=== PATIENT | female | born 1975 | race African-American/Black ===

== ENCOUNTER 2024-01-02 13:40 | Inpatient (IN) ==
--- OUTSIDE RECORDS SUMMARY | 2024-01-02 13:53 | External Medical Summary | Summary of Care ---
Author Name Unknown Organization [facility] Address [address] [place] [address] Phone [phone] Care Team Providers Care Hog Cutter Name Role Phone Janice Gutierrez MD Primary Care Provider [phone] Reason for Visit * Reason Onset Date Comments Medication Refill 12/24/2023 Encounter Details Date Type Department Care Team (Late st Contact Info) Description 12/24/2023 Refill General Internal Medicine [facility] [address] [facility] [place] [address] Janice Gutierrez MD [address] [place] [address] Moderate episode of recurrent major depressive disorder (HCC); Lumbar radiculopathy Allergies No known active allergiesdocumented as of this encounter (statuses as of 12/27/2023) Medications Medication Sig Dispensed Refills Start Date End Date Status Meclizine HCl 25 MG Oral Tablet ChewableIndications :Vertigo Take 1 Tablet by mouth 3 times a day as needed for Dizziness. 30 Tablet 1 04/12/2023 Active Meclizine HCl 25 MG Oral Tablet (Antivert) TAKE 1 TABLET BY MOUTH THREE TIMES A DAY IF NEEDED FOR DIZZINESS 30 Tablet 1 06/29/2023 Active Ondansetron HCl 4 MG Oral Tablet (Zofran) Take 1 Tablet by mouth every 6 hours as needed for Nausea. 07/08/2023 Active Ventolin HFA 108 (90 Base) MCG/ACT Inhalation Aerosol SolutionIndications :Acute bronchitis, antibiotics not indicated Inhale 2 Puffs by mouth every 4 hours as needed for Wheezing. 18 g 2 07/14/2023 Active Omeprazole 20 MG Oral Capsule Delayed Release (PriLOSEC) Take 1 Capsule by mouth in the morning. 1 hour before the first meal of the day. 90 Capsule 2 08/06/2023 Active SUMAtriptan Succinate 25 MG Oral Tablet (Imitrex)Indication s:Migraine variant Take 2 tablets at onset of migraine and one tablet every 2 hours as needed, not more than 5 tablets in 24 hours 6 Tablet 5 09/28/2023 Active Naproxen 500 MG Oral Tablet (Naprosyn) TAKE 1 TABLET BY MOUTH TWICE A DAY IF NEEDED FOR PAIN WITH FOOD 60 Tablet 1 12/01/2023 Active DULoxetine HCl 30 MG Oral Capsule Delayed Release Particles (Cymbalta)Indicatio ns:Moderate episode of recurrent major depressive disorder (HCC),Lumbar radiculopathy Take 1 Capsule by mouth in the morning and 1 Capsule before bedtime. Do not cut, crush or chew. 180 Capsule 12/03/2023 Active methylPREDNISolone 4 MG Oral Tablet Therapy Pack (Medrol Dosepack)Indication s:Lumbar radiculopathy,Lumba r degenerative disc disease follow package directions 21 Tablet 12/16/2023 Active Gabapentin 600 MG Oral Tablet (Neurontin)Indicati ons:Lumbar radiculopathy,Lumba r degenerative disc disease Take 1 Tablet by mouth in the morning and 1 Tablet at noon and 1 Tablet before bedtime. 90 Tablet 5 12/16/2023 Active Baclofen 10 MG Oral Tablet (Lioresal)Indicatio ns:Lumbar radiculopathy,Lumba r degenerative disc disease Take 1 Tablet by mouth 2 times a day as needed for Pain, Moderate. 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 Remove old patch daily Do not start before January 28, 2024. 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 14 Patch 1 12/20/2023 Active Additional Information Patient not taking.Reported on 12/27/2023 documented as of this encounter (statuses as of 12/27/2023) Active Problems Problem Noted Date Diagnosed Date Moderate episode of recurrent major depressive d isorder 07/14/2023 Food insecurity 06/21/2023 Overview: Per [facility] Protocol Hyperlipidemia with target LDL less than 100 08/2022 Migraine variant 03/18/2023 Tobacco use disorder 02/26/2010 Overview: Continue to discuss cessation at each visit 03/26: 1/2 ppd INFORMATION 02/26/2010 Overview: Pt's daughter with fibrous dysplasia-message to [facility] if she needs to be seen by them and genetic counselor- It appears that there can be some rare genetic syndromes that include fibrous dysplasia as a finding, however, when isolated, this appears to be not related to a known genetic cause and is not expected to be hereditary. If her child has a diagnosis of a syndrome, it may be beneficial to see them. If the fibrous dysplasia is isolated with no other health or developmental concerns, there is not much information we can give, besides reassurance. Unable to reach pt by phone-please discuss above recommendations at ak-pt aware-reports daughter has not been diagnosed with any syndromes associated with fibrous dysplasia documented as of this encounter (statuses as of 12/27/2023) Resolved Problems Problem Noted Date Diagnosed Date Resolved Date h/o marijuana use in 02/26/2010 03/18/2023 Overview: Pt using marijuana to increase appetite as she is not eating much due to n/v; pt aware of risks 03/26: pt has stopped use Encounter for supervision of other normal 02/18/2010 09/22/2010 Overview: Urine cx contaminated at [facility] visit Obtained 03/26-wnl Patient received flu vaccine. 04/29/2010 Dee Alfredo RN ICD-10 update of inactive term delivery delivered 02/18/2010 03/18/2023 Overview: Desires repeat c/s; pt to have records sent to our office with op notes for c/s-discussed 03/26 Pt desires tubal ligation with c/s 2) consent signed 07/09/2010 Pt is scheduled for on 09/05/[address] Padilla ICD-10 update of inactive term documented as of this encounter (statuses as of 12/27/2023) Immunizations Name Administration Dates Next Due Seasonal Influenza, Split, IIV3, With Preserve, Inj 04/29/2010 documented as of this encounter Social History Tobacco Use Types Packs/Day Years Used Date Smoking Tobacco: Every Day Cigarettes 1 30 Smokeless Tobacco: Never Alcohol Use Standard Drinks/Week Comments No 0 (1 standard drink = 0.6 oz pur e alcohol) PHQ-2 Answer Date Recorded PHQ Adult Total Score 23 04/12/2023 Hunger Vital Sign Answer Date Recorded Within the past 12 months, y ou worried that your food would run out before you got the money to buy more. Often true 05/26/20 23 Within the past 12 months, t he food you bought just didn't last and you didn't have money to get more. Often true 05/26/2023 Sex and Gender Information Value Date Recorded Sex Assigned at Female 03/08/2023 9:00 AM EDT Gender Identity Female 03/08/2023 9:00 AM EDT Sexual Orientation Not on file Job Start Date Occupation Industry Not on file Not on file Not on file documented as of this encounter Miscellaneous Notes * Telephone Encounter - Iza Hayes MD - 12/24/2023 3:50 PM EDTRefused Prescriptions: Disp Refills DULoxetine HCl 30 MG Oral Capsule Delayed *180 Ca*5 Sig: Take 1 Capsule by mouth in the morning and 1 Capsule before bedtime. Do not cut, crush or chew. Refused By: IZA HAYES Reason for Refusal: Too soon * Telephone Encounter - Iza aHyes MD - 12/24/2023 3:50 PM EDT To soon, see last prescription * Telephone Encounter - Dex Kenyon, Kira Talent - 12/24/2023 3:18 PM EDTPending Prescriptions: Disp Refills DULoxetine HCl 30 MG Oral Capsule Delayed *180 Ca*5 Sig: Take 1 Capsule by mouth in the morning and 1 Capsule before bedtime. Do not cut, crush or chew. * Telephone Encounter - Dex Kenyon Kira Talent - 12/24/2023 3:17 PM EDT Review and sign if agreeable. * Telephone Encounter - Ally Owusu, RODOLFO - 12/24/2023 11:16 AM EDT 90 day Did you pend patient's preferred pharmacy and medication before forwarding?yes Pharmacy: [id number] [facility] Pending Prescriptions: Disp Refills DULoxetine HCl 30 MG Oral Capsule Delayed*180 Ca*5 Sig: Take 1 Capsule by mouth in the morning and 1 Capsule before bedtime. Do not cut, crush or chew. Last Visit: 07/14/2023 (in office), 12/16/2023 (telemedicine) Next Visit: Visit date not found If no future appointments scheduled, and last appointment is greater than a year ago, please schedule patient for a follow-up appointment Last date the medication was ordered: 12/03/23 Is this request for a controlled substance?No Urine Drug Screen:No results found for this or any previous visit. Patient Phone Numbers Labs: Lab Results Component Value Date/Time CREAT 0.6 03/18/2023 10:56 AM POTASSIUM 4.5 03/18/2023 10:56 AM TSH 1.74 03/18/2023 10:56 AM TSH 2.12 04/29/2010 04:01 PM LDLCALC 161 (H) 03/18/2023 10:56 AM ALT 40 (H) 03/18/2023 10:56 AM ALT 4 (L) 04/29/2010 04:01 PM HGBA1C 5.8 (H) 03/18/2023 10:56 AM documented in this encounter Plan of Treatment Upcoming Encounters Date Type Department Care Team (Late st Contact Info) Description 03/24/2024 3:00 PM EDT Office Visit Orthopaedics Spine Surgery, [facility] [address] [place] [address] Jg Elder MD [address] [place] [address] [place] [address] 07/11/2024 11:20 AM EST Telemedicine Nutrition & Weight Management, [facility] [address] [address] Merari Baires PA-C [address] [place] [address] Scheduled Procedures Name Priority Associated Diagnoses Date/Ti me COLONOSCOPY FLEXIBLE PROXIMAL DIAGNOSTIC Screen for colon cancer 12/27/2023 7:55 AM EDT Health Maintenance Due Date Last Done Comments Pneumococcal Vaccine: Pediatrics (0 to 5 Years) and At-Risk Patients (6 to 64 Years) (1 of 2 - PCV) 10/19/1983 DTaP,Tdap,and Td Vaccines (1 - Tdap) 1996 Hepatitis B (1 of 3 - 19+ 3-dose series) 1996 Cologuard 2022 Fecal Occult Blood Test 2022 Sigmoidoscopy 2022 COVID-19 Vaccine (1 - 2022-2 4 season) 2023 Influenza Vaccine (FLU shot) (Season Ended) 2024 04/29/2010 Depression Monitoring 04/12/2024 04/12/2023 Mammogram 10/03/2024 10/04/2023, 04/05/2023 Diabetes Screening 03/18/2026 03/18/2023, 03/18/2023 Lipid Panel 03/18/2028 03/18/2023 Colonoscopy 12/26/2033 12/27/2023 Colorectal Cancer Screening 12/26/2033 Pap Smear Discontinued 02/26/2010 Cervical Cancer Screening Discontinued GARDASIL-HPV IMMUNIZATION SERIES Aged Out No longer eligible based on patient's age to complete this topic HPV/Co-Test Discontinued MENINGOCOCCAL (MENACTRA/MENVEO) Aged Out No longer eligible based on patient's age to complete this topic documented as of this encounter Medical Devices Not on filedocumented as of this encounter Visit Diagnoses Diagnosis Moderate episode of recurrent major depressive disorder (HCC) Lumbar radiculopathy Thoracic or lumbosacral neuritis or radiculitis, unspecified documented in this encounter Care Teams Hog Cutter Relationship Specialty Start Date End Date Janice Gutierrez MD [address] [place] [address] PCP - General Internal Medicine 09/06/23 documented as of this encounter
--- OUTSIDE RECORDS SUMMARY | 2024-01-02 13:53 | External Medical Summary | Summary of Care ---
Author Name Unknown Organization [facility] Address [address] [place] [address] Phone [phone] Care Team Providers Care Tower Supervisor Name Role Phone Janice Gutierrez MD Primary Care Provider [phone] Reason for Referral * Medication Prior Authorization - Closed Specialty Diagnoses / Procedures Referred By Contac t Referred To Contact Diagnoses Migraine variant Arabella White, [facility] [phone] [facility] [address] Referral ID Status Reason Start Date Expiration Date Visits Re quested Visits Authorized [id number] Closed 999 999 Reason for Visit * Reason Onset Date Comments Medication Refill 12/28/2023 Encounter Details Date Type Department Care Team (Late st Contact Info) Description 12/28/2023 Refill General Internal Medicine [facility] [address] [place] [address] Janice Gutierrez MD [address] [place] [address] Migraine variant Allergies No known active allergiesdocumented as of this encounter (statuses as of 12/29/2023) Medications Medication Sig Dispensed Refills Start Date End Date Status Meclizine HCl 25 MG Oral Tablet ChewableIndication s:Vertigo Take 1 Tablet by mouth 3 times [...] HFA 108 (90 Base) MCG/ACT Inhalation Aerosol SolutionIndication s:Acute bronchitis, antibiotics not indicated Inhale 2 Puffs by mouth every 4 hours as needed for Wheezing. 18 g 2 07/14/2023 Active Omeprazole 20 MG Oral Capsule Delayed Release (PriLOSEC) Take 1 Capsule by mouth in the morning. 1 hour before the first meal of the day. 90 Capsule 2 08/06/2023 Active Naproxen 500 MG Oral Tablet (Naprosyn) TAKE 1 TABLET BY MOUTH TWICE A DAY IF NEEDED FOR PAIN WITH FOOD 60 Tablet 1 12/01/2023 Active DULoxetine HCl 30 MG Oral Capsule Delayed Release Particles (Cymbalta)Indicati ons:Moderate episode of recurrent major depressive disorder (HCC),Lumbar radiculopathy Take 1 Capsule by mouth in the morning and 1 Capsule before bedtime. Do not cut, crush or chew. 180 Capsule 5 12/03/2023 Active methylPREDNISolone 4 MG Oral Tablet Therapy Pack (Medrol Dosepack)Indicatio ns:Lumbar radiculopathy,Lumb ar degenerative disc disease follow package directions 21 Tablet 12/16/2023 Active Gabapentin 600 MG Oral Tablet (Neurontin)Indicat ions:Lumbar radiculopathy,Lumb ar degenerative disc disease Take 1 Tablet by mouth in the morning and 1 Tablet at noon and 1 Tablet before bedtime. 90 Tablet 5 12/16/2023 Active Baclofen 10 MG Oral Tablet (Lioresal)Indicati ons:Lumbar radiculopathy,Lumb ar degenerative disc disease Take 1 Tablet by mouth 2 times a day as needed for Pain, Moderate. 20 Tablet 12/16/2023 Active Nicotine 21 MG/24HR Transdermal Patch 24 Hour (Nicoderm CQ)Indications:Tob acco use 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 Remove old patch daily 42 Patch 1 12/20/2023 Active Nicotine 14 MG/24HR Transdermal Patch 24 Hour (Nicoderm CQ)Indications:Tob acco use disorder One 14 mg patch daily for 2 wks; then one 7 mg patch daily for 2 wks. Remove old patch daily Do not start before January 28, 2024. 14 Patch 2 01/28/2024 4 Active Additional Information Patient not taking.Reported on 12/27/2023 Nicotine 7 MG/24HR Transdermal Patch 24 Hour (Nicoderm CQ)Indications:Tob acco use disorder One 7 mg patch daily for 2 weeks; Remove old patch daily; and then stop. 14 Patch 1 12/20/2023 Active Additional Information Patient not taking.Reported on 12/27/2023 SUMAtriptan Succinate 25 MG Oral Tablet (Imitrex)Indicatio ns:Migraine variant Take 2 tablets at onset of migraine and one tablet every 2 hours as needed, not more than 5 tablets in 24 hours 6 Tablet 5 12/29/2023 Active SUMAtriptan Succinate 25 MG Oral Tablet (Imitrex)Indicatio ns:Migraine variant Take 2 tablets at onset of migraine and one tablet every 2 hours as needed, not more than 5 tablets in 24 hours 6 Tablet 5 09/28/2023 4 Discontinu ed(Refill) documented as of this encounter (statuses as of 12/29/2023) Active Problems Problem Noted Date Diagnosed Date Moderate episode of recurrent major depressive d isorder 07/14/2023 Food insecurity 06/21/2023 Overview: Per [facility] Protocol Hyperlipidemia with target LDL less than 100 08/2022 Migraine variant 03/18/2023 Tobacco use disorder 02/26/2010 Overview: Continue to discuss cessation at each visit 03/26: 1/2 ppd INFORMATION 02/26/2010 Overview: Pt's daughter with fibrous dysplasia-message to [facility] if she needs to be seen [...] pt by phone-please discuss above recommendations at nv-pt aware-reports daughter has not been diagnosed with any syndromes associated with fibrous dysplasia documented as of this encounter (statuses as of 12/29/2023) Resolved Problems Problem Noted Date Diagnosed Date [...] as of this encounter (statuses as of 12/29/2023) Immunizations Name Administration Dates Next Due Seasonal [...] money to get more. Often true 05/26/2023 Childcare Answer Date Recorded Do you feel overwhelmed with taking care of a child, family member or friend? Yes 05/26/2023 Does your family need help f inding childcare? (Household - for ages 0-17 years) Not on file 05/26/2023 Clothing Answer Date Recorded Have you been unable to get clothing when it was really needed? Yes 05/26/2023 Is your family able to get c lothes or diapers when needed? (Household - for ages 0-17 years) Not on file 05/26/2023 Personal Safety Answer Date Recorded Do you feel unsafe or have concerns for your saf ety? No 05/26/2023 Do you have concerns for you r family's safety? (Household - for ages 0-17 years) Not on file 05/26/2023 Utilities Answer Date Recorded Do you have trouble paying y our heating, water, or electric bill? Yes 05/26/2023 Is your family able to pay t he heat, water, or electric bill? (Household - for ages 0-17 years) Not on file 05/26/2023 Does your family have access to good internet? (Household - for ages 0-17 years) Not on file 05/26/2023 Employment Status Answer Date Recorded Are you unemployed or without regular income? Ye s 05/26/2023 Does the household have a re gular source of income? (Household - for ages 0-17 years) Not on file 05/26/2023 Social Connections Answer Date Recorded How often do you feel lonely or isolated from th ose around you? Often 05/26/2023 Financial Resource Strain Answer Date R ecorded Do you have any trouble payi ng for your medications, or do you think you might in the future? No 05/26/2023 Does your family have troubl e paying for medicine? (Household - for ages 0-17 years) Not on file 05/26/2023 Transportation Needs Answer Date Record ed READ ONLY Do you have troubl e getting a ride to medical visits or work? Sometimes True 05/26/2023 Does your family have a hard time getting a ride to doctors visits? (Household - for ages 0-17 years) Not on file 05/26/2023 Has lack of transportation k ept you from medical appointments, meetings, work, or from getting things needed for daily living? Check all that apply. (Adult - for ages 18 years and over) Not on file 05/26/2023 Do you (or your family) have trouble finding or paying for a ride (transportation)? (Household - for ages 0-17 years) Not on file 05/26/2023 Housing Stability Answer Date Recorded Do you currently live in a s helter or have no steady place to sleep at night? No 05/26/2023 READ ONLY Do you think you a re at risk of becoming homeless? No 05/26/2023 Does your family worry about paying for your home or becoming homeless? (Household - for ages 0-17 years) Not on file 1 07/26/2022 Are you homeless or worried that you might be in the future? (Adult - for ages 18 years and over) Not on file Are you (or your family) nicole eless or worried that you might be in the future? (Household - for ages 0-17 years) Not on file Food Insecurity Answer Date Recorded Do you need food for this week? Yes 05/26/2023 Are you able to get enough f ood for your family? (Household - for ages 0-17 years) Not on file 05/26/2023 Does your family need food t his week? (Household - for ages 0-17 years) Not on file 05/26/2023 Do you always have enough fo od for your family? (Household - for ages 0-17 years) Not on file 05/26/2023 Sex and Gender Information Value Date Recorded Sex Assigned at Female 03/08/2023 9:00 AM EDT Gender Identity Female 03/08/2023 9:00 AM EDT Sexual Orientation Not on file Job Start Date Occupation Industry Not on file Not on file Not on file documented as of this encounter Miscellaneous Notes * Telephone Encounter - Arabella White [facility] - 12/29/2023 8:52 AM EDTSigned Prescriptions: Disp Refills SUMAtriptan Succinate 25 MG Oral Tablet (I*6 Tabl*5 Sig: Take 2 tablets at onset of migraine and one tablet every 2 hours as needed, not more than 5 tablets in 24 hoursAuthorizing Provider: Janna GUTIERREZ User: ARABELLA WHITE documented in this encounter Plan of Treatment Upcoming Encounters Date Type Department Care Team (Late st Contact Info) Description 03/24/2024 3:00 PM EDT Office Visit Orthopaedics Spine Surgery, [facility] [address] [place] [address] Jg Elder MD [address] [place] [address] [place] [address] 07/11/2024 11:20 AM EST Telemedicine Nutrition & Weight Management, [facility] [address] [place] [address] Merari Baires PA-C [address] [place] [address] Health Maintenance Due Date Last Done Comments [...] 03/18/2023 Lipid Panel 03/18/2028 03/18/2023 Colonoscopy 12/26/2033 12/27/2023, 12/27/2023 Colorectal Cancer Screening 12/26/2033 Pap Smear Discontinued 02/26/2010 Cervical Cancer Screening Discontinued GARDASIL-HPV IMMUNIZATION SERIES Aged Out No longer eligible based on patient's age to complete this topic HPV/Co-Test Discontinued MENINGOCOCCAL (MENACTRA/MENVEO) Aged Out No longer eligible based on patient's age to complete this topic documented as of this encounter Medical Devices Not on filedocumented as of this encounter Visit Diagnoses Diagnosis Migraine variant Variants of migraine, not elsewhere classified, without mention of intractable migraine without mention of status migrainosus documented in this encounter Care Teams Tower Supervisor Relationship Specialty Start Date End Date Janice Gutierrez MD [address] [place] [id number] PCP - General Internal Medicine 09/06/23 documented as of this encounter
--- OUTSIDE RECORDS SUMMARY | 2024-01-02 13:53 | External Medical Summary | Summary of Care ---
Author Name Unknown Organization [facility] Address [address] [place] [address] Phone [phone] Care Team Providers Care Fourdrinier Tender Name Role Phone Janice Gutierrez MD Primary Care Provider [phone] Reason for Visit * Reason Onset Date Comments Medication Refill 12/28/2023 Encounter Details Date Type Department Care Team (Late st Contact Info) Description 12/28/2023 Refill General Internal Medicine [facility] [address] [facility] [place] [address] Janice Gutierrez MD [address] [place] [address] Lumbar radiculopathy; Lumbar degenerative disc disease; Moderate episode of recurrent major depressive disorder (HCC) Allergies No known active allergiesdocumented as of [...] before bedtime. 90 Tablet 5 12/16/2023 Active Nicotine 21 MG/24HR Transdermal Patch [...] Additional Information Patient not taking.Reported on 12/27/2023 Baclofen 10 MG Oral Tablet (Lioresal)Indicati ons:Lumbar radiculopathy,Lumb ar degenerative disc disease Take 1 Tablet by mouth 2 times a day as needed for Pain, Moderate. 20 Tablet 12/29/2023 Active SUMAtriptan Succinate 25 MG Oral Tablet (Imitrex)Indicatio ns:Migraine variant Take 2 tablets at onset of migraine and one tablet every 2 hours as needed, not more than 5 tablets in 24 hours 6 Tablet 5 09/28/2023 4 Discontinu ed(Refill) Baclofen 10 MG Oral Tablet (Lioresal)Indicati ons:Lumbar radiculopathy,Lumb ar degenerative disc disease Take 1 Tablet by mouth 2 times a day as needed for Pain, Moderate. 20 Tablet 12/16/2023 4 Discontinu ed(Refill) documented as of this encounter (statuses as of 12/29/2023) Active Problems Problem Noted Date Diagnosed Date Moderate episode of recurrent major depressive d isorder 07/14/2023 Food insecurity 06/21/2023 Overview: Per [facility] Protocol Hyperlipidemia with target LDL less than 100 08/2022 Migraine variant 03/18/2023 Tobacco use disorder 02/26/2010 Overview: Continue to discuss cessation at each visit 03/26: 1/2 ppd INFORMATION 02/26/2010 Overview: Pt's daughter with fibrous dysplasia-message to [facility] if she needs to be seen [...] pt by phone-please discuss above recommendations at vt-pt aware-reports daughter has not been diagnosed with [...] encounter Miscellaneous Notes * Telephone Encounter - Ricki Andrea MD - 12/29/2023 1:17 PM EDTSigned Prescriptions: Disp Refills Baclofen 10 MG Oral Tablet (Lioresal) 20 Tab*0 Sig: Take 1 Tablet by mouth 2 times a day as needed for Pain, Moderate. Authorizing Provider: RICKI ANDREA Refused Prescriptions: Disp Refills DULoxetine HCl 30 MG Oral Capsule Delayed *180 Ca*5 Sig: Take 1 Capsule by mouth in the morning and 1 Capsule before bedtime. Do not cut, crush or chew. Refused By: MEHDI WHITE Reason for Refusal: Too soon * Telephone Encounter - Mehdi White [facility] - 12/29/2023 8:44 AM EDTPending Prescriptions: Disp Refills Baclofen 10 MG Oral Tablet (Lioresal) 20 Tab*0 Sig: Take 1 Tablet by mouth 2 times a day as needed for Pain, Moderate. Refused Prescriptions: Disp Refills DULoxetine HCl 30 MG Oral Capsule Delayed *180 Ca*5 Sig: Take 1 Capsule by mouth in the morning and 1 Capsule before bedtime. Do not cut, cru sh or chew. Refused By: MEHDI WHITE Reason for Refusal: Too soon * Telephone Encounter - Dex Kenyon ED01 - 12/28/2023 1:18 PM EDTPending Prescriptions: Disp Refills Baclofen 10 MG Oral Tablet (Lioresal) 20 Tab*0 Sig: Take 1 Tablet by mouth 2 times a day as needed for Pain, Moderate. DULoxetine HCl 30 MG Oral Capsule Delayed *180 Ca*5 Sig: Take 1 Capsule by mouth in the morning and 1 Capsule before bedtime. Do not cut, crush or chew. * Telephone Encounter - Dex Kenyon, ED01 - 12/28/2023 1:18 PM EDT Review and sign if agreeable. * Telephone Encounter - Ally Owusu OSA - 12/28/2023 11:25 AM EDT 90 day Did you pend patient's preferred pharmacy and medication before forwarding?yes Pharmacy: [id number] [facility] Pending Prescriptions: Disp Refills Baclofen 10 MG Oral Tablet (Lioresal) 20 Tab*0 Sig: Take 1 Tablet by mouth 2 times a day as needed for Pain, Moderate. DULoxetine HCl 30 MG Oral Capsule Delayed*180 [...] appointment Last date the medication was ordered: 12/16/23, 12/03/23 Is this request for a controlled [...] PM EDT Office Visit Orthopaedics Spine Surgery, [facility] [address] [place] [address] Jg Elder MD [address] [place] [address] 07/11/2024 11:20 AM EST Telemedicine Nutrition & Weight Management, [facility] [address] [place] [address] Merari Baires PA-C [address] [place] [address] Health Maintenance Due Date Last Done Comments [...] as of this encounter Visit Diagnoses Diagnosis Lumbar radiculopathy Thoracic or lumbosacral neuritis or radiculitis, unspecified Lumbar degenerative disc disease Degeneration of lumbar or lumbosacral intervertebral disc Moderate episode of recurrent major depressive disorder (HCC) documented in this encounter Care Teams Fourdrinier Tender Relationship Specialty Start Date End Date Janice Gutierrez MD [address] [facility] [place] [address] PCP - General Internal Medicine 09/06/23 documented as of this encounter
--- OUTSIDE RECORDS SUMMARY | 2024-01-02 13:53 | External Medical Summary | Summary of Care ---
Author Name Unknown Organization [facility] Address [address] [place] [address] Phone [phone] Care Team Providers Care Cap Jewel Plate Assembler Name Role Phone Janice Gutierrez MD Primary Care Provider [phone] Reason for Visit * Auth/Cert Specialty Diagnoses / Procedures Referred By Jaime terry Referred To Contact Diagnoses Screen for colon cancer Screen for colon cancer [Z12.11] Procedures COLONOSCOPY, DIAGNOSTIC (RECTUM) COLONOSCOPY FLEXIBLE PROXIMAL DIAGNOSTIC Avi Miranda MD [employer] [place] [address] [facility] [address] [employer] [place] [address] Referral ID Status Reason Start Date Expiration Date Visits Re quested Visits Authorized [id number] Encounter Details Date Type Department Care Team (Latest Contact Info) Description 12/27/2023 6:57 AM EDT - 12/27/2023 8:47 AM EDT Hospital Encounter [facility], Endoscopy Room [facility] [address] [place] [phone] Avi Miranda MD [address] [place] [address] Colonoscopy Discharge Disposition: Home - Self Care Allergies No known active allergiesdocumented as of [...] MG/24HR Transdermal Patch 24 Hour (Nicoderm CQ)Indications:[employer]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 Remove old patch daily 42 Patch 1 12/20/2023 01/28/2024 Active documented as of this encounter (statuses as of 12/27/2023) Active Problems Problem Noted Date Diagnosed Date Moderate episode of recurrent major depressive d isorder 07/14/2023 Food insecurity 06/21/2023 Overview: Per [facility] Protocol Hyperlipidemia with target LDL less than 100 08/2022 Migraine variant 03/18/2023 Tobacco use disorder 02/26/2010 Overview: Continue to discuss cessation at each visit 03/26: 1/2 ppd INFORMATION 02/26/2010 Overview: Pt's daughter with fibrous dysplasia-message to [facility] if she needs to be seen [...] pt by phone-please discuss above recommendations at mi-pt aware-reports daughter has not been diagnosed with [...] on file documented as of this encounter Last Filed Vital Signs Vital Sign Reading Time Taken Comments Blood Pressure 127/62 12/27/2023 8:36 AM EDT Pulse 69 12/27/2023 8:36 AM EDT Temperature 36.2 C (97.1 F) 12/27/2023 8:36 AM ED T Respiratory Rate 16 12/27/2023 8:36 AM EDT Oxygen Saturation 96% 12/27/2023 8:36 AM EDT Inhaled Oxygen Concentration - - Weight 107 kg (236 lb) 12/27/2023 7:18 AM EDT Height 167.6 cm (5' 5.98") 12/27/2023 7:18 AM ED T Body Mass Index 38.11 12/27/2023 7:18 AM EDT documented in this encounter H&P Notes * Avi Miranda MD - 12/27/2023 7:43 AM EDT Endoscopy Pre-Procedure Assessment Name: Keyona Santos Date: 12/27/2023 Time: 7:43 AM Procedure: Colonoscopy; with Indication(s) of average risk screening Endoscopy Pre-Procedure Assessment: Prior to the procedure, the patient was identified. The patient's history, medications and allergies were reviewed as per the Anesthesia Assessment. The patient is competent. The risks and benefits of the proposed procedure and the planned sedation were discussed with the patient. All questions were answered and informed consent for the procedure was obtained. This patient has undergone a preprocedural evaluation. A determination has been made to proceed with the planned procedure under [facility] procedural guidelines and the [facility] Non-Emergent, Elective Medical Services and Treatment Recommendations (published on 10-17-19). The community and hospital prevalence of COVID-19 has been discussed as well as this patient's specific risks associated with SARS-CoV-19 infection. Based upon the clinical acuity and patient-specific care considerations, this procedure is deemed a Tier II - Intermediate acuity treatment or service with either progression or the threat of progressive disease related to the delay in treatment. Not providing the service has the potential for increasing morbidity or mortality. BP 132/79 | Pulse 82 | Temp 36.7 C (98 F) (Tympanic) | Resp 18 | Ht 1.676 m (5' 5.98") | Wt 107kg (236 lb) | SpO2 96% | BMI 38.11 kg/m | BSA 2.23 m Prior to Admission medications Medication Sig Last Dose Discont. Nicotine 21 MG/24HR Transdermal Patch 24 Hour (Nicoderm CQ) One 21 mg patch daily for 6 wks; then one 14 mg patch daily for 2 wks; then one 7 mg patch daily for 2 wks. Remove old patch daily 12/26/2023 Baclofen 10 MG Oral Tablet (Lioresal) Take 1 Tablet by mouth 2 times a day as needed for Pain, Moderate. Past Week Gabapentin 600 MG Oral Tablet (Neurontin) Take 1 Tablet by mouth in the morning and 1 Tablet at noon and 1 Tablet before bedtime. 12/27/2023 methylPREDNISolone 4 MG Oral Tablet Therapy Pack (Medrol Dosepack) follow package directions Past Week DULoxetine HCl 30 MG Oral Capsule Delayed Release Particles (Cymbalta) Take 1 Capsule by mouth in the morning and 1 Capsule before bedtime. Do not cut, crush or chew. 12/27/2023 Naproxen 500 MG Oral Tablet (Naprosyn) TAKE 1 TABLET BY MOUTH TWICE A DAY IF NEEDED FOR PAIN WITH FOOD Past Week SUMAtriptan Succinate 25 MG Oral Tablet (Imitrex) Take 2 tablets at onset of migraine and one tablet every 2 hours as needed, not more than 5 tablets in 24 hours Past Month Omeprazole 20 MG Oral Capsule Delayed Release (PriLOSEC) Take 1 Capsule by mouth in the morning. 1 hour before the first meal of the day. 12/27/2023 Nicotine 14 MG/24HR Transdermal Patch 24 Hour (Nicoderm CQ) One 14 mg patch daily for 2 wks; then one 7 mg patch daily for 2 wks. Remove old patch daily Do not start before January 28, 2024. Patient not taking: Reported on 12/27/2023 Do not start before January 28, 2024. Not Taking Nicotine 7 MG/24HR Transdermal Patch 24 Hour (Nicoderm CQ) One 7 mg patch daily for 2 weeks; Removeold patch daily; and then stop. Patient not taking: Reported on 12/27/2023 Not Taking Ondansetron HCl 4 MG Oral Tablet (Zofran) Take 1 Tablet by mouth every 6 hours as needed for Nausea. Over 30 Days Ventolin HFA 108 (90 Base) MCG/ACT Inhalation Aerosol Solution Inhale 2 Puffs by mouth every 4 hours as needed for Wheezing. Over 30 Days Meclizine HCl 25 MG Oral Tablet (Antivert) TAKE 1 TABLET BY MOUTH THREE TIMES A DAY IF NEEDED FOR DIZZINESS Over 30 Days Meclizine HCl 25 MG Oral Tablet Chewable Take 1 Tablet by mouth 3 times a day as needed for Dizziness. Over 30 Days Review of patient's allergies indicates: No Known Allergies Physical Exam: Mental Status Examination: alert and oriented. General: nad, calm Airway Examination: normal oropharyngeal airway and neck mobility. CV: no JVD Respiratory Examination: symmetrical excursion Abd:soft/ntd ASA Grade: III - A patient with severe systemic disease. After reviewing the risks and benefits, the patient was deemed in satisfactory condition to undergothe procedure. The anesthesia plan was to use general anesthesia. Avi Miranda MD 12/27/2023 documented in this encounter Procedure Notes * Janice Gutierrez MD - 12/27/2023 7:51 AM EDTAssociated Order(s): COLONOSCOPY [facility] Patient Name: Keyona Santos Procedure Date: 12/27/2023 7:51 AM Date of : 1975 Admit Type: Outpatient Note Status: Finalized Date of : 1975 Admit Type: Outpatient Age: 48 Room: Endo 2 Gender: Female Note Status: Finalized Procedure: Colonoscopy Indications: Screening for colorectal malignant neoplasm Providers: Avi Miranda MD (Doctor) Referring MD: Janice Gutierrez MD (Referring MD) Medicines: Propofol per Anesthesia Complications: No immediate complications. Estimated blood loss: None. Procedure: Pre-Anesthesia Assessment: - - Prior to the procedure, a History and Physical was performed, patient medications, allergies and sensitivities were reviewed. The patient's tolerance of previous anesthesia was reviewed. See [facility] for further details. - The risks, benefits, and alternatives of the procedure including the sedation options and risks were discussed with the patient. All questions were answered and informed consent was obtained. - Patient identification and proposed procedure were verified prior to the procedure by the physician and the nurse. The procedure was verified in the procedure room. - See [facility] for documentation of the pre-procedure assessment including ASA status. - After I obtained informed consent, the scope was carefully and meticulously passed under direct vision only when the lumen was definitively identified. CO2 insufflation was utilized throughout the entire procedure exclusively. After I obtained informed consent, the scope was passed under direct vision. All instruments were visually inspected immediately before and after removal from the patient to ensure they are fully intact. Throughout the procedure, the patient's blood pressure, pulse, and oxygen saturations were monitored continuously. The colonoscopy was performed without difficulty. The patient tolerated the procedure well. The quality of the bowel preparation was good. The CF-[id number] Colonoscope ([id number]) was introduced through the anus and advanced to the cecum, identified by appendiceal orifice and ileocecal valve. Findings & Specimens: The terminal ileum appeared normal. A 4 mm polyp was found in the descending colon. The polyp was sessile. The polyp was removed with a cold snare. Resection and retrieval were complete. The pathology specimen was placed into Bottle Number 1. A 1 mm polyp was found in the sigmoid colon. The polyp was sessile. The polyp was removed with a jumbo cold forceps. Resection and retrieval were complete. The pathology specimen was placed into Bottle Number 2. Internal hemorrhoids were found during retroflexion. Multiple medium-mouthed diverticula were found in the sigmoid colon. The exam was otherwise without abnormality on direct and retroflexion views. Impression: - The examined portion of the ileum was normal. - One 4 mm polyp in the descending colon, removed with a cold snare. Resected and retrieved. - One 1 mm polyp in the sigmoid colon, removed with a jumbo cold forceps. Resected and retrieved. - Internal hemorrhoids. - Diverticulosis in the sigmoid colon. - The examination was otherwise normal on direct and retroflexion views. Recommendation: - Discharge patient to home (with escort). - Repeat colonoscopy in 5 years for surveillance based on pathology results. - Return to referring physician as previously scheduled. - Patient has a contact number available for emergencies. The signs and symptoms of potential delayed complications were discussed with the patient. Return to normal activities tomorrow. Written discharge instructions were provided to the patient. Avi Miranda MD 12/27/2023 8:21:46 AM This report has been signed electronically. documented in this encounter Nursing Notes * Guerda Prescott RN - 12/27/2023 8:46 AM EDT Patient is alert, pain free, passing flatus and tolerating po fluids prior to discharge. Patient has been visited by Dr. Miranda. Patient has received and demonstrates understanding of discharge instructions. Patient ambulates to private auto accompanied by endo staff. * Teto Werner RN - 12/27/2023 8:22 AM EDT Specimen(s) and location(s) verified with physician post procedure 8:22 AM Teto Werner RNMid abdominal pressure given per Dr. Miranda to assist with scope advancement. Pt tolerated well See anesthesia record for medication administered during procedure. Teto Werner RN Pre cleaning of scope at the bedside started by air conditioning service technician. * Guerda Prescott RN - 12/27/2023 8:21 AM EDT Patient transferred to post endo s/p colonoscopy. Patient awake and responding appropriately Respirations are even and unlabored on room air. NSR in the 70s on the monitor. Abdomen soft and non distended. Vital signs stable. * Doris Martínez RN - 12/27/2023 7:17 AM EDT The following pt discharge instructions reviewed with pt prior to prodedure: No driving today. No alcohol today. No signing of legal documents. Rest as much as possible today and can return to normal activities tomorrow. No operating any heavy equipment today. Diet as tolerated. Pt verbalized understanding. * Doris Martínez RN - 12/27/2023 7:09 AM EDT Patient does not meet criteria for testing. Patient s/p hysterectomy. documented in this encounter Plan of Treatment Upcoming Encounters Date Type Department Care Team (Late st Contact Info) Description 03/24/2024 3:00 PM EDT Office Visit Orthopaedics Spine Surgery, [address] [place] [address] Jg Elder MD [address] [place] [address] 07/11/2024 11:20 AM EST Telemedicine Nutrition & Weight Management, [facility] [address] [place] [address] Merari Biares PA-C [address] [place] [address] Pending Results Name Type Priority Associated Diagnoses Date /Time SURGICAL PATHOLOGY Pathology Routine Screen for colon cancer 12/27/2023 8:20 AM EDT Scheduled Orders Name Type Priority Associated Diagnoses Orde r Schedule SURGICAL PATHOLOGY Pathology Routine Screen for colon cancer Release Upon Ordering for 1 Occurrences starting 12/27/2023, 1 completed Scheduled Procedures Name Priority Associated Diagnoses Date/Ti [...] Not on filedocumented as of this encounter Procedures Procedure Name Priority Date/Time Associated Diagnosis Comments COLONOSCOPY 12/27/2023 7:51 AM EDT documented in this encounter Results * COLONOSCOPY (12/27/2023 7:51 AM EDT) 12/27/2023 7:51 AM EDT Narrative Procedure Note Janice Gutierrez MD - 12/27/2023 7:51 AM EDT [facility] Patient Name: Kyeona Santos Procedure Date: 12/27/2023 7:51 AM Date of : 1975 Admit Type: Outpatient Note Status:Finalized Date of : 1975 Admit Type: Outpatient Age: 48 Room: Endo 2 Gender: Female Note Status: Finalized Procedure: Colonoscopy Indications: Screening for colorectal malignant neoplasm Providers: Avi Miranda MD (Doctor) Referring MD: Janice Gutierrez MD (Referring MD) Medicines: Propofol per Anesthesia Complications: No immediate complications. Estimated blood loss:None. Procedure: Pre-Anesthesia Assessment: - - Prior to the procedure, a History and Physicalwas performed, patient medications, allergies and sensitivities were reviewed. Thepatient's tolerance of previous anesthesia was reviewed. See [facility] for furtherdetails. - The risks, benefits, and alternatives of theprocedure including the sedation options and risks were discussed with the patient.All questions were answered and informed consent was obtained. - Patient identification and proposed procedurewere verified prior to the procedure by the physician and the nurse. The procedure wasverified in the procedure room. - See [facility] for documentation of the pre-procedureassessment including ASA status. - After I obtained informed consent, the scope wascarefully and meticulously passed under direct vision only when the lumen wasdefinitively identified. CO2 insufflation was utilized throughout the entire procedureexclusively. After I obtained informed consent, the scope waspassed under direct vision. All instruments were visually inspected immediatelybefore and after removal from the patient to ensure they are fully intact. Throughout the procedure, the patient's bloodpressure, pulse, and oxygen saturations were monitored continuously. The colonoscopy wasperformed without difficulty. The patient tolerated the procedure well. The qualityof the bowel preparation was good. The CF-[id number] Colonoscope ([id number]) was introducedthrough the anus and advanced to the cecum, identified by appendiceal orifice andileocecal valve. Findings & Specimens: The terminal ileum appeared normal. A 4 mm polyp was found in the descending colon. The polyp wassessile. The polyp was removed with a cold snare. Resection and retrieval were complete. The pathologyspecimen was placed into Bottle Number 1. A 1 mm polyp was found in the sigmoid colon. The polyp was sessile.The polyp was removed with a jumbo cold forceps. Resection and retrieval were complete. The pathologyspecimen was placed into Bottle Number 2. Internal hemorrhoids were found during retroflexion. Multiple medium-mouthed diverticula were found in the sigmoidcolon. The exam was otherwise without abnormality on direct and retroflexionviews. Impression: - The examined portion of the ileum was normal. - One 4 mm polyp in the descending colon, removedwith a cold snare. Resected and retrieved. - One 1 mm polyp in the sigmoid colon, removed witha jumbo cold forceps. Resected and retrieved. - Internal hemorrhoids. - Diverticulosis in the sigmoid colon. - The examination was otherwise normal on directand retroflexion views. Recommendation: - Discharge patient to home (with escort). - Repeat colonoscopy in 5 years for surveillancebased on pathology results. - Return to referring physician as previouslyscheduled. - [facility] The signs and symptoms of potential delayed complications were discussed withthe patient. Return to normal activities tomorrow. Written discharge instructionswere provided to the patient. Avi Miranda MD 12/27/2023 8:21:46 AM This report has been signed electronically. Janice Gutierrez MD [facility] documented in this encounter Visit Diagnoses Diagnosis Screen for colon cancer Special screening for malignant neoplasms, colon documented in this encounter Administered Medications Inactive Administered Medications - up to 3 most recent administrations Medication Order MAR Action Action Date Dose Rate Site isolyte-S pH 7.4 infusion Intravenous, at 100 mL/hr, Plasma-LYTE 148, isolyte-S, and isolyte-S pH 7.4 are considered equivalent - including for MAR barcode scanning., CONTINUOUS, Starting on Wed12/27/23 at 0745, Until Wed12/27/23 at 1247, Pre-Op Restarted 12/27/2023 8:10 AM EDT Continue from Pre-Op 12/27/2023 7:53 AM EDT 100 mL/hr New Bag 12/27/2023 7:20 AM EDT 100 mL/hr documented in this encounter Active and Recently Administered Medications Times are shown in EDT. Continuous Medication Order 12/25/2023 12/26/2023 12/27/2023 isolyte-S pH 7.4 infusion Intravenous, at 100 mL/hr, Plasma-LYTE 148, isolyte-S, and isolyte-S pH 7.4 are considered equivalent - including for MAR barcode scanning., CONTINUOUS, Starting on Wed12/27/23 at 0745, Until Wed12/27/23 at 1247, Pre-Op 0720 (New Bag - Prov ider: Doris Martínze RN)0753 (Continue from Pre-Op - Provider: Olena Mccoy CRNA)0809 (Paused - Provider: Olean Mccoy CRNA - Comment: Switch to gravity)0810 (Restarted - Provider: Olena Mccoy CRNA) documented in this encounter Care Teams Cap Jewel Plate Assembler Relationship Specialty Start Date End Date Janice Gutierrez MD [address] [place] [address] PCP - General Internal Medicine 09/06/23 documented as of this encounter
--- OUTSIDE RECORDS SUMMARY | 2024-01-02 13:53 | External Medical Summary | Summary of Care ---
Author Name Unknown Organization [facility] Address [address] [place] [address] Phone [phone] Care Team Providers Care Salon Stylist Name Role Phone Janice Gutierrez MD Primary Care Provider [phone] Reason for Visit * Reason Comments Follow Up Encounter Details Date Type Department Care Team (Late st Contact Info) Description 12/16/2023 5:00 PM EDT Telemedicine General Internal Medicine [facility] [address] [facility] [place] [address] Janice Gutirerez MD 200 [place] [address] Lumbar radiculopathy*; Lumbar degenerative disc disease; Moderate episode of recurrent major depressive disorder (HCC); Tobacco use disorder; Hyperlipidemia with target LDL less than 100; Migraine variant Allergies No known active allergiesdocumented as of this encounter (statuses as of 01/02/2024) Medications Medication Sig Dispensed Refills Start Date [...] before bedtime. 90 Tablet 5 12/16/2023 Active SUMAtriptan Succinate 25 MG Oral Tablet (Imitrex)Indicatio ns:Migraine variant Take 2 tablets at onset of migraine and one tablet every 2 hours as needed, not more than 5 tablets in 24 hours 6 Tablet 5 09/28/2023 4 Discontinue d(Refill) tiZANidine HCl 2 MG Oral Tablet (Zanaflex)Indicati ons:Chronic radicular lumbar pain,DDD (degenerative disc disease), lumbar,Lumbosacral radiculopathy at L4 TAKE 1-2 TABLETS BY MOUTH AT NIGHT NEEDED FOR PAIN OR MUSCLE SPASM AND TIGHTNESS 60 Tablet 1 2023 4 Discontinue d(Medicatio n/Dose Changed) Gabapentin 400 MG Oral Capsule (Neurontin) Take 1 Capsule by mouth in the morning and 1 Capsule at noon and 1 Capsule before bedtime. 90 Capsule 5 10/19/2023 4 Discontinue d(Medicatio n/Dose Changed) Baclofen 10 MG Oral Tablet (Lioresal)Indicati ons:Lumbar radiculopathy,Lumb ar degenerative disc disease Take 1 Tablet by mouth 2 times a day as needed for Pain, Moderate. 20 Tablet 12/16/2023 4 Discontinue d(Refill) documented as of this encounter (statuses as of 01/02/2024) Active Problems Problem Noted Date Diagnosed Date Moderate episode of recurrent major depressive d isorder 07/14/2023 Food insecurity 06/21/2023 Overview: Per [facility] Protocol Hyperlipidemia with target LDL less than 100 08/2022 Migraine variant 03/18/2023 Tobacco use disorder 02/26/2010 Overview: Continue to discuss cessation at each visit 03/26: 1/2 ppd INFORMATION 02/26/2010 Overview: Pt's daughter with fibrous dysplasia-message to [facility] if she needs to be seen [...] pt by phone-please discuss above recommendations at tn-pt aware-reports daughter has not been diagnosed with any syndromes associated with fibrous dysplasia documented as of this encounter (statuses as of 01/02/2024) Resolved Problems Problem Noted Date Diagnosed Date Resolved Date h/o marijuana use in 02/26/2010 03/18/2023 Overview: Pt using marijuana to increase appetite as she is not eating much due to n/v; pt aware of risks 03/26: pt has stopped use Encounter for supervision of other normal 02/18/2010 09/22/2010 Overview: Urine cx contaminated at NOB visit Obtained 03/26-wnl Patient received flu vaccine. 04/29/2010 Dee E Park, RN ICD-10 update of inactive term delivery delivered 02/18/2010 03/18/2023 Overview: Desires repeat c/s; pt to have records sent to our office with op notes for c/s-discussed 03/26 Pt desires tubal ligation with c/s 2) consent signed 07/09/2010 Pt is scheduled for on 09/05/[address] Padilla ICD-10 update of inactive term documented as of this encounter (statuses as of 01/02/2024) Immunizations Name Administration Dates Next Due Seasonal [...] on file documented as of this encounter Progress Notes * Janice Gutierrez MD - 12/16/2023 5:12 PM EDT Images from the original note were not included. History of Present Illness Keyona Santos is a 48 year old female that presents for Follow Up 47 year old YOfemale with PMH significant for HLD, depression, obesity , lumbar ddd with radiculopathy presents here for recheck. Acute concern :- -She wanted to discuss her medication and what else she can do for the pain she is having. Pain in low back radiating to her buttock and thigh . Some numbness and tingling . Hard to sit for for a long nor stand or walk. Already seen by pain clinic and had shot which didn't help and has ortho spine appoint soon - hard to keep her job now as been calling off work due to pain and she can't imagine not having job to feed family . So far cymbalta and gabapentin nor helpful or not enough -some left sided weakness as well but no change in bladder or bowel Interimmedical history : been to Watching diet and exercise : diet good but exercise not due to pain Routine labs : uptodate Routine HM : declined Chronic medical problem: reviewed and stable Physical Exam There were no vitals filed for this visit. Physical Exam Vitals reviewed: exam done with the help of patient and may not be accurate due to video quality. Constitutional: Appearance: Normal appearance. She is normal weight. HENT: Head: Normocephalic. Pulmonary: Effort: No respiratory distress. Musculoskeletal: General: Tenderness (in low back and rt buttock area) present. I have reviewed the following results: Assessment and Plan Lumbar radiculopathy - methylPREDNISolone 4 MG Oral Tablet Therapy Pack (Medrol Dosepack); follow package directions - Gabapentin 600 MG Oral Tablet (Neurontin); Take 1 Tablet by mouth in the morning and 1 Tablet at noon and 1 Tablet before bedtime. - increased Lumbar degenerative disc disease - methylPREDNISolone 4 MG Oral Tablet Therapy Pack (Medrol Dosepack); follow package directions - Gabapentin 600 MG Oral Tablet (Neurontin); Take 1 Tablet by mouth in the morning and 1 Tablet at noon and 1 Tablet before bedtime. Baclofen given Moderate episode of recurrent major depressive disorder (HCC) Tobacco use disorder Counseling done for smoking cessation Hyperlipidemia with target LDL less than 100 Migraine variant Wrap-Up Time: I spent a total of 30-39 minutes (exact time 32 mins) on the date of service in preparation, delivery, and documentation of the care provided to Keyona Santos excluding any time spent in the performance of separately billed services. Telemedicine: Patient location: HOME. I was in a hospital or clinic location. After connecting through televideo,patient was verified with two unique identifiers. Patient (or authorized legal security representative) was then informed that this was a Telemedicine visit and being conducted confidentially over secure lines. Methods to assure confidentiality were taken. Patient acknowledged consent and understanding of pr ivacy and security of the Telemedicine visit. The patient agreed to participate. documented in this encounter Nursing Notes * Kayy Bullock LPN - 12/16/2023 4:54 PM EDT Patient presents today for a follow up. She wanted to discuss her medication and what else she can do for the pain she is having. documented in this encounter Plan of Treatment Upcoming Encounters Date Type Department Care Team (Late st Contact Info) Description 03/24/2024 3:00 PM EDT Office Visit Orthopaedics Spine Surgery, [facility] [address] [place] [address] Jg Elder MD [address] [place] [address] 07/11/2024 11:20 AM EST Telemedicine Nutrition & Weight Management, [facility] [address] [place] [address] Merari Baires PA-C [address] [place] [address] Health Maintenance Due Date Last Done Comments Pneumococcal Vaccine: Pediatrics (0 to 5 Years) and At-Risk Patients (6 to 64 Years) (1 of 2 - PCV) 10/19/1983 DTaP,Tdap,and Td Vaccines (1 - Tdap) 1996 Hepatitis B (1 of 3 - 19+ 3-dose series) 1996 Cologuard 2022 Fecal Occult Blood Test 2022 Sigmoidoscopy 2022 COVID-19 Vaccine ( - 2022-2 4 season) 2023 Influenza Vaccine [...] of this encounter Visit Diagnoses Diagnosis Lumbar radiculopathy- Primary Thoracic or lumbosacral neuritis or radiculitis, unspecified Lumbar degenerative disc disease Degeneration of lumbar or lumbosacral intervertebral disc Moderate episode of recurrent major depressive disorder (HCC) Tobacco use disorder Hyperlipidemia with target LDL less than 100 Other and unspecified hyperlipidemia Migraine variant Variants of migraine, not elsewhere classified, without mention of intractable migraine without mention of status migrainosus documented in this encounter Care Teams Salon Stylist Relationship Specialty Start Date End Date Janice Gutierrez MD [address] [place] [address] [place] [address] PCP - General Internal Medicine 09/06/23 documented as of this encounter
--- OUTSIDE RECORDS SUMMARY | 2024-01-02 13:54 | External Medical Summary | Summary of Care ---
Author Name Unknown Organization [facility] Address [address] [place] [address] Phone [phone] Care Team Providers Care Computer Repair Engineer Name Role Phone Janice Gutierrez MD Primary Care Provider [phone] Encounter Details Date Type Department Care Team (Late st Contact Info) Description 08/30/2023 Telephone General Internal Medicine [facility] [address] [place] [address] Janice Gutierrez MD [address] [place] [address] Allergies No known active allergiesdocumented as of this encounter (statuses as of 09/06/2023) Medications Medication Sig Dispensed Refills Start Date End Date Status Meclizine HCl 25 MG Oral Tablet ChewableIndications: Vertigo Take 1 Tablet by mouth 3 times a day as needed for Dizziness. 30 Tablet 1 04/12/2023 Active SUMAtriptan Succinate 25 MG Oral Tablet (Imitrex)Indications :Migraine variant Take 2 tablets at onset of migraine and one tablet every 2 hours as needed, not more than 5 tablets in 24 hours 6 Tablet 11 04/12/2023 Active Gabapentin 100 MG Oral Capsule (Neurontin)Indicatio ns:Migraine variant,Lumbar radiculopathy Start Gabapentin 1 cap starting from night, in 3 days increase to twice a day and then in 3 days upto 3 times a day . 90 Capsule 3 04/12/2023 Active DULoxetine HCl 30 MG Oral Capsule Delayed Release Particles (Cymbalta)Indication s:Moderate episode of recurrent major depressive disorder (HCC),Lumbar radiculopathy Take 1 Capsule by mouth in the morning. Do not cut, crush or chew. 30 Capsule 5 04/12/2023 Active Meclizine HCl 25 MG Oral Tablet (Antivert) TAKE 1 TABLET BY MOUTH THREE TIMES A DAY IF NEEDED FOR DIZZINESS 30 Tablet 1 06/29/2023 Active Ondansetron HCl 4 MG Oral Tablet (Zofran) Take 1 Tablet by mouth every 6 hours as needed for Nausea. 0 07/08/2023 Active Ventolin HFA 108 (90 Base) MCG/ACT Inhalation Aerosol SolutionIndications: Acute bronchitis, antibiotics not indicated Inhale 2 Puffs by mouth every 4 hours as needed for Wheezing. 18 g 2 07/14/2023 Active Naproxen 500 MG Oral Tablet (Naprosyn) TAKE 1 TABLET BY MOUTH TWICE A DAY IF NEEDED FOR PAIN WITH FOOD 60 Tablet 1 07/20/2023 Active Omeprazole 20 MG Oral Capsule Delayed Release (PriLOSEC) Take 1 Capsule by mouth in the morning. 1 hour before the first meal of the day. 90 Capsule 2 08/06/2023 Active tiZANidine HCl 2 MG Oral Tablet (Zanaflex)Indication s:Chronic radicular lumbar pain,DDD (degenerative disc disease), lumbar,Lumbosacral radiculopathy at L4 Take 1-2 tablets by mouth at night as needed for pain or muscle spasm and tightness 60 Tablet 1 08/26/2023 Active documented as of this encounter (statuses as of 09/06/2023) Active Problems Problem Noted Date Diagnosed Date Moderate episode of recurrent major depressive d isorder 07/14/2023 Food insecurity 06/21/2023 Overview: Per [facility] Protocol Hyperlipidemia with target LDL less than 100 08/2022 Migraine variant 03/18/2023 Tobacco use disorder 02/26/2010 Overview: Continue to discuss cessation at each visit 03/26: 1/2 ppd INFORMATION 02/26/2010 Overview: Pt's daughter with fibrous dysplasia-message to [facility] if she needs to be seen [...] as of this encounter (statuses as of 09/06/2023) Resolved Problems Problem Noted Date Diagnosed Date [...] as of this encounter (statuses as of 09/06/2023) Immunizations Name Administration Dates Next Due Seasonal [...] encounter Miscellaneous Notes * Telephone Encounter - Sandro Bullock OSA - 09/06/2023 3:44 PM EST Pt scheduled for * Telephone Encounter - Sandro Bullock OSA - 09/02/2023 8:54 AM EST MyG sent 09/02 * Telephone Encounter - Rosie Lira RN - 08/30/2023 1:46 PM EST Please contact pt to schedule a video apt with Dr. Gutierrez. Thank you. Provider to address: nothing Reason for Call: No chief complaint on file. Contact: [facility] Contact Type: Care Coordination Outcome: message sent to scheduling pool to schedule a video visit with PCP Face to face time spent with Patient (minutes): 0 Total Time including non face to face (minutes): 10 documented in this encounter Plan of Treatment Upcoming Encounters Date Type Department Care Team (Latest Contact Info) Description 09/09/2023 5:00 PM EST Telemedicine General Internal Medicine [facility] [address] [place] [address] [address] Janice Gutierrez MD [address] [place] [address] [address] 10/11/2023 11:15 AM EDT Hospital Encounter [facility], Endoscopy Room [facility] [address] [place] [address] [place] [address] Sasha Quinn MD [address] [place] [address] 10/11/2023 11:15 AM EDT - 10/11/2023 11:45 AM EDT Surgery [facility], Endoscopy Room [facility] [address] [place] [phone] Sasha Quinn MD [address] [place] [address] COLONOSCOPY FLEXIBLE PROXIMAL DIAGNOSTIC 10/13/2023 9:30 AM EDT Telemedicine Interventional Pain Center, [facility] [address] [place] [address] Mary Gomez PA-C [address] [place] [address] Scheduled Procedures Name Priority Associated Diagnoses Date/Ti me COLONOSCOPY FLEXIBLE PROXIMAL DIAGNOSTIC Screen for colon cancer 10/11/2023 11:15 AM EDT Health Maintenance Due Date Last Done Comments Pneumococcal Vaccine: Pediatrics (0 to 5 Years) and At-Risk Patients (6 to 64 Years) (1 of 2 - PCV) 10/19/1983 DTaP,Tdap,and Td Vaccines (1 - Tdap) 1996 Hepatitis B (1 of 3 - 19+ 3-dose series) 1996 Cologuard 2022 Colonoscopy 2022 Colorectal Cancer Screening 2022 Fecal Occult Blood Test 2022 Sigmoidoscopy 2022 COVID-19 Vaccine (1 - 2022-2 4 season) 2023 Influenza Vaccine (FLU shot) (#1) 2023 04/29/2010 Depression, Most Recent Scor e >= 10 (will fire each visit until score < 10) 04/13/2023 04/12/2023 Mammogram 04/05/2024 04/05/2023 Diabetes Screening 03/18/2026 03/18/2023, 03/18/2023 Lipid Panel 03/18/2028 03/18/2023 Pap Smear Discontinued 02/26/2010 Cervical Cancer Screening Discontinued GARDASIL-HPV IMMUNIZATION SERIES Aged Out No longer eligible based on patient's age to complete this topic HPV/Co-Test Discontinued MENINGOCOCCAL (MENACTRA/MENVEO) Aged Out No longer eligible based on patient's age to complete this topic documented as of this encounter Medical Devices Not on filedocumented as of this encounter Care Teams Computer Repair Engineer Relationship Specialty Start Date End Date Janice Gutierrez MD [address] [facility] [address] PCP - General Internal Medicine 09/06/23 documented as of this encounter
--- OUTSIDE RECORDS SUMMARY | 2024-01-02 13:54 | External Medical Summary | Summary of Care ---
Author Name Unknown Organization [facility] Address [address] [place] [address] Phone [phone] Care Team Providers Care Special Forces Senior Sergeant Name Role Phone Janice Gutierrez MD Primary Care Provider [phone] Reason for Visit * Reason Onset Date Comments Encounter Created in Error 12/21/2023 Encounter Details Date Type Department Care Team (Late st Contact Info) Description 12/21/2023 Telephone General Internal Medicine [facility] [address] [place] [address] Janice Gutierrez MD [address] [place] [address] Encounter Created in Error Allergies No known active allergiesdocumented as of this encounter (statuses as of 12/21/2023) Medications Medication Sig Dispensed Refills Start Date [...] MG/24HR Transdermal Patch 24 Hour (Nicoderm CQ)Indications:Toba cost accountant use 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 Remove old patch daily 42 Patch 1 12/20/2023 01/28/2024 Active Nicotine 14 MG/24HR Transdermal Patch 24 Hour (Nicoderm CQ)Indications:Toba cost accountant use disorder One 14 mg patch daily for 2 wks; then one 7 mg patch daily for 2 wks. Remove old patch daily Do not start before January 28, 2024. 14 Patch 2 01/28/2024 02/11/2024 Active Nicotine 7 MG/24HR Transdermal Patch 24 Hour (Nicoderm CQ)Indications:Toba cost accountant use disorder One 7 mg patch daily for 2 weeks; Remove old patch daily; and then stop. 14 Patch 1 12/20/2023 Active documented as of this encounter (statuses as of 12/21/2023) Active Problems Problem Noted Date Diagnosed Date Moderate episode of recurrent major depressive d isorder 07/14/2023 Food insecurity 06/21/2023 Overview: Per [facility] Protocol Hyperlipidemia with target LDL less than 100 08/2022 Migraine variant 03/18/2023 Tobacco use disorder 02/26/2010 Overview: Continue to discuss cessation at each visit 03/26: 1/2 ppd INFORMATION 02/26/2010 Overview: Pt's daughter with fibrous dysplasia-message to [facility] if she needs to be seen by [...] as of this encounter (statuses as of 12/21/2023) Resolved Problems Problem Noted Date Diagnosed Date [...] as of this encounter (statuses as of 12/21/2023) Immunizations Name Administration Dates Next Due Seasonal [...] encounter Miscellaneous Notes * Telephone Encounter - Dee Triplett CPhT - 12/21/2023 11:56 AM EDT Error. Thank you, Dee Triplett CPhT [facility] Work[facility] 12/21/2023, 11:56 AM documented in this encounter Plan of Treatment Upcoming Encounters Date Type Department Care Team (Late st Contact Info) Description 12/27/2023 8:00 AM EDT Hospital Encounter [facility], Endoscopy Room [facility] [address] [facility] [place] [phone] Avi Miranda MD [address] [place] [address] 12/27/2023 8:00 AM EDT - 12/27/2023 8:30 AM EDT Surgery ENDO [facility], Endoscopy Room [facility] [address] [place] [phone] Avi Miranda MD [address] [place] [address] COLONOSCOPY FLEXIBLE PROXIMAL DIAGNOSTIC 03/24/2024 3:00 PM EDT Office Visit Orthopaedics Spine Surgery, [facility] [address] [place] [address] Jg Elder MD [address] [place] [address] 07/11/2024 11:20 AM EST Telemedicine Nutrition & Weight Management, [facility] [address] [place] [address] Merari Baires PA-C [address] [place] [address] Scheduled Procedures Name Priority Associated Diagnoses Date/Ti me COLONOSCOPY FLEXIBLE PROXIMAL DIAGNOSTIC Screen for colon cancer 12/27/2023 8:00 AM EDT Health Maintenance Due Date Last [...] filedocumented as of this encounter Care Teams Special Forces Senior Sergeant Relationship Specialty Start Date End Date Janice Gutierrez MD [address] [facility] [place] [address] PCP - General Internal Medicine 09/06/23 documented as of this encounter
--- OUTSIDE RECORDS SUMMARY | 2024-01-02 13:54 | External Medical Summary | Summary of Care ---
Author Name Unknown Organization [facility] Address [address] [place] [address] Phone [phone] Care Team Providers Care Aircraft Layout Worker Name Role Phone Janice Gutierrez MD Primary Care Provider [phone] Reason for Referral * Evaluate & Treat - Unlimited Visits (Within 10 days (routine)) - Pending Review Specialty Diagnoses / Procedures Referred By Contac t Referred To Contact Physical Therapy / Physical Medicine And Rehab Diagnoses Lumbar back pain Lumbar radiculopathy Degenerative spondylolisthesis Spinal stenosis of lumbar region, unspecified whether neurogenic claudication present Neck pain Jg Elder MD [address] [place] [address] Referral ID Status Reason Start Date Expiration Date Visits Requested Visits Authorized [id number] Pending Review Specialty Services Required 12/17/[phone] Question Answer Referral Priority Within 10 days (routine) Where should this appointment be scheduled? [facility] Comments Plan: cervical ROM, stretching, strengthening, periscapular strengthening, protraction/retraction exercises, gentle traction only if manual traction is beneficial 2 x week for 6 weeks Modalities for pain relief Plan: Back core strengthening, stretching, ROM, conditioning, lower extremity strengthening as needed, topicals as needed 2 x a week for 6 weeks Modalities for pain relief Reason for Visit * Evaluate & Treat - Unlimited Visits (Within 10 days (routine)) - Pending Review Specialty Diagnoses / Procedures Referred By Contac t Referred To Contact Neuro/Ortho Surgery - Spine. / Neurological Surgery Diagnoses Lumbar radicular pain Mary Gomez PA-C [address] [place] [address] Referral ID Status Reason Start Date Expiration Date Visits Requested Visits Authorized [id number] Pending Review Specialty Services Required 10/13/[phone] Encounter Details Date Type Department Care Team (Late st Contact Info) Description 12/17/2023 9:00 AM EDT Office Visit Orthopaedics Spine Surgery, [facility] [address] [place] [address] Jg Elder MD [address] [place] [id number] Lumbar back pain*; Lumbar radiculopathy; Degenerative spondylolisthesis; Spinal stenosis of lumbar region, unspecified whether neurogenic claudication present; Neck pain Allergies No known active allergiesdocumented as of this encounter (statuses as of 12/17/2023) Medications Medication Sig Dispensed Refills Start Date [...] 4 MG Oral Tablet Therapy Pack (Medrol Dosepack)Indications :Lumbar radiculopathy,Lumbar degenerative disc disease follow package directions 21 Tablet 12/16/2023 Active Gabapentin 600 MG Oral Tablet (Neurontin)Indicatio ns:Lumbar radiculopathy,Lumbar degenerative disc disease Take 1 Tablet by mouth in the morning and 1 Tablet at noon and 1 Tablet before bedtime. 90 Tablet 5 12/16/2023 Active Baclofen 10 MG Oral Tablet (Lioresal)Indication s:Lumbar radiculopathy,Lumbar degenerative disc disease Take 1 Tablet by mouth 2 times a day as needed for Pain, Moderate. 20 Tablet 12/16/2023 Active documented as of this encounter (statuses as of 12/17/2023) Active Problems Problem Noted Date Diagnosed Date Moderate episode of recurrent major depressive d isorder 07/14/2023 Food insecurity 06/21/2023 Overview: Per [facility] Protocol Hyperlipidemia with target LDL less than 100 08/2022 Migraine variant 03/18/2023 Tobacco use disorder 02/26/2010 Overview: Continue to discuss cessation at each visit 03/26: 1/2 ppd INFORMATION 02/26/2010 Overview: Pt's daughter with fibrous dysplasia-message to M if she needs to be seen by [...] as of this encounter (statuses as of 12/17/2023) Resolved Problems Problem Noted Date Diagnosed Date [...] as of this encounter (statuses as of 12/17/2023) Immunizations Name Administration Dates Next Due Seasonal Influenza, Split, IIV3, With Preserve, Inj 04/29/2010 documented as of this encounter Social History Tobacco Use Types Packs/Day Years Used Date Smoking Tobacco: Every Day Cigarettes 1 30 Smokeless Tobacco: Never Tobacco Cessation:Ready to Q uit: Not Asked; Counseling Given: No Alcohol Use Standard Drinks/Week Comments No 0 [...] Sign Reading Time Taken Comments Blood Pressure - - Pulse - - Temperature 37.1 C (98.7 F) 12/17/2023 9:01 AM ED T Respiratory Rate - - Oxygen Saturation - - Inhaled Oxygen Concentration - - Weight 107 kg (236 lb) 12/17/2023 9:01 AM EDT Height 167.6 cm (5' 6") 12/17/2023 9:01 AM EDT Body Mass Index 38.09 12/17/2023 9:01 AM EDT documented in this encounter Progress Notes * Jg Elder MD - 12/17/2023 9:28 AM EDT Date of service: 12/17/2023 CHIEF COMPLAINT: Keyona Santos is a 48 year old female presents with complaints/concerns of Persistent low back pain with lower extremity radiculopathy neurogenic claudication. The symptoms have been ongoing for the past year. Patient has tried a number of conservative measures including physica l therapy and pain management with only a partial benefit. She denies any acute progressive neurological deficit, bowel bladder disturbances constitutional symptoms. New Referring physician:Mary Gomez PA-C HPI: Back - Lumbar radicular pain, L > R LE radiculopathy No improvement with LESI Injury and date:One in left hip nothing helped 08/20/2023 Onset, progress and duration: Fell down steps and twisted hip in January of last year Balance problems:none Bladder or bowel disturbances:none Hand dominance for cervical and hand function: right Workman compensation/ Litigation/ Decaler:none Spine investigations done and date: Xray:05/25/2023 MRI:05/25/2023 CT scan: EMG/ NCV: Spine treatment so far: Medications: Baclofen Gabapentin Cymbalta Naproxen Mederol/ Prednisone started this morning Physical therapy within last year: Fit to play 6 mths ended in 08/20/2023 Chiropractor therapy:none Brace use:none Pain management and Spinal epidural injections:LESI 08/20/2023 Spine surgery - Surgeon and year:none Significant Medical history: If diabetic HbA1c: 5.8 03/18/2023 On blood thinners:none Osteoporosis screening: Tobacco/ Illicit drug use:smoker Work profile Allergies: Patient has no known allergies. The past medical, surgical, medication, family and social history was reviewed and is documented elsewhere in the chart. ROS: Negative except as outlined in HPI Vitals: Temp 37.1 C (98.7 F) (Temporal Artery) | Ht 1.676 m (5' 6") | Wt 107 kg (236 lb) | BMI 38.09 kg/m | BSA 2.23 m Body mass index is 38.09 kg/m. Physical Exam: General: alert, healthy and no distress. The general appearance appears normal. Cardiovascular system: Vascularity grossly preserved Spine evaluation Cervical, thoracic and lumbar spine: No paraspinal swelling. No deformity. Neurological examination: Motor power upper extremities - Bilateral shoulder abductors, elbow flexors, triceps, wrist flexorsand extensors and intrinsic muscles of the hand is 5/5. Motor power lower extremities - Bilateral hip flexors, knee extensors, ankle dorsiflexors, plantar flexors, EHL/EDL, FHL/FDL is 5/5. The deep tendon reflexes - Bilateral Biceps, triceps, brachioradialis, Patellar tendon, Achilles tendon are 2+ Sensation are grossly preserved bilaterally in upper extremities. Sensation are grossly preserved bilaterally in the lower extremities. Radiological imaging: I independently reviewed the relevant radiological imaging including x-rays ordered at this visit and discussed it with the patient X-rays of the lumbar spine including dynamic view show evidence of multilevel degenerative changes.There is anterolisthesis of L4-5 grade 1. There is loss of disc space at L5-S1. MRI of the lumbar spine 06/14/2023: Done at outside facility. Only images available. There is presence of degenerative changes with spinal stenosis at L4- 5 and L5-S1. Assessment & Plan: Pt is a 48 year old female here for the following problems/concerns: Lumbar back pain Lumbar radiculopathy Degenerative spondylolisthesis Lumbar spinal stenosis L4-5, L5 spine Chronic neck pain We discussed the diagnosis, the natural history and the treatment options. Based on the findings various treatment options including the risks, benefits and alternatives were discussed. Patient is neurologically stable but is symptomatic in relation to her back problems. At this pointof time we discussed the role of elective surgical intervention versus continued conservative treatment. The importance of optimization of various health issues -BMI, tobacco cessation for preparation forsurgical intervention were also discussed. Patient is going to work on these issues. In the meantime modalities of pain relief discussed. Physical therapy was ordered. Additional recommendations: Activity modification as tolerated Pain medications as per the primary care. If the patient has persistence or worsening of symptoms additional investigations will be recommended. Warning signs have been discussed. Follow up: Three months . Reach out earlier if any neurological worsening. The patient expressed understanding and agreement to the plan. Complexity of decision making: high I spent 45 minutes on 12/17/2023 in preparation, delivery and documentation of the care provided to the patient, excluding any time spent on the performance of the procedure are separately billable service. Jg Elder MD This chart was completed in part utilizing [employer] Speech Voice Recognition Software. Grammatical errors, random word insertions, prounoun errors and incomplete sentences are an occasional consequence of this system due to software limitations, ambient noise, and hardware issues. Any formal questions or concerns about the content, text, or information contained within the body of this dictation should be directly addressed to the provider for clarification. documented in this encounter Nursing Notes * Carlotta Schwartz LPN - 12/17/2023 8:53 AM EDT New Referring physician:Mary Gomez PA-C HPI: Back - Lumbar radicular pain, L > R LE radiculopathy No improvement with LESI Injury and date:One in left hip nothing helped 08/20/2023 Onset, progress and duration: Fell down steps and twisted hip in January of last year Balance problems:none Bladder or bowel disturbances:none Hand dominance for cervical and hand function: right Workman compensation/ Litigation/ Decaler:none Spine investigations done and date: Xray:05/25/2023 MRI:05/25/2023 CT scan: EMG/ NCV: Spine treatment so far: Medications: Baclofen Gabapentin Cymbalta Naproxen Mederol/ Prednisone started this morning Physical therapy within last year: Fit to play 6 mths ended in 08/20/2023 Chiropractor therapy:none Brace use:none Pain management and Spinal epidural injections:JAIROI 08/20/2023 Spine surgery - Surgeon and year:none Significant Medical history: If diabetic HbA1c: 5.8 03/18/2023 On blood thinners:none Osteoporosis screening: Tobacco/ Illicit drug use:smoker Work profile documented in this encounter Plan of Treatment Upcoming Encounters Date Type Department Care Team (Late st Contact Info) Description 01/14/2024 8:00 AM EDT Hospital Encounter ENDO [facility], Endoscopy Room [facility] [address] [place] [phone] Avi Miranda MD [address] [place] [address] 01/14/2024 8:00 AM EDT - 01/14/2024 8:30 AM EDT Surgery ENDO [facility], Endoscopy Room [facility] [address] [place] [phone] Avi Miranda MD [address] [place] [address] COLONOSCOPY FLEXIBLE PROXIMAL DIAGNOSTIC 03/24/2024 3:00 PM EDT Office Visit Orthopaedics Spine Surgery, [facility] [address] [place] [address] Jg Elder MD [address] [place] [address] Pending Results Name Type Priority Associated Diagnoses Date /Time XR L SPINE COMPLETE Medical Imaging Routine Lumbar back pain 12/17/2023 9:13 AM EDT Scheduled Procedures Name Priority Associated Diagnoses Date/Ti me COLONOSCOPY FLEXIBLE PROXIMAL DIAGNOSTIC Screen for colon cancer 01/14/2024 8:00 AM EDT Scheduled Referrals Name Type Priority Associated Diagnoses Orde r Schedule PHYSICAL THERAPY REFERRAL OP Referral Within 10 days (routine) Lumbar back pain Lumbar radiculopathy Degenerative spondylolisthesis Spinal stenosis of lumbar region, unspecified whether neurogenic claudication present Neck pain Ordered: 12/17/2023 Health Maintenance Due Date Last Done Comments [...] Vaccine ( - 2022-2 4 season) 2023 Depression, Most Recent Scor e >= 10 (will fire each visit until score < 10) 04/13/2023 04/12/2023 Influenza Vaccine (FLU shot) (Season Ended) 2024 04/29/2010 Mammogram 10/03/2024 10/04/2023, 04/05/2023 Diabetes Screening 03/18/2026 [...] of this encounter Visit Diagnoses Diagnosis Lumbar back pain- Primary Lumbago Lumbar radiculopathy Thoracic or lumbosacral neuritis or radiculitis, unspecified Degenerative spondylolisthesis Acquired spondylolisthesis Spinal stenosis of lumbar region, unspecified whether neurogenic claudication present Neck pain Cervicalgia Screen for colon cancer Special screening for malignant neoplasms, colon documented in this encounter Care Teams Aircraft Layout Worker Relationship Specialty Start Date End Date Janice Gutierrez MD [address] [place] [address] [place], [place] [address] PCP - General Internal Medicine 09/06/23 documented as of this encounter
--- OUTSIDE RECORDS SUMMARY | 2024-01-02 13:54 | External Medical Summary | Summary of Care ---
Author Name Unknown Organization [facility] Address [address] [place] [address] Phone [phone] Care Team Providers Care Construction Recruiter Name Role Phone Janice Gutierrez MD Primary Care Provider Reason for Visit * Reason Comments eRx-Medication Refill Encounter Details Date Type Department Care Team (Late st Contact Info) Description 11/30/2023 Refill General Internal Medicine [facility] [address] [place] [address] Janice Gutierrez MD [address] [place] [address] Allergies No known active allergiesdocumented as of this encounter (statuses as of 12/01/2023) Medications Medication Sig Dispensed Refills Start Date [...] the day. 90 Capsule 2 08/06/2023 Active DULoxetine HCl 30 MG Oral Capsule Delayed Release Particles (Cymbalta)Indicati ons:Moderate episode of recurrent major depressive disorder (HCC),Lumbar radiculopathy Take 1 Capsule by mouth in the morning and 1 Capsule before bedtime. Do not cut, crush or chew. 60 Capsule 5 09/09/2023 Active SUMAtriptan Succinate 25 MG Oral Tablet (Imitrex)Indicatio ns:Migraine variant Take 2 tablets at onset of migraine and one tablet every 2 hours as needed, not more than 5 tablets in 24 hours 6 Tablet 5 09/28/2023 Active tiZANidine HCl 2 MG Oral Tablet (Zanaflex)Indicati ons:Chronic radicular lumbar pain,DDD (degenerative disc disease), lumbar,Lumbosacral radiculopathy at L4 TAKE 1-2 TABLETS BY MOUTH AT NIGHT NEEDED FOR PAIN OR MUSCLE SPASM AND TIGHTNESS 60 Tablet 1 2023 Active Gabapentin 400 MG Oral Capsule (Neurontin) Take 1 Capsule by mouth in the morning and 1 Capsule at noon and 1 Capsule before bedtime. 90 Capsule 5 10/19/2023 Active Naproxen 500 MG Oral Tablet (Naprosyn) TAKE 1 TABLET BY MOUTH TWICE A DAY IF NEEDED FOR PAIN WITH FOOD 60 Tablet 1 12/01/2023 Active Naproxen 500 MG Oral Tablet (Naprosyn) TAKE 1 TABLET BY MOUTH TWICE A DAY IF NEEDED FOR PAIN WITH FOOD 60 Tablet 1 09/23/2023 4 Discontinued documented as of this encounter (statuses as of 12/01/2023) Active Problems Problem Noted Date Diagnosed Date Moderate episode of recurrent major depressive d isorder 07/14/2023 Food insecurity 06/21/2023 Overview: Per [facility] Protocol Hyperlipidemia with target LDL less [...] as of this encounter (statuses as of 12/01/2023) Resolved Problems Problem Noted Date Diagnosed Date [...] as of this encounter (statuses as of 12/01/2023) Immunizations Name Administration Dates Next Due Seasonal [...] encounter Miscellaneous Notes * Telephone Encounter - Moira Clement, [facility] - 12/01/2023 10:40 AM EDTSigned Prescriptions: Disp Refills Naproxen 500 MG Oral Tablet (Naprosyn) 60 Tab*1 Sig: TAKE 1 TABLET BY MOUTH TWICE A DAY IF NEEDED FOR PAIN WITH FOODAuthorizing Provider: JANICE GUTIERREZOrderaugie User: MOIRA NAVAS documented in this encounter Plan of Treatment Upcoming Encounters Date Type Department Care Team (Late st Contact Info) Description 12/16/2023 5:00 PM EDT Telemedicine General Internal Medicine [facility] [place] [address] [place] [address] Janice Gutierrez MD [address] [place] [address] 01/14/2024 8:00 AM EDT Hospital Encounter [facility]O [facility], Endoscopy Room [facility] [address] [place] [phone] Avi Miranda MD [address] [place] [address] 01/14/2024 8:00 AM EDT - 01/14/2024 8:30 AM EDT Surgery ENDO [facility], Endoscopy Room [facility] [address] [place] [phone] Avi Miranda MD [address] [place] [address] COLONOSCOPY FLEXIBLE PROXIMAL DIAGNOSTIC 03/24/2024 10:00 AM EDT Office Visit Orthopaedics Spine Surgery, [facility] [address] [place] [address] Jg Elder MD [address] [place] [address] Scheduled Procedures Name Priority Associated Diagnoses Date/Ti me COLONOSCOPY FLEXIBLE PROXIMAL DIAGNOSTIC Screen for colon cancer 01/14/2024 8:00 AM EDT Health Maintenance Due Date [...] Vaccine (1 - 2022-2 4 season) 2023 Depression, Most [...] filedocumented as of this encounter Care Teams Construction Recruiter Relationship Specialty Start Date End Date Janice Gutierrez MD [address] [place] [address] PCP - General Internal Medicine 09/06/23 documented as of this encounter
--- OUTSIDE RECORDS SUMMARY | 2024-01-02 13:54 | External Medical Summary | Summary of Care ---
Author Name Unknown Organization [facility] Address [address] [facility] [facility] [address] Phone [phone] Care Team Providers Care Gear Shaper Name Role Phone Janice Gutierrez MD Primary Care Provider [phone] Reason for Referral * Evaluate & Treat - Unlimited Visits (Within 10 days (routine)) - Pending Review Specialty Diagnoses / Procedures Referred By Jaime t Referred To Contact Neuro/Ortho Surgery - Spine. / Neurological Surgery Diagnoses Lumbar radicular pain Mary Gomez PA-C [address] [place] [address] Referral ID Status Reason Start Date Expiration Date Visits Requested Visits Authorized [id number] Pending Review Specialty Services Required 10/13/[phone] Question Answer Referral Priority Within 10 days (routine) Where should this appointment be scheduled? [facility] Select spine region: Back - Thoracic/Lumbar Do you have any recent complete loss of bladder or bowel function? No Comments Lumbar radicular pain, L > R LE radiculopathy No improvement with LESI Reason for Visit * Reason Comments Follow Up LESI Encounter Details Date Type Department Care Team (Late st Contact Info) Description 10/13/2023 9:30 AM EDT Telemedicine Interventional Pain Center, [facility] [address] [place] [address] Mary Gomez PA-C [address] [place] [address] Lumbar radicular pain* Allergies No known active allergiesdocumented as of this encounter (statuses as of 10/13/2023) Medications Medication Sig Dispensed Refills Start Date End Date Status Meclizine HCl 25 MG Oral Tablet ChewableIndications:V ertigo Take 1 Tablet by mouth 3 times [...] HFA 108 (90 Base) MCG/ACT Inhalation Aerosol SolutionIndications:A cute bronchitis, antibiotics not indicated Inhale 2 Puffs by mouth every 4 hours as needed for Wheezing. 18 g 2 07/14/2023 Active Omeprazole 20 MG Oral Capsule Delayed Release (PriLOSEC) Take 1 Capsule by mouth in the morning. 1 hour before the first meal of the day. 90 Capsule 2 08/06/2023 Active tiZANidine HCl 2 MG Oral Tablet (Zanaflex)Indications :Chronic radicular lumbar pain,DDD (degenerative disc disease), lumbar,Lumbosacral radiculopathy at L4 Take 1-2 tablets by mouth at night as needed for pain or muscle spasm and tightness 60 Tablet 1 08/26/2023 Active DULoxetine HCl 30 MG Oral Capsule Delayed Release Particles (Cymbalta)Indications :Moderate episode of recurrent major depressive disorder (HCC),Lumbar radiculopathy Take 1 Capsule by mouth in the morning and 1 Capsule before bedtime. Do not cut, crush or chew. 60 Capsule 5 09/09/2023 Active Naproxen 500 MG Oral Tablet (Naprosyn) TAKE 1 TABLET BY MOUTH TWICE A DAY IF NEEDED FOR PAIN WITH FOOD 60 Tablet 1 09/23/2023 Active Gabapentin 100 MG Oral Capsule (Neurontin)Indication s:Migraine variant,Lumbar radiculopathy TAKE 1 CAPSULE BY MOUTH STARTING FROM NIGHT IN 3 DAYS INCREASE TO 2 TIMES A DAY AND THEN IN 3 DAYS UP TO 3 TIMES A DAY 90 Capsule 3 09/28/2023 Active SUMAtriptan Succinate 25 MG Oral Tablet (Imitrex)Indications: Migraine variant Take 2 tablets at onset of migraine and one tablet every 2 hours as needed, not more than 5 tablets in 24 hours 6 Tablet 5 09/28/2023 Active documented as of this encounter (statuses as of 10/13/2023) Active Problems Problem Noted Date Diagnosed Date Moderate episode of recurrent major depressive d isorder 07/14/2023 Food insecurity 06/21/2023 Overview: Per [facility] Protocol Hyperlipidemia with target LDL less than 100 08/2022 Migraine variant 03/18/2023 Tobacco use disorder 02/26/2010 Overview: Continue to discuss cessation at each visit 03/26: 1/2 ppd INFORMATION 02/26/2010 Overview: Pt's daughter with fibrous dysplasia-message to [facility] if she needs to be seen by [...] pt by phone-please discuss above recommendations at co-pt aware-reports daughter has not been diagnosed with any syndromes associated with fibrous dysplasia documented as of this encounter (statuses as of 10/13/2023) Resolved Problems Problem Noted Date Diagnosed Date [...] as of this encounter (statuses as of 10/13/2023) Immunizations Name Administration Dates Next Due Seasonal [...] as of this encounter Progress Notes * Mary Gomez PA-C - 10/13/2023 4:38 PM EDT Name: Keyona Santos Date: 10/13/2023 Patient location: HOME. I was in a hospital or clinic location. After connecting through televideo,patient was verified with two unique identifiers. 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 Methods to assure confidentiality were taken. Patient acknowledged consent and understanding of pr ivacy and security of the Telemedicine visit. The patient agreed to participate. Video start 930 Video end 946 HPI: Keyona Santos is a 47 year old female known to the Pain Management clinic presents for follow up after left interlaminar STAN L4/5 on 08/20/23. Admits no pain reduction. Questions is pain is worse now. Continues to experience pain in left hip/lower back, and it does radiate to the leg and inv olving the medial side of the lower leg. Associated LE weakness L > R, baseline. She questions if paresthesia L LE is increase in the past few weeks. Denies bowel/bladder dysfunction. Using gabapentin, Cymbalta, zanaflex, naproxen for pain relief. Questions if gabapentin can be further titrated,using 100 mg - three capsules AM, noon and PM. Aggravated by walking, standing. Xrays of procedure were reviewed. History: Past Medical History: Diagnosis Date NO KNOWN PROBLEMS Past Surgical History: Procedure Laterality Date DELIVERY 1995, 2005 DILATION AND CURETTAGE (D&C) 07/12/2002 mab INJECT DX/THER SUBSTANCE INTERLAMINAR LUMBAR/SACRAL W IMAGE GUIDE 08/20/2023 INJECTION SPINE LUMBAR OR SACRAL performed by Nikunj aLm DO at [facility] TOTAL ABD HYSTERECTOMY W/WO REMOVAL OF TUBE(S) 2018 uterus only Current Outpatient Medications Medication Sig Dispense Refill Meclizine HCl 25 MG Oral Tablet Chewable Take 1 Tablet by mouth 3 times a day as needed for Dizziness. 30 Tablet 1 Meclizine HCl 25 MG Oral Tablet (Antivert) TAKE 1 TABLET BY MOUTH THREE TIMES A DAY IF NEEDED FOR DIZZINESS 30 Tablet 1 Ondansetron HCl 4 MG Oral Tablet (Zofran) Take 1 Tablet by mouth every 6 hours as needed for Nausea. Ventolin HFA 108 (90 Base) MCG/ACT Inhalation Aerosol Solution Inhale 2 Puffs by mouth every 4 hours as needed for Wheezing. 18 g 2 Omeprazole 20 MG Oral Capsule Delayed Release (PriLOSEC) Take 1 Capsule by mouth in the morning. 1 hour before the first meal of the day. 90 Capsule 2 tiZANidine HCl 2 MG Oral Tablet (Zanaflex) Take 1-2 tablets by mouth at night as needed for pain ormuscle spasm and tightness 60 Tablet 1 DULoxetine HCl 30 MG Oral Capsule Delayed Release Particles (Cymbalta) Take 1 Capsule by mouth in the morning and 1 Capsule before bedtime. Do not cut, crush or chew. 60 Capsule 5 Naproxen 500 MG Oral Tablet (Naprosyn) TAKE 1 TABLET BY MOUTH TWICE A DAY IF NEEDED FOR PAIN WITH FOOD 60 Tablet 1 Gabapentin 100 MG Oral Capsule (Neurontin) TAKE 1 CAPSULE BY MOUTH STARTING FROM NIGHT IN 3 DAYS INCREASE TO 2 TIMES A DAY AND THEN IN 3 DAYS UP TO 3 TIMES A DAY 90 Capsule 3 SUMAtriptan Succinate 25 MG Oral Tablet (Imitrex) Take 2 tablets at onset of migraine and one tablet every 2 hours as needed, not more than 5 tablets in 24 hours 6 Tablet 5 No current facility-administered medications for this visit. Review of patient's allergies indicates: No Known Allergies ROS: CONSTITUTIONAL: Denies anorexia, weight loss, fever, night sweats. + hoarse. RESPIRATORY: Denies shortness of breath, wheezing, productive cough. CARDIOVASCULAR: Denies chest pains, irregular heartbeat. HEME: Denies easy bruising and anticoagulation use. ROS EXAM: Remainder of ROS negative as discussed above in the HPI. PHYSICAL EXAM: There were no vitals taken for this visit. GENERAL: WD/WN female who is awake and alert. Does not appear to be in acute distress. Sitting comfortably in car. MENTAL STATUS: Oriented x 3. Pleasant and cooperative with normal affect. ASSESSMENT: Lumbar radicular pain RECOMMENDATION: No relief with LESI, in fact at times feels this has increased her radicular pain. Mild relief withmedication management. Will message prescribing provider regarding possible increase gabapentin to 400 mg TID. She is interested in surgical consultation, referral placed - prefers to stay local. Declines repeat STAN, although again somewhat hesitant to pursue due to increased symptoms with interlaminar approach. Total video duration 13 minutes. Mary Gomez PA-C 10/13/2023 documented in this encounter Plan of Treatment Upcoming Encounters Date Type Department Care Team (Late st Contact Info) Description 12/16/2023 5:00 PM EDT Telemedicine General Internal Medicine [facility] [address] [place] [address] Janice Gutierrez MD [address] [place] [address] Scheduled Referrals Name Type Priority Associated Diagnoses Orde r Schedule SPINE SURGERY REFERRAL OP Referral Within 10 days (routine) Lumbar radicular pain Ordered: 10/13/2023 Health Maintenance Due Date Last Done Comments [...] of this encounter Visit Diagnoses Diagnosis Lumbar radicular pain- Primary Thoracic or lumbosacral neuritis or radiculitis, unspecified documented in this encounter Care Teams Gear Shaper Relationship Specialty Start Date End Date Janice Gutierrez MD [address] [place] [address] PCP - General Internal Medicine 09/06/23 documented as of this encounter
--- OUTSIDE RECORDS SUMMARY | 2024-01-02 13:54 | External Medical Summary | Summary of Care ---
Author Name Unknown Organization [facility] Address [address] [place] [address] Phone [phone] Care Team Providers Care Hide Dropper Name Role Phone Janice Gutierrez MD Primary Care Provider [phone] Reason for Visit * Reason Onset Date Comments MyCode - Took Form To Consider 11/25/2023 Encounter Details Date Type Department Care Team (Late st Contact Info) Description 11/25/2023 Orders Only Outcomes Research Department [address], [place] [id number] Maribell Rashid CHRA MyCode Nonconsent Documentation Allergies No known active allergiesdocumented as of this encounter (statuses as of 11/25/2023) Medications Medication Sig Dispensed Refills Start Date [...] WITH FOOD 60 Tablet 1 09/23/2023 Active SUMAtriptan Succinate 25 MG Oral Tablet [...] before bedtime. 90 Capsule 5 10/19/2023 Active documented as of this encounter (statuses as of 11/25/2023) Active Problems Problem Noted Date Diagnosed Date Moderate episode of recurrent major depressive d isorder 07/14/2023 Food insecurity 06/21/2023 Overview: Per [facility] Protocol Hyperlipidemia with target LDL less than 100 08/2022 Migraine variant 03/18/2023 Tobacco use disorder 02/26/2010 Overview: Continue to discuss cessation at each visit 03/26: 1/2 ppd INFORMATION 02/26/2010 Overview: Pt's daughter with fibrous dysplasia-message to [facility] if she needs to be seen by [...] as of this encounter (statuses as of 11/25/2023) Resolved Problems Problem Noted Date Diagnosed Date [...] as of this encounter (statuses as of 11/25/2023) Immunizations Name Administration Dates Next Due Seasonal [...] as of this encounter Progress Notes * Maribell Rashid CHRA - 11/25/2023 11:37 AM EDT MyCode Nonconsent Documentation Keyona Santos was approached in the clinic regarding participation in the MyCode Project and did not consent. documented in this encounter Plan of Treatment Upcoming Encounters Date Type Department Care Team (Late st Contact Info) Description 12/16/2023 5:00 PM EDT Telemedicine General Internal Medicine [facility] [address] [facility] [place] [address] Janice Gutierrez MD [address] [facility] [place] [address] 01/14/2024 8:00 AM EDT Hospital Encounter [facility]O [facility], Endoscopy Room [facility] [address] [place] [phone] Avi Miranda MD [address] [place] [address] 01/14/2024 8:00 AM EDT - 01/14/2024 8:30 AM EDT Surgery ENDO [facility], Endoscopy Room [facility] [address] [place] [phone] Avi Miranda MD [address] [place] [address] COLONOSCOPY FLEXIBLE PROXIMAL DIAGNOSTIC 03/24/2024 10:00 AM EDT Office Visit Orthopaedics Spine Surgery, [facility] [address] [place] [address] Jg Elder MD [address] [place] [address] Scheduled Procedures Name Priority Associated Diagnoses Date/Ti [...] filedocumented as of this encounter Care Teams Hide Dropper Relationship Specialty Start Date End Date Janice Gutierrez MD [address] [facility] [place] [address] PCP - General Internal Medicine 09/06/23 documented as of this encounter
--- OUTSIDE RECORDS SUMMARY | 2024-01-02 13:54 | External Medical Summary | Summary of Care ---
Author Name Unknown Organization [facility] Address [address] [place] [address] Phone [phone] Care Team Providers Care Manager Enrollment Name Role Phone Ángel Gutierrez MD Primary Care Provider [phone] Reason for Visit * Reason Comments eRx-Medication Refill Encounter Details Date Type Department Care Team (Late st Contact Info) Description 09/26/2023 Refill General Internal Medicine [facility] [address] [facility] [place] [address] Ángel Gutierrez MD [address] [place] [address] Migraine variant; Lumbar radiculopathy Allergies No known active allergiesdocumented as of this encounter (statuses as of 10/01/2023) Medications Medication Sig Dispensed Refills Start Date [...] 09/23/2023 Active Gabapentin 100 MG Oral Capsule (Neurontin)Indicat ions:Migraine variant,Lumbar radiculopathy TAKE 1 CAPSULE BY MOUTH STARTING FROM NIGHT IN 3 DAYS INCREASE TO 2 TIMES A DAY AND THEN IN 3 DAYS UP TO 3 TIMES A DAY 90 Capsule 3 09/28/2023 Active Gabapentin 100 MG Oral Capsule (Neurontin)Indicat ions:Migraine variant,Lumbar radiculopathy Start Gabapentin 1 cap starting from night, in 3 days increase to twice a day and then in 3 days upto 3 times a day . 90 Capsule 3 04/12/2023 09/28/19 24 Discontinued documented as of this encounter (statuses as of 10/01/2023) Active Problems Problem Noted Date Diagnosed Date Moderate episode of recurrent major depressive d isorder 07/14/2023 Food insecurity 06/21/2023 Overview: Per [facility] Protocol Hyperlipidemia with target LDL less [...] as of this encounter (statuses as of 10/01/2023) Resolved Problems Problem Noted Date Diagnosed Date [...] as of this encounter (statuses as of 10/01/2023) Immunizations Name Administration Dates Next Due Seasonal [...] encounter Miscellaneous Notes * Telephone Encounter - Dex Kenyon, [employer] ASSIST - 10/01/2023 9:42 AM EDTSigned Prescriptions: Disp Refills Gabapentin 100 MG Oral Capsule (Neurontin) 90 Cap*3 Sig: TAKE 1 CAPSULE BY MOUTH STARTING FROM NIGHT IN 3 DAYS INCREASE TO 2 TIMES A DAY AND THEN IN 3 DAYS UP TO 3 TIMES A DAYAuthorizing Provider: ÁNGEL GUTIERREZ * Telephone Encounter - Ángel Gutierrez MD - 09/28/2023 1:55 PM EDTSigned Prescriptions: Disp Refills Gabapentin 100 MG Oral Capsule (Neurontin) 90 Cap*3 Sig: TAKE 1 CAPSULE BY MOUTH STARTING FROM NIGHT IN 3 DAYS INCREASE TO 2 TIMES A DAY AND THEN IN 3 DAYS UP TO 3 TIMES A DAY Authorizing Provider: ÁNGEL GUTIERREZ * Telephone Encounter - Ángel Gutierrez MD - 09/27/2023 10:11 AM EDTPending Prescriptions: Disp Refills Gabapentin 100 MG Oral Capsule [Pharmacy M*90 Cap*3 Sig: TAKE 1 CAPSULE BY MOUTH STARTING FROM NIGHT IN 3 DAYS INCREASE TO 2 TIMES A DAY AND THEN IN 3 DAYS UP TO 3 TIMES A DAY * Telephone Encounter - Ángel Gutierrez MD - 09/27/2023 8:31 AM EDTPending Prescriptions: Disp Refills Gabapentin 100 MG Oral Capsule [Pharmacy M*90 Cap*3 Sig: TAKE 1 CAPSULE BY MOUTH STARTING FROM NIGHT IN 3 DAYS INCREASE TO 2 TIMES A DAY AND THEN IN 3 DAYS UP TO 3 TIMES A DAY * Telephone Encounter - Katerine Garcia LPN - 09/27/2023 8:09 AM EDTPending Prescriptions: Disp Refills Gabapentin 100 MG Oral Capsule [Pharmacy M*90 Cap*3 Sig: TAKE 1 CAPSULE BY MOUTH STARTING FROM NIGHT IN 3 DAYS INCREASE TO 2 TIMES A DAY AND THEN IN 3 DAYS UP TO 3 TIMES A DAY * Telephone Encounter - Thai Bower - 09/26/2023 7:34 PM EDTPending Prescriptions: Disp Refills Gabapentin 100 MG Oral Capsule [Pharmacy M*90 Cap*3 Sig: TAKE 1CAPSULE BY MOUTH STARTING FROM NIGHT IN 3 DAYS INCREASE TO 2 TIMES A DAY AND THEN IN 3 DAYS UP TO 3TIMES A DAY documented in this encounter Plan of Treatment Upcoming Encounters Date Type Department Care Team (Latest Contact Info) Description 10/11/2023 11:15 AM EDT Hospital Encounter ENDO [facility], Endoscopy Room [facility] [address] [place] [phone] Sasha Quinn MD [address] [place] [address] 10/11/2023 11:15 AM EDT - 10/11/2023 11:45 AM EDT Surgery ENDO [facility], Endoscopy Room [facility] [address] [place] [phone] Sasha Quinn MD [address] [place] [address] COLONOSCOPY FLEXIBLE PROXIMAL DIAGNOSTIC 10/13/2023 9:30 AM EDT Telemedicine Interventional Pain Center, [facility] [address] [place] [address] [address] Mary Gomez PA-C [address] [place] [address] 12/16/2023 5:00 PM EDT Telemedicine General Internal Medicine [facility] [address] [facility] [place] [address] Ángel Gutierrez MD [address] [facility] [place] [address] Scheduled Procedures Name Priority Associated Diagnoses Date/Ti [...] intractable migraine without mention of status migrainosus Lumbar radiculopathy Thoracic or lumbosacral neuritis or radiculitis, unspecified Screen for colon cancer Special screening for malignant neoplasms, colon documented in this encounter Care Teams Manager Enrollment Relationship Specialty Start Date End Date Ángel Gutierrez MD [address] [place] [address] PCP - General Internal Medicine 09/06/23 documented as of this encounter
--- OUTSIDE RECORDS SUMMARY | 2024-01-02 13:54 | External Medical Summary | Summary of Care ---
Author Name Unknown Organization [facility] Address [address] [place] [address] Phone [phone] Care Team Providers Care Head Librarian Name Role Phone Ángel Gutierrez MD Primary Care Provider [phone] Reason for Visit * Reason Comments eRx-Medication Refill Encounter Details Date Type Department Care Team (Late st Contact Info) Description 09/26/2023 Refill General Internal Medicine [facility] [address] [facility] [place] [address] Ángel Gutierrez MD 200 [place] [address] Migraine variant; Lumbar radiculopathy Allergies No known [...] isorder 07/14/2023 Food insecurity 06/21/2023 Overview: Per [facility] Protocol Hyperlipidemia with target LDL less [...] Notes * Telephone Encounter - Dex Kenyon, [place] ASSIST - 10/01/2023 9:42 AM EDTSigned Prescriptions: [...] 10/11/2023 11:15 AM EDT Hospital Encounter ENDO [facility], Endoscopy Room [facility] [address] [place] [phone] Sasha Quinn MD [address] [place] [address] 10/11/2023 11:15 AM EDT - 10/11/2023 11:45 AM EDT Surgery ENDO [facility], Endoscopy Room [facility] [address] [place] [phone] Sasha Quinn MD [address] [place] [address] COLONOSCOPY FLEXIBLE PROXIMAL DIAGNOSTIC 10/13/2023 9:30 AM EDT Telemedicine Interventional Pain Center, [facility] [address] [place] [address] Mary Gomez PA-C [address] [place] [address] 12/16/2023 5:00 PM EDT Telemedicine General Internal Medicine [facility] 200 [facility] [place] [address] Ángel Gutierrez MD [address] [facility] [place] [address] Scheduled Procedures Name Priority Associated Diagnoses Date/Ti [...] colon documented in this encounter Care Teams Head Librarian Relationship Specialty Start Date End Date Ángel Gutierrez MD [address] [place] [address] PCP - General Internal Medicine 09/06/23 documented as of this encounter
--- OUTSIDE RECORDS SUMMARY | 2024-01-02 13:54 | External Medical Summary | Summary of Care ---
Author Name Unknown Organization [facility] Address [address] [place] [address] Phone [phone] Care Team Providers Care Laminator Hand Name Role Phone Janice Gutierrez MD Primary Care Provider [phone] Reason for Visit * Reason Onset Date Comments Medication Refill 12/02/2023 Encounter Details Date Type Department Care Team (Late st Contact Info) Description 12/02/2023 Refill General Internal Medicine [facility] [address] [facility] [address] Janice Gutierrez MD [address] [place] [address] Moderate episode of recurrent major depressive disorder (HCC); Lumbar radiculopathy Allergies No known active allergiesdocumented as of this encounter (statuses as of 12/03/2023) Medications Medication Sig Dispensed Refills Start Date [...] Active tiZANidine HCl 2 MG Oral Tablet (Zanaflex)Indicatio ns:Chronic radicular lumbar pain,DDD (degenerative disc disease), lumbar,Lumbosacral [...] or chew. 180 Capsule 5 12/03/2023 Active DULoxetine HCl 30 MG Oral Capsule Delayed Release Particles (Cymbalta)Indicatio ns:Moderate episode of recurrent major depressive disorder (HCC),Lumbar radiculopathy Take 1 Capsule by mouth in the morning and 1 Capsule before bedtime. Do not cut, crush or chew. 60 Capsule 5 09/09/2023 Discontinue d(Refill) documented as of this encounter (statuses as of 12/03/2023) Active Problems Problem Noted Date Diagnosed Date [...] as of this encounter (statuses as of 12/03/2023) Resolved Problems Problem Noted Date Diagnosed Date [...] as of this encounter (statuses as of 12/03/2023) Immunizations Name Administration Dates Next Due Seasonal [...] encounter Miscellaneous Notes * Telephone Encounter - Janice Gutierrez MD - 12/03/2023 1:54 PM EDTSigned Prescriptions: Disp Refills DULoxetine HCl 30 MG Oral Capsule Delayed *180 Ca*5 Sig: Take 1 Capsule by mouth in the morning and 1 Capsule before bedtime. Do not cut, crush or chew. Authorizing Provider: JANICE GUTIERREZ * Telephone Encounter - eDe Guo LPN - 12/03/2023 9:58 AM EDTPending Prescriptions: Disp Refills DULoxetine HCl 30 MG Oral Capsule Delayed *60 Cap*5 Sig: Take 1 Capsule by mouth in the morning and 1 Capsule before bedtime. Do not cut, crush or chew. * Telephone Encounter - Ally Owusu OSA - 12/02/2023 10:41 AM EDT 90 day Did you pend patient's preferred pharmacy and medication before forwarding?yes Pharmacy: [id number] [id number] [facility][1] Pending Prescriptions: Disp Refills DULoxetine HCl 30 MG Oral Capsule Delayed*60 Cap*5 Sig: Take 1 Capsule by mouth in the morning and 1 Capsule before bedtime. Do not cut, crush or chew. Last Visit: 07/14/2023 (in office), 09/09/2023 (telemedicine) Next Visit: 12/16/2023 If no future appointments scheduled, and last appointment is greater than a year ago, please schedule patient for a follow-up appointment Last date the medication was ordered: 09/09/23 Is this request for a controlled substance?No [...] General Internal Medicine [facility] [address] [place] [address] Janice Gutierrez MD [address] [place] [address] 01/14/2024 8:00 AM EDT Hospital Encounter ENDO [facility], Endoscopy Room [facility] [address] [place] [phone] Avi Miranda MD [address] [place] [address] 01/14/2024 8:00 AM EDT - 01/14/2024 8:30 AM EDT Surgery ENDO [facility], Endoscopy Room [facility] [address] [place] [phone] Avi Miranda MD [address] [place] [address] COLONOSCOPY FLEXIBLE PROXIMAL DIAGNOSTIC 03/24/2024 10:00 AM EDT [facility] [address] [place] [address] Jg Elder MD [address] [place] [address] [place] [phone] Scheduled Procedures Name Priority Associated Diagnoses Date/Ti [...] colon documented in this encounter Care Teams Laminator Hand Relationship Specialty Start Date End Date Janice Gutierrez MD [address] [place] [address] PCP - General Internal Medicine 09/06/23 documented as of this encounter
--- OUTSIDE RECORDS SUMMARY | 2024-01-02 13:54 | External Medical Summary | Summary of Care ---
Author Name Unknown Organization [facility] Address [address] [facility] [place] [address] Phone [phone] Care Team Providers Care Lead Oxide Mill Tender Name Role Phone Unavailable Primary Care Provider Unavailabl e Reason for Visit * Reason Onset Date Comments Medication Refill 08/26/2023 Encounter Details Date Type Department Care Team (Late st Contact Info) Description 08/26/2023 Refill Interventional Pain Center, [facility] [address] [place] [address] Nikunj Lam, [address] [place] [phone] Chronic radicular lumbar pain; DDD (degenerative disc disease), lumbar; Lumbosacral radiculopathy at L4 Allergies No known active allergiesdocumented as of this encounter (statuses as of 08/26/2023) Medications Medication Sig Dispensed Refills Start Date [...] 04/12/2023 Active Gabapentin 100 MG Oral Capsule (Neurontin)Indicati ons:Migraine variant,Lumbar radiculopathy Start Gabapentin 1 cap starting [...] and tightness 60 Tablet 1 08/26/2023 Active tiZANidine HCl 2 MG Oral Tablet (Zanaflex)Indicatio ns:Chronic radicular lumbar pain,DDD (degenerative disc disease), lumbar,Lumbosacral radiculopathy at L4 Take 1-2 tablets by mouth at night as needed for pain or muscle spasm and tightness 60 Tablet 1 05/25/2023 Discontinue d(Refill) documented as of this encounter (statuses as of 08/26/2023) Active Problems Problem Noted Date Diagnosed Date Moderate episode of recurrent major depressive d isorder 07/14/2023 Food insecurity 06/21/2023 Overview: Per [facility] Protocol Hyperlipidemia with target LDL less than 100 08/2022 Migraine variant 03/18/2023 Tobacco use disorder 02/26/2010 Overview: Continue to discuss cessation at each visit 03/26: 1/2 ppd INFORMATION 02/26/2010 Overview: Pt's daughter with fibrous dysplasia-message to [facility] if she needs to be seen [...] pt by phone-please discuss above recommendations at tx-pt aware-reports daughter has not been diagnosed with any syndromes associated with fibrous dysplasia documented as of this encounter (statuses as of 08/26/2023) Resolved Problems Problem Noted Date Diagnosed Date [...] as of this encounter (statuses as of 08/26/2023) Immunizations Name Administration Dates Next Due Seasonal [...] encounter Miscellaneous Notes * Telephone Encounter - Mary Gomez PA-C - 08/26/2023 2:47 PM ESTSigned Prescriptions: Disp Refills tiZANidine HCl 2 MG Oral Tablet (Zanaflex) 60 Tab*1 Sig: Take 1-2 tablets by mouth at night as needed for pain or muscle spasm and tightnessAuthorizing Provider: MARY GOMEZ * Telephone Encounter - Mary Gomez PA-C - 08/26/2023 2:46 PM EST Covering while Dr. Lam is out of clinic. Last filled 05/25/23, 60 tabs with one refill. Refill provided. Has follow up 10/13/23. * Telephone Encounter - Gisela Muller LPN - 08/26/2023 2:19 PM ESTPending Prescriptions: Disp Refills tiZANidine HCl 2 MG Oral Tablet (Zanaflex) 60 Tab*1 Sig: Take 1-2 tablets by mouth at night as needed for pain or muscle spasm and tightness documented in this encounter Plan of Treatment Upcoming Encounters Date Type Department Care Team (Latest Contact Info) Description 10/11/2023 11:15 AM EDT Hospital Encounter ENDO [facility], Endoscopy Room [facility] [address] [place] [phone] Sasha Quinn MD [address] [place] [address] 10/11/2023 11:15 AM EDT - 10/11/2023 11:45 AM EDT Surgery ENDO [facility], Endoscopy Room [facility] [address] [place] [phone] Sasha Quinn MD [address] [place] [address] COLONOSCOPY FLEXIBLE PROXIMAL DIAGNOSTIC 10/13/2023 9:30 AM EDT Telemedicine Interventional Pain Center, [facility] [address] [place] [address] Mary Gomez PA-C [address] [place] [address] Scheduled Procedures Name Priority Associated Diagnoses Date/Ti me COLONOSCOPY FLEXIBLE PROXIMAL DIAGNOSTIC Screen for colon cancer 10/11/2023 11:15 AM EDT Health Maintenance Due Date Last Done Comments Hepatitis B (1 of 3 - 3-dose series) 1977 COVID-19 Vaccine (#1) 04/19/1978 Pneumococcal Vaccine: Pediatrics (0 to 5 Years) and At-Risk Patients (6 to 64 Years) (1 - PCV) 10/19/1983 DTaP,Tdap,and Td Vaccines (1 - Tdap) 1996 Cologuard 2022 Colonoscopy 2022 Colorectal Cancer Screening 2022 Fecal Occult Blood Test 2022 Sigmoidoscopy 2022 Influenza Vaccine (FLU shot) (#1) 2023 04/29/2010 [...] as of this encounter Visit Diagnoses Diagnosis Chronic radicular lumbar pain Thoracic or lumbosacral neuritis or radiculitis, unspecified DDD (degenerative disc disease), lumbar Degeneration of lumbar or lumbosacral intervertebral disc Lumbosacral radiculopathy at L4 Thoracic or lumbosacral neuritis or radiculitis, unspecified Screen for colon cancer Special screening for malignant neoplasms, colon documented in this encounter
--- OUTSIDE RECORDS SUMMARY | 2024-01-02 13:54 | External Medical Summary | Summary of Care ---
Author Name Unknown Organization [facility] Address [address] [place] [address] Phone [phone] Care Team Providers Care Banbury Machine Operator Name Role Phone Unavailable Primary Care Provider Unavailabl e Encounter Details Date Type Department Care Team (Latest Contact Info) Description 06/14/2023 1:25 PM EST - 06/14/2023 11:59 PM EST Hospital Encounter Radiology Film File [address] [place] [address] Discharge Disposition: Home - Self Care Allergies [...] or chew. 30 Capsule 5 04/12/2023 Active tiZANidine HCl 2 MG Oral Tablet (Zanaflex)Indication s:Chronic radicular lumbar pain,DDD (degenerative disc disease), lumbar,Lumbosacral radiculopathy at L4 Take 1-2 tablets by mouth at night as needed for pain or muscle spasm and tightness 60 Tablet 1 05/25/2023 Active documented as of this encounter (statuses [...] Overview: Pt's daughter with fibrous dysplasia-message to [facility] if she needs to be seen by [...] pt by phone-please discuss above recommendations at la-pt aware-reports daughter has not been diagnosed with [...] on file documented as of this encounter Plan of Treatment Upcoming Encounters Date Type Department Care Team (Latest Contact Info) Description 10/11/2023 11:15 AM EDT Hospital Encounter ENDO [facility], Endoscopy Room [facility] [address] [place] [phone] Sasha Quinn MD [address] [place] [address] 10/11/2023 11:15 AM EDT - 10/11/2023 11:45 AM EDT Surgery ENDO [facility], Endoscopy Room [facility] [address] [place] [phone] Sasha Quinn MD [address] [place] [address] COLONOSCOPY FLEXIBLE PROXIMAL DIAGNOSTIC 10/13/2023 9:30 AM EDT Telemedicine Interventional Pain Center, [facility] [address] [place] [address] Mary Gomez PA-C [address] [place] [address] Scheduled Procedures Name Priority Associated Diagnoses Date/Ti [...] Procedure Name Priority Date/Time Associated Diagnosis Comments RADIOLOGY EXAM - MRI (IMAGES ONLY, NO REPORT) Routine 06/14/2023 1:25 PM EST documented in this encounter Results * RADIOLOGY EXAM - MRI (IMAGES ONLY, NO REPORT) (06/14/2023 1:25 PM EST) 06/14/2023 1:21 PM EST Narrative Scheduling, Silent - 08/25/2023 7:49 PM EST This is an imaging study not interpreted or resulted by a [facility] or [facility] radiologist. Nikunj Lam DO RAD MRI-MRA documented in this encounter
--- OUTSIDE RECORDS SUMMARY | 2024-01-02 13:54 | External Medical Summary | Summary of Care ---
Author Name Unknown Organization [facility] Address [address] [place] [address] Phone [phone] Care Team Providers Care Tilt Wall Supervisor Name Role Phone Janice Gutierrez MD Primary Care Provider Reason for Visit * Reason Comments eRx-Medication Refill Encounter Details Date Type Department Care Team (Late st Contact Info) Description 09/26/2023 Refill General Internal Medicine [facility] [address] [facility] [place] [address] Janice Gutierrez MD [address] [facility] [place] [address] Migraine variant; Lumbar radiculopathy Allergies No known active allergiesdocumented as of this encounter (statuses as of 09/28/2023) Medications Medication Sig Dispensed Refills Start Date [...] as of this encounter (statuses as of 09/28/2023) Active Problems Problem Noted Date Diagnosed Date Moderate episode of recurrent major depressive d isorder 07/14/2023 Food insecurity 06/21/2023 Overview: Per [facility] Protocol Hyperlipidemia with target LDL less [...] as of this encounter (statuses as of 09/28/2023) Resolved Problems Problem Noted Date Diagnosed Date [...] as of this encounter (statuses as of 09/28/2023) Immunizations Name Administration Dates Next Due Seasonal [...] Telephone Encounter - Janice Gutierrez MD - 09/28/2023 1:55 PM EDTSigned Prescriptions: Disp Refills Gabapentin 100 MG Oral Capsule (Neurontin) 90 Cap*3 Sig: TAKE 1 CAPSULE BY MOUTH STARTING FROM NIGHT IN 3 DAYS INCREASE TO 2 TIMES A DAY AND THEN IN 3 DAYS UP TO 3 TIMES A DAY Authorizing Provider: JANICE GUTIERREZ * Telephone Encounter - Janice Gutierrez MD - 09/27/2023 10:11 AM EDTPending Prescriptions: Disp Refills Gabapentin 100 MG Oral Capsule [Pharmacy M*90 Cap*3 Sig: TAKE 1 CAPSULE BY MOUTH STARTING FROM NIGHT IN 3 DAYS INCREASE TO 2 TIMES A DAY AND THEN IN 3 DAYS UP TO 3 TIMES A DAY * Telephone Encounter - Janice Gutierrez MD - 09/27/2023 8:31 AM EDTPending [...] DAYS UP TO 3 TIMES A DAY documented in this encounter Plan of Treatment Upcoming Encounters Date Type Department Care Team (Latest Contact Info) Description 10/11/2023 11:15 AM EDT Hospital Encounter ENDO [facility], Endoscopy Room [facility] [address] [place] [phone] Sasha Quinn MD [address] [place] [address] 10/11/2023 11:15 AM EDT - 10/11/2023 11:45 AM EDT Surgery ENDO [facility], Endoscopy Room [facility] [address] [place] [phone] Sasha Quinn MD [address] [place] [address] COLONOSCOPY FLEXIBLE PROXIMAL DIAGNOSTIC 10/13/2023 9:30 AM EDT Telemedicine Interventional Pain Center, [facility] [address] [place] [address] aMry Gomez PA-C [address] [place] [address] 12/16/2023 5:00 PM EDT Telemedicine General Internal Medicine [facility] 200 [facility], [place] [address] Janice Gutierrez MD 200 [facility] [place] [address] Scheduled Procedures Name Priority Associated Diagnoses Date/Ti [...] colon documented in this encounter Care Teams Tilt Wall Supervisor Relationship Specialty Start Date End Date Janice Gutierrez MD [address] [facility] [place] [address] PCP - General Internal Medicine 09/06/23 documented as of this encounter
--- OUTSIDE RECORDS SUMMARY | 2024-01-02 13:54 | External Medical Summary | Summary of Care ---
Author Name Unknown Organization [facility] Address [address] [place] [place] [address] Phone [phone] Care Team Providers Care Sample Color Maker Name Role Phone Janice Gutierrez MD Primary Care Provider [phone] Reason for Visit * Reason Onset Date Comments Patient Instructions 09/30/2023 colonoscopy Encounter Details Date Type Department Care Team (Late st Contact Info) Description 09/30/2023 Telephone [facility] [phone] Justina Morrison, RN Patient Instructions (colonoscopy) Allergies No known active allergiesdocumented as of this encounter (statuses as of 09/30/2023) Medications Medication Sig Dispensed Refills Start Date [...] as of this encounter (statuses as of 09/30/2023) Active Problems Problem Noted Date Diagnosed Date Moderate episode of recurrent major depressive d isorder 07/14/2023 Food insecurity 06/21/2023 Overview: Per [facility] Protocol Hyperlipidemia with target LDL less than 100 08/2022 Migraine variant 03/18/2023 Tobacco use disorder 02/26/2010 Overview: Continue to discuss cessation at each visit 03/26: 1/2 ppd INFORMATION 02/26/2010 Overview: Pt's daughter with fibrous dysplasia-message to [facility] if she needs to be seen [...] as of this encounter (statuses as of 09/30/2023) Resolved Problems Problem Noted Date Diagnosed Date [...] as of this encounter (statuses as of 09/30/2023) Immunizations Name Administration Dates Next Due Seasonal [...] EDT Hospital Encounter ENDO [facility], Endoscopy Room [facility] [address] [place] [phone] Sasha Quinn MD [address] [place] [address] 10/11/2023 11:15 AM EDT - 10/11/2023 11:45 AM EDT Surgery ENDO [facility], Endoscopy Room [facility] [address] [place] [phone] Sasha Quinn MD [address] [place] [address] COLONOSCOPY FLEXIBLE PROXIMAL DIAGNOSTIC 10/13/2023 9:30 AM EDT Telemedicine Interventional Pain Center, [facility] [address] [place] [address] Mary Gomez PA-C [address] [place] [address] 12/16/2023 5:00 PM EDT Telemedicine General Internal Medicine [facility] [place] [address] [place] [address] Janice Gutierrez MD [address] [place] [address] [address] Scheduled Procedures Name Priority Associated Diagnoses Date/Ti [...] filedocumented as of this encounter Care Teams Sample Color Maker Relationship Specialty Start Date End Date Janice Gutierrez MD 200 [place] [address] PCP - General Internal Medicine 09/06/23 documented as of this encounter
--- OUTSIDE RECORDS SUMMARY | 2024-01-02 13:54 | External Medical Summary | Summary of Care ---
Author Name Unknown Organization [facility] Address [address] [place] [address] Phone [phone] Care Team Providers Care Pathology Laboratory Director Name Role Phone Janice Gutierrez MD Primary Care Provider [phone] Reason for Referral * Medication Prior Authorization - Closed Specialty Diagnoses / Procedures Referred By Contac t Referred To Contact Diagnoses Migraine variant Emmett Hernandez, [facility] [address] [facility] [place] [address] Referral ID Status Reason Start Date Expiration Date Visits Re quested Visits Authorized [id number] Closed [phone] Reason for Visit * Reason Onset Date Comments Medication Refill 09/27/2023 Encounter Details Date Type Department Care Team (Late st Contact Info) Description 09/27/2023 Refill General Internal Medicine [facility] 200 [place] [address] Janice Gutierrez MD 200 [place] [address] Migraine variant Allergies No known active allergiesdocumented as of this encounter (statuses as of 09/28/2023) Medications Medication Sig Dispensed Refills Start Date End Date Status Meclizine HCl 25 MG Oral Tablet ChewableIndications :Vertigo Take 1 Tablet by mouth 3 times a day as needed for Dizziness. 30 Tablet 1 04/12/2023 Active Gabapentin 100 MG Oral Capsule (Neurontin)Indicati ons:Migraine variant,Lumbar radiculopathy Start Gabapentin 1 cap starting from night, in 3 days increase to twice a day and then in 3 days upto 3 times a day . 90 Capsule 3 04/12/2023 Active Meclizine HCl 25 MG Oral [...] 24 hours 6 Tablet 5 09/28/2023 Active SUMAtriptan Succinate 25 MG Oral Tablet (Imitrex)Indication s:Migraine variant Take 2 tablets at onset of migraine and one tablet every 2 hours as needed, not more than 5 tablets in 24 hours 6 Tablet 11 04/12/2023 4 Discontinue d(Patient preference/ discontinua tion) documented as of this encounter (statuses as [...] Overview: Pt's daughter with fibrous dysplasia-message to [facility] if she needs to be seen [...] pt by phone-please discuss above recommendations at nc-pt aware-reports daughter has not been diagnosed with [...] encounter Miscellaneous Notes * Telephone Encounter - Emmett Hernandez [facility] - 09/28/2023 10:20 AM EDTSigned Prescriptions: Disp Refills SUMAtriptan Succinate 25 MG Oral Tablet (I*6 Tabl*5 Sig: Take 2 tablets at onset of migraine and one tablet every 2 hours as needed, not more than 5 tablets in 24 hoursAuthorizing Provider: Janna GUTIERREZ User: EMMETT HERNANDEZ * Telephone Encounter - Emmett Hernandez [facility] - 09/28/2023 10:18 AM EDT Transferred balance of refills to [facility] Thank You, Emmett Hernandez [facility] Clinical Pharmacist [facility] ([facility] (formerly Telepharm[facility]) [phone] 09/28/2023, 10:19 AM documented in this encounter Plan of Treatment Upcoming Encounters Date Type Department Care Team (Latest Contact Info) Description 10/11/2023 11:15 AM EDT Hospital Encounter ENDO [facility], Endoscopy Room [facility] [address] [place] [phone] Sasha Quinn MD [address] [place] [address] 10/11/2023 11:15 AM EDT - 10/11/2023 11:45 AM EDT Surgery ENDO [facility], Endoscopy Room [facility] [address] [place] [phone] Sasha Quinn MD [address] [place] [address] COLONOSCOPY FLEXIBLE PROXIMAL DIAGNOSTIC 10/13/2023 9:30 AM EDT Telemedicine Interventional Pain Center, [facility] [address] [place] [address] Mary Gomez PA-C [address] [place] [address] 12/16/2023 5:00 PM EDT Telemedicine General Internal Medicine [facility] [place] [address] [place] [address] Janice Gutierrez MD [address] [facility] [place] [address] Scheduled Procedures Name Priority Associated Diagnoses Date/Ti [...] intractable migraine without mention of status migrainosus Screen for colon cancer Special screening for malignant neoplasms, colon documented in this encounter Care Teams Pathology Laboratory Director Relationship Specialty Start Date End Date Janice Gutierrez MD 200 [place] [address] PCP - General Internal Medicine 09/06/23 documented as of this encounter
--- OUTSIDE RECORDS SUMMARY | 2024-01-02 13:54 | External Medical Summary | Summary of Care ---
Author Name Unknown Organization [facility] Address [address] [place] [address] Phone [phone] Care Team Providers Care New Car Driver Name Role Phone Janice Gutierrez MD Primary Care Provider [phone] Reason for Visit * Reason Comments Follow Up Medication follow up Needs another accommodation letter for her job Encounter Details Date Type Department Care Team (Latest Contact Info) Description 09/09/2023 5:00 PM EST Telemedicine General Internal Medicine [facility] [address] [place] [address] Janice Gutierrez MD 200 [facility] [place] [address] Moderate episode of recurrent major depressive disorder (HCC)*; Migraine variant; Tobacco use disorder; Hyperlipidemia with target LDL less than 100; Lumbar radiculopathy Allergies No known active allergiesdocumented as of this encounter (statuses as of 09/20/2023) Medications Medication Sig Dispensed Refills Start Date [...] 04/12/2023 Active Gabapentin 100 MG Oral Capsule (Neurontin)Indicat [...] or chew. 60 Capsule 5 09/09/2023 Active DULoxetine HCl 30 MG Oral Capsule Delayed Release Particles (Cymbalta)Indicati ons:Moderate episode of recurrent major depressive disorder (HCC),Lumbar radiculopathy Take 1 Capsule by mouth in the morning. Do not cut, crush or chew. 30 Capsule 5 04/12/2023 09/09/19 24 Discontinued documented as of this encounter (statuses as of 09/20/2023) Active Problems Problem Noted Date Diagnosed Date [...] pt by phone-please discuss above recommendations at mo-pt aware-reports daughter has not been diagnosed with any syndromes associated with fibrous dysplasia documented as of this encounter (statuses as of 09/20/2023) Resolved Problems Problem Noted Date Diagnosed Date [...] as of this encounter (statuses as of 09/20/2023) Immunizations Name Administration Dates Next Due Seasonal [...] Progress Notes * Janice Gutierrez MD - 09/09/2023 5:03 PM EST Images from the original note were not included. History of Present Illness Keyona Santos is a 47 year old female that presents for Follow Up (Medication follow up/Needs another accommodation letter for her job) 47 year old YOfemale with PMH significant for for recheck. Acute concern :- - back been hurting again and waiting for injection so needs letter of sitting accomodation for work since it -tolerating Cymbalta and might have helped mood but not much Interimmedical history : as above Watching diet and exercise : no Routine labs : due Routine HM : Pt is due for many HM , discussed importance of doing them, Patient will consider. Chronic medical problem: reviewed and stable Physical Exam There were no vitals filed for this visit. Physical Exam Vitals reviewed: exam done with the help of patient and may not be accurate due to video quality. Constitutional: General: She is in acute distress. Appearance: Normal appearance. She is obese. HENT: Head: Normocephalic. Pulmonary: Effort: No respiratory distress. Psychiatric: Comments: Anxious I have reviewed the following results: Assessment and Plan Moderate episode of recurrent major depressive disorder (HCC) - DULoxetine HCl 30 MG Oral Capsule Delayed Release Particles (Cymbalta); Take 1 Capsule by mouth in the morning and 1 Capsule before bedtime. Do not cut, crush or chew. Increased Migraine variant Tobacco use disorder Counseling done for smoking cessation Hyperlipidemia with target LDL less than 100 Stable Continue current treatment as directed Lumbar radiculopathy Cont gabapentin - DULoxetine HCl 30 MG Oral Capsule Delayed Release Particles (Cymbalta); Take 1 Capsule by mouth in the morning and 1 Capsule before bedtime. Do not cut, crush or chew. - RETURN TO WORK OR SCHOOL Wrap-Up Time: I spent a total of 30-39 minutes (exact time 32 mins) on the date of service in preparation, delivery, and documentation of the care provided to Keyona Santos excluding any time spent in the performance of separately billed services. Telemedicine: Patient location: HOME. I was in a hospital or clinic location. After connecting through [employer],patient was verified with two unique identifiers. Patient (or authorized legal international sales representative) was then informed that this was a Telemedicine visit and being conducted confidentially over secure lines. Methods to assure confidentiality were taken. Patient acknowledged consent and understanding of pr ivacy and security of the Telemedicine visit. The patient agreed to participate. documented in this encounter Nursing Notes * Elvia Galvan LPN - 09/09/2023 4:53 PM EST Chief Complaint Patient presents with Follow Up Medication follow up Needs another accommodation letter for her job documented in this encounter Plan of Treatment Upcoming Encounters Date Type Department Care Team (Latest Contact Info) Description 10/11/2023 11:15 AM EDT Hospital Encounter ENDO [facility], Endoscopy Room [facility] [address] [address] Sasha Quinn MD [address] [address] 10/11/2023 11:15 AM EDT - 10/11/2023 11:45 AM EDT Surgery ENDO [facility], Endoscopy Room [facility] [address] [place] [phone] Sasha Quinn MD [address] [place] [address] COLONOSCOPY FLEXIBLE PROXIMAL DIAGNOSTIC 10/13/2023 9:30 AM EDT Telemedicine Interventional [facility] Center, [facility] [address] [place] [address] Mary Gomez PA-C [address] [place] [address] 12/16/2023 5:00 PM EDT Telemedicine General Internal Medicine [facility] 200 [facility] [place] [address] Janice Gutierrez MD [address] [place] [address] Scheduled Procedures Name Priority Associated Diagnoses Date/Ti [...] Moderate episode of recurrent major depressive disorder (HCC)- Primary Migraine variant Variants of migraine, not elsewhere classified, without mention of intractable migraine without mention of status migrainosus Tobacco use disorder Hyperlipidemia with target LDL less than 100 Other and unspecified hyperlipidemia Lumbar radiculopathy Thoracic or lumbosacral neuritis or radiculitis, unspecified Screen for colon cancer Special screening for malignant neoplasms, colon documented in this encounter Care Teams New Car Driver Relationship Specialty Start Date End Date Janice Gutierrez MD 200 [facility] [place] [address] PCP - General Internal Medicine 09/06/23 documented as of this encounter
--- OUTSIDE RECORDS SUMMARY | 2024-01-02 13:54 | External Medical Summary | Summary of Care ---
Author Name Unknown Organization [facility] Address [address] [place] [address] Phone [phone] Care Team Providers Care Summons Server Name Role Phone Janice Gutierrez MD Primary Care Provider [phone] Reason for Visit * Reason Comments eRx-Medication Refill Encounter Details Date Type Department Care Team (Late st Contact Info) Description 09/22/2023 Refill General Internal Medicine [facility] 200 [facility] [place] [address] Janice Gutierrez MD 200 [place] [address] Allergies No known active allergiesdocumented as of this encounter (statuses as of 09/23/2023) Medications Medication Sig Dispensed Refills Start Date [...] WITH FOOD 60 Tablet 1 09/23/2023 Active Naproxen 500 MG Oral Tablet (Naprosyn) TAKE 1 TABLET BY MOUTH TWICE A DAY IF NEEDED FOR PAIN WITH FOOD 60 Tablet 1 07/20/2023 09/23/19 24 Discontinued documented as of this encounter (statuses as of 09/23/2023) Active Problems Problem Noted Date Diagnosed Date Moderate episode of recurrent major depressive d isorder 07/14/2023 Food insecurity 06/21/2023 Overview: Per [facility] Protocol Hyperlipidemia with target LDL less [...] pt by phone-please discuss above recommendations at ga-pt aware-reports daughter 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 been diagnosed with any syndromes associated with fibrous dysplasia documented as of this encounter (statuses as of 09/23/2023) Resolved Problems Problem Noted Date Diagnosed Date [...] as of this encounter (statuses as of 09/23/2023) Immunizations Name Administration Dates Next Due Seasonal [...] encounter Miscellaneous Notes * Telephone Encounter - Yung Hogue [facility] - 09/23/2023 11:48 AM EDT Signed Prescriptions: Disp Refills Naproxen 500 MG Oral Tablet (Naprosyn) 60 Tab*1 Sig: TAKE 1 TABLET BY MOUTH TWICE A DAY IF NEEDED FOR PAIN WITH FOODAuthorizing Provider: Janna GUTIERREZ User: YUNG HOGUE documented in this encounter Plan of Treatment Upcoming Encounters Date Type Department Care Team (Latest Contact Info) Description 10/11/2023 11:15 AM EDT Hospital Encounter ENDO [facility], Endoscopy Room [facility] [address] [address] Sasha Quinn MD [address] [address] 10/11/2023 11:15 AM EDT - 10/11/2023 11:45 AM EDT Surgery ENDO [facility], Endoscopy Room [facility] [address] [address] Sasha Quinn MD [address] [place] [address] COLONOSCOPY FLEXIBLE PROXIMAL DIAGNOSTIC 10/13/2023 9:30 AM EDT Telemedicine Interventional Pain Center, [facility] [address] [place] [address] Mary Gomez PA-C [address] [place] [address] 12/16/2023 5:00 PM EDT Telemedicine General Internal Medicine [facility] 200 [facility] [place] [address] Janice Gutierrez MD [address] [place] [address] Scheduled Procedures Name Priority Associated Diagnoses Date/Ti [...] filedocumented as of this encounter Care Teams Summons Server Relationship Specialty Start Date End Date Janice Gutierrez MD [address] [place] [address] PCP - General Internal Medicine 09/06/23 documented as of this encounter
--- OUTSIDE RECORDS SUMMARY | 2024-01-02 13:54 | External Medical Summary | Summary of Care ---
Author Name Unknown Organization [facility] Address [address] [place] [address] Phone [phone] Care Team Providers Care Quill Skinner Name Role Phone Janice Gutierrez MD Primary Care Provider [phone] Encounter Details Date Type Department Care Team (Late st Contact Info) Description 08/30/2023 Telephone General Internal Medicine [facility] [address] [place] [address] Janice Gutierrez MD 200 [place] [address] Allergies No known active allergiesdocumented as of [...] isorder 07/14/2023 Food insecurity 06/21/2023 Overview: Per [facility] Protocol Hyperlipidemia with target LDL less than 100 08/2022 Migraine variant 03/18/2023 Tobacco use disorder 02/26/2010 Overview: Continue to discuss cessation at each visit 03/26: 1/2 ppd INFORMATION 02/26/2010 Overview: Pt's daughter with fibrous dysplasia-message to [facility] if she needs to be seen [...] State Brendan Hooker [address] [place] [address] [address] Janice Gutierrez MD [address] [place] [address] 10/11/2023 11:15 AM EDT Hospital Encounter [facility], Endoscopy Room [facility] [address] [place] [address] [place] [address] Sasha Quinn MD [address] [place] [address] 10/11/2023 11:15 AM EDT - 10/11/2023 11:45 AM EDT Surgery ENDO [facility], Endoscopy Room [facility] [address] [place] [phone] Sasha Quinn MD [address] [place] [address] COLONOSCOPY FLEXIBLE PROXIMAL DIAGNOSTIC 10/13/2023 9:30 AM EDT Telemedicine Interventional Pain Center, [facility] [address] [place] [address] Mary Gomez PA-C [address] [place] [address] Scheduled Procedures Name Priority Associated Diagnoses Date/Ti [...] filedocumented as of this encounter Care Teams Quill Skinner Relationship Specialty Start Date End Date Janice Gutierrez MD 200 [facility] [place] [address] PCP - General Internal Medicine 09/06/23 documented as of this encounter
--- OUTSIDE RECORDS SUMMARY | 2024-01-02 13:54 | External Medical Summary | Summary of Care ---
Author Name Unknown Organization [facility] Address [address] [place] [address] Phone [phone] Care Team Providers Care Law Researcher Name Role Phone Janice Gutierrez MD Primary Care Provider [phone] Reason for Visit * Reason Onset Date Comments Medication Refill 09/27/2023 Encounter Details Date Type Department Care Team (Late st Contact Info) Description 09/27/2023 Refill General Internal Medicine [facility] 200 [place] [address] Janice Gutierrez MD 200 [place] [address] Migraine variant; Lumbar radiculopathy Allergies No known [...] WITH FOOD 60 Tablet 1 09/23/2023 Active documented as of this encounter (statuses as of 09/28/2023) Active Problems Problem Noted Date Diagnosed Date Moderate episode of recurrent major depressive d isorder 07/14/2023 Food insecurity 06/21/2023 Overview: Per [facility] Protocol Hyperlipidemia with target LDL less [...] encounter Miscellaneous Notes * Telephone Encounter - Katerine Garcia LPN - 09/28/2023 8:37 AM EDT Duplicate. See other encounter * Telephone Encounter - Thai Bower - 09/27/2023 10:31 PM EDTPending Prescriptions: Disp Refills Gabapentin 100 MG Oral Capsule (Neurontin) 90 Cap*3 Sig: Start Gabapentin 1 cap starting from night, in 3 days increase to twice a day and then in 3 days upto 3 times a day . documented in this encounter Plan of Treatment Upcoming Encounters Date Type Department Care Team (Latest Contact Info) Description 10/11/2023 11:15 AM EDT Hospital Encounter ENDO [facility], Endoscopy Room [facility] [address] [address] Sasha Quinn MD [address] [address] 10/11/2023 11:15 AM EDT - 10/11/2023 11:45 AM EDT Surgery ENDO [facility], Endoscopy Room [facility] [address] [place] [phone] Sasha Quinn MD [address] [place] [address] COLONOSCOPY FLEXIBLE PROXIMAL DIAGNOSTIC 10/13/2023 9:30 AM EDT Telemedicine Interventional Pain Center, [facility] [address] [place] [address] Mary Gomez PA-C [address] [place] [address] 12/16/2023 5:00 PM EDT Telemedicine General Internal Medicine [facility] [address] [place] [address] Janice Gutierrez MD [address] [place] [address] Scheduled Procedures Name Priority Associated Diagnoses Date/Ti [...] colon documented in this encounter Care Teams Law Researcher Relationship Specialty Start Date End Date Janice Gutierrez MD 200 [place] [address] PCP - General Internal Medicine 09/06/23 documented as of this encounter
--- OUTSIDE RECORDS SUMMARY | 2024-01-02 13:54 | External Medical Summary | Summary of Care ---
Author Name Unknown Organization [facility] Address [address] [place] [address] Phone [phone] Care Team Providers Care Hydroelectric Systems Technician Name Role Phone Ángel Gutierrez MD Primary Care Provider [phone] Reason for Visit * Reason Comments eRx-Medication Refill Encounter Details Date Type Department Care Team (Late st Contact Info) Description 09/26/2023 Refill General Internal Medicine [facility] 200 [facility] [place] [address] Ángel Gutierrez MD 200 [place] [address] Migraine variant; Lumbar radiculopathy Allergies No known [...] isorder 07/14/2023 Food insecurity 06/21/2023 Overview: Per [facility] Protocol Hyperlipidemia with target LDL less [...] Notes * Telephone Encounter - Dex Kenyon, [employer] - 10/01/2023 9:42 AM EDTSigned Prescriptions: [...] 10/11/2023 11:15 AM EDT Hospital Encounter ENDO [facility], Endoscopy Room [facility] [address] [address] Sasha Quinn MD [address] [place] [address] 10/11/2023 11:15 AM EDT - 10/11/2023 11:45 AM EDT Surgery ENDO [facility], Endoscopy Room [facility] [address] [place] [address] Sasha Quinn MD [address] [place] [address] COLONOSCOPY FLEXIBLE PROXIMAL DIAGNOSTIC 10/13/2023 9:30 AM EDT Telemedicine Interventional Pain Center, [facility] [address] [place] [address] Mary Gomez PA-C [address] [place] [address] 12/16/2023 5:00 PM EDT Telemedicine General Internal Medicine [facility] [address] [facility] [place] [address] Ángel Gutierrez MD 200 [facility] [place] [address] Scheduled Procedures Name Priority Associated Diagnoses Date/Ti [...] colon documented in this encounter Care Teams Hydroelectric Systems Technician Relationship Specialty Start Date End Date Ángel Gutierrez MD [address] [place] [address] PCP - General Internal Medicine 09/06/23 documented as of this encounter
--- OUTSIDE RECORDS SUMMARY | 2024-01-02 13:55 | External Medical Summary | Summary of Care ---
Author Name Unknown Organization [facility] Address [address] [facility] [place] [address] Phone [phone] Care Team Providers Care Maitre D Name Role Phone Unavailable Primary Care Provider Unavailabl e Reason for Visit * Reason Comments Outpatient Testing Encounter Details Date Type Department Care Team (Late st Contact Info) Description 07/14/2023 12:10 PM EST Laboratory Laboratory [facility] [address] [place] [address] [facility] [address] [facility] [place] [address] Arrived Allergies No known active allergiesdocumented as of this encounter (statuses as of 07/14/2023) Medications Medication Sig Dispensed Refills Start Date [...] or chew. 30 Capsule 5 04/12/2023 Active Naproxen 500 MG Oral Tablet (Naprosyn) Take 1 Tablet by mouth 2 times a day as needed for Pain. With food 60 Tablet 1 04/12/2023 Active Omeprazole 20 MG Oral Capsule Delayed Release (PriLOSEC) Take 1 Capsule by mouth in the morning. 1 hour before the first meal of the day. 90 Capsule 3 04/12/2023 Active tiZANidine HCl 2 MG Oral Tablet (Zanaflex)Indication s:Chronic radicular lumbar pain,DDD (degenerative disc disease), lumbar,Lumbosacral radiculopathy at L4 Take 1-2 tablets by mouth at night as needed for pain or muscle spasm and tightness 60 Tablet 1 05/25/2023 Active Meclizine HCl 25 MG Oral Tablet (Antivert) TAKE 1 TABLET BY MOUTH THREE TIMES A DAY IF NEEDED FOR DIZZINESS 30 Tablet 1 06/29/2023 Active Ondansetron HCl 4 MG Oral Tablet (Zofran) Take 1 Tablet by mouth every 6 hours as needed for Nausea. 0 07/08/2023 Active predniSONE 20 MG Oral Tablet (Deltasone)Indicatio ns:Acute bronchitis, antibiotics not indicated Take 2 Tablets by mouth in the morning for 5 days. 10 Tablet 0 07/14/2023 07/19/2023 Active Ventolin HFA 108 (90 Base) MCG/ACT Inhalation Aerosol SolutionIndications: Acute bronchitis, antibiotics not indicated Inhale 2 Puffs by mouth every 4 hours as needed for Wheezing. 18 g 2 07/14/2023 Active documented as of this encounter (statuses as of 07/14/2023) Active Problems Problem Noted Date Diagnosed Date Moderate episode of recurrent major depressive d isorder 07/14/2023 Food insecurity 06/21/2023 Overview: Per [facility] Protocol Hyperlipidemia with target LDL less [...] as of this encounter (statuses as of 07/14/2023) Resolved Problems Problem Noted Date Diagnosed Date [...] as of this encounter (statuses as of 07/14/2023) Immunizations Name Administration Dates Next Due Seasonal [...] Department Care Team (Latest Contact Info) Description 08/12/2023 9:30 AM EST Imaging Radiology [address] [place] [address] 08/20/2023 9:40 AM EST Hospital Encounter [facility], Operating Room [facility] [address] [place] [address] Nikunj Lam, [address] [place] [address] 08/20/2023 9:40 AM EST - 08/20/2023 10:05 AM EST Surgery OR [facility], Operating Room [facility] [address] [place] [address] Nikunj Lam, [address] [place] [address] INJECTION SPINE LUMBAR OR SACRAL 08/26/2023 1:00 PM EST Hospital Encounter ENDO [facility], Endoscopy Room [facility] [address] [place] [phone] Seferino Mayfield MD 08/26/2023 1:00 PM EST - 08/26/2023 1:30 PM EST Surgery ENDO [facility], Endoscopy Room [facility] [address] [place] [phone] Seferino Mayfield MD COLONOSCOPY FLEXIBLE PROXIMAL DIAGNOSTIC Scheduled Procedures Name Priority Associated Diagnoses Date/Ti me INJECTION SPINE LUMBAR OR SACRAL Thoracic and lumbosacral neuritis 08/20/2023 9:40 AM EST COLONOSCOPY FLEXIBLE PROXIMAL DIAGNOSTIC Screen for colon cancer 08/26/2023 1:00 PM EST Health Maintenance Due Date Last Done Comments [...] Not on filedocumented as of this encounter Additional Health Concerns Infection Onset Date Last Indicated Resolved Time Respiratory Rule-Out 07/14/2023 07/14/2023 documented as of this encounter
--- OUTSIDE RECORDS SUMMARY | 2024-01-02 13:55 | External Medical Summary | Summary of Care ---
Author Name Unknown Organization [facility] Address [address] [facility] [address] Phone [phone] Care Team Providers Care Case Picker Name Role Phone Unavailable Primary Care Provider Unavailabl e Reason for Visit * Auth/Cert Specialty Diagnoses / Procedures Referred By Jaime t Referred To Contact Diagnoses Thoracic and lumbosacral neuritis Thoracic and lumbosacral neuritis [M54.14, M54.17] Procedures INJECT DX/THER SUBSTANCE INTERLAMINAR LUMBAR/SACRAL W IMAGE GUIDE INJECTION SPINE LUMBAR OR SACRAL Referral ID Status Reason Start Date Expiration Date Visits Re quested Visits Authorized [id number] Encounter Details Date Type Department Care Team (Latest Contact Info) Description 08/20/2023 9:05 AM EST - 08/20/2023 10:12 AM EST Hospital Encounter OR [facility], Operating Room [facility] [address] [place] [address] Nikunj Lam, [address] [place] [phone] Discharge Disposition: Home - Self Care Allergies No known active allergiesdocumented as of this encounter (statuses as of 08/20/2023) Medications Medication Sig Dispensed Refills Start Date [...] and tightness 60 Tablet 1 05/25/2023 Active Ventolin HFA 108 (90 Base) MCG/ACT Inhalation Aerosol SolutionIndications: Acute bronchitis, antibiotics not indicated Inhale 2 Puffs by mouth every 4 hours as needed for Wheezing. 18 g 2 07/14/2023 Active documented as of this encounter (statuses as of 08/20/2023) Active Problems Problem Noted Date Diagnosed Date Moderate episode of recurrent major depressive d isorder 07/14/2023 Food insecurity 06/21/2023 Overview: Per [facility] Protocol Hyperlipidemia with target LDL less than 100 08/2022 Migraine variant 03/18/2023 Tobacco use disorder 02/26/2010 Overview: Continue to discuss cessation at each visit 03/26: 1/2 ppd INFORMATION 02/26/2010 Overview: Pt's daughter with fibrous dysplasia-message to [facility] if she needs to be [...] as of this encounter (statuses as of 08/20/2023) Resolved Problems Problem Noted Date Diagnosed Date [...] as of this encounter (statuses as of 08/20/2023) Immunizations Name Administration Dates Next Due Seasonal [...] Sign Reading Time Taken Comments Blood Pressure 146/97 08/20/2023 10:07 AM EST Pulse 76 08/20/2023 10:07 AM EST Temperature 36.3 C (97.3 F) 08/20/2023 9:11 AM ES T Respiratory Rate 14 08/20/2023 10:07 AM EST Oxygen Saturation 96% 08/20/2023 10:07 AM EST Inhaled Oxygen Concentration - - Weight - - Height - - Body Mass Index - - documented in this encounter Discharge Instructions * Discharge Instr - AVS* Nikunj Lam, - 08/20/2023 10:02 AM EST [facility] [address] [place] [address] Discharge Date: 08/20/2023 You may call [facility] at [phone] during business hours. For after-hours emergencies call 911. Your attending physician at the time of your discharge was: [facility]j Lam DO [address] [facility] [address] The information below provides you with the instructions and the list of medications you need to betaking following discharge from the hospital. If you have any questions, please ask before leaving.Please carry this letter with you when you see your doctor in the clinic. Diet: Resume your normal diet If you are diabetic, follow your blood sugars closely for next 2-3 days as they are likely to be elevated. If you are having difficulty controlling your blood sugars call your family doctor or the physician that treats your diabetes. Activity: Do not engage in strenuous activity today Resume your normal activities tomorrow Do not soak in water for 24 hours. No swimming, hot tub or bath but showering is allowed. Do not use heat on the injection site for 24 hours. If uncomfortable ice may be helpful. Some injections may make your arms or legs weak for a few hours. Be extremely careful when walking or changing positions that you do not fall. Have someone assist you for the next 6 hours. If weakness or numbness becomes progressive CALL IMMEDIATELY or GO TO THE NEAREST EMERGENCY ROOM Keep a diary of your pain until seen in the office to help us determine how effective the injectionwas Do not restart physical therapy or chiropractic manipulation until 48 hours after your injection Call : If weakness or numbness suddenly becomes worse or become progressive If the injection site becomes red, swollen, warm to the touch, begins to bleed or drain fluid, or is excessively painful. If you have any questions Medications: Resume all the medications you were taking prior to your injection. Resume your anticoagulants tomorrow unless otherwise instructed by your family physician, technical communication teacher or the anticoagulation clinic. Additional Instructions: None Driving: You may resume driving in 12-24 hours if no weakness is noted . Date you may return to work or school: N/A Follow Up: Follow-up with Dr. Lam or Mary Gomez PA-C in 6-8 weeks via telehealth or in- person appointment per your preference. documented in this encounter Progress Notes * Nikunj Lam DO - 08/20/2023 10:02 AM EST [facility] [place] [address] [facility] [address] OUTPATIENT SURGERY DISCHARGE SUMMARY NOTE Name: Keyona Santos Location: OR [facility]/OR Date: 08/20/2023 Time: 10:02 AM Surgery Date: 08/20/2023 Procedure: Procedure(s): INJECTION SPINE LUMBAR OR SACRAL No laterality found for procedure #1 Surgeon: Surgeon(s): Nikunj Lam DO Discharge Diagnosis: lumbar radicular pain After examination of this patient, I have determined she is ready for discharge to home when the patient meets criteria. Discharge instructions were given to the patient. Nikunj Lam DO OR [facility], Operating Room [facility] [address] [place] [address] documented in this encounter H&P Notes * Nikunj Lam DO [place] - 08/20/2023 9:25 AM EST Interventional Pain H&P Subjective: History of Present Illness: Keyona Santos is a 47 year old year-old female with a past medical history significant for lumbar radicular pain who is presenting for L4/5 STAN (left) to improve her pain and function. her pain is essentially unchanged since our last office visit with her. ASA 3 AW nml Review of Systems: A focused 12-pt ROS were of reviewed with the patient including difficulty with sleep, snoring, aspiration history, dysphagia, stomach pain, nausea and vomiting, severe headaches, confusion, open skin lesions or wounds, chest pain, shortness of breath, excessive thirst, somnolence, dysuria, incomplete bladder emptying, easy bruising, recent clotting problems or bleeding, depression or rushed thoughts unless noted previously. Review of patient's allergies indicates: No Known Allergies Medications, Past Medical History, Past Surgical History reviewed and documented in Epic. See detailed report if needed. Pertinent Labs/Test Results: No results found for: "INR" No results found for: "CREATININE" Hemoglobin A1C (%) Date Value 03/18/2023 5.8 (H) No results found for: "AMPHETAMINE", "BARBITURATES", "BENZODIAZEPINES", "BUPRENORPHINE", "METHADONE", "OPIATES", "OXYCODONE", "PHENCYCLIDINE", "CANNABINOIDS", "TOX SCREEN", "URINE", "TOX SCREEN-SERUM", "TOX SCREEN, URINE" Imaging: I personally reviewed the imaging and my findings were . XR CHEST 2 VIEWS Narrative: EXAM XR CHEST 2 VIEWS - 07/14/2023 12:15 pm HISTORY coug, SOB and ;eft chets pain - r/o pneumonia TECHNIQUE Frontal and lateral radiographs of the chest were obtained. COMPARISON None FINDINGS FOREIGN BODIES, SUPPORT TUBES, LINES, DEVICES: None. LUNGS, PLEURA: Suspect central peribronchial thickening. Underinflation of the chest with crowding of bronchovascular markings, probably some degree of pulmonary restriction associated with BMI. No consolidation. No pneumothorax or effusion. CARDIOVASCULAR, MEDIASTINUM: Normal cardiomediastinal silhouette. OTHER: None. Impression: IMPRESSION 1. No evidence of pneumonia. 2. Underinflated chest. 3. Suspect central peribronchial thickening typical of chronic bronchitis/smoking or asthma. Objective Physical Exam: Vital Signs: BP 142/80 | Pulse 89 | Temp 36.3 C (97.3 F) (Tympanic) | Resp 14 | SpO2 97% There is no height or weight on file to calculate BMI. General: No apparent distress. Eyes: pupils equal and round, sclera white, pupils midsize. ENT: mucous membranes moist Resp: Non-labored breathing CV: Extremities warm and well-perfused. Psych: Oriented; affect warm, insight good. Skin: No rashes or lesions appreciated on exposed skin Neuromuscular Exam: Facet loading neg, SLR pos, TTT over lumbar spine Assessment: Keyona is a 47 year old year-old female with: Lumbosaral radicular pain Plan: The patient is undergoing L4/5 STAN today to alleviate her pain and improve her function. The risks,benefits and alternatives to the procedure were reviewed at length and the patient was provided theopportunity to ask questions which were answered to their voiced understanding. Following this comprehensive discussion, the patient opted to proceed. The patient was consented to the procedure follow ing this comprehensive conversation. Nikunj Lam DO OR [facility], Operating Room [address] [phone] documented in this encounter Nursing Notes * Isela Hawley RN - 08/20/2023 10:08 AM EST Visited by Dr Lam. Verbalized understanding of discharge directions. Ready for discharge to home. * Brenda Fox RN - 08/20/2023 10:01 AM EST Band aid applied to area. Patient transferred to PACU 11 via wheelchair * Isela Hawley RN - 08/20/2023 9:17 AM EST Patient does not meet criteria for testing s/p hysterectomy documented in this encounter OR Notes * OR Surgeon - Nikunj Lam DO - 08/20/2023 10:00 AM EST INTERLAMINAR LUMBAR EPIDURAL STEROID INJECTION DATE: 08/20/2023 PHYSICIAN: Nikunj Lam DO PREOPERATIVE DIAGNOSIS: Lumbar spondylosis with lumbar radiculopathy. POSTOPERATIVE DIAGNOSIS: Lumbar spondylosis with lumbar radiculopathy. PROCEDURE PERFORMED: L4/5 interlaminar epidural steroid injection on the left side. Fluoroscopy for precise needle placement. ANESTHESIA: Local infiltration with 1% lidocaine. MONITORS: Automatic blood pressure cuff, pulse oximetry. There was no social science research assistant, EBL or drains placed during this procedure. INDICATIONS: I had the pleasure of [facility] Keyona Santos ([id number][facility] Keyona Santos is a 47 year old year-old female has a history of lumbar radiculopathy. she is here today for an interlaminar lumbar epidural steroid injection today. MEDICATIONS: Current Facility-Administered Medications Medication Dose Route Frequency Provider Last Rate Last Admin Triamcinolone Acetonide (Kenalog) 40 MG/ML inj 40 mg 40 mg Injection Once Nikunj Lam DO ALLERGIES: Review of patient's allergies indicates: No Known Allergies REVIEW OF SYSTEMS: Negative for fever, chills, chest pain, SOB, bleeding abnormalities, nausea, vomiting, diarrhea, worsening edema, or new rashes. FOCUSED PHYSICAL EXAMINATION: The patient is awake, alert and oriented, and is in no acute distress. Vital signs are stable. The patient is afebrile. The rest of the PE is essentially unchanged from the patient's recent visit to our office. I explained the procedure to the patient including the risks, benefits and alternatives to the procedure. The risks discussed with the patient included but were not limited to: bleeding, infection, and damage to surrounding nerves, tissues, and organs, paralysis, increased pain, pain at the site ofinjection, allergic reaction, blood pressure instability, seizures, heart block, headaches, increase in blood sugar, worsening of glaucoma, blindness, manic episodes, mood instability, . Alternatives to the procedure were also explained and include: do nothing, surgery, medications, and physical therapy. The patient verbalized understanding and was willing to proceed. PROCEDURE IN DETAIL: An informed consent was obtained. The patient was taken to the procedure room,was positively identified by the staff and attending physician. The patient was positioned prone onthe procedure bed. Vital signs were monitored as above and remained stable throughout the procedure. The skin was prepped and draped in a standard sterile fashion. A surgical pause time-out was performed and agreed upon by the members of the team. Fluoroscopic view of the lumbar spine was obtained and the area of interest was identified. The skin and subcutaneous tissues were anesthetized using 1% lidocaine and 25-gauge 1-1/2 inch needle. After that, a 18-gauge, 5-inch epidural needle was advanced towards the L4/5 interlaminar window inthe left paramedian position. AP, contralateral oblique and lateral views were used to assess appropriate needle position. Loss of resistance to air technique was utilized and was obtained at 8.5 cm from the skin. The needle's position was additionally verified by injecting radiopaque dye, which showed spread of the dye in the epidural space in AP and lateral views. After negative aspiration for CSF and blood, 80 mg of Kenalog diluted in 2 mL of 1% lidocaine was injected into the epidural space. The needle was withdrawn. The patient tolerated the procedure well. COMPLICATIONS: None. DISPOSITION: 1. Return to clinic in 1-2 months for follow-up evaluation, sooner as needed. 2. Resume activity as tolerated. 3. Patient can drive after 12-24 hours if no weakness noted. Nikunj Lam DO OR [facility], Operating Room [facility] [address] [place] [address] documented in this encounter Plan of Treatment Upcoming Encounters Date Type Department Care Team (Latest Contact Info) Description 10/11/2023 11:15 AM EDT Hospital Encounter ENDO [facility], Endoscopy Room [facility] [address] [place] [phone] Sasha Quinn MD [address] [place] [address] 10/11/2023 11:15 AM EDT - 10/11/2023 11:45 AM EDT Surgery ENDO [facility], Endoscopy Room [facility] [address] [place] [phone] Sasha Quinn MD [address] [place] [address] COLONOSCOPY FLEXIBLE PROXIMAL DIAGNOSTIC 10/13/2023 9:30 AM EDT Telemedicine Interventional Pain Center, [facility] [address] [place] [address] Mary Gomez PA-C [address] [place] [address] Scheduled Procedures Name Priority Associated Diagnoses Date/Ti me INJECTION SPINE LUMBAR OR SACRAL Thoracic and lumbosacral neuritis 08/20/2023 9:47 AM EST COLONOSCOPY FLEXIBLE PROXIMAL DIAGNOSTIC Screen [...] Procedure Name Priority Date/Time Associated Diagnosis Comments FLUORO INTERVENTIONAL PAIN PROCEDURE NONBILLABLE Routine 08/20/2023 10:10 AM EST documented in this encounter Results * FLUORO INTERVENTIONAL PAIN PROCEDURE NONBILLABLE (08/20/2023 10:10 AM EST) Narrative Scheduling, Silent - 08/20/2023 10:10 AM EST This procedure will not be read by a Radiologist. Please see operative note. Nikunj COLES FLUOROSCOPY documented in this encounter Administered Medications Inactive Administered Medications - up to 3 most recent administrations Medication Order MAR Action Action Date Dose Rate Site Iohexol (Omnipaque 240) inj 0.5 mL 0.5 mL, Epidural, ONCE, On Wed08/20/23 at 1030, For 1 dose, For caudal epidural Given 08/20/2023 9:57 AM EST 2 mL lidocaine 1 % inj 20 mg 20 mg (2 mL), Subcutaneous, ONCE, On Wed08/20/23 at 0945, For 1 dose Given 08/20/2023 9:54 AM EST 5 mL O ther-Specify Triamcinolone Acetonide (Kenalog) 40 MG/ML inj 40 mg 40 mg, Injection, ONCE, On Wed08/20/23 at 0945, For 1 dose Given 08/20/2023 9:58 AM EST 80 mg documented in this encounter Active and Recently Administered Medications Times are shown in EST. Scheduled Medication Order 08/18/2023 08/19/2023 08/20/2023 Iohexol (Omnipaque 240) inj 0.5 mL (COMPLETED) 0.5 mL, Epidural, ONCE, On Wed08/20/23 at 1030, For 1 dose, For caudal epidural 0957 (Given - Provid er: Brenda Fox RN) lidocaine 1 % inj 20 mg (COMPLETED) 20 mg (2 mL), Subcutaneous, ONCE, On Wed08/20/23 at 0945, For 1 dose 0954 (Given - Provid er: Brenda Fox RN) Triamcinolone Acetonide (Kenalog) 40 MG/ML inj 40 mg (COMPLETED) 40 mg, Injection, ONCE, On Wed08/20/23 at 0945, For 1 dose 0958 (Given - Provid er: Brenda Fox RN) documented in this encounter
--- OUTSIDE RECORDS SUMMARY | 2024-01-02 13:55 | External Medical Summary ---
Author Name Unknown Address Unknown Organization K01:LABORATORY [facility] - [address] [facility] [address] Laboratory Report Ordering Provider Test Date Status ELIZABETH NEAL 07/14/2023 11:50:05 Final Observation Date Value Abnormality Reference (Units ) Status Adenovirus DNA [Presence] in Nasopharynx by YOLANDA with non-probe detection 07/14/2023 11:50:05 Negative Negative Final Human coronavirus 229E RNA [Presence] in Nasopharynx by YOLANDA with non-probe detection 07/14/2023 11:50:05 Negative Negative Final Human coronavirus HKU1 RNA [Presence] in Nasopharynx by YOLANDA with non-probe detection 07/14/2023 11:50:05 Negative Negative Final Human coronavirus NL63 RNA [Presence] in Nasopharynx by YOLANDA with non-probe detection 07/14/2023 11:50:05 Negative Negative Final Human coronavirus OC43 RNA [Presence] in Nasopharynx by YOLANDA with non-probe detection 07/14/2023 11:50:05 Negative Negative Final SARS-CoV-2 (COVID-19) RNA [Presence] in Nasopharynx by YOLANDA with non-probe detection 07/14/2023 11:50:05 Negative Negative Final Human metapneumovirus RNA [Presence] in Nasopharynx by YOLANDA with non-probe detection 07/14/2023 11:50:05 Negative Negative Final Rhinovirus+Enterovirus RNA [Presence] in Nasopharynx by YOLANDA with non-probe detection 07/14/2023 11:50:05 Positive Abnormal Negative Final Rhinovirus/Enterovirus detec zhane by PCR (amplified probe). Influenza virus A RNA [Prese nce] in Nasopharynx by YOLANDA with non-probe detection 07/14/2023 11:50:05 Negative Negative Final Influenza virus B RNA [Prese nce] in Nasopharynx by YOLANDA with non-probe detection 07/14/2023 11:50:05 Negative Negative Final Parainfluenza virus 1 RNA [P resence] in Nasopharynx by YOLANDA with non-probe detection 07/14/2023 11:50:05 Negative Negative Final Parainfluenza virus 2 RNA [P resence] in Nasopharynx by YOLANDA with non-probe detection 07/14/2023 11:50:05 Negative Negative Final Parainfluenza virus 3 RNA [P resence] in Nasopharynx by YOLANDA with non-probe detection 07/14/2023 11:50:05 Negative Negative Final Parainfluenza virus 4 RNA [P resence] in Nasopharynx by YOLANDA with non-probe detection 07/14/2023 11:50:05 Negative Negative Final Respiratory syncytial virus RNA [Presence] in Nasopharynx by YOLANDA with non-probe detection 07/14/2023 11:50:05 Negative Negative F inal Bordetella pertussis.pertuss is toxin promoter region [Presence] in Nasopharynx by YOLANDA with non-probe detection 07/14/2023 11:50:05 Negative Negative Final Chlamydophila pneumoniae DNA [Presence] in Nasopharynx by YOLANDA with non-probe detection 07/14/2023 11:50:05 Negative Negative Final Mycoplasma pneumoniae DNA [P resence] in Nasopharynx by YOLANDA with non-probe detection 07/14/2023 11:50:05 Negative Negative Final Bordetella parapertussis IS1 001 DNA [Presence] in Nasopharynx by YOLANDA with non-probe detection 07/14/2023 11:50:05 Negative Negative F inal
The primers that detect Rhinovirus may cross react with some Enterorviruses. The validation of bronchial specimens, tracheal aspirates, and throats for this assay was developed and performance characteristics determined by [employer]. The validation of alternate specimen types has not been cleared or approved by the U.S. Food and Drug Administration (FDA). It has been determined that such clearance or approval is not necessary. Performing Location LABORATORY [place] [address] [facility] [address]. [facility] [address]
--- OUTSIDE RECORDS SUMMARY | 2024-01-02 13:55 | External Medical Summary | Summary of Care ---
Author Name Unknown Organization [facility] Address [address] [place] [address] Phone [phone] Care Team Providers Care Oracle Specialist Name Role Phone Unavailable Primary Care Provider Unavailabl e Reason for Visit * Reason Comments eRx-Medication Refill Encounter Details Date Type Department Care Team (Late st Contact Info) Description 07/19/2023 Refill General Internal Medicine [facility] [address] [place] [address] Janice Gutierrez MD [address] [place] [address] Allergies No known active allergiesdocumented as of this encounter (statuses as of 07/20/2023) Medications Medication Sig Dispensed Refills Start Date [...] or chew. 30 Capsule 5 04/12/2023 Active Omeprazole 20 MG Oral Capsule [...] WITH FOOD 60 Tablet 1 07/20/2023 Active Naproxen 500 MG Oral Tablet (Naprosyn) Take 1 Tablet by mouth 2 times a day as needed for Pain. With food 60 Tablet 1 04/12/2023 07/20/19 24 Discontinued documented as of this encounter (statuses as of 07/20/2023) Active Problems Problem Noted Date Diagnosed Date Moderate episode of recurrent major depressive d isorder 07/14/2023 Food insecurity 06/21/2023 Overview: Per [facility] Protocol Hyperlipidemia with target LDL less than 100 08/2022 Migraine variant 03/18/2023 Tobacco use disorder 02/26/2010 Overview: Continue to discuss cessation at each visit 03/26: 1/2 ppd INFORMATION 02/26/2010 Overview: Pt's daughter with fibrous dysplasia-message to [facility] if she needs to be [...] as of this encounter (statuses as of 07/20/2023) Resolved Problems Problem Noted Date Diagnosed Date [...] as of this encounter (statuses as of 07/20/2023) Immunizations Name Administration Dates Next Due Seasonal [...] encounter Miscellaneous Notes * Telephone Encounter - Soni Roche [facility] - 07/20/2023 1:31 PM ESTSigned Prescriptions: Disp Refills Naproxen 500 MG Oral Tablet (Naprosyn) 60 Tab*1 Sig: TAKE 1 TABLET BY MOUTH TWICE A DAY IF NEEDED FOR PAIN WITH FOODAuthorizing Provider: Janna GUTIERREZ User: SONI ROCHE documented in this encounter Plan of Treatment Upcoming Encounters Date Type Department Care Team (Latest Contact Info) Description 08/12/2023 9:30 AM EST Imaging Radiology [address] [place] [address] 08/20/2023 9:40 AM EST Hospital Encounter OR [facility], Operating Room [facility] [address] [place] [phone] Nikunj Lam DO [address] [place] [phone] 08/20/2023 9:40 AM EST - 08/20/2023 10:05 AM EST Surgery OR [facility], Operating Room [facility] [address] [place] [phone] Nikunj Lam DO [address] [place] [address] INJECTION SPINE LUMBAR OR SACRAL 08/26/2023 1:00 PM EST Hospital Encounter ENDO [facility], Endoscopy Room [facility] [address] [place] [phone] Seferino Mayfield MD 08/26/2023 1:00 PM EST - 08/26/2023 1:30 PM EST Surgery ENDO [facility], Endoscopy Room [facility] [address] [place] [phone] Seferino Mayfield MD COLONOSCOPY FLEXIBLE PROXIMAL DIAGNOSTIC [...] Infection Onset Date Last Indicated Resolved Time Enterovirus (resp)/Rhinovirus 07/14/2023 07/14/2023 documented as of this encounter
--- OUTSIDE RECORDS SUMMARY | 2024-01-02 13:55 | External Medical Summary | Summary of Care ---
Author Name Unknown Organization [facility] Address [address] [facility] [address] Phone [phone] Care Team Providers Care Assembler Fishing Floats Name Role Phone Unavailable Primary Care Provider Unavailabl e Reason for Visit * Reason Onset Date Comments Medication Refill 08/06/2023 Encounter Details Date Type Department Care Team (Late st Contact Info) Description 08/06/2023 Refill General Internal Medicine [facility] [place] [address] Ángel Gutierrez MD 200 [facility] [place] [address] Allergies No known active allergiesdocumented as of this encounter (statuses as of 08/06/2023) Medications Medication Sig Dispensed Refills Start Date [...] the day. 90 Capsule 2 08/06/2023 Active Omeprazole 20 MG Oral Capsule Delayed Release (PriLOSEC) Take 1 Capsule by mouth in the morning. 1 hour before the first meal of the day. 90 Capsule 3 04/12/2023 4 Discontinue d(Refill) documented as of this encounter (statuses as of 08/06/2023) Active Problems Problem Noted Date Diagnosed Date Moderate episode of recurrent major depressive d isorder 07/14/2023 Food insecurity 06/21/2023 Overview: Per [facility] Protocol Hyperlipidemia with target LDL less [...] pt by phone-please discuss above recommendations at pr-pt aware-reports daughter has not been diagnosed with any syndromes associated with fibrous dysplasia documented as of this encounter (statuses as of 08/06/2023) Resolved Problems Problem Noted Date Diagnosed Date [...] as of this encounter (statuses as of 08/06/2023) Immunizations Name Administration Dates Next Due Seasonal [...] encounter Miscellaneous Notes * Telephone Encounter - Stanton Moran RP - 08/06/2023 3:43 PM EST Signed Prescriptions: Disp Refills Omeprazole 20 MG Oral Capsule Delayed Rele*90 Cap*2 Sig: Take 1 Capsule by mouth in the morning. 1 hour before the first meal of the day. Authorizing Provider: ÁNGEL GUTIERREZ Ordering User: STANTON MORAN * Telephone Encounter - Mervat Alegre, compressor station engineer chief - 08/06/2023 11:07 AM EST Please reroute Rx to [id number] [address] [place] [address]. Pending Prescriptions: Disp Refills Omeprazole 20 MG Oral Capsule Delayed Rel*90 Cap*3 Sig: Take 1 Capsule by mouth in the morning. 1 hour before the first meal of the day. Last Visit: 07/14/2023 (in office), Visit date not found (telemedicine) Visit date not found If no future appointments scheduled, and last appointment is greater than a year ago, please schedule patient for a follow-up appointment Last date the medication was ordered: 04/12/2023 Patient Phone Numbers Labs: Lab Results Component [...] Description 08/12/2023 9:30 AM EST Imaging Radiology [address] [place] [address] 08/20/2023 9:40 AM EST [facility] [address] [place] [address] Nikunj Lam, [address] [place] [address] 08/20/2023 9:40 AM EST - 08/20/2023 10:05 AM EST Surgery OR [facility], Operating Room [facility] [address] [place] [phone] Nikunj Lam, [address] [place] [address] INJECTION SPINE LUMBAR OR [facility] 10/11/2023 11:15 AM EDT Hospital Encounter ENDO [facility], Endoscopy Room [facility] [address] [place] [phone] Sasha Quinn MD [address] [place] [address] 10/11/2023 11:15 AM EDT - 10/11/2023 11:45 AM EDT Surgery ENDO [facility], Endoscopy Room [facility] [address] [place] [address] Sasha Quinn MD [address] [place] [address] COLONOSCOPY FLEXIBLE PROXIMAL DIAGNOSTIC Scheduled Procedures Name [...]
--- OUTSIDE RECORDS SUMMARY | 2024-01-02 13:55 | External Medical Summary | Summary of Care ---
Author Name Unknown Organization [facility] Address [address] [facility] [address] Phone [phone] Care Team Providers Care Wheel Braider Name Role Phone Unavailable Primary Care Provider Unavailabl e Encounter Details Date Type Department Care Team (Late st Contact Info) Description 06/14/2023 Orders Only [facility], [facility] [address] [place] [id number] Nikunj Lam, [address] [place] [phone] Allergies No known active allergiesdocumented as of this encounter (statuses as of 08/25/2023) Medications Medication Sig Dispensed Refills Start Date [...] as of this encounter (statuses as of 08/25/2023) Active Problems Problem Noted Date Diagnosed Date Moderate episode of recurrent major depressive d isorder 07/14/2023 Food insecurity 06/21/2023 Overview: Per [facility] Protocol Hyperlipidemia with target LDL less than 100 08/2022 Migraine variant 03/18/2023 Tobacco use disorder 02/26/2010 Overview: Continue to discuss cessation at each visit 03/26: 1/2 ppd INFORMATION 02/26/2010 Overview: Pt's daughter with fibrous dysplasia-message to [facility] if she needs to be [...] pt by phone-please discuss above recommendations at nh-pt aware-reports daughter has not been diagnosed with any syndromes associated with fibrous dysplasia documented as of this encounter (statuses as of 08/25/2023) Resolved Problems Problem Noted Date Diagnosed Date [...] as of this encounter (statuses as of 08/25/2023) Immunizations Name Administration Dates Next Due Seasonal [...] [facility], Endoscopy Room [facility] [address] [place] [phone] Sasha Quinn MD [address] [place] [address] 10/11/2023 11:15 AM EDT - 10/11/2023 11:45 AM EDT Surgery ENDO [facility], Endoscopy Room [facility] [address] [place] [phone] Sasha Quinn MD [address] [place] [address] COLONOSCOPY FLEXIBLE PROXIMAL DIAGNOSTIC 10/13/2023 9:30 AM EDT Telemedicine [facility], [facility] [address] [place] [address] Mary Gomez PA-C [address] [place] [address] Scheduled Procedures Name Priority Associated Diagnoses Date/Ti [...] study not interpreted or resulted by a [facility] or [facility] contracted radiologist. Nikunj Lam DO RAD MRI-MRA documented in this encounter Additional Health Concerns Infection Onset Date Last Indicated Resolved Time Respiratory Rule-Out 07/14/2023 07/14/2023 024 6:47 PM EST Enterovirus (resp)/Rhinovirus 07/14/2023 07/14/2023 08/04/2023 12:19 AM EST documented as of this encounter
--- OUTSIDE RECORDS SUMMARY | 2024-01-02 13:55 | External Medical Summary | Summary of Care ---
Author Name Unknown Organization [facility] Address [address] [place] [facility] [place] [address] Phone [phone] Care Team Providers Care Environmental Control Administrator Name Role Phone Unavailable Primary Care Provider Unavailabl e Reason for Visit * Reason Comments Emergency Department Follow-Up [facility] ER 1 09/08/22--not feeling any better. Having diarrhea, shortness of breath, left sided chest pain, severe cough, body aches, headache, vomiting. Sx first started 07/06. Tested negative for covid, flu in ER. Positive for rhinovirus. Encounter Details Date Type Department Care Team (Late st Contact Info) Description 07/14/2023 10:40 AM EST Office Visit [facility] [place] [facility] [place] [address] Janice Gutierrez MD 200 [facility] [place] [address] Acute bronchitis, antibiotics not indicated*; Chest pain, unspecified type; Migraine variant; Vomiting and diarrhea; Hyperlipidemia with target LDL less than 100; Moderate episode of recurrent major depressive disorder (HCC) Allergies No known active allergiesdocumented as of this encounter (statuses as of 07/16/2023) Medications Medication Sig Dispensed Refills Start Date [...] as of this encounter (statuses as of 07/16/2023) Active Problems Problem Noted Date Diagnosed Date Moderate episode of recurrent major depressive d isorder 07/14/2023 Food insecurity 06/21/2023 Overview: Per [facility] Protocol Hyperlipidemia with target LDL less than 100 08/2022 Migraine variant 03/18/2023 Tobacco use disorder 02/26/2010 Overview: Continue to discuss cessation at each visit 03/26: 1/2 ppd INFORMATION 02/26/2010 Overview: Pt's daughter with fibrous dysplasia-message to [facility] if she needs to be seen [...] pt by phone-please discuss above recommendations at m[place]-pt aware-reports daughter has not been diagnosed with any syndromes associated with fibrous dysplasia documented as of this encounter (statuses as of 07/16/2023) Resolved Problems Problem Noted Date Diagnosed Date [...] as of this encounter (statuses as of 07/16/2023) Immunizations Name Administration Dates Next Due Seasonal [...] Sign Reading Time Taken Comments Blood Pressure 124/86 07/14/2023 10:50 AM EST Pulse 101 07/14/2023 10:50 AM EST Temperature 36.7 C (98 F) 07/14/2023 10:50 AM EST Respiratory Rate - - Oxygen Saturation 99% 07/14/2023 10:50 AM EST Inhaled Oxygen Concentration - - Weight 107.3 kg (236 lb 8 oz) 07/14/2023 10:50 A M EST Height - - Body Mass Index 38.17 02/01/2023 9:01 AM EDT documented in this encounter Progress Notes * Janice Gutierrez MD - 07/14/2023 11:21 AM EST SUBJECTIVE: Keyona Santos is a 47 year old female. Chief Complaint Patient presents with Emergency Department Follow-Up [facility] ER 07/08/23--not feeling any better. Having diarrhea, shortness of breath, left sided chest pain, severe cough, body aches, headache, vomiting. Sx first started 07/06. Tested negative for covid,flu in ER. Positive for rhinovirus. HPI: 47 year old YOfemale with PMH as listed below presents here for ER follow up. Pt went to ER 1 week ago with cough, SOB, nausea/vomiting ad\\nd lfu like symptoms and found to haverhinovirus and treated with IV fluids and OTC cold medicines . Since discharge feeling same . Hospital records reviewed and updated. New issue now -having diarrhea which stared after hospital , shortness of breath, left sided chest pain, severe cough, body aches, headache, vomiting . Feels might have gotten another infection as kids been sick back to back . No flu shot nor covid booster -chest tightness and wheezing . Doesn't have inhalers . CP in left upper chest , feels like tightness . Cough mostly dry Patient Active Problem List Diagnosis Code Tobacco use disorder F17.200 INFORMATION INFO Migraine variant G43.809 Hyperlipidemia with target LDL less than 100 E78.5 Food insecurity Z59.41 Current Outpatient Medications Medication Sig Dispense Refill Meclizine HCl 25 MG Oral Tablet Chewable Take 1 Tablet by mouth 3 times a day as needed for Dizziness. 30 Tablet 1 SUMAtriptan Succinate 25 MG Oral Tablet (Imitrex) Take 2 tablets at onset of migraine and one tablet every 2 hours as needed, not more than 5 tablets in 24 hours 6 Tablet 11 Gabapentin 100 MG Oral Capsule (Neurontin) Start Gabapentin 1 cap starting from night, in 3 days increase to twice a day and then in 3 days upto 3 times a day . 90 Capsule 3 DULoxetine HCl 30 MG Oral Capsule Delayed Release Particles (Cymbalta) Take 1 Capsule by mouth in the morning. Do not cut, crush or chew. 30 Capsule 5 Naproxen 500 MG Oral Tablet (Naprosyn) Take 1 Tablet by mouth 2 times a day as needed for Pain. With food 60 Tablet 1 Omeprazole 20 MG Oral Capsule Delayed Release (PriLOSEC) Take 1 Capsule by mouth in the morning. 1 hour before the first meal of the day. 90 Capsule 3 tiZANidine HCl 2 MG Oral Tablet (Zanaflex) Take 1-2 tablets by mouth at night as needed for pain ormuscle spasm and tightness 60 Tablet 1 Meclizine HCl 25 MG Oral Tablet (Antivert) TAKE 1 TABLET BY MOUTH THREE TIMES A DAY IF NEEDED FOR DIZZINESS 30 Tablet 1 Ondansetron HCl 4 MG Oral Tablet (Zofran) Take 1 Tablet by mouth every 6 hours as needed for Nausea. No current facility-administered medications for this visit. The patient's medication list was reviewed and updated as needed. 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 Tobacco Use Smoking status: Every Day Packs/day: 1.00 Years: 30.00 Additional pack years: 0.00 Total pack years: 30.00 Types: Cigarettes Smokeless tobacco: Never Substance and Sexual Activity Alcohol use: No Drug use: Yes Comment: Celestealbina Sexual activity: Yes Partners: Male Social Determinants of Health Food Insecurity: Food Insecurity Present (05/26/2023) Hunger Vital Sign Worried About Running Out of Food in the Last Year: Often true Ran Out of Food in the Last Year: Often true Review of patient's allergies indicates: No Known Allergies Family History Problem Relation Age of Onset Heart Disorder Father of DC at 56 Lung Disorder Mother copd Asthma Daughter Eye Problems Daughter Other (Other [Other]) None all siblings with no health history Family Status Relation Status Fa Mo Alive Tamra (Not Specified) NONE (Not Specified) Tamra (Not Specified) NONE (Not Specified) REVIEW OF SYSTEMS: All 10 systems reviewed and negative except mentioned in HPI OBJECTIVE: BP 124/86 | Pulse 101 | Temp 36.7 C (98 F) (Tympanic) | Wt 107.3 kg (236 lb 8 oz) | SpO2 99% | BMI 38.17 kg/m | BSA 2.24 m PHYSICAL EXAM: General: alert, healthy, and mild distress Head: Normocephalic, No masses, lesions, tenderness or abnormalities Ears: External ears normal, Canals clear, TM's Normal Nose: no purulent discharge, clear rhinorrhea, mucosal edema, mucosal erythema Oropharynx: no exudate, lips, buccal mucosa, and tongue normal, mucous membranes are moist, and mild erythema Neck: supple, no adenopathy, no bruits, thyroid normal size, non-tender, without nodularity Heart: no murmur, no gallops, and tachycardia Lungs: chest symmetric with normal AP diameter, no chest deformities noted, no chest wall tenderness, decreased breath sounds, prolonged expiratory phase Abdomen: abdomen soft, non-tender, normal bowel sounds, and no masses or organomegaly Extremities: less than 2 second capillary refill, no joint deformities, effusion, or inflammation ASSESSMENT AND PLAN Acute bronchitis, antibiotics not indicated (Primary) - RETURN TO WORK OR SCHOOL - RESPIRATORY PATHOGEN PANEL, PCR; Future; Expected date: 07/14/2023 - predniSONE 20 MG Oral Tablet (Deltasone); Take 2 Tablets by mouth in the morning for 5 days. - Ventolin HFA 108 (90 Base) MCG/ACT Inhalation Aerosol Solution; Inhale 2 Puffs by mouth every 4 hours as needed for Wheezing. - XR CHEST 2 VIEWS; Future; Expected date: 07/14/2023 - RESPIRATORY PATHOGEN PANEL, PCR Chest pain, unspecified type - XR CHEST 2 VIEWS; Future; Expected date: 07/14/2023 Migraine variant Vomiting and diarrhea - RETURN TO WORK OR SCHOOL - RESPIRATORY PATHOGEN PANEL, PCR; Future; Expected date: 07/14/2023 - RESPIRATORY PATHOGEN PANEL, PCR Hyperlipidemia with target LDL less than 100 Moderate episode of recurrent major depressive disorder (HCC) A total of at least 35 minutes were spent in evaluating this patient, in face to face communicationwith the patient and in coordinating care of this patient. Janice Gutierrez MD 11:21 AM 07/14/2023 documented in this encounter Nursing Notes * Elvia Galvan LPN - 07/14/2023 10:49 AM EST Chief Complaint Patient presents with Emergency Department Follow-Up [facility] ER 07/08/23--not feeling any better. Having diarrhea, shortness of breath, left sided chest pain, severe cough, body aches, headache, vomiting. Sx first started 07/06. Tested negative for covid,flu in ER. Positive for rhinovirus. documented in this encounter Plan of Treatment Upcoming Encounters Date Type Department Care Team (Latest Contact Info) Description 08/12/2023 9:30 AM EST Imaging Radiology [address] 132 [facility] [place] [address] 08/20/2023 9:40 AM EST Hospital Encounter OR [facility], Operating Room [facility] [address] [place] [phone] Nikunj Lam, DO [address] [place] [address] 08/20/2023 9:40 AM EST - 08/20/2023 10:05 AM EST Surgery OR [facility], Operating Room [facility] [address] [place] [phone] Nikunj Lam, DO [address] [place] [address] INJECTION SPINE LUMBAR OR [facility] 08/26/2023 1:00 PM EST Hospital Encounter ENDO [facility], Endoscopy Room [facility] [address] [place] [phone] Seferino Mayfield MD 08/26/2023 1:00 PM EST - 08/26/2023 1:30 PM EST Surgery ENDO [facility], Endoscopy Room [facility] [address] [place] [phone] Seferino Mayfield MD COLONOSCOPY FLEXIBLE PROXIMAL DIAGNOSTIC [...] Procedure Name Priority Date/Time Associated Diagnosis Comments RESPIRATORY PATHOGEN PANEL, PCR Routine 07/14/2023 11:50 AM EST Acute bronchitis, antibiotics not indicated Vomiting and diarrhea documented in this encounter Results * XR CHEST 2 VIEWS (07/14/2023 12:15 PM EST) Anatomical Region Laterality Modality Chest Computed Radiogr aphy 07/14/2023 12:2 5 PM EST Impressions 07/14/2023 12:23 PM EST IMPRESSION 1. No evidence of pneumonia. 2. Underinflated chest. 3. Suspect central peribronchial thickening typical of chronic bronchitis/smoking or asthma. Narrative 07/14/2023 12:23 PM EST EXAM XR CHEST 2 VIEWS - 07/14/2023 [...] CARDIOVASCULAR, MEDIASTINUM: Normal cardiomediastinal silhouette. OTHER: None. Procedure Note Dustin Kruse MD - 07/14/2023 EXAM XR CHEST 2 VIEWS - 07/14/2023 12:15 pm HISTORY coug, SOB and ;eft chets pain - r/o pneumonia TECHNIQUE Frontal and lateral radiographs of the chest were obtained. COMPARISON None FINDINGS FOREIGN BODIES, SUPPORT TUBES, LINES, DEVICES: None. LUNGS, PLEURA: Suspect central peribronchial thickening. Underinflationof the chest with crowding of bronchovascular markings, probably somedegree of pulmonary restriction associated with BMI. No consolidation.No pneumothorax or effusion. CARDIOVASCULAR, MEDIASTINUM: Normal cardiomediastinal silhouette. OTHER: None. IMPRESSION IMPRESSION 1. No evidence of pneumonia. 2. Underinflated chest. 3. Suspect central peribronchial thickening typical of chronicbronchitis/smoking or asthma. Janice Gutierrez MD RADIOLOGY (RAD GENER AL) * (ABNORMAL) RESPIRATORY PATHOGEN PANEL, PCR (07/14/2023 11:50 AM EST) Pathologist [facility] Adenovirus by PCR Negative Negative 024 6:47 PM EST [facility]ORY [facility] Coronavirus 229E by PCR Negative Negative 07/14/2023 6:47 PM EST [facility]ORY [facility] Coronavirus HKU1 by PCR Negative Negative 07/14/2023 6:47 PM EST [facility] Coronavirus NL63 by PCR Negative Negative 07/14/2023 6:47 PM EST [facility] Coronavirus OC43 by PCR Negative Negative 07/14/2023 6:47 PM EST [facility] Coronavirus SARS-CoV-2 by PCR Negative Negative 07/14/2023 6:47 PM EST [facility] Human Metapneumovirus by PCR Negative Negative 07/14/2023 6:47 PM EST [facility] Rhinovirus/Enterov irus by PCR Positive(A) Negative 07/14/2023 6:47 PM EST [facility] Comment:Rhinovirus/Enterovir us detected by PCR (amplified probe). Influenza A Virus by PCR Negative Negative 07/14/2023 6:47 PM EST [facility]ORY [facility] Influenza B Virus by PCR Negative Negative 07/14/2023 6:47 PM EST [facility] Parainfluenza Virus 1 by PCR Negative Negative 07/14/2023 6:47 PM EST [facility] Parainfluenza Virus 2 by PCR Negative Negative 07/14/2023 6:47 PM EST [facility] Parainfluenza Virus 3 by PCR Negative Negative 07/14/2023 6:47 PM EST [facility] Parainfluenza Virus 4 by PCR Negative Negative 07/14/2023 6:47 PM EST [facility] Respiratory Syncytial Virus by PCR Negative Negative 07/14/2023 6:47 PM EST [facility] Bordetella pertussis by PCR Negative Negative 07/14/2023 6:47 PM EST [facility] Chlamydia pneumoniae by PCR Negative Negative 07/14/2023 6:47 PM EST [facility] Mycoplasma pneumoniae by PCR Negative Negative 07/14/2023 6:47 PM EST [facility] Bordetella parapertussis by PCR Negative Negative 07/14/2023 6:47 PM EST [facility]ORY [facility] Comment: The primers that detect Rhinovirus may cross react with some Enterorviruses. The validation of bronchial specimens, tracheal aspirates, and throats for this assay was developed and performance characteristics determined by [employer]. The validation of alternate specimen types has not been cleared or approved by the U.S. Food and Drug Administration (FDA). It has been determined that such clearance or approval is not necessary. Upper Respiratory Nasopharyngeal swab / Unknown Non-blood Collection / Unknown 07/14/2023 11:50 AM EST 07/14/2023 11:55 AM EST Janice Gutierrez MD LAB MICRO - GENERAL ORDERABLES [address] [address] documented in this encounter Visit Diagnoses Diagnosis Acute bronchitis, antibiotics not indicated- Primary Acute bronchitis Chest pain, unspecified type Migraine variant Variants of migraine, not elsewhere classified, without mention of intractable migraine without mention of status migrainosus Vomiting and diarrhea Vomiting alone Hyperlipidemia with target LDL less than 100 Other and unspecified hyperlipidemia Moderate episode of recurrent major depressive disorder (HCC) Acute bronchitis, antibiotics not indicated Acute bronchitis Chest pain, unspecified type Thoracic and lumbosacral neuritis Thoracic or lumbosacral neuritis or radiculitis, unspecified Screen for colon cancer Special screening for malignant neoplasms, colon documented in this encounter"
--- OUTSIDE RECORDS SUMMARY | 2024-01-02 13:55 | External Medical Summary | Summary of Care ---
Author Name Unknown Organization [facility] Address [address] [facility] [place] [address] Phone [phone] Care Team Providers Care Legal Instruments Examiner Name Role Phone Unavailable Primary Care Provider Vinod e Encounter Details Date Type Department Care Team (Late st Contact Info) Description 07/08/2023 11:20 AM EST Telemedicine [facility] [address] [place] [id number] Mag Orozco, DO [address] [place] [address] [id number] Viral syndrome*; Dehydration Allergies No known active allergiesdocumented as of this encounter (statuses as of 07/08/2023) Medications Medication Sig Dispensed Refills Start Date [...] FOR DIZZINESS 30 Tablet 1 06/29/2023 Active documented as of this encounter (statuses as of 07/08/2023) Active Problems Problem Noted Date Diagnosed Date Food insecurity 06/21/2023 Overview: Per [facility] Protocol Hyperlipidemia with target LDL less than 100 08/2022 Migraine variant 03/18/2023 Tobacco use disorder 02/26/2010 Overview: Continue to discuss cessation at each visit 03/26: 1/2 ppd INFORMATION 02/26/2010 Overview: Pt's daughter with fibrous dysplasia-message to [facility] if she needs to be seen by [...] pt by phone-please discuss above recommendations at mt-pt aware-reports daughter has not been diagnosed with any syndromes associated with fibrous dysplasia documented as of this encounter (statuses as of 07/08/2023) Resolved Problems Problem Noted Date Diagnosed Date [...] as of this encounter (statuses as of 07/08/2023) Immunizations Name Administration Dates Next Due Seasonal [...] as of this encounter Progress Notes * Mag Orozco, DO - 07/08/2023 11:38 AM EST Patient location: HOME. I was in a hospital or clinic location. After connecting through [facility],patient was verified with two unique identifiers. Patient (or authorized legal labor representative) was then informed that this was a Telemedicine visit and being conducted confidentially over secure lines. Methods to assure confidentiality were taken. Patient acknowledged consent and understanding of pr ivacy and security of the Telemedicine visit. The patient agreed to participate. Subjective: Kyeona Santos is a 47 year old female. No chief complaint on file. HPI: Pt presents for acute visit. Pt has been sick x 3 days. Has vomiting, dizziness, body aches yesterday. Is vomiting today. No diarrhea. Low grade fever. People have been sick at work. Not able toeat. Taking theraflu. Did urinate this am. Has body aches. Patient Active Problem List Diagnosis Code Tobacco [...] IF NEEDED FOR DIZZINESS 30 Tablet 1 No current facility-administered medications for this visit. Past Medical History: Diagnosis Date NO KNOWN PROBLEMS Past Surgical History: Procedure Laterality Date DELIVERY 1995, 2005 DILATION AND CURETTAGE (D&C) 07/12/2002 mab TOTAL ABD HYSTERECTOMY W/WO REMOVAL OF TUBE(S) 2018 uterus only Review of patient's allergies indicates: No Known Allergies Family History Problem Relation Age of Onset Heart Disorder Father of OR at 56 Lung Disorder Mother copd Asthma Daughter Eye Problems Daughter Other (Other [Other]) None all siblings with no health history Family Status Relation Status Fa Mo Alive Tamra (Not Specified) NONE (Not Specified) Tamra (Not Specified) NONE (Not Specified) Social History Socioeconomic History Marital status: Single Spouse name: Not on file Number of children: Not on file Years of education: Not on file Highest education level: Not on file Occupational History Occupation: [employer] Comment: [email or web address] Tobacco Use Smoking status: Every Day Packs/day: 1.00 Years: 30.00 Additional pack years: 0.00 Total pack years: 30.00 Types: Cigarettes Smokeless tobacco: Never Substance and Sexual Activity Alcohol use: No Drug use: Yes Comment: [place] Sexual activity: Yes Partners: Male Other Topics Concern Not on file Social History Narrative Not on file Social Determinants of Health Financial Resource Strain: Not on file Food Insecurity: Food Insecurity Present (05/26/2023) Hunger Vital Sign Worried About Running Out of Food in the Last Year: Often true Ran Out of Food in the Last Year: Often true Transportation Needs: Not on file Physical Activity: Not on file Stress: Not on file Social Connections: Not on file Intimate Partner Violence: Not on file Housing Stability: Not on file Review of Systems: Constitutional ROS: No change in weight, No weakness, No fatigue, and No fevers, sweats, or chills.Low grade fever Pulmonary ROS: No cough, sputum, or hemoptysis, No wheezing, No rales, No shortness of breath, and No recent change in breathing.harsh cough Cardiovascular ROS: No chest pain, No shortness of breath, No dyspnea on exertion, No orthopnea, Noparoxysmal nocturnal dyspnea, No edema, No palpitations, and No syncope. Short of breath due to post nasal drip Gastrointestinal ROS: No abdominal pain, No change in bowel habits, No significant heartburn, No significant change in appetite, No nausea, vomiting, diarrhea, or constipation, No hematemesis, No blood in stools or black tarry stools, No abdominal bloating or early satiety, and No dysphagia. Has N/V Genito-Urinary Female ROS: No STDs, No dysuria, No frequency, No incontinence, No irregular menstruation, No urgency, and No vaginal discharge Musculoskeletal/Extremities ROS: No pain, redness or swelling on the joints. Pt has body aches. OBJECTIVE: Physical Exam: There were no vitals taken for this visit. No physical exam was performed for this visit Assessment/Plan: Viral syndrome (Primary) Dehydration Advised ER eval due to probable dehydration. Pt is still vomiting today. Pt is agreeable and she will get a ride to the ER. Follow Up: Return if symptoms worsen or fail to improve. Follow Up: Return if symptoms worsen or fail to improve. There are no Patient Instructions on file for this visit. Mag Orozco DO documented in this encounter Plan of Treatment Upcoming Encounters Date Type Department Care Team (Latest Contact Info) Description 08/12/2023 9:30 AM EST Imaging Radiology [address] [place] [address] 08/20/2023 9:40 AM EST Hospital Encounter OR [facility], Operating Room [facility] [address] [place] [phone] Nikunj Lam DO [address] [phone] 08/20/2023 9:40 AM EST - 08/20/2023 10:05 AM EST Surgery OR [facility], Operating Room [facility] [address] [address] Nikunj Lam DO [address] [place] [address] [phone] INJECTION SPINE LUMBAR OR [facility]CRAL 08/26/2023 1:00 PM EST Hospital Encounter [facility], Endoscopy Room [facility] [address] [place] [address] Seferino Mayfield MD 08/26/2023 1:00 PM EST - 08/26/2023 1:30 PM EST Surgery [facility], Endoscopy Room [facility] [address] [place] [id number] Seferino Mayfield MD COLONOSCOPY FLEXIBLE PROXIMAL DIAGNOSTIC [...] as of this encounter Visit Diagnoses Diagnosis Viral syndrome- Primary Unspecified viral infection, in conditions classified elsewhere and of unspecified site Dehydration Thoracic and lumbosacral neuritis Thoracic or lumbosacral neuritis or radiculitis, unspecified Screen for colon cancer Special screening for malignant neoplasms, colon documented in this encounter
[2024-01-02 14:30] LABS: Hematocrit (blood only) 44.2 % (37.0-47.0); Mean Corpuscular Hemoglobin 30.2 pg (25.0-34.0); Mean Corpuscular Hgb Conc 33.9 g/dL (32.0-36.0); Mean Corpuscular Volume 89.1 fL (80.0-100.0); Mean Platelet Volume 10.2 fL (9.4-12.4); Platelet Count 235 K/uL (130-400); RDW Coefficient of Variation 13.9 % (11.5-14.5); Red Blood Count 4.96 M/uL (4.20-5.40); White Blood Count 13.24 K/ul (4.8-10.8)
--- NOTE | 2024-01-02 14:38 | XRay Report ---
SINGLE VIEW CHEST CLINICAL HISTORY: Dyspnea FINDINGS: A PA chest radiograph is compared to study dated 07/08/2023. The cardiomediastinal silhouet te is unremarkable. The lungs and pleural spaces are clear. No pneumothorax is seen. The bony thorax is grossly intact. IMPRESSION: No active disease in the chest. ACT 112: Negative or not required by law. Electronically signed by: Marcos Jensen M.D. 01/02/2024 2:36 PM
[2024-01-02 14:47] LABS: Albumin Globulin Ratio 1.4 (0.9-2); Albumin Level 3.8 gm/dl (3.4-5.0); BUN Creatinine Ratio 11.7 (10-20); Bilirubin,Total 0.4 mg/dl (0.2-1.0); Est GFR (African American) 126.7 ml/min; Est GFR (Non-African American) 109.3 ml/min; Globulin 2.7 gm/dl (2.5-4.0); Potassium 4.1 mmol/L (3.5-5.1); Total Protein 6.5 gm/dl (6.0-8.3)
[2024-01-02 15:11] LABS: Basophils # (auto) 0.07 K/uL (0.00-0.20); Basophils % (auto) 0.5 %; Eosinophils # (auto) 0.33 K/uL (0.00-0.50); Eosinophils % (auto) 2.5 %; Immature Granulocytes # (auto) 0.04 K/uL (0.01-0.20); Immature Granulocytes % (auto) 0.3 %; Lymphocytes # (auto) 6.96 K/uL (1.20-3.40); Lymphocytes % (auto) 52.6 %; Monocytes # (auto) 0.59 K/uL (0.11-0.59); Monocytes % (auto) 4.5 %; Neutrophils # (auto) 5.25 K/uL (1.40-6.50); Neutrophils % (auto) 39.6 %
[2024-01-02 15:17] LABS: Adenovirus PCR Not Detected (NotDetected); Bordetella parapertussis PCR Not Detected (NotDetected); Bordetella pertussis PCR Not Detected (NotDetected); Chlamydia pneumoniae PCR Not Detected (NotDetected); Coronavirus 229E PCR Not Detected (NotDetected); Coronavirus CoV-2 (COVID19)PCR Not Detected (NotDetected); Coronavirus HKU1 PCR Not Detected (NotDetected); Coronavirus NL63 PCR Not Detected (NotDetected); Coronavirus OC43PCR Not Detected (NotDetected); Human Metapneumovirus PCR Not Detected (NotDetected); Influenza A PCR Not Detected (NotDetected); Influenza B PCR Not Detected (NotDetected); Mycoplasma pneumoniae PCR Not Detected (NotDetected); Parainfluenza Virus 1 PCR Not Detected (NotDetected); Parainfluenza Virus 2 PCR Not Detected (NotDetected); Parainfluenza Virus 3 PCR Not Detected (NotDetected); Parainfluenza Virus 4 PCR Not Detected (NotDetected); Respiratory Syncytial VirusPCR Not Detected (NotDetected); Rhinovirus/Enterovirus PCR Not Detected (NotDetected)
[2024-01-02] MEDS: SODIUM CHLORIDE 0.9% 1,000 ML IV ONE (16:42)
[2024-01-02] MEDS: PROCHLORPERAZINE 2 ML IV ONE (16:43)
--- NOTE | 2024-01-02 16:43 | Emergency Department Note ---
Impression & Plan Acute intractable headache, Swelling of lower extremity, Nausea & vomiting, Hypertensive urgency, Elevated lactic acid level, Leukocytosis ED Provider Note HISTORY OF PRESENT ILLNESS: Patient is a 48-year-old female presenting with lower extremity swelling, abdominal pain and headache. Patient reports that 4 days ago she started having swelling in her bilateral lower extremities. Reports that she has been using a cane to ambulate secondary to difficulties walking secondary to the edema. She states that when she gets home in the evening, she elevates her feet and the swelling does seem to improve slightly. She reports that yesterday she started having pain in her left lower quadrant of her abdomen and started vomiting. She denies any fevers. Reports that she has been having a headache for the last 24 hours. Reports this feels typical of her normal migraines. States that she feels too nauseous to keep anything down. She reports that prior to coming into the hospital today, she had some diffuse chest pain. Denies any shortness of breath. Denies any DVT or PE history. She is not on any anticoagulation. Denies any notable fevers. Denies any recent falls or head injury. Denies any travel. She does complain of some blurry vision with her headache today, which is abnormal of her typical migraines. Denies any recent chiropractic manipulation of her neck. Denies any recent rashes. ROS: as above PHYSICAL EXAM: Constitutional: Patient appears in no acute distress. HENT: Head: Normocephalic and atraumatic. Eyes: EOMI, PERRL Mouth/Throat: Mucous membranes moist. Neck: Trachea midline. Neck supple. Full range of motion of the neck without meningismus. Cardiovascular: RRR, No murmurs, rubs or gallops. Intact distal pulses. Pulmonary/Chest: No respiratory distress. Breath sounds clear and equal bilaterally. No wheezes or rales. Abdominal: Abdomen soft, no rebound or guarding. LLQ TTP Musculoskeletal: No edema, tenderness or deformity noted. Skin: Warm and dry. No rash, erythema, pallor or cyanosis Psychiatric: Appropriate mood and affect for situation. Neurological: Alert and keenly responsive. CN II-XII grossly intact, moving all extremities equally and fully. MDM: - Vitals signs showed hypertension - History obtained via patient. History as above. - Chronic conditions affecting care: migraine headache - Differential diagnoses include, but are not limited to: migraine; meningitis; diverticulitis; viral syndrome; CHF exacerbation; pneumonia - Order placed for continuous cardiac monitoring. At this time, monitor showed rate of 66 bpm with normal sinus rhythm, per my interpretation. - External medical records reviewed. - EKG interpreted by myself showed normal sinus rhythm. Rate 78 bpm. QT 372. No acute ischemic changes. - Laboratory workup interpreted by myself showed leukocytosis (WBC 13.24); elevated lactate (2.1); normal troponin; normal procalcitonin; stable electrolytes; normal BNP; negative Lyme disease - Patient given 1L NS, 10 mg IV compazine and 50 mg IV benadryl for headache on arrival. - Repeat lactate within normal limits. - Patient started vomiting again. Given 4 mg IV zofran. - CT head wo contrast negative for acute intracranial pathology - CT abdomen/pelvis with IV contrast showed an indeterminate ovoid nodule in the right upper quadrant between the colon and right kidney with surrounding minimal infiltration. Unclear etiology for this nodule. - Patient's blood pressure noted to be significantly elevated during her stay in the emergency department. She was given 10 mg of IV hydralazine. Also given 1 g of IV Tylenol and 1 g of IV magnesium for continued headache management. - UA negative for infection - Viral respiratory panel negative - CXR negative for pneumonia, per my interpretation - I discussed the medical reasoning and benefits of performing a lumbar puncture with the patient for the evaluation of meningitis. Associated risks associated with lumbar puncture including but not limited to worsening headache, introduction of infection, bleeding and hematoma formation, etc. Consequences associated with these risks were discussed with patient. Benefits of lumbar puncture discussed with the patient included but not limited to making the diagnosis of meningitis and guiding therapy. Other treatment options were discussed including but not limited to treating for meningitis with antibiotics without performing lumbar puncture, and if available consulting radiology to perform lumbar puncture, etc. I described the procedure in depth and what to expect during the procedure with the patient. Patient voiced understanding of benefits, risks and alternative options. However, she declined obtaining a lumbar puncture at this time. - Discussion was had with pillowcase cutter about patient's case and need for admission - Hospitalist consulted for admission - Patient admitted to [facility] service for further evaluation and management. ASSESSMENT AND PLAN: Diagnosis: acute intractable headache; nausea and vomiting; elevated lactic acid; leukocytosis; swelling of lower extremity; hypertensive urgency Plan: admit Past Med/Surg History Problem List (Updated 01/02/24 @ 20:06 by Arabella Flores MD) Leukocytosis (Acute) Elevated lactic acid level (Acute) Hypertensive urgency (Acute) Nausea & vomiting (Acute) Swelling of lower extremity (Acute) Acute intractable headache (Acute) Lab test negative for COVID-19 virus (Acute) Medical History No significant medical problems Social History Smoking Status: Current every day smoker Tobacco Type: Cigarettes Preferred Language: Ukrainian Feels Safe at Home: Yes Allergies Allergies Allergy/AdvReac Type Severity Reaction Status Date / Time No Known Allergies Unverified 10/25/11 21:39 Home Meds Home Medications Medication Instructions Recorded Confirmed ibuprofen 200 mg tablet See Rx Instructions .Route 12/12/22 12/12/22 .COMPLEX PRN Headache Previous Rx's Medication Instructions Recorded meloxicam 15 mg tablet 15 mg PO DAILY #7 tabs 01/28/23 oxycodone 5 mg tablet 5 mg PO Q6H PRN pain #7 tabs 01/28/23 Results & Data (ED) Vital Signs Vital Signs - 24 hr 01/02/24 13:51 01/02/24 15:57 01/02/24 16:10 Temperature 36.5 C Temperature Source Temporal Artery Scan Pulse Rate 76 64 78 Pulse Rate [Right Finger] Pulse Rate from SpO2 Sensor 64 Pulse Rhythm Regular Respiratory Rate 18 24 22 Respiratory Effort / Characteristics Respiratory Depth Respiratory Pattern Blood Pressure 146/81 H Blood Pressure [Right Arm] Blood Pressure Mean 102 Blood Pressure Mean [Right Arm] Pulse Oximetry 98 98 94 Oxygen Delivery Method Room Air Room Air Sepsis Recent Fever Within 48 Hours No Sepsis New/Unexplained Change in Mental Status No Sepsis Action Taken by Nursing No Action Required 01/02/24 16:12 01/02/24 16:20 01/02/24 16:20 Temperature Temperature Source Pulse Rate 69 Pulse Rate [Right Finger] Pulse Rate from SpO2 Sensor 66 Pulse Rhythm Respiratory Rate 14 Respiratory Effort / Characteristics Non-Labored Spontaneous Respiratory Depth Normal Respiratory Pattern Regular Blood Pressure 171/83 H Blood Pressure [Right Arm] Blood Pressure Mean 112 Blood Pressure Mean [Right Arm] Pulse Oximetry 97 96 Oxygen Delivery Method Room Air Room Air Sepsis Recent Fever Within 48 Hours Sepsis New/Unexplained Change in Mental Status Sepsis Action Taken by Nursing 01/02/24 16:34 01/02/24 16:57 01/02/24 17:01 Temperature Temperature Source Pulse Rate 75 77 Pulse Rate [Right Finger] Pulse Rate from SpO2 Sensor 77 Pulse Rhythm Respiratory Rate 20 Respiratory Effort / Characteristics Respiratory Depth Respiratory Pattern Blood Pressure 164/82 H Blood Pressure [Right Arm] Blood Pressure Mean 95 Blood Pressure Mean [Right Arm] Pulse Oximetry 97 Oxygen Delivery Method Sepsis Recent Fever Within 48 Hours Sepsis New/Unexplained Change in Mental Status Sepsis Action Taken by Nursing 01/02/24 17:03 01/02/24 18:00 01/02/24 19:36 Temperature Temperature Source Pulse Rate 74 70 Pulse Rate [Right Finger] 66 Pulse Rate from SpO2 Sensor 74 70 Pulse Rhythm Respiratory Rate 15 18 19 Respiratory Effort / Characteristics Respiratory Depth Respiratory Pattern Blood Pressure 166/80 H Blood Pressure [Right Arm] 205/136 H Blood Pressure Mean 108 Blood Pressure Mean [Right Arm] 159 Pulse Oximetry 97 93 93 Oxygen Delivery Method Room Air Sepsis Recent Fever Within 48 Hours Sepsis New/Unexplained Change in Mental Status Sepsis Action Taken by Nursing 01/02/24 20:21 Temperature Temperature Source Pulse Rate 84 Pulse Rate [Right Finger] Pulse Rate from SpO2 Sensor Pulse Rhythm Respiratory Rate Respiratory Effort / Characteristics Respiratory Depth Respiratory Pattern Blood Pressure Blood Pressure [Right Arm] Blood Pressure Mean Blood Pressure Mean [Right Arm] Pulse Oximetry Oxygen Delivery Method Sepsis Recent Fever Within 48 Hours Sepsis New/Unexplained Change in Mental Status Sepsis Action Taken by Nursing Laboratory Data 01/02/24 14:15 01/02/24 14:15 Lab Results 01/02/24 01/02/24 01/02/24 Range/Units 14:15 16:57 19:10 WBC 13.24 H (4.8-10.8) K/ul RBC 4.96 (4.20-5.40) M/uL Hgb 15.0 (12.0-16.0) g/dl Hct 44.2 (37.0-47.0) % MCV 89.1 (80.0-100.0) fL MCH 30.2 (25.0-34.0) pg MCHC 33.9 (32.0-36.0) g/dL RDW Std Deviation 45.0 (36.4-46.3) fL RDW Coeff of Stephanie 13.9 (11.5-14.5) % Plt Count 235 (130-400) K/uL MPV 10.2 (9.4-12.4) fL Immature Gran % (Auto) 0.3 % Neut % (Auto) 39.6 % Lymph % (Auto) 52.6 % Spencer % (Auto) 4.5 % Eos % (Auto) 2.5 % Baso % (Auto) 0.5 % Neut # (Auto) 5.25 (1.40-6.50) K/uL Lymph # (Auto) 6.96 H (1.20-3.40) K/uL Spencer # (Auto) 0.59 (0.11-0.59) K/uL Eos # (Auto) 0.33 (0.00-0.50) K/uL Baso # (Auto) 0.07 (0.00-0.20) K/uL Immature Gran # (Auto) 0.04 (0.01-0.20) K/uL Sodium 137 (136-145) mmol/L Potassium 4.1 (3.5-5.1) mmol/L Chloride 107 (98-107) mmol/L Carbon Dioxide 24 (21-32) mmol/L Anion Gap 6 (3-11) BUN 7 (6-23) mg/dl Creatinine 0.60 (0.6-1.2) mg/dl Est Cr Clr Drug Dosing 138.0 ml/min Est GFR ( Amer) 126.7 ml/min Est GFR (Non-Af Amer) 109.3 ml/min BUN/Creatinine Ratio 11.7 (10-20) Glucose 93 (70-99(Fasting)) mg/dl Lactate 2.1 H* 1.2 (0.4-2.0) mmol/L Calcium 9.0 (8.6-10.3) mg/dl Total Bilirubin 0.4 (0.2-1.0) mg/dl AST 20 (13-39) U/L ALT 38 (7-52) U/L Alkaline Phosphatase 74 (34-104) U/L Troponin I High Sens 3.6 (0-14) pg/ml B-Natriuretic Peptide 56 (0-100) pg/ml Total Protein 6.5 (6.0-8.3) gm/dl Albumin 3.8 (3.4-5.0) gm/dl Globulin 2.7 (2.5-4.0) gm/dl Albumin/Globulin Ratio 1.4 (0.9-2) Procalcitonin < 0.02 (0-0.5) ng/ml Urine Color Urine Appearance (Clear) Urine pH (4.5-7.5) Ur Specific [place] (1.000-1.030) Urine Protein (Negative) Urine Glucose (UA) (Negative) Urine Ketones (Negative) Urine Blood (Negative) Urine Nitrite (Negative) Urine Bilirubin (Negative) Urine Urobilinogen (Negative) Ur Leukocyte Esterase (Negative) Adenovirus (PCR) Not Detected (NotDetected) B. pertussis DNA (PCR) Not Detected (NotDetected) B.parapertussis DNA PCR Not Detected (NotDetected) Lyme Disease Screen Negative (Negative) C. pneumoniae DNA (PCR) Not Detected (NotDetected) Coronavirus OC43 (PCR) Not Detected (NotDetected) Coronavirus HKU1 (PCR) Not Detected (NotDetected) Coronavirus 229E (PCR) Not Detected (NotDetected) SARS-CoV-2 (PCR) Not Detected (NotDetected) Coronavirus NL63 (PCR) Not Detected (NotDetected) Human Metapneumovir PCR Not Detected (NotDetected) Influenza Type A (PCR) Not Detected (NotDetected) Influenza Type B (PCR) Not Detected (NotDetected) M. pneumoniae (PCR) Not Detected (NotDetected) Parainfluenza 1 (PCR) Not Detected (NotDetected) Parainfluenza 2 (PCR) Not Detected (NotDetected) Parainfluenza 3 (PCR) Not Detected (NotDetected) Parainfluenza 4 (PCR) Not Detected (NotDetected) RSV (PCR) Not Detected (NotDetected) Entero/Rhino (PCR) Not Detected (NotDetected) 01/02/24 Range/Units 19:22 WBC (4.8-10.8) K/ul RBC (4.20-5.40) M/uL Hgb (12.0-16.0) g/dl Hct (37.0-47.0) % MCV (80.0-100.0) fL MCH (25.0-34.0) pg MCHC (32.0-36.0) g/dL RDW Std Deviation (36.4-46.3) fL RDW Coeff of Stephanie (11.5-14.5) % Plt Count (130-400) K/uL MPV (9.4-12.4) fL Immature Gran % (Auto) % Neut % (Auto) % Lymph % (Auto) % Spencer % (Auto) % Eos % (Auto) % Baso % (Auto) % Neut # (Auto) (1.40-6.50) K/uL Lymph # (Auto) (1.20-3.40) K/uL Spencer # (Auto) (0.11-0.59) K/uL Eos # (Auto) (0.00-0.50) K/uL Baso # (Auto) (0.00-0.20) K/uL Immature Gran # (Auto) (0.01-0.20) K/uL Sodium (136-145) mmol/L Potassium (3.5-5.1) mmol/L Chloride (98-107) mmol/L Carbon Dioxide (21-32) mmol/L Anion Gap (3-11) BUN (6-23) mg/dl Creatinine (0.6-1.2) mg/dl Est Cr Clr Drug Dosing ml/min Est GFR ( Amer) ml/min Est GFR (Non-Af Amer) ml/min BUN/Creatinine Ratio (10-20) Glucose (70-99(Fasting)) mg/dl Lactate (0.4-2.0) mmol/L Calcium (8.6-10.3) mg/dl Total Bilirubin (0.2-1.0) mg/dl AST (13-39) U/L ALT (7-52) U/L Alkaline Phosphatase (34-104) U/L Troponin I High Sens (0-14) pg/ml B-Natriuretic Peptide (0-100) pg/ml Total Protein (6.0-8.3) gm/dl Albumin (3.4-5.0) gm/dl Globulin (2.5-4.0) gm/dl Albumin/Globulin Ratio (0.9-2) Procalcitonin (0-0.5) ng/ml Urine Color Yellow Urine Appearance Clear (Clear) Urine pH 7.0 (4.5-7.5) Ur Specific [place] 1.036 H (1.000-1.030) Urine Protein Negative (Negative) Urine Glucose (UA) Negative (Negative) Urine Ketones Negative (Negative) Urine Blood Negative (Negative) Urine Nitrite Negative (Negative) Urine Bilirubin Negative (Negative) Urine Urobilinogen Negative (Negative) Ur Leukocyte Esterase Negative (Negative) Adenovirus (PCR) (NotDetected) B. pertussis DNA (PCR) (NotDetected) B.parapertussis DNA PCR (NotDetected) Lyme Disease Screen (Negative) C. pneumoniae DNA (PCR) (NotDetected) Coronavirus OC43 (PCR) (NotDetected) Coronavirus HKU1 (PCR) (NotDetected) Coronavirus 229E (PCR) (NotDetected) SARS-CoV-2 (PCR) (NotDetected) Coronavirus NL63 (PCR) (NotDetected) Human Metapneumovir PCR (NotDetected) Influenza Type A (PCR) (NotDetected) Influenza Type B (PCR) (NotDetected) M. pneumoniae (PCR) (NotDetected) Parainfluenza 1 (PCR) (NotDetected) Parainfluenza 2 (PCR) (NotDetected) Parainfluenza 3 (PCR) (NotDetected) Parainfluenza 4 (PCR) (NotDetected) RSV (PCR) (NotDetected) Entero/Rhino (PCR) (NotDetected) Administered Medications Magnesium Sulfate/Dextrose (Magnesium Sulfate / D5w) 1 gm in 100 mls @ 100 mls/hr IV NOW STA Stop: 01/02/24 20:57 Last Admin: 01/02/24 20:05 Dose: 100 mls/hr Documented By: DAHIANA Discontinued Medications Diphenhydramine HCl (Diphenhydramine 50 Mg/Ml Vial) 50 mg IV NOW STA Stop: 01/02/24 16:34 Last Admin: 01/02/24 16:46 Dose: 50 mg Documented By: ERROL Hydralazine HCl (Hydralazine Hcl 20 Mg/Ml Vial) 10 mg IV NOW STA Stop: 01/02/24 19:35 Last Admin: 01/02/24 19:38 Dose: 10 mg Documented By: DAHIANA Sodium Chloride (Nss) 1,000 mls @ 999 mls/hr IV .Q1H1M ONE Stop: 01/02/24 17:33 Last Infusion: 01/02/24 17:54 Dose: Infused Documented By: Admin: 01/02/24 16:42 Dose: 999 mls/hr Documented By: ERROL Prochlorperazine (Compazine) 2 mls @ 1 mls/min IV ONE ONE Stop: 01/02/24 16:34 Last Admin: 01/02/24 16:43 Dose: 1 mls/min Documented By: ERROL Acetaminophen (Ofirmev) 1,000 mg in 100 mls @ 400 mls/hr IV NOW STA Stop: 01/02/24 20:12 Last Admin: 01/02/24 20:05 Dose: 400 mls/hr Documented By: DAHIANA Ioversol (Optiray 320 100ml) 94 ml IV ONCE ONE Stop: 01/02/24 18:07 Last Admin: 01/02/24 18:07 Dose: 94 ml Documented By: RANDI Ondansetron HCl (Ondansetron Inj 2 Mg/Ml 2 Ml Vial) 4 mg IV NOW STA Stop: 01/02/24 17:44 Last Admin: 01/02/24 17:54 Dose: 4 mg Documented By: AMBER Imaging Data Radiologist's Impression: Chest X-Ray 01/02/24 13:56 SINGLE VIEW CHEST CLINICAL HISTORY: Dyspnea FINDINGS: A PA chest radiograph is compared to study dated 07/08/2023. The cardiomediastinal silhouette is unremarkable. The lungs and pleural spaces are clear. No pneumothorax is seen. The bony thorax is grossly intact. IMPRESSION: No active disease in the chest. ACT 112: Negative or not required by law. Electronically signed by: Marcos Jensen M.D. 01/02/2024 2:36 PM Abdomen/Pelvis CT 01/02/24 16:32 CT SCAN OF THE ABDOMEN AND PELVIS WITH IV CONTRAST CLINICAL HISTORY: Left lower quadrant abdominal pain. Vomiting. COMPARISON STUDY: Abdominal CT dated 07/08/2023. TECHNIQUE: Following the IV administration of 94 cc of Optiray 320, CT scan of the abdomen and pelvis is performed from the lung bases to the proximal femora. Images are reviewed in the axial, sagittal, and coronal planes. IV contrast was administered without complication. A dose lowering technique was utilized adhering to the principles of ALARA. CT DOSE: 1951.76 mGy.cm FINDINGS: Lung bases: The heart is normal in size and without pericardial effusion. The lung bases are clear noting dependent atelectasis. A small hiatal hernia is noted. Liver: The contrast-enhanced liver is enlarged, measuring 22.4 cm in craniocaudal length. Attenuation is diffusely diminished indicating steatosis. Fatty sparing is seen adjacent to the gallbladder fossa. There is no intrahepatic biliary ductal dilatation. The hepatic veins and portal veins are patent. Gallbladder: Unremarkable. Spleen: Normal in size and attenuation. Pancreas: Unremarkable. Adrenal glands: Small low-attenuation adrenal nodules are unchanged in measurement, matter. These likely represent adenomas.. Kidneys: The contrast enhanced kidneys are normal in size and without hydronephrosis. The kidneys enhance symmetrically. Abdominal vasculature: The abdominal aorta is normal in course and caliber. Bowel: There is no bowel obstruction. The appendix is well-visualized and normal. Peritoneum: There is no intraperitoneal free air or abdominal ascites. There is a fat-containing umbilical hernia. There is an indeterminate 1.0 cm ovoid nodule in the right upper quadrant tenderness. Lymphadenopathy: None. Pelvic viscera: The bladder is normal as visualized. The uterus is surgically absent. No adnexal lesion is seen. Skeletal structures: There is mild lumbosacral spondylosis. Degenerative disc space narrowing and endplate sclerosis is seen at L5-S1. Sclerotic changes noted in the sacroiliac joints. No lytic or blastic lesions are seen. IMPRESSION: 1. There is a 1.0 cm indeterminant ovoid nodule in the right upper quadrant between the colon and the right kidney with minimal surrounding infiltration. This is not highly suspicious and likely on an infectious/inflammatory basis, but is new from 07/08/2023. No additional similar-appearing nodules are identified. A precautionary 3 to 4 -month follow-up abdominal CT scan is recommended to document resolution. 2. No additional infectious or inflammatory findings are identified in the abdomen or pelvis. 3. Hepatomegaly and hepatic steatosis. 4. Additional findings as above. ACT 112: Negative or not required by law. Electronically signed by: Marcos Jensen M.D. 01/02/2024 6:[address] 01/02/24 16:32 CT SCAN OF THE BRAIN WITHOUT IV CONTRAST CLINICAL HISTORY: Headache. Blurry vision. COMPARISON STUDY: CT of the brain dated 11/29/2008. TECHNIQUE: Unenhanced axial CT scan of the brain is performed from the vertex to the skull base. A dose lowering technique was utilized adhering to the principles of ALARA. FINDINGS: Brain parenchyma: The brain parenchyma is normal in appearance. There is no hemorrhage, mass effect, or evidence of acute territorial ischemia by CT criteria. Jung-white matter differentiation is preserved. No extra-axial fluid collection is seen. Ventricles, sulci, cisterns: Normal in configuration. Intracranial vasculature: The visualized intracranial vasculature at the skull base is normal in appearance. Calvarium: Unremarkable. Sinuses and mastoids: The visualized paranasal sinuses are clear. The mastoid air cells are well pneumatized. Orbits: The bony orbits are grossly intact. IMPRESSION: No acute intracranial abnormality. ACT 112: Negative or not required by law. Electronically signed by: Marcos Jensen M.D. 01/02/2024 6:22 PM Discharge Plan Visit Data Chief Complaint: Shortness of Breath/Dyspnea ED Provider: Arabella Flores Discharge Problem: Acute intractable headache, Swelling of lower extremity, Nausea & vomiting, Hypertensive urgency, Elevated lactic acid level, Leukocytosis Forms Stand Alone Forms: [facility] Prescriptions Prescriptions: No Action ibuprofen 200 mg Tablet See Rx Instructions .ROUTE .COMPLEX PRN (Reason: Headache) Rx Instructions: Take 600mg by mouth as needed for headache meloxicam 15 mg tablet 15 mg PO DAILY Qty: 7 0RF oxycodone 5 mg tablet 5 mg PO Q6H PRN (Reason: pain) Qty: 7 0RF Referrals Referrals: Janice Gutierrez MD [Primary Care Provider] -
[2024-01-02] MEDS: diphenhydrAMINE 50 MG/ML VIAL IV STA (16:46)
[2024-01-02 17:37] LABS: Procalcitonin < 0.02 ng/ml (0-0.5)
[2024-01-02] MEDS: ONDANSETRON INJ 2 MG/ML 2 ML VIAL IV STA ×2 (17:54→20:35)
[2024-01-02 18:02] LABS: Lyme Screen Rflx Confirmation Negative (Negative)
[2024-01-02] MEDS: OPTIRAY 320 100ml IV ONE (18:07)
--- NOTE | 2024-01-02 18:24 | CT Scan Report ---
CT SCAN OF THE BRAIN WITHOUT IV CONTRAST CLINICAL HISTORY: Headache. Blurry vision. COMPARISON STUDY: CT of the brain dated 11/29/2008. TECHNIQUE: Unenhanced axial CT scan of the brain is performed from the vertex to the skull base. A d ose lowering technique was utilized adhering to the principles of ALARA. FINDINGS: Brain parenchyma: The brain parenchyma is normal in appearance. There is no hemorrhage, mass effect, or evidence of acute territorial ischemia by CT criteria. Jung-white matter differentiation is preser duane. No extra-axial fluid collection is seen. Ventricles, sulci, cisterns: Normal in configuration. Intracranial vasculature: The visualized intracranial vasculature at the skull base is normal in appe arance. Calvarium: Unremarkable. Sinuses and mastoids: The visualized paranasal sinuses are clear. The mastoid air cells are well pneu matized. Orbits: The bony orbits are grossly intact. IMPRESSION: No acute intracranial abnormality. ACT 112: Negative or not required by law. Electronically signed by: Marcos Jensen M.D. 01/02/2024 6:22 PM
--- NOTE | 2024-01-02 18:54 | CT Scan Report ---
CT SCAN OF THE ABDOMEN AND PELVIS WITH IV CONTRAST CLINICAL HISTORY: Left lower quadrant abdominal pain. Vomiting. COMPARISON STUDY: Abdominal CT dated 07/08/2023. TECHNIQUE: Following the IV administration of 94 cc of Optiray 320, CT scan of the abdomen and pelvi s is performed from the lung bases to the proximal femora. Images are reviewed in the axial, sagittal , and coronal planes. IV contrast was administered without complication. A dose lowering technique wa s utilized adhering to the principles of ALARA. CT DOSE: 1951.76 mGy.cm FINDINGS: Lung bases: The heart is normal in size and without pericardial effusion. The lung bases are clear no ting dependent atelectasis. A small hiatal hernia is noted. Liver: The contrast-enhanced liver is enlarged, measuring 22.4 cm in craniocaudal length. Attenuation is diffusely diminished indicating steatosis. Fatty sparing is seen adjacent to the gallbladder sanjana a. There is no intrahepatic biliary ductal dilatation. The hepatic veins and portal veins are patent. Gallbladder: Unremarkable. Spleen: Normal in size and attenuation. Pancreas: Unremarkable. Adrenal glands: Small low-attenuation adrenal nodules are unchanged in measurement, matter. These lik buffy represent adenomas.. Kidneys: The contrast enhanced kidneys are normal in size and without hydronephrosis. The kidneys enh ance symmetrically. Abdominal vasculature: The abdominal aorta is normal in course and caliber. Bowel: There is no bowel obstruction. The appendix is well-visualized and normal. Peritoneum: There is no intraperitoneal free air or abdominal ascites. There is a fat-containing umbi lical hernia. There is an indeterminate 1.0 cm ovoid nodule in the right upper quadrant tenderness. Lymphadenopathy: None. Pelvic viscera: The bladder is normal as visualized. The uterus is surgically absent. No adnexal lesi on is seen. Skeletal structures: There is mild lumbosacral spondylosis. Degenerative disc space narrowing and end plate sclerosis is seen at L5-S1. Sclerotic changes noted in the sacroiliac joints. No lytic or blast ic lesions are seen. IMPRESSION: 1. There is a 1.0 cm indeterminant ovoid nodule in the right upper quadrant between the colon and the right kidney with minimal surrounding infiltration. This is not highly suspicious and likely on an i nfectious/inflammatory basis, but is new from 07/08/2023. No additional similar-appearing nodules are identified. A precautionary 3 to 4 -month follow-up abdominal CT scan is recommended to document res olution. 2. No additional infectious or inflammatory findings are identified in the abdomen or pelvis. 3. Hepatomegaly and hepatic steatosis. 4. Additional findings as above. ACT 112: Negative or not required by law. Electronically signed by: Marcos Jensen M.D. 01/02/2024 6:51 PM
[2024-01-02] MEDS: hydrALAZINE HCL 20 MG/ML VIAL IV STA (19:38)
[2024-01-02 19:43] LABS: Appearance Urine Clear (Clear); Bilirubin Urine Negative (Negative); Blood Urine Negative (Negative); Color Urine Yellow; Glucose Urine UA Negative (Negative); Ketones Urine Negative (Negative); Leukocyte Esterase Urine Negative (Negative); Nitrite Urine Negative (Negative); Protein Urine Negative (Negative); Specific Gravity Urine 1.036 (1.000-1.030); Urobilinogen Urine Negative (Negative)
[2024-01-02] MEDS: MAGNESIUM SULFATE / D5W 1 GM/100 ML BAG IV STA (20:05)
[2024-01-02] MEDS: ACETAMINOPHEN 1,000 MG/100 ML VIAL IV STA (20:05)
[2024-01-02] MEDS: cefTRIAXone SODIUM 2,000 MG/50 ML BAG IV STA (20:35)
--- NOTE | 2024-01-03 03:01 | History & Physical Report ---
Date of Service January 03, 2024 Assessment & Plan (1) Acute intractable headache: Plan: 48-year-old female with past medical history significant for Hyperlipidemia, migraine variant, tobacco use disorder, moderate recurrent major depression comes because of last couple of days having severe headaches and also having chest pains and shortness of breath. Currently chest pain resolved. Shortness of breath still there. She also felt like last couple days she having swelling in the legs. Having severe headaches with blurred vision. She has history of migraines with blurred vision but this was more severe. Currently blurred vision improved but she thinks the headaches coming back and with her headaches states blurry vision will come back. She has chronic neck pain but the neck pain is worse today. She can flex neck okay. Denies any fevers. Was having a lot of nausea. And vomiting. Because of vomiting she thinks she has a left lower quad abdominal pain. Bowels are moving okay. Micturating okay. No runny nose or sore throat. In the ER her blood pressure was running high and required IV hydralazine. Says lights are bothering her. Currently hemodynamics are okay. acute intractable headache history of migraines headache with blurred vision states blurred vision is improved but thinks it will come back CT head is okay will check ESR pain control neuroconsult in a.m. for further recommendations chest pains currently improved initial EKG and troponin negative we will follow serial cardiac enzymes and echo n.p.o. telemetry cardiac consult in a.m. shortness of breath chest x-ray okay BNP okay will check D-dimers and lower EXTR Dopplers patient states has swelling in lower extremities currently seems okay we will monitor and follow echocardiogram Nebs ATC and as needed d dimer elevated- ordered ct chest PE study. tobacco abuse needs counseling abdominal pain CT abdomen pelvis shows: 1.0 cm indeterminant ovoid nodule in the right upper quadrant between the colon and the right kidney with minimal surrounding infiltration. This is not highly suspicious and likely on an infectious/inflammatory basis, but is new from 07/08/2023. No additional similar-appearing nodules are identified. A precautionary 3 to 4 -month follow- up abdominal CT scan is recommended to document resolution will Monitor. Needs followup elevated blood pressure possible situational record IV hydralazine in the ER will place on IV labetalol as needed close monitor follow echo depression on duloxetine GERD on omeprazole DVT prophylaxis SCDs for now disposition med/telemetry full code History of Present Illness Chief Complaint: chest pain, shortness of breath, headaches, abdominal pain, lower extremity e lisa Primary Care Provider: Janice Gutierrez MD 48-year-old female with past medical history significant for Hyperlipidemia, migraine variant, tobacco use disorder, moderate recurrent major depression comes because of last couple of days having severe headaches and also having chest pains and shortness of breath. Currently chest pain resolved. Shortness of breath still there. She also felt like last couple days she having swelling in the legs. Having severe headaches with blurred vision. She has history of migraines with blurred vision but this was more severe. Currently blurred vision improved but she thinks the headaches coming back and with her headaches states blurry vision will come back. She has chronic neck pain but the neck pain is worse today. She can flex neck okay. Denies any fevers. Was having a lot of nausea. And vomiting. Because of vomiting she thinks she has a left lower quad abdominal pain. Bowels are moving okay. Micturating okay. No runny nose or sore throat. In the ER her blood pressure was running high and required IV hydralazine. Says lights are bothering her. Currently hemodynamics are okay. Past medical history. As mentioned above. Past surgical history. . Colonoscopy. Dilatation And curettage. Injection of lumbosacral spine. Total abdominal hysterectomy with removal of tubes. social history. Smokes 1 pack a day for 30 years. No alcohol use. as per [place] uses marijuana. Family history. Father of [place] at age 56. Mother has COPD. Daughter has asthma. Allergies Allergy/AdvReac Type Severity Reaction Status Date / Time No Known Allergies Unverified 01/02/24 22:07 Home Medications Medication Instructions Recorded Confirmed Type albuterol sulfate 90 mcg/actuation 2 puff inhalation Q4 PRN Shortness 01/02/24 01/02/24 History aerosol inhaler (Ventolin HFA) Of Breath Or Wheezing baclofen 10 mg tablet 10 mg PO BID PRN .moderate pain 01/02/24 01/02/24 History duloxetine 30 mg capsule,delayed 30 mg PO QAM 01/02/24 01/02/24 History release gabapentin 600 mg tablet 600 mg PO TID 01/02/24 01/02/24 History meclizine 25 mg chewable tablet 25 mg PO TID PRN .dizzyness 01/02/24 01/02/24 History naproxen 500 mg tablet 500 mg PO BID PRN Pain 01/02/24 01/02/24 History nicotine 21 mg/24 hr daily 1 patch topical DIRECTED 01/02/24 01/02/24 History transdermal patch omeprazole 20 mg capsule,delayed 20 mg PO QAM 01/02/24 01/02/24 History release ondansetron HCl 4 mg tablet 4 mg PO Q6 PRN Nausea 01/02/24 01/02/24 History sumatriptan succinate 25 mg tablet 25 mg PO DIRECTED PRN Migraine 01/02/24 01/02/24 History Headache Past Med/Surg History Problem List (Updated 01/03/24 @ 07:19 by DELL Juarez) Shortness of breath Chest pain Leukocytosis (Acute) Elevated lactic acid level (Acute) Hypertensive urgency (Acute) Nausea & vomiting (Acute) Swelling of lower extremity (Acute) Acute intractable headache (Acute) Lab test negative for COVID-19 virus (Acute) Medical History No significant medical problems Social History Smoking Status: Heavy tobacco smoker Tobacco Type: Cigarettes Hx Alcohol Use: No Hx Substance Use: Yes Last Used Substance: Hours (ago) Preferred Language: Upper Sorbian 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 Head- atraumatic Eyes- PERRL. ENT- oropharynx clear Neck- supple, no JVD,. Lungs- clear to auscultation no wheezing or crackles. Heart- regular rate and rhythm; no murmur, no gallop. Abdomen- normal bowel sounds, soft, nontender, no distension Extremities- no pretibial edema, no erythema seen. Neuro- alert, oriented ; PERRL, ; no facial palsy; no dysarthria; moves extremities Results & Data Results & Data Vital Signs (Past 12 Hours) Vital Signs Pulse Pulse Resp BP BP Pulse Ox O2 Del Method 01/03/24 00:16 78 01/02/24 21:00 93 H 16 114/83 93 Room Air 01/02/24 20:21 84 01/02/24 19:36 66 19 205/136 H 93 Room Air 01/02/24 18:00 70 18 166/80 H 93 01/02/24 17:03 74 15 97 01/02/24 17:01 164/82 H 01/02/24 16:57 77 20 97 01/02/24 16:34 75 01/02/24 16:20 96 Room Air 01/02/24 16:20 Room Air 01/02/24 16:12 69 14 171/83 H 97 01/02/24 16:10 78 22 94 Room Air 01/02/24 15:57 64 24 98 Diagnostic Findings Laboratory Results WBC 13.24 K/ul (4.8-10.8) H 01/02/24 14:15 RBC 4.96 M/uL (4.20-5.40) 01/02/24 14:15 Hgb 15.0 g/dl (12.0-16.0) 01/02/24 14:15 Hct 44.2 % (37.0-47.0) 01/02/24 14:15 MCV 89.1 fL (80.0-100.0) 01/02/24 14:15 MCH 30.2 pg (25.0-34.0) 01/02/24 14:15 MCHC 33.9 g/dL (32.0-36.0) 01/02/24 14:15 RDW Std Deviation 45.0 fL (36.4-46.3) 01/02/24 14:15 RDW Coeff of Stephanie 13.9 % (11.5-14.5) 01/02/24 14:15 Plt Count 235 K/uL (130-400) 01/02/24 14:15 MPV 10.2 fL (9.4-12.4) 01/02/24 14:15 Immature Gran % (Auto) 0.3 % 01/02/24 14:15 Neut % (Auto) 39.6 % 01/02/24 14:15 Lymph % (Auto) 52.6 % 01/02/24 14:15 Whiteside % (Auto) 4.5 % 01/02/24 14:15 Eos % (Auto) 2.5 % 01/02/24 14:15 Baso % (Auto) 0.5 % 01/02/24 14:15 Neut # (Auto) 5.25 K/uL (1.40-6.50) 01/02/24 14:15 Lymph # (Auto) 6.96 K/uL (1.20-3.40) H 01/02/24 14:15 Whiteside # (Auto) 0.59 K/uL (0.11-0.59) 01/02/24 14:15 Eos # (Auto) 0.33 K/uL (0.00-0.50) 01/02/24 14:15 Baso # (Auto) 0.07 K/uL (0.00-0.20) 01/02/24 14:15 Immature Gran # (Auto) 0.04 K/uL (0.01-0.20) 01/02/24 14:15 Sodium 137 mmol/L (136-145) 01/02/24 14:15 Potassium 4.1 mmol/L (3.5-5.1) 01/02/24 14:15 Chloride 107 mmol/L (98-107) 01/02/24 14:15 Carbon Dioxide 24 mmol/L (21-32) 01/02/24 14:15 Anion Gap 6 (3-11) 01/02/24 14:15 BUN 7 mg/dl (6-23) 01/02/24 14:15 Creatinine 0.60 mg/dl (0.6-1.2) 01/02/24 14:15 Est Cr Clr Drug Dosing 138.0 ml/min 01/02/24 14:15 Est GFR ( Amer) 126.7 ml/min 01/02/24 14:15 Est GFR (Non-Af Amer) 109.3 ml/min 01/02/24 14:15 BUN/Creatinine Ratio 11.7 (10-20) 01/02/24 14:15 Glucose 93 mg/dl (70-99(Fasting)) 01/02/24 14:15 Lactate 1.2 mmol/L (0.4-2.0) 01/02/24 19:10 Calcium 9.0 mg/dl (8.6-10.3) 01/02/24 14:15 Total Bilirubin 0.4 mg/dl (0.2-1.0) 01/02/24 14:15 AST 20 U/L (13-39) 01/02/24 14:15 ALT 38 U/L (7-52) 01/02/24 14:15 Alkaline Phosphatase 74 U/L (34-104) 01/02/24 14:15 Troponin I High Sens 3.6 pg/ml (0-14) 01/02/24 16:57 B-Natriuretic Peptide 56 pg/ml (0-100) 01/02/24 14:15 Total Protein 6.5 gm/dl (6.0-8.3) 01/02/24 14:15 Albumin 3.8 gm/dl (3.4-5.0) 01/02/24 14:15 Globulin 2.7 gm/dl (2.5-4.0) 01/02/24 14:15 Albumin/Globulin Ratio 1.4 (0.9-2) 01/02/24 14:15 Procalcitonin < 0.02 ng/ml (0-0.5) 01/02/24 16:57 Urine Color Yellow 01/02/24 19:22 Urine Appearance Clear (Clear) 01/02/24 19:22 Urine pH 7.0 (4.5-7.5) 01/02/24 19:22 Ur Specific Colby 1.036 (1.000-1.030) H 01/02/24 19:22 Urine Protein Negative (Negative) 01/02/24 19:22 Urine Glucose (UA) Negative (Negative) 01/02/24 19:22 Urine Ketones Negative (Negative) 01/02/24 19:22 Urine Blood Negative (Negative) 01/02/24 19:22 Urine Nitrite Negative (Negative) 01/02/24 19:22 Urine Bilirubin Negative (Negative) 01/02/24 19:22 Urine Urobilinogen Negative (Negative) 01/02/24 19:22 Ur Leukocyte Esterase Negative (Negative) 01/02/24 19:22 Adenovirus (PCR) Not Detected (NotDetected) 01/02/24 14:15 B. pertussis DNA (PCR) Not Detected (NotDetected) 01/02/24 14:15 B.parapertussis DNA PCR Not Detected (NotDetected) 01/02/24 14:15 Lyme Disease Screen Negative (Negative) 01/02/24 16:57 C. pneumoniae DNA (PCR) Not Detected (NotDetected) 01/02/24 14:15 Coronavirus OC43 (PCR) Not Detected (NotDetected) 01/02/24 14:15 Coronavirus HKU1 (PCR) Not Detected (NotDetected) 01/02/24 14:15 Coronavirus 229E (PCR) Not Detected (NotDetected) 01/02/24 14:15 SARS-CoV-2 (PCR) Not Detected (NotDetected) 01/02/24 14:15 Coronavirus NL63 (PCR) Not Detected (NotDetected) 01/02/24 14:15 Human Metapneumovir PCR Not Detected (NotDetected) 01/02/24 14:15 Influenza Type A (PCR) Not Detected (NotDetected) 01/02/24 14:15 Influenza Type B (PCR) Not Detected (NotDetected) 01/02/24 14:15 M. pneumoniae (PCR) Not Detected (NotDetected) 01/02/24 14:15 Parainfluenza 1 (PCR) Not Detected (NotDetected) 01/02/24 14:15 Parainfluenza 2 (PCR) Not Detected (NotDetected) 01/02/24 14:15 Parainfluenza 3 (PCR) Not Detected (NotDetected) 01/02/24 14:15 Parainfluenza 4 (PCR) Not Detected (NotDetected) 01/02/24 14:15 RSV (PCR) Not Detected (NotDetected) 01/02/24 14:15 Entero/Rhino (PCR) Not Detected (NotDetected) 01/02/24 14:15 Impressions Chest X-Ray 01/02/24 13:56 SINGLE VIEW CHEST CLINICAL HISTORY: Dyspnea FINDINGS: A PA chest radiograph is compared to study dated 07/08/2023. The cardiomediastinal silhouette is unremarkable. The lungs and pleural spaces are clear. No pneumothorax is seen. The bony thorax is grossly intact. IMPRESSION: No active disease in the chest. ACT 112: Negative or not required by law. Electronically signed by: Marcos Jensen M.D. 01/02/2024 2:36 PM Abdomen/Pelvis CT 01/02/24 16:32 CT SCAN OF THE ABDOMEN AND PELVIS WITH IV CONTRAST CLINICAL HISTORY: Left lower quadrant abdominal pain. Vomiting. COMPARISON STUDY: Abdominal CT dated 07/08/2023. TECHNIQUE: Following the IV administration of 94 cc of Optiray 320, CT scan of the abdomen and pelvis is performed from the lung bases to the proximal femora. Images are reviewed in the axial, sagittal, and coronal planes. IV contrast was administered without complication. A dose lowering technique was utilized adhering to the principles of ALARA. CT DOSE: 1951.76 mGy.cm FINDINGS: Lung bases: The heart is normal in size and without pericardial effusion. The lung bases are clear noting dependent atelectasis. A small hiatal hernia is noted. Liver: The contrast-enhanced liver is enlarged, measuring 22.4 cm in cr aniocaudal length. Attenuation is diffusely diminished indicating steatosis. Fatty sparing is seen adjacent to the gallbladder fossa. There is no intrahepatic biliary ductal dilatation. The hepatic veins and portal veins are patent. Gallbladder: Unremarkable. Spleen: Normal in size and attenuation. Pancreas: Unremarkable. Adrenal glands: Small low-attenuation adrenal nodules are unchanged in measurement, matter. These likely represent adenomas.. Kidneys: The contrast enhanced kidneys are normal in size and without hydronephrosis. The kidneys enhance symmetrically. Abdominal vasculature: The abdominal aorta is normal in course and caliber. Bowel: There is no bowel obstruction. The appendix is well-visualized and normal. Peritoneum: There is no intraperitoneal free air or abdominal ascites. There is a fat-containing umbilical hernia. There is an indeterminate 1.0 cm ovoid nodule in the right upper quadrant tenderness. Lymphadenopathy: None. Pelvic viscera: The bladder is normal as visualized. The uterus is surgically absent. No adnexal lesion is seen. Skeletal structures: There is mild lumbosacral spondylosis. Degenerative disc space narrowing and endplate sclerosis is seen at L5-S1. Sclerotic changes noted in the sacroiliac joints. No lytic or blastic lesions are seen. IMPRESSION: 1. There is a 1.0 cm indeterminant ovoid nodule in the right upper quadrant between the colon and the right kidney with minimal surrounding infiltration. This is not highly suspicious and likely on an infectious/inflammatory basis, but is new from 07/08/2023. No additional similar-appearing nodules are identified. A precautionary 3 to 4 -month follow-up abdominal CT scan is recommended to document resolution. 2. No additional infectious or inflammatory findings are identified in the abdomen or pelvis. 3. Hepatomegaly and hepatic steatosis. 4. Additional findings as above. ACT 112: Negative or not required by law. Electronically signed by: Marcos Jensen M.D. 01/02/2024 6:[address] 01/02/24 16:32 CT SCAN OF THE BRAIN WITHOUT IV CONTRAST CLINICAL HISTORY: Headache. Blurry vision. COMPARISON STUDY: CT of the brain dated 11/29/2008. TECHNIQUE: Unenhanced axial CT scan of the brain is performed from the vertex to the skull base. A dose lowering technique was utilized adhering to the principles of ALARA. FINDINGS: Brain parenchyma: The brain parenchyma is normal in appearance. There is no hemorrhage, mass effect, or evidence of acute territorial ischemia by CT criteria. Jung-white matter differentiation is preserved. No extra-axial fluid collection is seen. Ventricles, sulci, cisterns: Normal in configuration. Intracranial vasculature: The visualized intracranial vasculature at the skull base is normal in appearance. Calvarium: Unremarkable. Sinuses and mastoids: The visualized paranasal sinuses are clear. The mastoid air cells are well pneumatized. Orbits: The bony orbits are grossly intact. IMPRESSION: No acute intracranial abnormality. ACT 112: Negative or not required by law. Electronically signed by: Marcos Jensen M.D. 01/02/2024 6:22 PM ECG Additional Comments: ECG. Normal sinus rhythm with a rate of 78. No acute ST changes seen. QTc 424. Code Status & VTE Plan VTE Prophylaxis Plan VTE Prophylaxis will be ordered: Yes
[2024-01-03] MEDS ORDERED: NITROGLYCERIN SL 0.4 MG/TAB TAB SL PRN (03:17)
[2024-01-03] MEDS ORDERED: BACLOFEN 10 MG TAB PO PRN (03:17)
[2024-01-03] MEDS ORDERED: LABETALOL HCL IV 5 MG/ML 20ML IV PRN (03:17)
[2024-01-03] MEDS ORDERED: ALBUTEROL HFA 8 GM INHALER INH PRN (03:17)
[2024-01-03] MEDS ORDERED: ALBUT/IPRATROP 3MG/0.5MG NEB 3 ML VIAL NEB PRN (03:17)
[2024-01-03] MEDS: ONDANSETRON INJ 2 MG/ML 2 ML VIAL IV PRN (05:06)
[2024-01-03] MEDS: ACETAMINOPHEN 1,000 MG/100 ML VIAL IV PRN (05:06)
[2024-01-03 05:21] LABS: Basophils # (auto) 0.06 K/uL (0.00-0.20); Basophils % (auto) 0.5 %; Eosinophils # (auto) 0.27 K/uL (0.00-0.50); Hematocrit (blood only) 42.4 % (37.0-47.0); Hemoglobin 14.2 g/dl (12.0-16.0); Immature Granulocytes # (auto) 0.05 K/uL (0.01-0.20); Immature Granulocytes % (auto) 0.4 %; Lymphocytes % (auto) 36.8 %; Mean Corpuscular Hemoglobin 29.6 pg (25.0-34.0); Mean Corpuscular Hgb Conc 33.5 g/dL (32.0-36.0); Mean Corpuscular Volume 88.3 fL (80.0-100.0); Mean Platelet Volume 10.2 fL (9.4-12.4); Monocytes % (auto) 5.3 %; Neutrophils # (auto) 7.34 K/uL (1.40-6.50); Platelet Count 241 K/uL (130-400); RDW Coefficient of Variation 13.9 % (11.5-14.5); RDW Standard Deviation 45.1 fL (36.4-46.3); White Blood Count 13.32 K/ul (4.8-10.8)
[2024-01-03 05:29] LABS: Calcium 8.6 mg/dl (8.6-10.3); Creatinine Clr Calc Pharmacy 165.6 ml/min; Est GFR (African American) 134.5 ml/min; Est GFR (Non-African American) 116.1 ml/min; Potassium 3.8 mmol/L (3.5-5.1)
[2024-01-03 05:37] LABS: Troponin I High Sensitivity 4.2 pg/ml (0-14)
[2024-01-03 05:45] LABS: D Dimer 740 ug/L FEU (0-500)
[2024-01-03] MEDS: OPTIRAY 320 125ml IV ONE (06:30)
[2024-01-03] MEDS: SODIUM CHLORIDE 0.9% 1,000 ML IV SCH (06:43)
[2024-01-03] MEDS: ALBUT/IPRATROP 3MG/0.5MG NEB 3 ML VIAL NEB SCH (07:18)
--- NOTE | 2024-01-03 07:22 | Cardiology Consultation ---
Date of Consultation January 03, 2024 Assessment & Plan (1) Acute intractable headache: (2) Chest pain: (3) Shortness of breath: (4) Hypertension: Plan Impression: 48-year-old female with past medical history significant for migraines presented to [facility] emergency department due to severe headache, nausea, chest pain, and shortness of breath Plan: Acute intractable headache: History of migraines with blurred vision. CT of the head unremarkable. Will defer to primary service for pain control and headache management Okay to eat a light/bland breakfast to see if this improves her symptoms. Chest pain/shortness of breath: Cardiac workup unremarkable thus far including a negative high-sensitivity troponin x 2. EKG without acute ischemic changes. Echocardiogram pending. WBC mildly elevated, rales heard on exam, experiencing chills. CTA without evidence of PE-- questionable infectious process; spoke with hospitalist-- plans to start antibiotics. Pending echo and clinical course; can consider outpatient stress echo. Hypertension: Blood pressure normally very well-controlled. Possibly situational in the setting of pain/acute illness-- if BP remain elevated can consider addition of Norvasc. Case discussed with Dr. Fortune. Further recommendations pending assessment. I spent a total of 40 minutes on the date of service in preparation, delivery, and documentation of the care provided to the patient excluding any time spent in the performance of separately billed services. DELL Sparks Department of Cardiology, [facility] This chart was completed in part utilizing Speech Voice Recognition Software. Grammatical errors, random word insertions, pronoun errors, and incomplete sentences are an occasional consequence of this system due to software limitat ions, ambient noise, and hardware issues. Any formal questions or concerns about the content, text, or information contained within the body of this dictation should be directly addressed to the provider for clarification. Supervising Physician Co-Signing Physician Notes Attending attestation: Case reviewed with the advanced practitioner. I have personally performed a history and physical examination on the patient. I have reviewed the advanced practitioner's documentation on the date of service referenced in note, and I agree with, and take responsibility for the plan of care. Subjective:Patient with headache, transient chest tightness yesterday, notes cough productive of clear sputum. Cigarette smoker. Exam: Cardiovascular: Regular rhythm, no murmurs rubs or gallops, no edema Data: Telemetry reveals sinus rhythm in the 80s EKG reveals sinus rhythm at 78 bpm, no significant repolarization abnormalities. Mild leukocytosis with leftward shift. Screening D-dimer elevated Lower extremity venous duplex negative for DVT CT angiogram of the chest revealed no pulmonary embolism, bronchial wall thickening and mosaic attenuation compatible with infectious/inflammatory airway disease Impression/ Plan: Recommend trial of antibiotics for complicated bronchitis, along with inhaled bronchodilators Continue outpatient treatment for chronic headache syndrome Amlodipine added for hypertension, future considerations include consideration of a beta-maggy which may help for headache prophylaxis as well. I spent a total of 20 minutes coordinating, documenting, and providing care for this patient excluding time spent in the performance of separately billed services or time spent by another provider. Isaac Fortune DO History of Present Illness Reason for Consultation: Chest pain and shortness of breath Requesting Physician: [facility] Attending Physician: Mckenzie Parra MD History of Present Illness 48-year-old female with limited past medical history is significant for migraines presented to [facility] emergency department yesterday due to severe headaches with blurred vision, nausea/vomiting, chest pain, shortness of breath, and lower extremity edema. Blood pressure was elevated and patient received a dose of IV hydralazine in the ER. Outpatient records suggest the blood pressure very well-controlled in the 120s/60s. Head CT negative for acute changes. EKG showed normal sinus rhythm, 78 bpm without any acute ST segment changes. Echo pending Renal function stable. Sodium mildly low. Potassium and magnesium within normal limits. High-sensitivity troponin negative x 2. D-dimer elevated at 740. CTA of the chest without evidence of PE. "Bronchial wall thickening with mosaic attenuation compatible with infectious/inflammatory airways disease". Lower extremity duplex pending. Tele: SR 70-80s In regards to her head aches- symptoms occur when she sits up from a laying position. Headaches are associated with blurred vision, nausea/vomiting. Feels that if she eats something her headache will "go away". Notes that her shortness of breath and chest tightness happens with activity. Started when she was working at [employer]. Legs are mildly swollen, this has happened in the past, but normally goes down when she elevates her legs. Denies palpitations. No orthopnea or PND. Denies fevers, but has felt "hot and cold". Feels that her symptoms are "all over the place". "Not sure what's wrong; just doesn't feel good." Denies any known sick contacts Denies previous myocardial infarction, cardiac catheterization, coronary artery bypass grafting, a history of congestive heart failure, valvular disease or rheumatic fever, or history of arrhythmia. Past medical history: Hyperlipidemia Tobacco use; 1 pack/day Weekly marijuana use Migraines Allergies Allergy/AdvReac Type Severity Reaction Status Date / Time No Known Allergies Unverified 01/02/24 22:07 Home Medications Medication Instructions Recorded Confirmed Type albuterol sulfate 90 mcg/actuation 2 puff inhalation Q4 PRN Shortness 01/02/24 01/02/24 History aerosol inhaler (Ventolin HFA) Of Breath Or Wheezing baclofen 10 mg tablet 10 mg PO BID PRN .moderate pain 01/02/24 01/02/24 History duloxetine 30 mg capsule,delayed 30 mg PO QAM 01/02/24 01/02/24 History release gabapentin 600 mg tablet 600 mg PO TID 01/02/24 01/02/24 History meclizine 25 mg chewable tablet 25 mg PO TID PRN .dizzyness 01/02/24 01/02/24 History naproxen 500 mg tablet 500 mg PO BID PRN Pain 01/02/24 01/02/24 History nicotine 21 mg/24 hr daily 1 patch topical DIRECTED 01/02/24 01/02/24 History transdermal patch omeprazole 20 mg capsule,delayed 20 mg PO QAM 01/02/24 01/02/24 History release ondansetron HCl 4 mg tablet 4 mg PO Q6 PRN Nausea 01/02/24 01/02/24 History sumatriptan succinate 25 mg tablet 25 mg PO DIRECTED PRN Migraine 01/02/24 01/02/24 History Headache Patient History Medical History No significant medical problems Social History Smoking Status: Heavy tobacco smoker Tobacco Type: Cigarettes Hx Alcohol Use: No Hx Substance Use: Yes Last Used Substance: Hours (ago) Preferred Language: 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 Beliefs That Will Affect Care: None Current Living Situation: Family Feels Safe at Home: Yes Assistive Devices: Cane Review of Systems Review of Systems: All systems reviewed & are unremarkable except as noted in HPI & below Physical Exam Constitutional: WD/WN, vitals as above no acute distress Eyes: PERRL, conjunctivae normal, anicteric sclerae Neck: normal visual inspection and trachea midline Respiratory: normal respiratory effort; no respiratory distress and no cough Auscultation: + rales; no rhonchi and no wheezes Cardiovascular: Rate/Rhythm: regular rate and regular rhythm Heart Sounds: normal S1 and normal S2 Vessels: no JVD Extremities: no edema Gastrointestinal (Abdomen): normal bowel sounds, soft, nontender, no hepatosplenomegaly Skin: no rashes, warm and dry Neurologic: PERRL, EOMI, accommodation nl, no face palsy, no dysarthria Psychiatric: A+Ox3, euthymic affect Results & Data Vital Signs (Past 12 Hours) Vital Signs Pulse Pulse Resp BP Pulse Ox O2 Del Method 01/03/24 05:12 75 20 147/96 H 95 Room Air 01/03/24 00:16 78 01/03/24 00:00 78 17 114/83 93 Room Air 01/02/24 21:00 93 H 16 114/83 93 Room Air 01/02/24 20:21 84 01/02/24 19:36 66 19 205/136 H 93 Room Air Laboratory Results Cardiac Enzymes 01/02/24 01/02/24 01/03/24 Range/Units 14:15 16:57 04:45 AST 20 (13-39) U/L Troponin I High Sens 3.6 4.2 (0-14) pg/ml B-Natriuretic Peptide 56 (0-100) pg/ml Coagulation 01/02/24 Range/Units 14:15 B-Natriuretic Peptide 56 (0-100) pg/ml CBC 01/02/24 01/03/24 Range/Units 14:15 04:45 WBC 13.24 H 13.32 H (4.8-10.8) K/ul RBC 4.96 4.80 (4.20-5.40) M/uL Hgb 15.0 14.2 (12.0-16.0) g/dl Hct 44.2 42.4 (37.0-47.0) % Plt Count 235 241 (130-400) K/uL Neut # (Auto) 5.25 7.34 H (1.40-6.50) K/uL Lymph # (Auto) 6.96 H 4.90 H (1.20-3.40) K/uL [place] # (Auto) 0.59 0.70 H (0.11-0.59) K/uL Eos # (Auto) 0.33 0.27 (0.00-0.50) K/uL Baso # (Auto) 0.07 0.06 (0.00-0.20) K/uL Comprehensive Metabolic Panel 01/02/24 01/03/24 Range/Units 14:15 04:45 Sodium 137 135 L (136-145) mmol/L Potassium 4.1 3.8 (3.5-5.1) mmol/L Chloride 107 108 H (98-107) mmol/L Carbon Dioxide 24 21 (21-32) mmol/L BUN 7 6 (6-23) mg/dl Creatinine 0.60 0.50 L (0.6-1.2) mg/dl Glucose 93 110 H (70-99(Fasting)) mg/dl Calcium 9.0 8.6 (8.6-10.3) mg/dl AST 20 (13-39) U/L ALT 38 (7-52) U/L Alkaline Phosphatase 74 (34-104) U/L Total Protein 6.5 (6.0-8.3) gm/dl Albumin 3.8 (3.4-5.0) gm/dl Intake and Output 01/02/24 01/03/24 01/03/24 22:59 06:59 14:59 Intake Total 1250 / 1350 100 / 1350 Balance 1250 / 1350 100 / 1350 Intake: IV 1250 / 1350 100 / 1350 Acetaminophen 1,000 mg In 100 100 / 200 100 / 200 ml @ 400 mls/hr IV Q8H PRN Rx#: [id number] Magnesium Sulfate / D5w 1 gm In 100 / 100 100 ml @ 100 mls/hr IV NOW STA Rx#:[id number] Sodium Chloride 0.9% 1,000 ml @ 1000 / 1000 999 mls/hr IV .Q1H1M ONE Rx#: [id number] cefTRIAXone SODIUM 2,000 mg In 50 / 50 50 ml @ 100 mls/hr IV NOW STA Rx#:[id number] Other: Weight 101 kg Weight Measurement Method Built in [facility] (1) Acute intractable headache Headache type: unspecified Qualified Code(s): R51.9 - Headache, unspecified (2) Chest pain Chest pain type: unspecified Qualified Code(s): R07.9 - Chest pain, unspecified (4) Hypertension Hypertension type: unspecified Qualified Code(s): I10 - Essential (primary) hypertension
--- NOTE | 2024-01-03 07:32 | CT Scan Report ---
CT angio chest PE protocol CLINICAL HISTORY: PE TECHNIQUE: Multidetector row helical CT of the chest was performed with angiographic protocol. Duggan l and sagittal reformations were obtained. Coronal and sagittal MIPS were obtained from the axial yuan a set and were submitted for review. Automated dose lowering techniques and/or adjustment according to patient size were utilized for this exam. CT DOSE: 888.19 mGy.cm Comparison: None available at the time of this dictation. FINDINGS: Lungs and pleura: Bronchial wall thickening is seen with mosaic attenuation. Heart and pericardium: Heart size is normal. No pericardial effusion. Vessels: No evidence of pulmonary embolism. Mediastinum and fernando: Unremarkable. Chest wall and lower neck: Subcentimeter axillary lymph nodes noted. Abdomen: Hepatic steatosis is noted. Bones: Degenerative changes in the thoracic spine. IMPRESSION: 1. No pulmonary embolus. 2. Bronchial wall thickening with mosaic attenuation compatible with infectious/inflammatory airways disease. ACT 112: Negative or not required by law. Electronically signed by: Robbie Hernandez M.D. 01/03/2024 7:30 AM
--- NOTE | 2024-01-03 07:58 | Electrocardiogram Report ---
Test Reason : Blood Pressure : / mmHG Vent. Rate : 078 BPM Atrial Rate : 078 BPM P-R Int : 146 ms QRS Dur : 076 ms QT Int : 372 ms P-R-T Axes : 076 074 061 degrees QTc Int : 424 ms Normal sinus rhythm Normal ECG When compared with ECG of 12-DEC-2022 08:35, No significant change was found Confirmed by Miguel Angel Garcia ([id number]) on 01/03/2024 7:58:30 AM Referred By: Confirmed By:Miguel Angel Garcia
[2024-01-03] MEDS: GABAPENTIN 600 MG TAB PO SCH (09:13)
[2024-01-03] MEDS: PANTOprazole 40 MG TAB PO SCH (09:13)
[2024-01-03] MEDS: DULoxetine HCL 30 MG CAP PO SCH (09:14)
--- NOTE | 2024-01-03 09:17 | Ultrasound Report ---
US venous doppler LE BI CLINICAL HISTORY: b/l lower ext edema. sob. dvt? TECHNIQUE: Bilateral lower extremity real-time compression venous ultrasound with Color Doppler imagi ng. Utilizing real-time ultrasonic imaging multiple real time high-resolution ultrasonic images with compression and noncompression maneuvers of the deep venous system in addition to color doppler imagi ng were performed from the common femoral vein through the proximal calf veins. COMPARISON: None available at the time of this dictation. FINDINGS/IMPRESSION: Currently there is normal compressibility of the deep venous system from the common femoral vein thro ugh the proximal calf veins. No superficial venous thrombosis is identified. ACT 112: Negative or not required by law. Electronically signed by: Robbie Hernandez M.D. 01/03/2024 9:16 AM
[2024-01-03] MEDS ORDERED: amLODIPine BESYLATE 5 MG TAB PO SCH (11:00)
[2024-01-03] MEDS: amLODIPine BESYLATE 5 MG TAB PO SCH (11:41)
--- NOTE | 2024-01-03 14:48 | Neurology Consultation ---
Date of Consultation January 03, 2024 Assessment & Plan (1) Acute intractable headache: Acute cephalgia- resolved Acute blurred vision-resolved Continue to monitor/control pain, cephlagia Recommend continued work up to include the following: MRI brain with and without contrast- when stable Continue frequent neurological assessments Obtain stat CT brain without contrast for any acute neurological decline Continue to monitor/control blood pressure & blood glucose Continue to monitor telemetry closely Recommend ZioPatch at DC if no evidence of arrhythmia during inpatient monitoring Continue to monitor renal and hepatic function, keep euvolemic Metabolic workup should include hgbA1c, fasting lipids, homocysteine, TSH, RPR, urinalysis Ok from neurology perspective for VTE prophylaxis PT/OT/SLT to eval and treat Recommend eval for RODOLFO and consider outpatient polysomnography Telehealth Consultation Telehealth Information Telehealth Information: I performed this visit using a real-time telehealth connection between my location and the patients location ([facility]). After connecting through interactive tele-video, patient was identified by name and date of and/or wristband check.Patient (or authorized healthcare lead customer service representative) was informed that this was a telemedicine visit and it was being conducted confidentially over secure lines. My office door was closed and no on e else was present in the room with me.Patient (or authorized healthcare lead customer service representative) provided consent to proceed with the visit, expressed an understanding of privacy and security of the telemedicine visit, and gave permission to have a hospital lead customer service representative in the room in order to assist with the visit and to conduct portions of the visit, as needed. I informed the patient (or authorized healthcare lead customer service representative) that I reviewed their record and presented the opportunity for them to ask any questions regarding the visit today. The patient agreed to participate. History of Present Illness Reason for Consultation: Headache/blurred vision Requesting Physician: Dr. Parra Attending Physician: Mckenzie Parra MD History of Present Illness 48yo female presented with elevated BP, headache and reported blurred vision as well as shortness of breath and chest pain. She has elevated D dimer, has undergone spiral CT chest and Venous US of BLE without evidence of clot. Neurology consulted due to headache and blurred vision. She has undergone CT brain without contrast revealing no overt evidence of acute intracranial abnormality. She does report hx of blurred vision with migraine headache but reported this episode was more severe than previous episodes. Currently reports headache has completely resolved and her blurred vision has completely resolved. She reports following with eye doctor for prescription glasses recently. I have performed televideo consultation. She is alert & oriented; able to answer all questions appropriately, name objects on televideo monitor, repeat phrases and perform complex/embedded commands without deficit. Neurological exam is non lateralizing/nonfocal in terms of motor strength and coordination. Allergies Allergy/AdvReac Type Severity Reaction Status Date / Time No Known Allergies Unverified 01/02/24 22:07 Home Medications Medication Instructions Recorded Confirmed Type albuterol sulfate 90 mcg/actuation 2 puff inhalation Q4 PRN Shortness 01/02/24 01/02/24 History aerosol inhaler (Ventolin HFA) Of Breath Or Wheezing baclofen 10 mg tablet 10 mg PO BID PRN .moderate pain 01/02/24 01/02/24 History duloxetine 30 mg capsule,delayed 30 mg PO QAM 01/02/24 01/02/24 History release gabapentin 600 mg tablet 600 mg PO TID 01/02/24 01/02/24 History meclizine 25 mg chewable tablet 25 mg PO TID PRN .dizzyness 01/02/24 01/02/24 History naproxen 500 mg tablet 500 mg PO BID PRN Pain 01/02/24 01/02/24 History nicotine 21 mg/24 hr daily 1 patch topical DIRECTED 01/02/24 01/02/24 History transdermal patch omeprazole 20 mg capsule,delayed 20 mg PO QAM 01/02/24 01/02/24 History release ondansetron HCl 4 mg tablet 4 mg PO Q6 PRN Nausea 01/02/24 01/02/24 History sumatriptan succinate 25 mg tablet 25 mg PO DIRECTED PRN Migraine 01/02/24 01/02/24 History Headache Patient History Medical History No significant medical problems Social History Smoking Status: Heavy tobacco smoker Tobacco Type: Cigarettes Hx Alcohol Use: No Hx Substance Use: Yes Last Used Substance: Hours (ago) Preferred Language: Swedish Technician Required: No Beliefs That Will Affect Care: None Current Living Situation: Family Feels Safe at Home: Yes Assistive Devices: Cane Physical Exam Neurological Examination: Mental Status: Awake and alert. Oriented to person, place, and time. Fluency naming repetition and comprehension appear grossly intact. Affect remains appropriate. CN testing: I: Denies changes in ability to smell II:Reports no changes in visual acuity III/IV/: No evidence of gaze preference, hippus, nystagmus or roving eye movements V: Facial sensation reportedly grossly intact to light touch bilaterally VII: Facial movements appear without evidence of asymmetry VIII: Hearing appears grossly intact to loud voice bilaterally IX/X: Palate appears to elevate symmetrically XI: Shoulder shrug appears symmetric/ grossly intact bilaterally XII: Tongue protrudes midline without evidence of biting Motor exam: Strength appears grossly intact/symmetric in all extremities Sensory: Sensation is reportedly grossly intact throughout Coordination: Finger to nose and heel to sanchez were intact. No apparent evidence of dysmetria or dysdiadochokinesia Reflexes: Deferred Gait: Deferred Results & Data Vital Signs (Past 12 Hours) Vital Signs Pulse Pulse Resp BP Pulse Ox O2 Del Method 01/03/24 11:40 89 22 139/101 H 94 Room Air 01/03/24 11:02 78 16 97 Room Air 01/03/24 09:00 80 19 145/80 H 98 Room Air 01/03/24 08:34 79 01/03/24 07:19 74 16 97 Room Air 01/03/24 05:12 75 20 147/96 H 95 Room Air Laboratory Results Abnormal lab results 01/02/24 01/02/24 01/03/24 Range/Units 16:57 19:22 04:45 WBC 13.32 H (4.8-10.8) K/ul Neut # (Auto) 7.34 H (1.40-6.50) K/uL Lymph # (Auto) 4.90 H (1.20-3.40) K/uL [place] # (Auto) 0.70 H (0.11-0.59) K/uL ESR 28 H (0-20) mm/hr D-Dimer 740 H* (0-500) ug/L FEU Sodium 135 L (136-145) mmol/L Chloride 108 H (98-107) mmol/L Creatinine 0.50 L (0.6-1.2) mg/dl Glucose 110 H (70-99(Fasting)) mg/dl Lactate 2.1 H* (0.4-2.0) mmol/L Ur Specific [place] 1.036 H (1.000-1.030) Diagnostic Findings Abdomen/Pelvis CT 01/02/24 16:32 CT SCAN OF THE ABDOMEN AND PELVIS WITH IV CONTRAST CLINICAL HISTORY: Left lower quadrant abdominal pain. Vomiting. COMPARISON STUDY: Abdominal CT dated 07/08/2023. TECHNIQUE: Following the IV administration of 94 cc of Optiray 320, CT scan of the abdomen and pelvis is performed from the lung bases to the proximal femora. Images are reviewed in the axial, sagittal, and coronal planes. IV contrast was administered without complication. A dose lowering technique was utilized adhering to the principles of ALARA. CT DOSE: 1951.76 mGy.cm FINDINGS: Lung bases: The heart is normal in size and without pericardial effusion. The lung bases are clear noting dependent atelectasis. A small hiatal hernia is noted. Liver: The contrast-enhanced liver is enlarged, measuring 22.4 cm in craniocaudal length. Attenuation is diffusely diminished indicating steatosis. Fatty sparing is seen adjacent to the gallbladder fossa. There is no intrahepatic biliary ductal dilatation. The hepatic veins and portal veins are patent. Gallbladder: Unremarkable. Spleen: Normal in size and attenuation. Pancreas: Unremarkable. Adrenal glands: Small low-attenuation adrenal nodules are unchanged in measurement, matter. These likely represent adenomas.. Kidneys: The contrast enhanced kidneys are normal in size and without hydronephrosis. The kidneys enhance symmetrically. Abdominal vasculature: The abdominal aorta is normal in course and caliber. Bowel: There is no bowel obstruction. The appendix is well-visualized and normal. Peritoneum: There is no intraperitoneal free air or abdominal ascites. There is a fat-containing umbilical hernia. There is an indeterminate 1.0 cm ovoid nodule in the right upper quadrant tenderness. Lymphadenopathy: None. Pelvic viscera: The bladder is normal as visualized. The uterus is surgically absent. No adnexal lesion is seen. Skeletal structures: There is mild lumbosacral spondylosis. Degenerative disc space narrowing and endplate sclerosis is seen at L5-S1. Sclerotic changes noted in the sacroiliac joints. No lytic or blastic lesions are seen. IMPRESSION: 1. There is a 1.0 cm indeterminant ovoid nodule in the right upper quadrant between the colon and the right kidney with minimal surrounding infiltration. This is not highly suspicious and likely on an infectious/inflammatory basis, but is new from 07/08/2023. No additional similar-appearing nodules are identified. A precautionary 3 to 4 -month follow-up abdominal CT scan is recommended to document resolution. 2. No additional infectious or inflammatory findings are identified in the abdomen or pelvis. 3. Hepatomegaly and hepatic steatosis. 4. Additional findings as above. ACT 112: Negative or not required by law. Electronically signed by: Marcos Jensen M.D. 01/02/2024 6:[address] 01/02/24 16:32 CT SCAN OF THE BRAIN WITHOUT IV CONTRAST CLINICAL HISTORY: Headache. Blurry vision. COMPARISON STUDY: CT of the brain dated 11/29/2008. TECHNIQUE: Unenhanced axial CT scan of the brain is performed from the vertex to the skull base. A dose lowering technique was utilized adhering to the principles of ALARA. FINDINGS: Brain parenchyma: The brain parenchyma is normal in appearance. There is no hemorrhage, mass effect, or evidence of acute territorial ischemia by CT criteria. Jung-white matter differentiation is preserved. No extra-axial fluid collection is seen. Ventricles, sulci, cisterns: Normal in configuration. Intracranial vasculature: The visualized intracranial vasculature at the skull base is normal in appearance. Calvarium: Unremarkable. Sinuses and mastoids: The visualized paranasal sinuses are clear. The mastoid air cells are well pneumatized. Orbits: The bony orbits are grossly intact. IMPRESSION: No acute intracranial abnormality. ACT 112: Negative or not required by law. Electronically signed by: Marcos Jensen M.D. 01/02/2024 6:22 PM Venous Doppler Study 01/03/24 03:17 US venous doppler LE BI CLINICAL HISTORY: b/l lower ext edema. sob. dvt? TECHNIQUE: Bilateral lower extremity real-time compression venous ultrasound with Color Doppler imaging. Utilizing real-time ultrasonic imaging multiple real time high-resolution ultrasonic images with compression and noncompression maneuvers of the deep venous system in addition to color doppler imaging were performed from the common femoral vein through the proximal calf veins. COMPARISON: None available at the time of this dictation. FINDINGS/IMPRESSION: Currently there is normal compressibility of the deep venous system from the common femoral vein through the proximal calf veins. No superficial venous thrombosis is identified. ACT 112: Negative or not required by law. Electronically signed by: Robbie Hernandez M.D. 01/03/2024 9:16 AM Chest CTA 01/03/24 05:46 CT angio chest PE protocol CLINICAL HISTORY: PE TECHNIQUE: Multidetector row helical CT of the chest was performed with angiographic protocol. Coronal and sagittal reformations were obtained. Coronal and sagittal MIPS were obtained from the axial data set and were submitted for review. Automated dose lowering techniques and/or adjustment according to patient size were utilized for this exam. CT DOSE: 888.19 mGy.cm Comparison: None available at the time of this dictation. FINDINGS: Lungs and pleura: Bronchial wall thickening is seen with mosaic attenuation. Heart and pericardium: Heart size is normal. No pericardial effusion. Vessels: No evidence of pulmonary embolism. Mediastinum and fernando: Unremarkable. Chest wall and lower neck: Subcentimeter axillary lymph nodes noted. Abdomen: Hepatic steatosis is noted. Bones: Degenerative changes in the thoracic spine. IMPRESSION: 1. No pulmonary embolus. 2. Bronchial wall thickening with mosaic attenuation compatible with infectious/inflammatory airways disease. ACT 112: Negative or not required by law. Electronically signed by: Robbie Hernandez M.D. 01/03/2024 7:30 AM Medications Administered Home Medications Medication Instructions Recorded Confirmed Last Taken albuterol sulfate 90 mcg/actuation 2 puff inhalation Q4 PRN Shortness 01/02/24 01/02/24 Unknown aerosol inhaler (Ventolin HFA) Of Breath Or Wheezing baclofen 10 mg tablet 10 mg PO BID PRN .moderate pain 01/02/24 01/02/24 Unknown duloxetine 30 mg capsule,delayed 30 mg PO QAM 01/02/24 01/02/24 Unknown release gabapentin 600 mg tablet 600 mg PO TID 01/02/24 01/02/24 Unknown meclizine 25 mg chewable tablet 25 mg PO TID PRN .dizzyness 01/02/24 01/02/24 Unknown naproxen 500 mg tablet 500 mg PO BID PRN Pain 01/02/24 01/02/24 Unknown nicotine 21 mg/24 hr daily 1 patch topical DIRECTED 01/02/24 01/02/24 Unknown transdermal patch omeprazole 20 mg capsule,delayed 20 mg PO QAM 01/02/24 01/02/24 Unknown release ondansetron HCl 4 mg tablet 4 mg PO Q6 PRN Nausea 01/02/24 01/02/24 Unknown sumatriptan succinate 25 mg tablet 25 mg PO DIRECTED PRN Migraine 01/02/24 01/02/24 Unknown Headache Active Medications Generic Name Dose Route Start Last Admin Trade Name Earl PRN Reason Stop Dose Admin Albuterol 3 ml 01/03/24 07:00 01/03/24 15:50 Albut/Ipratrop 3mg/0.5mg Neb 3 Ml Vial NEB 02/02/24 06:59 3 ml QIDR YAQUELIN Administration Protocol Amlodipine Besylate 2.5 mg 01/03/24 11:15 01/03/24 11:41 Amlodipine Besylate 5 Mg Tab PO 02/02/24 11:14 2.5 mg QAM YAQUELIN Administration Duloxetine HCl 30 mg 01/03/24 09:00 01/03/24 09:14 Duloxetine Hcl 30 Mg Cap PO 02/02/24 08:59 30 mg QAM YAQUELIN Administration Gabapentin 600 mg 01/03/24 09:00 01/03/24 15:40 Gabapentin 600 Mg Tab PO 02/02/24 08:59 600 mg TID YAQUELIN Administration Acetaminophen 1,000 mg in 100 mls @ 400 mls/hr 01/03/24 03:17 01/03/24 15:40 Ofirmev IV 01/06/24 03:16 400 mls/hr Q8H PRN Administration Pain or Fever Sodium Chloride 1,000 mls @ 50 mls/hr 01/03/24 06:00 01/03/24 06:43 Nss IV 01/04/24 01:59 50 mls/hr .Q20H YAQUELIN Administration Ondansetron HCl 4 mg 01/03/24 03:17 01/03/24 05:06 Ondansetron Inj 2 Mg/Ml 2 Ml Vial IV 02/02/24 03:16 4 mg Q6H PRN Administration Nausea Pantoprazole Sodium 40 mg 01/03/24 09:00 01/03/24 09:13 Pantoprazole 40 Mg Tab PO 02/02/24 08:59 40 mg QAM YAQUELIN Administration (1) Acute intractable headache Headache type: unspecified Qualified Code(s): R51.9 - Headache, unspecified
--- NOTE | 2024-01-03 17:14 | Hospitalist Progress Note ---
Date of Service January 03, 2024 Assessment & Plan (1) Acute intractable headache: Plan: 48-year-old female with past medical history significant for Hyperlipidemia, migraine variant, tobacco use disorder, moderate recurrent major depression comes because of last couple of days having severe headaches and also having chest pains and shortness of breath. Currently chest pain resolved. Shortness of breath still there. She also felt like last couple days she having swelling in the legs. Having severe headaches with blurred vision. She has history of migraines with blurred vision but this was more severe. Currently blurred vision improved but she thinks the headaches coming back and with her headaches states blurry vision will come back. She has chronic neck pain but the neck pain is worse today. She can flex neck okay. Denies any fevers. Was having a lot of nausea. And vomiting. Because of vomiting she thinks she has a left lower quad abdominal pain. Bowels are moving okay. Micturating okay. No runny nose or sore throat. In the ER her blood pressure was running high and required IV hydralazine. Says lights are bothering her. Currently hemodynamics are okay. Acute intractable headache with blurred vision History of migraine CT scan of the head has been negative for any acute findings and ESR remains normal at 28 Headache seems to be improving with current medications Appreciate neurology input and recommendation-will check MRI. Monitoring telemetry, Zio patch on discharge, metabolic workup, PT OT and speech evaluation. RODOLFO as an outpatient Abdominal pain CT abdomen pelvis shows: 1.0 cm indeterminant ovoid nodule in the right upper quadrant between the colon and the right kidney with minimal surrounding infiltration. This is not highly suspicious and likely on an infectious/inflammatory basis, but is new from 07/08/2023. No additional similar-appearing nodules are identified. A precautionary 3 to 4 -month follow- up abdominal CT scan is recommended to document resolution will Monitor. Needs followup (2) Shortness of breath: Plan: Exertional shortness of breath Denies any shortness of breath at rest and saturating normally on room air Chest x-ray okay BNP okay Nebs added CTA did not show any pulmonary embolism but did show complicated bronchitis Will start intravenous antibiotic with ceftriaxone and doxycycline (3) Chest pain: Plan: Chest pressure with pain Subsequently improved Initial EKG and troponin EKG and serial troponins are negative for any ACS Echo of the heart showed-mild concentric LVH, no wall motion abnormalities, LV systolic function is normal with EF 60 to 65%, RV is normal in size and function, grade 1 diastolic dysfunction, Doppler finding do not suggest pulmonary hypertension Appreciate cardiology input and recommendation (4) Hypertension: Plan: Normally maintained but noted to be high at presentation with systolic more than 205 Has been trending down Will monitor Plan Depression on duloxetine GERD on omeprazole DVT prophylaxis SCDs for now disposition med/telemetry full code Admission and Anticipated Discharge Date Admission Date: January 03, 2024 Subjective 01/03/2024 The patient was seen and examined in emergency room She has been complaining of nonspecific symptoms of headache, chest pain, shortness of breath, abdominal pain and some swelling of the legs During my examination this morning in the emergency room she was feeling little better Denies any chest pain or shortness of breath at rest Review of Systems Review of Systems: All systems reviewed and are unremarkable except as noted below Physical Exam Physical Exam: Lying in bed without any acute distress Constitutional: well developed, well nourished, + ill appearing and + obese Eyes: PERRL, conjunctivae normal, anicteric sclerae ENMT: external ear and nose normal, oropharynx normal Neck: trachea midline, no thyromegaly Respiratory: no respiratory distress Auscultation: lungs clear to auscultation bilaterally and + crackles (Occasional crackles at the bases) Cardiovascular: Rate/Rhythm: regular rate and regular rhythm; not tachycardic Heart Sounds: normal S1 and normal S2; no murmur Extremities: no edema Gastrointestinal (Abdomen): Inspection/Auscultation: normal bowel sounds; abdomen not distended Percussion/Palpation: abdomen soft; abdomen nontender Musculoskeletal: No acute arthritis involving any of the joints Neurologic: normal touch/pain/proprioception; + does not move all extremities and no focal motor deficits Lymphatic: no cervical or axillary lymphadenopathy Results & Data Results & Data Vital Signs (Past 12 Hours) Vital Signs Pulse Pulse Resp BP Pulse Ox O2 Del Method 01/03/24 15:50 77 18 97 Room Air 01/03/24 15:45 95 H 20 151/90 H 97 Room Air 01/03/24 11:40 89 22 139/101 H 94 Room Air 01/03/24 11:02 78 16 97 Room Air 01/03/24 09:00 80 19 145/80 H 98 Room Air 01/03/24 08:34 79 01/03/24 07:19 74 16 97 Room Air 01/03/24 05:12 75 20 147/96 H 95 Room Air Laboratory Results Short CBC 01/03/24 Range/Units 04:45 WBC 13.32 H (4.8-10.8) K/ul Hgb 14.2 (12.0-16.0) g/dl Hct 42.4 (37.0-47.0) % Plt Count 241 (130-400) K/uL BMP 01/03/24 04:45 Sodium 135 L Potassium 3.8 Chloride 108 H Carbon Dioxide 21 BUN 6 Creatinine 0.50 L Glucose 110 H Calcium 8.6 Urine 01/02/24 Range/Units 19:22 Urine Color Yellow Urine Appearance Clear (Clear) Urine pH 7.0 (4.5-7.5) Ur Specific [place] 1.036 H (1.000-1.030) Urine Protein Negative (Negative) Urine Glucose (UA) Negative (Negative) Medications Administered Current Inpatient Medications Acetaminophen (Acetaminophen 325 Mg Tab) 650 mg PO Q4H PRN PRN Reason: Pain or Fever Stop: 02/02/24 03:16 Albuterol (Albuterol Hfa 8 Gm Inhaler) 2 puffs INH Q4 PRN PRN Reason: Shortness Of Breath Or Wheezin Stop: 02/02/24 03:16 Albuterol (Albut/Ipratrop 3mg/0.5mg Neb 3 Ml Vial) 3 ml NEB QIDR YAQUELIN; Protocol Stop: 02/02/24 06:59 Last Admin: 01/03/24 15:50 Dose: 3 ml Albuterol (Albut/Ipratrop 3mg/0.5mg Neb 3 Ml Vial) 3 ml NEB Q6R PRN; Protocol PRN Reason: Shortness Of Breath Or Wheezing Stop: 02/02/24 03:16 Amlodipine Besylate (Amlodipine Besylate 5 Mg Tab) 2.5 mg PO QAM YAQUELIN Stop: 02/02/24 11:14 Last Admin: 01/03/24 11:41 Dose: 2.5 mg Baclofen (Baclofen 10 Mg Tab) 10 mg PO BID PRN PRN Reason: .moderate pain Stop: 02/02/24 03:16 Duloxetine HCl (Duloxetine Hcl 30 Mg Cap) 30 mg PO QAM YAQUELIN Stop: 02/02/24 08:59 Last Admin: 01/03/24 09:14 Dose: 30 mg Gabapentin (Gabapentin 600 Mg Tab) 600 mg PO TID [facility] Stop: 02/02/24 08:59 Last Admin: 01/03/24 15:40 Dose: 600 mg Hydromorphone HCl (Hydromorphone Inj 0.5 Mg/0.5 Ml Syr) 0.5 mg IV Q6H PRN PRN Reason: Severe Pain (Scale 7, 8, 9,10) Stop: 01/17/24 03:16 Acetaminophen (Ofirmev) 1,000 mg in 100 mls @ 400 mls/hr IV Q8H PRN PRN Reason: Pain or Fever Stop: 01/06/24 03:16 Last Infusion: 01/03/24 16:59 Dose: Infused Sodium Chloride (Nss) 1,000 mls @ 50 mls/hr IV .Q20H [facility] Stop: 01/04/24 01:59 Last Admin: 01/03/24 06:43 Dose: 50 mls/hr Labetalol HCl (Labetalol Hcl Iv 5 Mg/Ml 20ml) 10 mg IV Q6H PRN PRN Reason: Hypertension Stop: 02/02/24 03:16 Meclizine HCl (Meclizine Hcl 25 Mg Tab) 25 mg PO TID PRN PRN Reason: DIZZINESS Stop: 02/02/24 03:30 Miscellaneous (Remove Nicoderm Patch) 1 each N/A DAILY@0859 [facility] Stop: 02/03/24 08:58 Nicotine (Nicotine 21 Mg/24 Hr Tdsy) 1 patch TD DAILY [facility] Stop: 02/02/24 15:41 Nitroglycerin (Nitroglycerin Sl 0.4 Mg/Tab Tab) 0.4 mg SL Q5M PRN PRN Reason: Chest Pain Stop: 02/02/24 03:16 Ondansetron HCl (Ondansetron Inj 2 Mg/Ml 2 Ml Vial) 4 mg IV Q6H PRN PRN Reason: Nausea Stop: 02/02/24 03:16 Last Admin: 01/03/24 05:06 Dose: 4 mg Pantoprazole Sodium (Pantoprazole 40 Mg Tab) 40 mg PO QAM [facility] Stop: 02/02/24 08:59 Last Admin: 01/03/24 09:13 Dose: 40 mg (1) Acute intractable headache Headache type: unspecified Qualified Code(s): R51.9 - Headache, unspecified (3) Chest pain Chest pain type: unspecified Qualified Code(s): R07.9 - Chest pain, unspecified (4) Hypertension Hypertension type: unspecified Qualified Code(s): I10 - Essential (primary) hypertension
[2024-01-03] MEDS: NICOTINE 21 MG/24 HR TDSY TD SCH (17:40)
[2024-01-03] MEDS: DOXYCYCLINE HYCLATE 100 MG in DEXTROSE 5% MINI-B 100 ML IV SCH (19:15)
[2024-01-03] MEDS: LORazepam 0.5 MG TAB PO STA (19:55)
[2024-01-03] MEDS: cefTRIAXone SODIUM 2,000 MG/50 ML BAG IV SCH (20:57)
--- NOTE | 2024-01-03 22:28 | Magnetic Resonance Report ---
MRI OF THE BRAIN WITHOUT IV CONTRAST CLINICAL HISTORY: Headache. COMPARISON STUDY: CT of the brain dated 01/02/2024. TECHNIQUE: MRI of the brain was performed utilizing various T1 and T2-weighted sequences in the axial , sagittal, and coronal planes. IV contrast was not administered for this examination. FINDINGS: Brain parenchyma: The brain parenchyma is normal in appearance. There is no hemorrhage or mass effect . There is no restricted diffusion to suggest acute ischemia. Jung-white matter differentiation is pr eserved. No extra-axial fluid collection is seen. The cerebellar tonsils are normal in configuration. Ventricles, sulci, and cisterns: Normal in configuration. Pituitary and sella: Unremarkable. Intracranial vasculature: Normal flow voids are maintained at the skull base. Orbits: The bony orbits are grossly intact. Orbital contents are normal in appearance. Sinuses and mastoids: Clear. Calvarium: Unremarkable. Cervical cord: Partially visualized cervical spinal cord is normal in morphology and signal intensity . IMPRESSION: No acute intracranial abnormality. ACT 112: Negative or not required by law. Electronically signed by: Marcos Jensen M.D. 01/03/2024 10:26 PM
[2024-01-04] MEDS: ACETAMINOPHEN 325 MG TAB PO PRN (04:26)
[2024-01-04 04:43] LABS: Basophils # (auto) 0.04 K/uL (0.00-0.20); Basophils % (auto) 0.4 %; Eosinophils # (auto) 0.32 K/uL (0.00-0.50); Eosinophils % (auto) 3.1 %; Hematocrit (blood only) 39.9 % (37.0-47.0); Hemoglobin 13.4 g/dl (12.0-16.0); Immature Granulocytes # (auto) 0.04 K/uL (0.01-0.20); Immature Granulocytes % (auto) 0.4 %; Lymphocytes # (auto) 3.84 K/uL (1.20-3.40); Mean Corpuscular Hemoglobin 29.7 pg (25.0-34.0); Mean Corpuscular Hgb Conc 33.6 g/dL (32.0-36.0); Mean Corpuscular Volume 88.5 fL (80.0-100.0); Mean Platelet Volume 10.1 fL (9.4-12.4); Monocytes # (auto) 0.61 K/uL (0.11-0.59); Monocytes % (auto) 5.9 %; Neutrophils # (auto) 5.52 K/uL (1.40-6.50); Neutrophils % (auto) 53.2 %; Platelet Count 226 K/uL (130-400); RDW Coefficient of Variation 14.1 % (11.5-14.5); RDW Standard Deviation 45.5 fL (36.4-46.3); Red Blood Count 4.51 M/uL (4.20-5.40); White Blood Count 10.37 K/ul (4.8-10.8)
[2024-01-04 04:56] LABS: BUN Creatinine Ratio 9.4 (10-20); Calcium 8.7 mg/dl (8.6-10.3); Chol HDL Ratio 6.1 (0-5); Creatinine Clr Calc Pharmacy 129.4 ml/min; Potassium 3.5 mmol/L (3.5-5.1)
[2024-01-04 07:32] LABS: Estimated Average Glucose 128 mg/dl; Hemoglobin A1C 6.1 % (4.5-5.6)
--- NOTE | 2024-01-04 07:33 | Cardiology Progress Note ---
Date of Service January 04, 2024 Assessment & Plan (1) Acute intractable headache: (2) Chest pain: (3) Shortness of breath: (4) Hypertension: Plan Impression: 48-year-old female with past medical history significant for migraines presented to [facility] emergency department due to severe headache, nausea, chest pain, and shortness of breath Plan: Acute intractable headache: History of migraines with blurred vision. CT of the head unremarkable. Will defer to primary service/neuro for pain control and headache management Chest pain/shortness of breath: Cardiac workup unremarkable thus far including a negative high-sensitivity troponin x 4. EKG without acute ischemic changes. Echocardiogram with preserved LV systolic function, no wall motion abnormalities are seen by valvular disease. WBC mildly elevated, rales heard on exam, experiencing chills. CTA without evidence of PE-- questionable infectious process; spoke with hospitalist-- Started on antibiotics. Pending echo and clinical course; can consider outpatient stress echo. Hypertension: Blood pressure normally very well-controlled. But has been elevated since admission; Possibly contributing to headaches. Increase amlodipine to 5 mg daily Start carvedilol 3.125 mg twice daily which may help for headache prophylaxis as well. Case discussed with Dr. Fortune. Further recommendations pending assessment. I spent a total of 25 minutes on the date of service in preparation, delivery, and documentation of the care provided to the patient excluding any time spent in the performance of separately billed services. DELL Sparks Department of Cardiology, [facility] This chart was completed in part utilizing Speech Voice Recognition Software. Grammatical errors, random word insertions, pronoun errors, and incomplete sentences are an occasional consequence of this system due to software limitations, ambient noise, and hardware issues. Any formal questions or concerns about the content, text, or information contained within the body of this dictation should be directly addressed to the provider for clarification. Admission and Anticipated Discharge Date Admission Date: January 03, 2024 Supervising Physician Co-Signing Physician Notes Attending attestation: Case reviewed with the advanced practitioner. I have personally performed a history and physical examination on the patient. I have reviewed the advanced practitioner's documentation on the date of service referenced in note, and I agree with, and take responsibility for the plan of care. * Chest pain reproducible with cough * Blood pressure improved with addition/titration of amlodipine, carvedilol 3.125 mg twice daily started this morning. Patient describes lower extremity swelling, but I do not appreciate significant edema on exam. * Continue Rocephin/doxycycline, albuterol * No further cardiac testing felt to be indicated at this time. I spent a total of 20 minutes coordinating, documenting, and providing care for this patient excluding time spent in the performance of separately billed services or time spent by another provider. Isaac Fortune, DO Subjective 48-year-old female with past medical history significant for migraines presented to [facility] emergency department due to severe headache, nausea, chest pain, and shortness of breath. Telemetry revealed sinus rhythm in the 80s EKG revealed sinus rhythm at 78 bpm, no significant repolarization abnormalities. Blood pressures hypertensive--amlodipine started. Echocardiogram: Normal LVEF of 60 to 65% without wall motion abnormalities. Mild concentric LVH. Grade 1 diastolic dysfunction. No significant valvular disease. Mild leukocytosis with leftward shift. Screening D-dimer elevated Lower extremity venous duplex negative for DVT CT angiogram of the chest revealed no pulmonary embolism, bronchial wall thickening and mosaic attenuation compatible with infectious/inflammatory airway disease--being treated with antibiotics (ceftriaxone and doxycycline) for p ossible COPD/asthma exacerbation 01/04/2024: Feeling poorly this am. Tired. Did not sleep well. Headache has worsened- does believe that eating has helped to some degree. Nikita oing nausea. No vomiting. Chest tightness with coughing. Nonexertional. No SOB. Denies palpitations. No lightheadedness or blurred vision. No orthopnea, PND, or lower extremity edema. Review of Systems Review of Systems: All systems reviewed & are unremarkable except as noted in HPI & below Physical Exam Constitutional: WD/WN, vitals as above no acute distress Eyes: PERRL, conjunctivae normal, anicteric sclerae Neck: normal visual inspection and trachea midline Respiratory: normal respiratory effort, lungs clear to auscultation normal respiratory effort; no respiratory distress and no cough Auscultation: + rales; no rhonchi and no wheezes Cardiovascular: Rate/Rhythm: regular rate and regular rhythm Heart Sounds: normal S1 and normal S2 Vessels: no JVD Extremities: no edema Gastrointestinal (Abdomen): normal bowel sounds, soft, nontender, no hepatosplenomegaly Skin: no rashes, warm and dry Neurologic: PERRL, EOMI, accommodation nl, no face palsy, no dysarthria Psychiatric: A+Ox3, euthymic affect Results & Data Vital Signs (Past 12 Hours) Vital Signs Pulse Pulse Resp BP BP Pulse Ox O2 Del Method 01/04/24 07:19 76 16 97 Room Air 01/04/24 07:03 75 20 147/90 H 96 Room Air 01/04/24 06:00 83 20 94 01/04/24 05:53 94 Nasal Cannula 01/04/24 05:00 80 20 95 01/04/24 04:06 86 19 94 01/04/24 03:15 72 14 95 01/04/24 03:02 154/84 H 01/04/24 03:02 154/84 H 01/04/24 03:02 154/84 H 01/04/24 03:02 154/84 H 01/04/24 03:02 154/84 H 01/04/24 03:02 154/84 H 01/04/24 03:02 154/84 H 01/04/24 03:02 154/84 H 01/04/24 03:02 154/84 H 01/04/24 03:02 154/84 H 01/04/24 03:02 154/84 H 01/04/24 03:02 154/84 H 01/04/24 03:02 154/84 H 01/04/24 02:21 93 01/04/24 02:06 94 01/04/24 01:33 82 21 92 Nasal Cannula 01/04/24 01:03 92 01/04/24 00:15 158/71 H 01/04/24 00:15 158/71 H 01/04/24 00:15 158/71 H 01/04/24 00:15 158/71 H 01/04/24 00:15 158/71 H 01/04/24 00:15 158/71 H 01/04/24 00:09 90 Nasal Cannula 01/04/24 00:03 89 L 01/03/24 23:06 91 01/03/24 21:49 75 20 139/81 95 Room Air 01/03/24 20:47 82 16 97 Room Air O2 Flow Rate 01/04/24 07:19 01/04/24 07:03 01/04/24 06:00 2 01/04/24 05:53 2 01/04/24 05:00 01/04/24 04:06 01/04/24 03:15 01/04/24 03:02 01/04/24 03:02 01/04/24 03:02 01/04/24 03:02 01/04/24 03:02 01/04/24 03:02 01/04/24 03:02 01/04/24 03:02 01/04/24 03:02 01/04/24 03:02 01/04/24 03:02 01/04/24 03:02 01/04/24 03:02 01/04/24 02:21 01/04/24 02:06 01/04/24 01:33 2 01/04/24 01:03 01/04/24 00:15 01/04/24 00:15 01/04/24 00:15 01/04/24 00:15 01/04/24 00:15 01/04/24 00:15 01/04/24 00:09 2 01/04/24 00:03 01/03/24 23:06 01/03/24 21:49 01/03/24 20:47 Laboratory Results Cardiac Enzymes 01/03/24 01/03/24 Range/Units 10:21 16:51 Troponin I High Sens 5.3 4.4 (0-14) pg/ml Lipids 01/04/24 Range/Units 04:26 Triglycerides 159 H (0-150) mg/dl Cholesterol 207 H (0-200) mg/dl HDL Cholesterol 34 mg/dl Cholesterol/HDL Ratio 6.1 H (0-5) CBC 01/04/24 Range/Units 04:26 WBC 10.37 (4.8-10.8) K/ul RBC 4.51 (4.20-5.40) M/uL Hgb 13.4 (12.0-16.0) g/dl Hct 39.9 (37.0-47.0) % Plt Count 226 (130-400) K/uL Neut # (Auto) 5.52 (1.40-6.50) K/uL Lymph # (Auto) 3.84 H (1.20-3.40) K/uL [place] # (Auto) 0.61 H (0.11-0.59) K/uL Eos # (Auto) 0.32 (0.00-0.50) K/uL Baso # (Auto) 0.04 (0.00-0.20) K/uL Comprehensive Metabolic Panel 01/04/24 Range/Units 04:26 Sodium 137 (136-145) mmol/L Potassium 3.5 (3.5-5.1) mmol/L Chloride 108 H (98-107) mmol/L Carbon Dioxide 23 (21-32) mmol/L BUN 6 (6-23) mg/dl Creatinine 0.64 (0.6-1.2) mg/dl Glucose 116 H (70-99(Fasting)) mg/dl Calcium 8.7 (8.6-10.3) mg/dl Intake and Output 01/03/24 01/04/24 01/04/24 22:59 06:59 14:59 Intake Total 450 / 1650 1200 / 1650 Balance 450 / 1650 1200 / 1650 Intake: IV 250 / 1250 1000 / 1250 Acetaminophen 1,000 mg In 100 100 / 100 ml @ 400 mls/hr IV Q8H [facility] Rx#: [id number] Doxycycline Hyclate 100 mg In 100 / 100 Dextrose 5% Mini-B 100 ml @ 50 mls/hr IV Q12H [facility] Rx#:[id number] Sodium Chloride 0.9% 1,000 ml @ 1000 / 1000 50 mls/hr IV .Q20H [facility] Rx#: [id number] cefTRIAXone SODIUM 2,000 mg In 50 / 50 50 ml @ 100 mls/hr IV Q24H [facility] Rx#:[id number] Oral 200 / 400 200 / 400 Other: # Unmeasured Voids 1 (1) Acute intractable headache Headache type: unspecified Qualified Code(s): R51.9 - Headache, unspecified (2) Chest pain Chest pain type: unspecified Qualified Code(s): R07.9 - Chest pain, unspecified (4) Hypertension Hypertension type: unspecified Qualified Code(s): I10 - Essential (primary) hypertension
[2024-01-04] MEDS: amLODIPine BESYLATE 5 MG TAB PO SCH (08:18)
[2024-01-04] MEDS: HYDROmorphone INJ 0.5 MG/0.5 ML SYR IV PRN (08:18)
[2024-01-04] MEDS: MECLIZINE HCL 25 MG TAB PO PRN (09:09)
[2024-01-04] MEDS: carvediloL 3.125 MG TAB PO SCH (09:09)
[2024-01-04] MEDS: PROMETHAZINE HCL 12.5 MG in SODIUM CHLORIDE 0.9% 50 ML IV PRN (11:44)
[2024-01-04] MEDS: POTASSIUM CHLORIDE CRTAB 20 MEQ TABCR PO STA (16:08)
--- NOTE | 2024-01-04 17:19 | Hospitalist Progress Note ---
Date of Service January 04, 2024 Assessment & Plan (1) Acute intractable headache: Plan: 48-year-old female with past medical history significant for Hyperlipidemia, migraine variant, tobacco use disorder, moderate recurrent major depression comes because of last couple of days having severe headaches and also having chest pains and shortness of breath. Currently chest pain resolved. Shortness of breath still there. She also felt like last couple days she having swelling in the legs. Having severe headaches with blurred vision. She has history of migraines with blurred vision but this was more severe. Currently blurred vision improved but she thinks the headaches coming back and with her headaches states blurry vision will come back. She has chronic neck pain but the neck pain is worse today. She can flex neck okay. Denies any fevers. Was having a lot of nausea. And vomiting. Because of vomiting she thinks she has a left lower quad abdominal pain. Bowels are moving okay. Micturating okay. No runny nose or sore throat. In the ER her blood pressure was running high and required IV hydralazine. Says lights are bothering her. Currently hemodynamics are okay. Acute intractable headache with blurred vision History of migraine CT scan of the head has been negative for any acute findings and ESR remains normal at 28 Headache seems to be improving with current medications Appreciate neurology input and recommendation-will check MRI. Monitoring telemetry, Zio patch on discharge, metabolic workup, PT OT and speech evaluation. RODOLFO as an outpatient MRI has been unremarkable She tried the cocktail as recommended by the neurologist before She wants to try the cocktail tomorrow and may be going home tomorrow Advised to use less of narcotic pain medications to avoid constipation, confusion and addiction Abdominal pain CT abdomen pelvis shows: 1.0 cm indeterminant ovoid nodule in the right upper quadrant between the colon and the right kidney with minimal surrounding infiltration. This is not highly suspicious and likely on an infectious/inflammatory basis, but is new from 07/08/2023. No additional similar-appearing nodules are identified. A precautionary 3 to 4 - month follow-up abdominal CT scan is recommended to document resolution will Monitor. Needs followup (2) Shortness of breath: Plan: Exertional shortness of breath Denies any shortness of breath at rest and saturating normally on room air Chest x-ray okay,BNP okay Nebs added CTA did not show any pulmonary embolism but did show complicated bronchitis Will start intravenous antibiotic with ceftriaxone and doxycycline Remains free from any cough and/or fever or chills White count has been normalized Plan to continue oral doxycycline for a total of 10 days on discharge (3) Chest pain: Plan: Chest pressure with pain Subsequently improved Initial EKG and troponin EKG and serial troponins are negative for any ACS Echo of the heart showed-mild concentric LVH, no wall motion abnormalities, LV systolic function is normal with EF 60 to 65%, RV is normal in size and function, grade 1 diastolic dysfunction, Doppler finding do not suggest pulmonary hypertension Appreciate cardiology input and recommendation No more chest pain and/or palpitation Echo of the heart showed-mild concentric LVH, no regional wall motion abnormalities, LV systolic function is normal at 60 to 65%, RV normal in size and function, grade 1 diastolic dysfunction and Doppler finding do not suggest pulmonary hide Likely to have outpatient stress testing as per data consultant (4) Hypertension: Plan: Normally maintained but noted to be high at presentation with systolic more than 205 Has been trending down Will monitor-blood pressure is stable Plan Depression on duloxetine GERD on omeprazole DVT prophylaxis SCDs for now disposition med/telemetry full code Admission and Anticipated Discharge Date Admission Date: January 03, 2024 Subjective 01/03/2024 The patient was seen and examined in emergency room She has been complaining of nonspecific symptoms of headache, chest pain, shortness of breath, abdominal pain and some swelling of the legs During my examination this morning in the emergency room she was feeling little better Denies any chest pain or shortness of breath at rest 01/04/2024 The patient was seen and examined in telemetry unit She continues to have headache and blurred vision The glasses check her the blurred vision but not the headache She has been using migraine medications as an outpatient from her primary care physician Has been using Toradol as needed for headache Wants to try the cocktail as she used it before Review of Systems Review of Systems: All systems reviewed and are unremarkable except as noted below Physical Exam Physical Exam: Lying in bed without any acute distress Constitutional: well developed, well nourished, + ill appearing and + obese Eyes: PERRL, conjunctivae normal, anicteric sclerae ENMT: external ear and nose normal, oropharynx normal Neck: trachea midline, no thyromegaly Respiratory: no respiratory distress Auscultation: lungs clear to auscultation bilaterally and + crackles (Occasional crackles at the bases) Cardiovascular: Rate/Rhythm: regular rate and regular rhythm; not tachycardic Heart Sounds: normal S1 and normal S2; no murmur Extremities: no edema Gastrointestinal (Abdomen): Inspection/Auscultation: normal bowel sounds; abdomen not distended Percussion/Palpation: abdomen soft; abdomen nontender Musculoskeletal: No acute arthritis involving any of the joints Neurologic: normal touch/pain/proprioception; + does not move all extremities and no focal motor deficits Lymphatic: no cervical or axillary lymphadenopathy Results & Data Results & Data Vital Signs (Past 12 Hours) Vital Signs Temp Pulse Pulse Resp BP BP Pulse Ox 01/04/24 16:35 75 18 98 01/04/24 16:20 01/04/24 15:53 36.6 C 62 20 127/84 95 01/04/24 11:47 36.6 C 84 18 129/74 97 01/04/24 11:22 68 18 94 01/04/24 09:48 86 01/04/24 07:19 76 16 97 01/04/24 07:03 75 20 147/90 H 96 01/04/24 06:00 83 20 94 01/04/24 05:53 94 O2 Del Method O2 Flow Rate 01/04/24 16:35 Room Air 01/04/24 16:20 Room Air 01/04/24 15:53 Room Air 01/04/24 11:47 Nasal Cannula 2 01/04/24 11:22 Nasal Cannula 2 01/04/24 09:48 01/04/24 07:19 Room Air 01/04/24 07:03 Room Air 01/04/24 06:00 2 01/04/24 05:53 Nasal Cannula 2 (1) Acute intractable headache Headache type: unspecified Qualified Code(s): R51.9 - Headache, unspecified (3) Chest pain Chest pain type: unspecified Qualified Code(s): R07.9 - Chest pain, unspecified (4) Hypertension Hypertension type: unspecified Qualified Code(s): I10 - Essential (primary) hypertension
--- NOTE | 2024-01-05 09:00 | Cardiology Progress Note ---
Date of Service January 05, 2024 Assessment & Plan (1) Acute intractable headache: (2) Chest pain: (3) Shortness of breath: (4) Hypertension: Plan Impression: 48-year-old female with past medical history significant for migraines presented to [facility] emergency department due to severe headache, nausea, chest pain, and shortness of breath Plan: Acute intractable headache: History of migraines with blurred vision. CT of the head unremarkable. Will defer to primary service/neuro for pain control and headache management Chest pain/shortness of breath: Cardiac workup unremarkable thus far including a negative high-sensitivity troponin x 4. EKG without acute ischemic changes. Echocardiogram with preserved LV systolic function, no wall motion abnormalities are seen by valvular disease. WBC mildly elevated, rales heard on exam, experiencing chills. CTA without evidence of PE-- questionable infectious process; spoke with hospitalist-- Started on antibiotics. Pending echo and clinical course; can consider outpatient stress echo. Hypertension: Blood pressure normally very well-controlled. But has been elevated since admission; Possibly contributing to headaches. Increase amlodipine to 5 mg daily Start carvedilol 3.125 mg twice daily which may help for headache prophylaxis as well. 01/05/24: Plan as outlined above remains unchanged. Patient is doing well from a cardiac perspective with no new or continued concerns. She is tolerating anti-biotic therapy well and reports improved breathing and decreased "chest tightness" with use of Duoneb nebulizer treatments. Review of telemetry continues to show NSR with no acute events, ectopy or arrhythmia. Resting echocardiogram obtained demonstrates the following: LVEF 60-65% Mild concentric LVH No regional wall motion abnormalities RV is normal in size and function Grade I diastolic dysfunction No findings suggestive of Pulmonary HTN At this time, no further cardiac work up is indicated. Plan is to continue course with Antibiotics and Nebulizer treatments. Initial BP well above target, but improved after AM medication therapies. Continue Amlodipine 5mg Daily, and Carvediolol 3.125mg twice daily. Can consider outpatient stress echocardiogram after resolution of acute illness. Case has been discussed with Dr. Fortune. Further recommendations regarding plan of care as per his assessment. I spent a total of 30 minutes on the date of service in preparation, delivery, documentation of the care provided to the patient excluding any time spent in the performance of separately billed services. DELL Cantu [facility] Admission and Anticipated Discharge Date Admission Date: January 03, 2024 Supervising Physician Co-Signing Physician Notes Case discussed with DELL Alegre. Agree with findings and plans as outlined. Patient discharged prior to [place] having the opportunity to examine in person. Mari Fortune DO Subjective 01/05/24: Patient seen and examined in follow up today. Feeling some improvement in her breathing. She has been receiving antiobiotic therapy as well as DuoNeb treatments which patient feels has helped her breathing significantly. Denies any chest pain, pressure, palpitations, PND, pre-syncope, syncope or edema. She is resting in bed comfortably at the time of exam. Labs, vitals, diagnostics, telemetry and documentation reviewed. Telemetry reviewed showing NSR with rates 60's-70's. No acute events overnight. Review of Systems Review of Systems: All systems reviewed & are unremarkable except as noted in HPI & below Physical Exam Constitutional: well developed and well nourished; no acute distress and not ill appearing Neck: normal visual inspection and trachea midline Respiratory: normal respiratory effort and + cough (non-productive. less frequent ); no respiratory distress, no labored breathing and no retractions Auscultation: lungs clear to auscultation bilaterally and + diminished lung sounds (clear but diminished bilateral bases ); no crackles, no rales, no rhonchi, no wheezes and no pleural rub Cardiovascular: RRR, no murmur, no edema Heart Sounds: normal S1 and normal S2; no murmur Vessels: no JVD Extremities: no edema Skin: no rashes, warm and dry Psychiatric: A+Ox3, euthymic affect Results & Data Vital Signs (Past 12 Hours) Vital Signs Temp Pulse Pulse Resp BP Pulse Ox O2 Del Method 01/05/24 07:58 84 01/05/24 07:12 75 16 95 Room Air 01/05/24 07:10 36.3 C L 72 19 171/97 H 95 Room Air 01/05/24 02:25 36.3 C L 73 16 152/83 H 96 Room Air 01/04/24 22:28 36.9 C 83 20 123/72 92 Room Air 01/04/24 22:17 Room Air 01/04/24 22:02 79 Laboratory Results Intake and Output 01/04/24 01/05/2424 22:59 06:59 14:59 Intake Total 400 / 600.5 50 / 600.5 100 / 100 Output Total 300 / 700 400 / 700 Balance 100 / -99.5 -350 / -99.5 100 / 100 Intake: IV 150 / 300.5 100 / 100 Doxycycline Hyclate 100 mg In 100 / 200 100 / 100 Dextrose 5% Mini-B 100 ml @ 50 mls/hr IV Q12H [facility] Rx#:[id number] cefTRIAXone SODIUM 2,000 mg In 50 / 50 50 ml @ 100 mls/hr IV Q24H [facility] Rx#:[id number] Oral 250 / 300 50 / 300 Output: Urine 300 / 700 400 / 700 Other: # Unmeasured Voids 1 1 (1) Acute intractable headache Headache type: unspecified Qualified Code(s): R51.9 - Headache, unspecified (2) Chest pain Chest pain type: unspecified Qualified Code(s): R07.9 - Chest pain, unspecified (4) Hypertension Hypertension type: unspecified Qualified Code(s): I10 - Essential (primary) hypertension
--- NOTE | 2024-01-05 09:59 | Electrocardiogram Report ---
Test Reason : Blood Pressure : / mmHG Vent. Rate : 073 BPM Atrial Rate : 073 BPM P-R Int : 142 ms QRS Dur : 076 ms QT Int : 378 ms P-R-T Axes : 074 073 032 degrees QTc Int : 416 ms Normal sinus rhythm Normal ECG When compared with ECG of 02-JAN-2024 14:11, No significant change was found Confirmed by Miguel Angel Garcia ([id number]) on 01/05/2024 9:58:36 AM Referred By: REFERRED SELF Confirmed By:Miguel Angel Garcia
--- NOTE | 2024-01-05 10:01 | Electrocardiogram Report ---
Test Reason : Blood Pressure : / mmHG Vent. Rate : 078 BPM Atrial Rate : 078 BPM P-R Int : 138 ms QRS Dur : 072 ms QT Int : 372 ms P-R-T Axes : 066 047 032 degrees QTc Int : 424 ms Normal sinus rhythm Normal ECG When compared with ECG of 04-JAN-2024 18:42, No significant change was found Confirmed by Miguel Angel Garcia ([id number]) on 01/05/2024 10:01:17 AM Referred By: REFERRED SELF Confirmed By:Miguel Angel Garcia
--- NOTE | 2024-01-05 13:34 | Hospitalist Progress Note ---
Date of Service January 05, 2024 Assessment & Plan (1) Acute intractable headache: Plan: 48-year-old female with past medical history significant for Hyperlipidemia, migraine variant, tobacco use disorder, moderate recurrent major depression comes because of last couple of days having severe headaches and also having chest pains and shortness of breath. Currently chest pain resolved. Shortness of breath still there. She also felt like last couple days she having swelling in the legs. Having severe headaches with blurred vision. She has history of migraines with blurred vision but this was more severe. Currently blurred vision improved but she thinks the headaches coming back and with her headaches states blurry vision will come back. She has chronic neck pain but the neck pain is worse today. She can flex neck okay. Denies any fevers. Was having a lot of nausea. And vomiting. Because of vomiting she thinks she has a left lower quad abdominal pain. Bowels are moving okay. Micturating okay. No runny nose or sore throat. In the ER her blood pressure was running high and required IV hydralazine. Says lights are bothering her. Acute intractable headache with blurred vision DD: Complicated Migraine H/O Migraine, due to Hypertension --MRI Brain:No acute intracranial abnormality. Blurred vision resolved Blood pressure control No focal deficits on exam Will need ZIO monitor, polysomnography as outpatient Appreciate neurology input Plan to discharge home today Abdominal pain Incidental finding of ovoid nodule in the right upper quadrant --CT ABD: There is a 1.0 cm indeterminant ovoid nodule in the right upper quadrant between the colon and the right kidney with minimal surrounding infiltration. This is not highly suspicious and likely on an infectious/infl ammatory basis, but is new from 07/08/2023. No additional similar-appearing nodules are identified. A precautionary 3 to 4 -month follow-up abdominal CT scan is recommended to document resolution. No additional infectious or inflammatory findings are identified in the abdomen or pelvis. Hepatomegaly and hepatic steatosis. --Patient reports having colonoscopy recently -- Continue ceftriaxone, doxycycline --Advised to obtain another CT abdomen in 3 to 4 months --Currently abdominal pain resolved (2) Shortness of breath: Plan: Exertional shortness of breath Possibly secondary to acute bronchitis --CTA:No pulmonary embolus. Bronchial wall thickening with mosaic attenuation compatible with infectious/inflammatory airways disease. -- Continue antibiotics as above Clinically improved Saturating well on room air (3) Chest pain: Plan: Chest pressure/pain -- EKG showed no acute changes --ECHO: EF 60 to 65%. Grade 1 diastolic dysfunction. No regional wall motion abnormality. Mild concentric LVH. -- Troponin x 3 negative Appreciate cardiology input Will need stress test as outpatient (4) Hypertension: Plan: Continue amlodipine, Coreg Monitor Plan Depression on duloxetine GERD on omeprazole DVT prophylaxis SCDs CODE STATUS Full code Admission and Anticipated Discharge Date Admission Date: January 03, 2024 Subjective Patient is seen and examined at bedside States having minimal dry cough intermittently Headache, change in vision resolved Offers no other complaints Plan to be discharged home today Review of Systems Review of Systems: All systems reviewed & are unremarkable except as noted in Subjective Physical Exam Physical Exam: Physical Exam: Vitals signs as noted above General Appearance:Obese, no apparent distress Head: normocephalic, Atraumatic Eyes: normal inspection, EOMI Neck: supple, Trachea midline Respiratory/Chest: Decreased breath sounds, CTA, No accessory muscle use Cardiovascular: S1, S2, No murmur Abdomen/GI:Soft, Non tender, Bowel sounds present Extremities/Musculoskeletal:normal inspection, no edema Neurologic/Psych:AAOX3, grossly no focal neurological deficits Skin: normal color, warm Results & Data Results & Data Vital Signs (Past 12 Hours) Vital Signs Temp Pulse Pulse Resp BP Pulse Ox O2 Del Method 01/05/24 10:33 88 18 96 Room Air 01/05/24 10:31 36.8 C 88 19 150/87 H 96 Room Air 01/05/24 07:58 84 01/05/24 07:12 75 16 95 Room Air 01/05/24 07:10 36.3 C L 72 19 171/97 H 95 Room Air 01/05/24 02:25 36.3 C L 73 16 152/83 H 96 Room Air (1) Acute intractable headache Headache type: unspecified Qualified Code(s): R51.9 - Headache, unspecified (3) Chest pain Chest pain type: unspecified Qualified Code(s): R07.9 - Chest pain, unspecified (4) Hypertension Hypertension type: unspecified Qualified Code(s): I10 - Essential (primary) hypertension
--- NOTE | 2024-01-05 13:46 | Discharge Summary ---
Date of Service January 05, 2024 Admission HPI Per Admitting Provider 48-year-old female with past medical history significant for Hyperlipidemia, migraine variant, tobacco use disorder, moderate recurrent major depression comes because of last couple of days having severe headaches and also having chest pains and shortness of breath. Currently chest pain resolved. Shortness of breath still there. She also felt like last couple days she having swelling in the legs. Having severe headaches with blurred vision. She has history of migraines with blurred vision but this was more severe. Currently blurred vision improved but she thinks the headaches coming back and with her headaches states blurry vision will come back. She has chronic neck pain but the neck pain is worse today. She can flex neck okay. Denies any fevers. Was having a lot of nausea. And vomiting. Because of vomiting she thinks she has a left lower quad abdominal pain. Bowels are moving okay. Micturating okay. No runny nose or sore throat. In the ER her blood pressure was running high and required IV hydralazine. Says lights are bothering her. Currently hemodynamics are okay. Past medical history. As mentioned above. Past surgical history. . Colonoscopy. Dilatation And curettage. Injection of lumbosacral spine. Total abdominal hysterectomy with removal of tubes. social history. Smokes 1 pack a day for 30 years. No alcohol use. as per [employer] uses marijuana. Family history. Father of [place] at age 56. Mother has COPD. Daughter has asthma. Admission Exam Per Admitting Provider General- Not in acute distress. Head- atraumatic Eyes- PERRL. ENT- oropharynx clear Neck- supple, no JVD,. Lungs- clear to auscultation no wheezing or crackles. Heart- regular rate and rhythm; no murmur, no gallop. Abdomen- normal bowel sounds, soft, nontender, no distension Extremities- no pretibial edema, no erythema seen. Neuro- alert, oriented ; PERRL, ; no facial palsy; no dysarthria; moves extremities Principal Diagnosis Intractable headache Abdominal pain Uncontrolled hypertension Acute bronchitis Discharge Data Allergies Allergy/AdvReac Type Severity Reaction Status Date / Time No Known Allergies Unverified 01/02/24 22:07 Consultations 01/02/24 20:20 ED Decision to Admit Stat 01/03/24 08:00 Consult Cardiology Routine Consult Neurology Routine Procedures Performed Laboratory Results WBC 10.37 K/ul (4.8-10.8) 01/04/24 04:26 RBC 4.51 M/uL (4.20-5.40) 01/04/24 04:26 Hgb 13.4 g/dl (12.0-16.0) 01/04/24 04:26 Hct 39.9 % (37.0-47.0) 01/04/24 04:26 MCV 88.5 fL (80.0-100.0) 01/04/24 04:26 MCH 29.7 pg (25.0-34.0) 01/04/24 04:26 MCHC 33.6 g/dL (32.0-36.0) 01/04/24 04:26 RDW Std Deviation 45.5 fL (36.4-46.3) 01/04/24 04:26 RDW Coeff of Stephanie 14.1 % (11.5-14.5) 01/04/24 04:26 Plt Count 226 K/uL (130-400) 01/04/24 04:26 MPV 10.1 fL (9.4-12.4) 01/04/24 04:26 Immature Gran % (Auto) 0.4 % 01/04/24 04:26 Neut % (Auto) 53.2 % 01/04/24 04:26 Lymph % (Auto) 37.0 % 01/04/24 04:26 Camp % (Auto) 5.9 % 01/04/24 04:26 Eos % (Auto) 3.1 % 01/04/24 04:26 Baso % (Auto) 0.4 % 01/04/24 04:26 Neut # (Auto) 5.52 K/uL (1.40-6.50) 01/04/24 04:26 Lymph # (Auto) 3.84 K/uL (1.20-3.40) H 01/04/24 04:26 Camp # (Auto) 0.61 K/uL (0.11-0.59) H 01/04/24 04:26 Eos # (Auto) 0.32 K/uL (0.00-0.50) 01/04/24 04:26 Baso # (Auto) 0.04 K/uL (0.00-0.20) 01/04/24 04:26 Immature Gran # (Auto) 0.04 K/uL (0.01-0.20) 01/04/24 04:26 ESR 28 mm/hr (0-20) H 01/03/24 04:45 D-Dimer 740 ug/L FEU (0-500) H* 01/03/24 04:45 Sodium 137 mmol/L (136-145) 01/04/24 04:26 Potassium 3.5 mmol/L (3.5-5.1) 01/04/24 04:26 Chloride 108 mmol/L (98-107) H 01/04/24 04:26 Carbon Dioxide 23 mmol/L (21-32) 01/04/24 04:26 Anion Gap 6 (3-11) 01/04/24 04:26 BUN 6 mg/dl (6-23) 01/04/24 04:26 Creatinine 0.64 mg/dl (0.6-1.2) 01/04/24 04:26 Est Cr Clr Drug Dosing 129.4 ml/min 01/04/24 04:26 Est GFR ( Amer) 124.0 ml/min 01/04/24 04:26 Est GFR (Non-Af Amer) 107.0 ml/min 01/04/24 04:26 BUN/Creatinine Ratio 9.4 (10-20) L 01/04/24 04:26 Glucose 116 mg/dl (70-99(Fasting)) H 01/04/24 04:26 Estimat Average Glucose 128 mg/dl 01/04/24 04:26 Hemoglobin A1c 6.1 % (4.5-5.6) H 01/04/24 04:26 Lactate 1.2 mmol/L (0.4-2.0) 01/02/24 19:10 Calcium 8.7 mg/dl (8.6-10.3) 01/04/24 04:26 Magnesium 2.0 mg/dl (1.7-2.4) 01/03/24 04:45 Total Bilirubin 0.4 mg/dl (0.2-1.0) 01/02/24 14:15 AST 20 U/L (13-39) 01/02/24 14:15 ALT 38 U/L (7-52) 01/02/24 14:15 Alkaline Phosphatase 74 U/L (34-104) 01/02/24 14:15 Troponin I High Sens 4.4 pg/ml (0-14) 01/03/24 16:51 B-Natriuretic Peptide 56 pg/ml (0-100) 01/02/24 14:15 Total Protein 6.5 gm/dl (6.0-8.3) 01/02/24 14:15 Albumin 3.8 gm/dl (3.4-5.0) 01/02/24 14:15 Globulin 2.7 gm/dl (2.5-4.0) 01/02/24 14:15 Albumin/Globulin Ratio 1.4 (0.9-2) 01/02/24 14:15 Triglycerides 159 mg/dl (0-150) H 01/04/24 04:26 Cholesterol 207 mg/dl (0-200) H 01/04/24 04:26 LDL Cholesterol, Calc 141 mg/dl 01/04/24 04:26 VLDL Cholesterol, Calc 32 mg/dl (0-30) H 01/04/24 04:26 HDL Cholesterol 34 mg/dl 01/04/24 04:26 Cholesterol/HDL Ratio 6.1 (0-5) H 01/04/24 04:26 Procalcitonin < 0.02 ng/ml (0-0.5) 01/02/24 16:57 Urine Color Yellow 01/02/24 19:22 Urine Appearance Clear (Clear) 01/02/24 19:22 Urine pH 7.0 (4.5-7.5) 01/02/24 19:22 Ur Specific [place] 1.036 (1.000-1.030) H 01/02/24 19:22 Urine Protein Negative (Negative) 01/02/24 19:22 Urine Glucose (UA) Negative (Negative) 01/02/24 19:22 Urine Ketones Negative (Negative) 01/02/24 19:22 Urine Blood Negative (Negative) 01/02/24 19:22 Urine Nitrite Negative (Negative) 01/02/24 19:22 Urine Bilirubin Negative (Negative) 01/02/24 19:22 Urine Urobilinogen Negative (Negative) 01/02/24 19:22 Ur Leukocyte Esterase Negative (Negative) 01/02/24 19:22 Adenovirus (PCR) Not Detected (NotDetected) 01/02/24 14:15 B. pertussis DNA (PCR) Not Detected (NotDetected) 01/02/24 14:15 B.parapertussis DNA PCR Not Detected (NotDetected) 01/02/24 14:15 Lyme Disease Screen Negative (Negative) 01/02/24 16:57 C. pneumoniae DNA (PCR) Not Detected (NotDetected) 01/02/24 14:15 Coronavirus OC43 (PCR) Not Detected (NotDetected) 01/02/24 14:15 Coronavirus HKU1 (PCR) Not Detected (NotDetected) 01/02/24 14:15 Coronavirus 229E (PCR) Not Detected (NotDetected) 01/02/24 14:15 SARS-CoV-2 (PCR) Not Detected (NotDetected) 01/02/24 14:15 Coronavirus NL63 (PCR) Not Detected (NotDetected) 01/02/24 14:15 Human Metapneumovir PCR Not Detected (NotDetected) 01/02/24 14:15 Influenza Type A (PCR) Not Detected (NotDetected) 01/02/24 14:15 Influenza Type B (PCR) Not Detected (NotDetected) 01/02/24 14:15 M. pneumoniae (PCR) Not Detected (NotDetected) 01/02/24 14:15 Parainfluenza 1 (PCR) Not Detected (NotDetected) 01/02/24 14:15 Parainfluenza 2 (PCR) Not Detected (NotDetected) 01/02/24 14:15 Parainfluenza 3 (PCR) Not Detected (NotDetected) 01/02/24 14:15 Parainfluenza 4 (PCR) Not Detected (NotDetected) 01/02/24 14:15 RSV (PCR) Not Detected (NotDetected) 01/02/24 14:15 Entero/Rhino (PCR) Not Detected (NotDetected) 01/02/24 14:15 Impressions Chest X-Ray 01/02/24 13:56 SINGLE VIEW CHEST CLINICAL HISTORY: Dyspnea FINDINGS: A PA chest radiograph is compared to study dated 07/08/2023. The cardiomediastinal silhouette is unremarkable. The lungs and pleural spaces are clear. No pneumothorax is seen. The bony thorax is grossly intact. IMPRESSION: No active disease in the chest. ACT 112: Negative or not required by law. Electronically signed by: Marcos Jensen M.D. 01/02/2024 2:36 PM Abdomen/Pelvis CT 01/02/24 16:32 CT SCAN OF THE ABDOMEN AND PELVIS WITH IV CONTRAST CLINICAL HISTORY: Left lower quadrant abdominal pain. Vomiting. COMPARISON STUDY: Abdominal CT dated 07/08/2023. TECHNIQUE: Following the IV administration of 94 cc of Optiray 320, CT scan of the abdomen and pelvis is performed from the lung bases to the proximal femora. Images are reviewed in the axial, sagittal, and coronal planes. IV contrast was administered without complication. A dose lowering technique was utilized adhering to the principles of ALARA. CT DOSE: 1951.76 mGy.cm FINDINGS: Lung bases: The heart is normal in size and without pericardial effusion. The lung bases are clear noting dependent atelectasis. A small hiatal hernia is noted. Liver: The contrast-enhanced liver is enlarged, measuring 22.4 cm in craniocaudal length. Attenuation is diffusely diminished indicating steatosis. Fatty sparing is seen adjacent to the gallbladder fossa. There is no intrahepatic biliary ductal dilatation. The hepatic veins and portal veins are patent. Gallbladder: Unremarkable. Spleen: Normal in size and attenuation. Pancreas: Unremarkable. Adrenal glands: Small low-attenuation adrenal nodules are unchanged in measurement, matter. These likely represent adenomas.. Kidneys: The contrast enhanced kidneys are normal in size and without hydronephrosis. The kidneys enhance symmetrically. Abdominal vasculature: The abdominal aorta is normal in course and caliber. Bowel: There is no bowel obstruction. The appendix is well-visualized and normal. Peritoneum: There is no intraperitoneal free air or abdominal ascites. There is a fat-containing umbilical hernia. There is an indeterminate 1.0 cm ovoid nodule in the right upper quadrant tenderness. Lymphadenopathy: None. Pelvic viscera: The bladder is normal as visualized. The uterus is surgically absent. No adnexal lesion is seen. Skeletal structures: There is mild lumbosacral spondylosis. Degenerative disc space narrowing and endplate sclerosis is seen at L5-S1. Sclerotic changes noted in the sacroiliac joints. No lytic or blastic lesions are seen. IMPRESSION: 1. There is a 1.0 cm indeterminant ovoid nodule in the right upper quadrant between the colon and the right kidney with minimal surrounding infiltration. This is not highly suspicious and likely on an infectious/inflammatory basis, but is new from 07/08/2023. No additional similar-appearing nodules are identified. A precautionary 3 to 4 -month follow-up abdominal CT scan is recommended to document resolution. 2. No additional infectious or inflammatory findings are identified in the abdomen or pelvis. 3. Hepatomegaly and hepatic steatosis. 4. Additional findings as above. ACT 112: Negative or not required by law. Electronically signed by: Marcos Jensen M.D. 01/02/2024 6:[address] 01/02/24 16:32 CT SCAN OF THE BRAIN WITHOUT IV CONTRAST CLINICAL HISTORY: Headache. Blurry vision. COMPARISON STUDY: CT of the brain dated 11/29/2008. TECHNIQUE: Unenhanced axial CT scan of the brain is performed from the vertex to the skull base. A dose lowering technique was utilized adhering to the principles of ALARA. FINDINGS: Brain parenchyma: The brain parenchyma is normal in appearance. There is no hem orrhage, mass effect, or evidence of acute territorial ischemia by CT criteria. Jung-white matter differentiation is preserved. No extra-axial fluid collection is seen. Ventricles, sulci, cisterns: Normal in configuration. Intracranial vasculature: The visualized intracranial vasculature at the skull base is normal in appearance. Calvarium: Unremarkable. Sinuses and mastoids: The visualized paranasal sinuses are clear. The mastoid air cells are well pneumatized. Orbits: The bony orbits are grossly intact. IMPRESSION: No acute intracranial abnormality. ACT 112: Negative or not required by law. Electronically signed by: Marcos Jensen M.D. 01/02/2024 6:22 PM Venous Doppler Study 01/03/24 03:17 US venous doppler LE BI CLINICAL HISTORY: b/l lower ext edema. sob. dvt? TECHNIQUE: Bilateral lower extremity real-time compression venous ultrasound with Color Doppler imaging. Utilizing real-time ultrasonic imaging multiple real time high-resolution ultrasonic images with compression and noncompression maneuvers of the deep venous system in addition to color doppler imaging were performed from the common femoral vein through the proximal calf veins. COMPARISON: None available at the time of this dictation. FINDINGS/IMPRESSION: Currently there is normal compressibility of the deep venous system from the common femoral vein through the proximal calf veins. No superficial venous thrombosis is identified. ACT 112: Negative or not required by law. Electronically signed by: Robbie Hernandez M.D. 01/03/2024 9:16 AM Chest CTA 01/03/24 05:46 CT angio chest PE protocol CLINICAL HISTORY: PE TECHNIQUE: Multidetector row helical CT of the chest was performed with angiographic protocol. Coronal and sagittal reformations were obtained. Coronal and sagittal MIPS were obtained from the axial data set and were submitted for review. Automated dose lowering techniques and/or adjustment according to patient size were utilized for this exam. CT DOSE: 888.19 mGy.cm Comparison: None available at the time of this dictation. FINDINGS: Lungs and pleura: Bronchial wall thickening is seen with mosaic attenuation. Heart and pericardium: Heart size is normal. No pericardial effusion. Vessels: No evidence of pulmonary embolism. Mediastinum and fernando: Unremarkable. Chest wall and lower neck: Subcentimeter axillary lymph nodes noted. Abdomen: Hepatic steatosis is noted. Bones: Degenerative changes in the thoracic spine. IMPRESSION: 1. No pulmonary embolus. 2. Bronchial wall thickening with mosaic attenuation compatible with infectious/inflammatory airways disease. ACT 112: Negative or not required by law. Electronically signed by: Robbie Hernandez M.D. 01/03/2024 7:30 AM Brain MRI 01/03/24 17:15 MRI OF THE BRAIN WITHOUT IV CONTRAST CLINICAL HISTORY: Headache. COMPARISON STUDY: CT of the brain dated 01/02/2024. TECHNIQUE: MRI of the brain was performed utilizing various T1 and T2-weighted sequences in the axial, sagittal, and coronal planes. IV contrast was not administered for this examination. FINDINGS: Brain parenchyma: The brain parenchyma is normal in appearance. There is no hemorrhage or mass effect. There is no restricted diffusion to suggest acute ischemia. Jung-white matter differentiation is preserved. No extra-axial fluid collection is seen. The cerebellar tonsils are normal in configuration. Ventricles, sulci, and cisterns: Normal in configuration. Pituitary and sella: Unremarkable. Intracranial vasculature: Normal flow voids are maintained at the skull base. Orbits: The bony orbits are grossly intact. Orbital contents are normal in appearance. Sinuses and mastoids: Clear. Calvarium: Unremarkable. Cervical cord: Partially visualized cervical spinal cord is normal in morphology and signal intensity. IMPRESSION: No acute intracranial abnormality. ACT 112: Negative or not required by law. Electronically signed by: Marcos Jensen M.D. 01/03/2024 10:26 PM Ordered Studies 01/02/24 16:32 CT Abd and Pelvis [CT abd pelvis IV con only] Stat CT head/brain wo con Stat 01/03/24 03:17 US venous doppler LE BI Urgent 01/03/24 05:46 CT angio chest PE protocol Routine 01/03/24 17:15 MRI Brain [MR brain wo con] Urgent Hospital Course (1) Acute intractable headache: 48-year-old female with past medical history significant for Hyperlipidemia, migraine variant, tobacco use disorder, moderate recurrent major depression comes because of last couple of days having severe headaches and also having chest pains and shortness of breath. Currently chest pain resolved. Shortness of breath still there. She also felt like last couple days she having swelling in the legs. Having severe headaches with blurred vision. She has history of migraines with blurred vision but this was more severe. Currently blurred vision improved but she thinks the headaches coming back and with her headaches states blurry vision will come back. She has chronic neck pain but the neck pain is worse today. She can flex neck okay. Denies any fevers. Was having a lot of nausea. And vomiting. Because of vomiting she thinks she has a left lower quad abdominal pain. Bowels are moving okay. Micturating okay. No runny nose or sore throat. In the ER her blood pressure was running high and required IV hydralazine. Says lights are bothering her. Acute intractable headache with blurred vision DD: Complicated Migraine H/O Migraine, due to Hypertension --MRI Brain:No acute intracranial abnormality. Blurred vision resolved Blood pressure control No focal deficits on exam Will need ZIO monitor, polysomnography as outpatient Appreciate neurology input Plan to discharge home today Abdominal pain Incidental finding of ovoid nodule in the right upper quadrant --CT ABD: There is a 1.0 cm indeterminant ovoid nodule in the right upper quadrant between the colon and the right kidney with minimal surrounding infiltration. This is not highly suspicious and likely on an infectious/inflammatory basis, but is new from 07/08/2023. No additional similar-appearing nodules are identified. A precautionary 3 to 4 -month follow- up abdominal CT scan is recommended to document resolution. No additional infectious or inflammatory findings are identified in the abdomen or pelvis. Hepatomegaly and hepatic steatosis. --Patient reports having colonoscopy recently -- Continue ceftriaxone, doxycycline --Advised to obtain another CT abdomen in 3 to 4 months --Currently abdominal pain resolved (2) Shortness of breath: Exertional shortness of breath Possibly secondary to acute bronchitis --CTA:No pulmonary embolus. Bronchial wall thickening with mosaic attenuation compatible with infectious/inflammatory airways disease. -- Continue antibiotics as above Clinically improved Saturating well on room air (3) Chest pain: Chest pressure/pain -- EKG showed no acute changes --ECHO: EF 60 to 65%. Grade 1 diastolic dysfunction. No regional wall motion abnormality. Mild concentric LVH. -- Troponin x 3 negative Appreciate cardiology input Will need stress test as outpatient (4) Hypertension: Continue amlodipine, Coreg Monitor Plan Depression on duloxetine GERD on omeprazole DVT prophylaxis SCDs CODE STATUS Full code Total Time Total Time Spent Total Time Spent (In Minutes): 53 minutes Discharge Plan Discharge Items Patient Disposition: Home - Self-Care Reason For Visit: SOB, CHEST PAIN, ABDOMINAL PAIN, HEADACHES Discharge Diagnosis: Intractable headache Abdominal pain Uncontrolled hypertension Acute bronchitis Activity: Per Instructions section Exercise/Sports: Wait until after follow-up appointment Non-emergency contact: Primary Care Provider and 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 Machine Operator Call non-emergency contact if: you have any medication questions, your symptoms worsen, your pain is concerning for you and you have a fever Follow-up/Referrals: Dasha Phelan PA-C [Physician Community Development Officer] - (Date & Time 01/26/2024 11:20 AM Provider Dasha Phelan PA-C Department Neurology [facility] ) Janice Gutierrez MD [Primary Care Provider] - (Date & Time 01/12/2024 10:00 AM Provider Janice Gutierrez MD Department General Internal Medicine [facility] ) Diet: Heart Healthy Addtl Attending Provider Instructions: Follow-up with your primary care physician on 01/12/2024 10:00 AM Follow-up with your neurologist Dasha Phelan PA-C on 01/26/2024 11:20 AM Follow-up with your trend investigator Dr. Fortune for outpatient stress test and ZIO monitor as advised --Obtain outpatient sleep study (polysomnography) to rule out sleep apnea as advised -- Complete the antibiotic course cefdinir, doxycycline as prescribed --Obtain CT abdomen pelvis in 3 to 4 months for further evaluation of right upper quadrant ovoid nodule as advised. --Monitor your blood pressure regularly at home and discuss with the physician for further adjustment of medications as needed. Seek immediate medical attention if your symptoms reoccur or worsen Please take all medications as instructed on discharge list below. Please call if you have any questions or problems. You can reach a [facility] hospitalist on duty at [facility] 24 hours a day by calling [phone] Pending Studies at Discharge: No Stand-Alone Forms: My [facility], Smoking Cessation Medications and DC Order Prescriptions: New amlodipine [Norvasc] 5 mg Tablet 5 mg PO QAM 30 Days Qty: 30 0RF carvedilol 3.125 mg Tablet 3.125 mg PO BIDM 30 Days Qty: 60 0RF doxycycline hyclate 100 mg tablet 100 mg PO BID 7 Days Qty: 14 0RF cefdinir 300 mg capsule 300 mg PO BID Qty: 14 0RF Continued gabapentin 600 mg tablet 600 mg PO TID sumatriptan succinate 25 mg tablet 25 mg PO DIRECTED PRN (Reason: Migraine Headache) ondansetron HCl 4 mg tablet 4 mg PO Q6 PRN (Reason: Nausea) baclofen 10 mg tablet 10 mg PO BID PRN (Reason: .moderate pain) nicotine 21 mg/24 hr patch 24 hour 1 patch topical DIRECTED Rx Instructions: Daily for 6 weeks, then reduce to 14 mg omeprazole 20 mg capsule,delayed release(DR/EC) 20 mg PO QAM albuterol sulfate [Ventolin HFA] 90 mcg/actuation Hfa Aerosol Inhaler 2 puff INHALATION Q4 PRN (Reason: Shortness Of Breath Or Wheezing) naproxen 500 mg tablet 500 mg PO BID PRN (Reason: Pain) meclizine 25 mg Tablet,Chewable 25 mg PO TID PRN (Reason: .dizzyness) duloxetine 30 mg capsule,delayed release(DR/EC) 30 mg PO QAM Discharge Orders: Discharge Order (Routine); Ordered 01/05/24 Ordered By: Eugenio Alfaro/Other Patient Handouts: Prediabetes, 5 Steps for Eating Healthier Admission Data Admit Date/Time: 01/03/24 02:44 Attending Provider: Eugenio Michael Admit Provider: Anatoliy Daigle Primary Care Provider: Janice Gutierrez Other Providers: Anatoliy Daigle; Gisela Montenegro; Isaac Fortune; Anjel Love; Kenn Doan; Yusef Price; Nelson Segovia; Sydni Galan; Dasha Barnes; Randa Wu; Gisela Lindo; Cj Hawley; Erlin Esteban; Mervat An; Nichole Bryant; Janice Pate; Hamlet Elena; Levi Toure; Madhavi Williamson; Dasha Phelan; Dustin Lugo; Dasha Guerrier; Peng Dixon; Jd Beauchamp; Kaleb Bull; Miguel Angel Marquez; Dione Capellan; Amador Amaro; Jose Moreira; Abi Max; Conner Garrido; Lashay Pandey; Janeth Finley; Miguel Angel Jimenez
== END 2024-01-05 14:30 | disposition home or self-care (01) | DRG 103 ==
LOC: ED 13:40 → SUATTDRO 01-03 02:44 → EDINP 01-03 02:44 → 2S 01-03 03:18

== ENCOUNTER 2024-02-18 17:58 | Observation (INO) ==
--- NOTE | 2024-02-18 18:21 | Emergency Department Note ---
Impression & Plan Abscess of right breast, Leukocytosis, Cellulitis of breast ED Provider Note NAME: EARL GARZA AGE: 48 SEX: F : 1975 ARRIVES VIA: Walk-In INFORMANT: Patient ED PROVIDER(S): Ezekiel Cooper DO CHIEF COMPLAINT: right breast pain HPI: Patient is a 48-year-old female with a past medical history of hypertension who presents to the ER for right breast pain. She notes this started 3 to 4 days ago. She generally in the past has gotten these little abscesses which drained. She notes this time she has noticed several of them. Its become erythematous and painful. Denies any fevers or chills. No headache or change in vision. No chest pain or shortness of breath. No nausea vomiting or diarrhea. No dysuria urgency or frequency. No other exacerbating or remitting factors. ADDITIONAL HISTORY OBTAINED: Per HPI Chronic Medical/Social Conditions Affecting Care: Per HPI PAST MEDICAL HISTORY:See Below PAST SURGICAL HISTORY:See Below FAMILY HISTORY:See Below SOCIAL HISTORY:See Below HOME MEDICATIONS:See Below ALLERGIES:See Below VITALS:See Below PHYSICAL EXAMINATION: GENERAL: Sitting up in bed, alert, well appearing, well nourished, no distress, non-toxic EYE EXAM: normal conjunctiva. OROPHARYNX: no exudate, no erythema, lips, buccal mucosa, and tongue normal and mucous membranes are moist BREAST: Erythema under the right breast with induration and green purulent drainage from the 7 o'clock position erythema tracking from 6:00 to 11:00 NECK: supple, no nuchal rigidity, no adenopathy, non-tender LUNGS: Clear to auscultation. Normal chest wall mechanics HEART: no murmurs, S1 normal and S2 normal ABDOMEN: abdomen soft, non-tender, normo-active bowel sounds, no masses, no rebound or guarding. UPPER EXTREMITIES: upper extremities are grossly normal. LOWER EXTREMITIES: No pitting edema. NEURO EXAM: Normal sensorium, cranial nerves II-XII grossly intact, normal speech, no gross weakness of arms, no gross weakness of legs. MEDICAL DECISION MAKING: Patient is a 48-year-old female who presents ER for right breast pain. Upon evaluation she has a clear abscess with no surrounding cellulitis consistent of about 50% of the breast. IV was established blood work was obtained. Labs show leukocytosis of 15,000. No significant anemia. BMP was unremarkable. Abscess was draining with gentle pressure. Culture was obtained. Patient was given Vanco and Rocephin. Updated bedside. Discussed with the hospitalist for further evaluation management treatment due to the significant surrounding cellulitis. Consults/Care Managements Discussions: Per [facility] Triage Nursing notes reviewed. Limited review of prior medical records performed Vital Signs: reviewed and remarkable for no significant abnormalities Differential diagnosis: Cellulitis, abscess, MRSA infection, DVT, necrotizing fasciitis, dermatitis, drug eruption, allergic reaction, as well as other pathologies. ER treatment provided: See below Diagnostics interpreted by me include EKG and cardiac monitoring as listed below: -Cardiac Monitoring: An order was placed for continuous cardiac monitoring. The monitor shows a rate of 90 with sinus rhythm. -ECG: none -Laboratory studies:Interpreted by me as stated above in MDM and shown below. Imaging studies: Xrays: As interpreted by me:none CTs show: none Ultrasound of the breast per my preliminary interpretation shows an abscess Ultrasound of the breast per radiology is consistent with an abscess. Procedures:none Critical Care: None Past Med/Surg History Problem List (Updated 02/18/24 @ 22:14 by Ezekiel Cooper DO) Cellulitis of breast (Acute) Leukocytosis (Acute) Abscess of right breast (Acute) Hypertension Shortness of breath Chest pain Leukocytosis (Acute) Elevated lactic acid level (Acute) Hypertensive urgency (Acute) Nausea & vomiting (Acute) Swelling of lower extremity (Acute) Acute intractable headache (Acute) Lab test negative for COVID-19 virus (Acute) Medical History No significant medical problems Social History Smoking Status: Current every day smoker Tobacco Type: Cigarettes Hx Alcohol Use: No Hx Substance Use: Yes Last Used Substance: Hours (ago) Preferred Language: Greek Communication Ability: Effective Claim Manager Required: No Beliefs That Will Affect Care: None Current Living Situation: Family Feels Safe at Home: Yes Assistive Devices: None Allergies Allergies Allergy/AdvReac Type Severity Reaction Status Date / Time vancomycin Allergy Intermediate Hives Verified 02/18/24 20:51 Home Meds Home Medications Medication Instructions Recorded Confirmed albuterol sulfate 90 mcg/actuation 2 puff inhalation Q4 PRN Shortness 01/02/24 02/18/24 aerosol inhaler (Ventolin HFA) Of Breath Or Wheezing baclofen 10 mg tablet 10 mg PO BID PRN .moderate pain 01/02/24 02/18/24 duloxetine 30 mg capsule,delayed 30 mg PO QAM 01/02/24 02/18/24 release gabapentin 600 mg tablet 600 mg PO TID 01/02/24 02/18/24 meclizine 25 mg chewable tablet 25 mg PO TID PRN .dizzyness 01/02/24 02/18/24 omeprazole 20 mg capsule,delayed 20 mg PO AMHS 01/02/24 02/18/24 release amlodipine 2.5 mg tablet 2.5 mg PO QAM 02/18/24 02/18/24 bupropion HCl 150 mg 24 hr tablet, 150 mg PO QAM 02/18/24 02/18/24 extended release carvedilol 3.125 mg tablet 3.125 mg PO AMPM 02/18/24 02/18/24 magnesium oxide 400 mg PO QAM 02/18/24 02/18/24 rosuvastatin 10 mg tablet 10 mg PO QAM 02/18/24 02/18/24 sumatriptan succinate 50 mg tablet 50 mg PO UD PRN Migraine Headache 02/18/24 02/18/24 topiramate 25 mg tablet 50 mg PO HS 02/18/24 02/18/24 Results & Data (ED) Vital Signs Vital Signs - 24 hr 02/18/24 18:07 02/18/24 18:37 02/18/24 19:02 Temperature 36.0 C L Temperature Source Temporal Artery Scan Pulse Rate 99 H 88 87 Pulse Rhythm Regular Respiratory Rate 20 16 Respiratory Effort / Characteristics Non-Labored Spontaneous Respiratory Depth Normal Blood Pressure 137/84 Blood Pressure Mean 101 Pulse Oximetry 96 96 Oxygen Delivery Method Room Air Room Air Sepsis Recent Fever Within 48 Hours No Sepsis New/Unexplained Change in Mental Status N/A Sepsis Action Taken by Nursing No Action Required Laboratory Data 02/18/24 18:35 02/18/24 18:35 Lab Results 02/18/24 Range/Units 18:35 WBC 15.36 H (4.8-10.8) K/ul RBC 4.98 (4.20-5.40) M/uL Hgb 15.1 (12.0-16.0) g/dl Hct 44.2 (37.0-47.0) % MCV 88.8 (80.0-100.0) fL MCH 30.3 (25.0-34.0) pg MCHC 34.2 (32.0-36.0) g/dL RDW Std Deviation 45.3 (36.4-46.3) fL RDW Coeff of Stephanie 14.0 (11.5-14.5) % Plt Count 311 (130-400) K/uL MPV 10.3 (9.4-12.4) fL Immature Gran % (Auto) 0.3 % Neut % (Auto) 46.3 % Lymph % (Auto) 44.1 % Houghton % (Auto) 6.8 % Eos % (Auto) 2.0 % Baso % (Auto) 0.5 % Neut # (Auto) 7.11 H (1.40-6.50) K/uL Lymph # (Auto) 6.78 H (1.20-3.40) K/uL Houghton # (Auto) 1.04 H (0.11-0.59) K/uL Eos # (Auto) 0.30 (0.00-0.50) K/uL Baso # (Auto) 0.08 (0.00-0.20) K/uL Immature Gran # (Auto) 0.05 (0.01-0.20) K/uL Sodium 137 (136-145) mmol/L Potassium 4.0 (3.5-5.1) mmol/L Chloride 107 (98-107) mmol/L Carbon Dioxide 22 (21-32) mmol/L Anion Gap 8 (3-11) BUN 8 (6-23) mg/dl Creatinine 0.76 (0.6-1.2) mg/dl Est Cr Clr Drug Dosing 118.1 ml/min Est GFR ( Amer) 109.0 ml/min Est GFR (Non-Af Amer) 94.1 ml/min BUN/Creatinine Ratio 10.5 (10-20) Glucose 98 (70-99(Fasting)) mg/dl Calcium 9.5 (8.6-10.3) mg/dl Administered Medications Daptomycin 325 mg/ Syringe 6.5 mls @ 3.25 mls/min IV Q24H [facility]; Protocol Stop: 02/25/24 21:59 Last Admin: 02/18/24 21:52 Dose: 3.25 mls/min Documented By: MICHAEL Discontinued Medications Diphenhydramine HCl (Diphenhydramine 50 Mg/Ml Vial) 50 mg IV NOW STA Stop: 02/18/24 20:42 Last Admin: 02/18/24 20:45 Dose: 50 mg Documented By: MICHAEL Ceftriaxone Sodium (Rocephin) 2,000 mg in 50 mls @ 100 mls/hr IV NOW STA Stop: 02/18/24 18:47 Last Infusion: 02/18/24 19:30 Dose: Infused Documented By: Admin: 02/18/24 18:42 Dose: 100 mls/hr Documented By: KRISTEN Vancomycin HCl 2,250 mg/ (Sodium Chloride) 545 mls @ 200 mls/hr IV NOW ONE Stop: 02/18/24 22:35 Last Admin: 02/18/24 20:20 Dose: 200 mls/hr Documented By: MICHAEL Imaging Data Radiologist's Impression: Breast Ultrasound 02/18/24 18:18 US breast RT limited CLINICAL HISTORY: 7o clock TECHNIQUE: Real-time grayscale sonographic images of the right breast were obtained. Comparison: None available at the time of this dictation. FINDINGS/IMPRESSION: At 7:00 in the breast there is a complex collection measuring 2.9 x 1.0 x 2.1 cm. There is increased surrounding blood flow. Findings are concerning for abscess. ACT 112: Negative or not required by law. Electronically signed by: Robbie Hernandez M.D. 02/18/2024 7:28 PM Discharge Plan Visit Data Chief Complaint: Infection Stated Complaint: INFECTION UNDER RT BREAST, PAINFUL ED Provider: Ezekiel Cooper Discharge Problem: Abscess of right breast, Leukocytosis, Cellulitis of breast Forms Stand Alone Forms: My [facility] [employer] Prescriptions Prescriptions: No Action sumatriptan succinate 50 mg tablet 50 mg PO UD PRN (Reason: Migraine Headache) amlodipine 2.5 mg tablet 2.5 mg PO QAM carvedilol 3.125 mg tablet 3.125 mg PO AMPM rosuvastatin 10 mg tablet 10 mg PO QAM bupropion HCl 150 mg tablet extended release 24 hr 150 mg PO QAM topiramate 25 mg tablet 50 mg PO HS magnesium oxide 400 mg magnesium capsule 400 mg PO QAM Rx Instructions: take 1 hour after gabapentin gabapentin 600 mg tablet 600 mg PO TID baclofen 10 mg tablet 10 mg PO BID PRN (Reason: .moderate pain) omeprazole 20 mg capsule,delayed release(DR/EC) 20 mg PO AMHS albuterol sulfate [Ventolin HFA] 90 mcg/actuation Hfa Aerosol Inhaler 2 puff INHALATION Q4 PRN (Reason: Shortness Of Breath Or Wheezing) meclizine 25 mg Tablet,Chewable 25 mg PO TID PRN (Reason: .dizzyness) duloxetine 30 mg capsule,delayed release(DR/EC) 30 mg PO QAM Referrals Referrals: Janice Gutierrez MD [Primary Care Provider] - Discharge Problem: Leukocytosis Qualifiers: Leukocytosis type: unspecified Qualified Code(s): D72.829 - Elevated white blood cell count, unspecified
[2024-02-18] MEDS: cefTRIAXone SODIUM 2,000 MG/50 ML BAG IV STA (18:42)
[2024-02-18 18:51] LABS: Hematocrit (blood only) 44.2 % (37.0-47.0); Hemoglobin 15.1 g/dl (12.0-16.0); Mean Corpuscular Hemoglobin 30.3 pg (25.0-34.0); Mean Corpuscular Hgb Conc 34.2 g/dL (32.0-36.0); Mean Corpuscular Volume 88.8 fL (80.0-100.0); Mean Platelet Volume 10.3 fL (9.4-12.4); Platelet Count 311 K/uL (130-400); RDW Standard Deviation 45.3 fL (36.4-46.3); Red Blood Count 4.98 M/uL (4.20-5.40); White Blood Count 15.36 K/ul (4.8-10.8)
[2024-02-18 19:13] LABS: BUN Creatinine Ratio 10.5 (10-20); Calcium 9.5 mg/dl (8.6-10.3); Creatinine Clr Calc Pharmacy 118.1 ml/min; Est GFR (Non-African American) 94.1 ml/min
[2024-02-18 19:14] LABS: Basophils # (auto) 0.08 K/uL (0.00-0.20); Basophils % (auto) 0.5 %; Immature Granulocytes # (auto) 0.05 K/uL (0.01-0.20); Immature Granulocytes % (auto) 0.3 %; Lymphocytes # (auto) 6.78 K/uL (1.20-3.40); Lymphocytes % (auto) 44.1 %; Monocytes # (auto) 1.04 K/uL (0.11-0.59); Monocytes % (auto) 6.8 %; Neutrophils # (auto) 7.11 K/uL (1.40-6.50); Neutrophils % (auto) 46.3 %
--- NOTE | 2024-02-18 19:30 | Ultrasound Report ---
US breast RT limited CLINICAL HISTORY: 7o clock TECHNIQUE: Real-time grayscale sonographic images of the right breast were obtained. Comparison: None available at the time of this dictation. FINDINGS/IMPRESSION: At 7:00 in the breast there is a complex collection measuring 2.9 x 1.0 x 2.1 cm . There is increased surrounding blood flow. Findings are concerning for abscess. ACT 112: Negative or not required by law. Electronically signed by: Robbie Hernandez M.D. 02/18/2024 7:28 PM
[2024-02-18] MEDS ORDERED: VANCOMYCIN CONSULT ACTIVE PRN (19:52)
--- OUTSIDE RECORDS SUMMARY | 2024-02-18 20:03 | External Medical Summary | Summary of Care ---
Author Name Unknown Organization [facility] Address [address] [place] [place] [address] Phone [phone] Care Team Providers Care Hand Stoner Name Role Phone Jaince Gutierrez MD Primary Care Provider [phone] Reason for Visit * Reason Onset Date Comments Appointment 01/28/2024 Sleep study Encounter Details Date Type Department Care Team (Late st Contact Info) Description 01/28/2024 Telephone Sleep Disorders Ctr [facility] [address] [place] [address] Delisa Catalan DO [address] [place] [address] Appointment (Sleep study) Allergies No known active allergiesdocumented as of this encounter (statuses as of 02/11/2024) Medications Medication Sig Dispensed Refills Start Date End Date Status Meclizine HCl 25 MG Oral Tablet (Antivert) TAKE 1 TABLET BY MOUTH THREE TIMES A DAY IF NEEDED FOR DIZZINESS 30 Tablet 1 06/29/2023 Active Ventolin HFA 108 (90 Base) MCG/ACT Inhalation Aerosol SolutionIndication s:Acute bronchitis, antibiotics not indicated Inhale 2 Puffs by mouth every 4 hours as needed for Wheezing. 18 g 2 07/14/2023 Active DULoxetine HCl 30 MG Oral Capsule Delayed Release Particles (Cymbalta)Indicati ons:Moderate episode of recurrent major depressive disorder (HCC),Lumbar radiculopathy Take 1 Capsule by mouth in the morning and 1 Capsule before bedtime. Do not cut, crush or chew. 180 Capsule 5 12/03/2023 Active Gabapentin 600 MG Oral Tablet (Neurontin)Indicat ions:Lumbar radiculopathy,Lumb ar degenerative disc disease Take 1 Tablet by mouth in the morning and 1 Tablet at noon and 1 Tablet before bedtime. 90 Tablet 5 12/16/2023 Active Nicotine 14 MG/24HR Transdermal Patch 24 Hour (Nicoderm CQ)Indications:Tob acco use disorder One 14 mg patch daily for 2 wks; then one 7 mg patch daily for 2 wks. Remove old patch daily Do not start before January 28, 2024. 14 Patch 2 01/28/2024 02/11/20 Active Additional Information Patient not taking.Reported on 02/08/2024 Nicotine 7 MG/24HR Transdermal Patch 24 Hour (Nicoderm CQ)Indications:Tob acco use disorder One 7 mg patch daily for 2 weeks; Remove old patch daily; and then stop. 14 Patch 1 12/20/2023 Active Cefdinir 300 MG Oral Capsule (Omnicef)Indicatio ns:Bronchitis, complicated Take 1 Capsule by mouth in the morning and 1 Capsule before bedtime. 01/05/2024 Active Doxycycline Hyclate 100 MG Oral TabletIndications: Bronchitis, complicated Take 1 Tablet by mouth in the morning and 1 Tablet before bedtime. 01/05/2024 Active Ondansetron HCl 4 MG Oral Tablet (Zofran)Indication s:Bronchitis, complicated Take 1 Tablet by mouth every 6 hours as needed for Nausea. 20 Tablet 2 01/12/2024 Active predniSONE 10 MG Oral Tablet (Deltasone)Indicat ions:Bronchitis, complicated Take 5 tabs for 2 days, 4 tabs for 2 days, 3 tabs for 2 days, 2 tabs for 2 days 1 tab for 2 days 30 Tablet 01/12/2024 Active Additional Information Patient not taking.Reported on 02/08/2024 Nystatin [id number] UNIT/ML Mouth/Throat SuspensionIndicati ons:Thrush Swish and swallow 5 mL in the morning and 5 mL at noon and 5 mL in the evening and 5 mL before bedtime. For thrush.. 240 mL 1 01/12/2024 02/11/20 24 Active Additional Information Patient not taking.Reported on 02/08/2024 Omeprazole 20 MG Oral Capsule Delayed Release (PriLOSEC)Indicati ons:Gastroesophage al reflux disease without esophagitis Take 1 Capsule by mouth in the morning. 1 hour before the first meal of the day and at bedtime. 180 Capsule 2 01/12/2024 Active Baclofen 10 MG Oral Tablet (Lioresal)Indicati ons:Lumbar radiculopathy,Lumb ar degenerative disc disease Take 1 Tablet by mouth 2 times a day as needed for Pain, Moderate. 20 Tablet 01/17/2024 Active Riboflavin 400 MG Oral Tablet Take 1 Tablet by mouth in the morning. 30 Tablet 2 01/26/2024 Active Magnesium Oxide 400 MG Oral Capsule Take 1 Capsule by mouth in the morning. 30 Capsule 2 01/26/2024 Active Topiramate 25 MG Oral Tablet (Topamax) 1 tab at bedtime x 7 days then 2 tabs at bedtime 60 Tablet 2 01/26/2024 Active SUMAtriptan Succinate 25 MG Oral Tablet (Imitrex)Indicatio ns:Migraine variant Take 2 tablets at onset of migraine and one tablet every 2 hours as needed, not more than 5 tablets in 24 hours 6 Tablet 5 12/29/2023 02/08/20 24 Discontinue d(Medicatio n/Dose Changed) Carvedilol 3.125 MG Oral Tablet (Coreg)Indications :HTN, goal below 140/90 Take 1 Tablet by mouth 2 times a day with morning and evening meals. 01/05/2024 02/08/20 24 Discontinue d(Refill) amLODIPine Besylate 5 MG Oral Tablet (Norvasc)Indicatio ns:HTN, goal below 140/90 Take 0.5 Tablets by mouth in the morning. 01/12/2024 02/08/20 24 Discontinue d(Medicatio n/Dose Changed) Clotrimazole 10 MG Mouth/Throat Braulio (Mycelex Braulio)Indications :Thrush Take 1 Lozenge by mouth 5 times a day for 14 days. Allow tablet to slowly dissolve in your mouth 70 Braulio 01/19/2024 02/02/20 24 documented as of this encounter (statuses as of 02/11/2024) Active Problems Problem Noted Date Diagnosed Date HTN, goal below 140/90 01/12/2024 Moderate episode of recurrent major depressive d isorder 07/14/2023 Food insecurity 06/21/2023 Overview: Per [facility] Protocol Hyperlipidemia with target LDL less than 100 08/2022 Migraine variant 03/18/2023 Tobacco use disorder 02/26/2010 Overview: Continue to discuss cessation at each visit 03/26: 1/2 ppd INFORMATION 02/26/2010 Overview: Pt's daughter with fibrous dysplasia-message to [facility] if she needs to be seen [...] as of this encounter (statuses as of 02/11/2024) Resolved Problems Problem Noted Date Diagnosed Date [...] as of this encounter (statuses as of 02/11/2024) Immunizations Name Administration Dates Next Due Seasonal Influenza, Split, IIV3, With Preserve, Inj 04/29/2010 TDAP (age 10 and older)(Boostrix) 05/26/2022 documented as of this encounter Social History [...] encounter Miscellaneous Notes * Telephone Encounter - Tonny Taveras OSA - 02/11/2024 10:25 AM EDT Study is scheduled 06/01 at [facility]. * Telephone Encounter - Tonny Taveras OSA - 01/28/2024 10:[address] Catalan following 01/20 visit: [facility] Info faxed, will follow for date. documented in this encounter Plan of Treatment Upcoming Encounters Date Type Department Care Team (Late st Contact Info) Description 03/24/2024 3:00 PM EDT Office Visit Orthopaedics Spine Surgery, [facility] [address] [facility] [place] [address] Jg Elder MD [address] [place] [address] 04/13/2024 10:45 AM EDT Imaging Radiology [facility] [facility] [place] [address] [facility] [place] [address] 04/24/2024 10:20 AM EDT Office Visit General Internal Medicine Jesica Sayda [place] [address] [place] [address] Janice Gutierrez MD [address] [facility] [place] [address] 07/11/2024 11:20 AM EST Telemedicine Nutrition & Weight Management, [facility] [address] [place] [address] Merari Baires PA-C [address] [place] [address] 08/03/2024 9:00 AM EST Office Visit Neurology [facility] [address] [place] [address] Dione Capellan PA-C [address] [facility] [place] [address] Scheduled Procedures Name Priority Associated Diagnoses Date/Ti me COLONOSCOPY FLEXIBLE PROXIMA L DIAGNOSTIC Recall History of colonic polyps Health Maintenance Due Date Last Done Comments Pneumococcal Vaccine: Pediatrics (0 to 5 Years) and At-Risk Patients (6 to 64 Years) (1 of 2 - PCV) 10/19/1983 Hepatitis B Vaccine (1 of 3 - 19+ 3-dose series) 1996 Cologuard 2022 Fecal Occult Blood Test 2022 Sigmoidoscopy 2022 COVID-19 Vaccine ( - 2022- season) 2023 Influenza Vaccine (FLU shot) (#1) 2024 04/29/2010 Depression Monitoring 04/12/2024 04/12/2023 Mammogram 10/03/2024 10/04/2023, 04/05/2023 GFR 01/26/2025 01/27/2024, 03/18/2023 Diabetes Screening 01/26/2027 01/27/2024, 0 01/27/2024, 03/18/2023, Additional history exists Albumin/Creatinine Ratio 02/07/2027 02/08/2024 Colonoscopy 12/26/2028 12/27/2023, 12/27/2023 Colorectal Cancer Screening 12/26/2028 Lipid Panel 01/26/2029 01/27/2024, 03/18/2023 DTaP,Tdap,and Td Vaccines (2 - Td or Tdap) 05/26/2032 05/26/2022 Pap Smear Discontinued 02/26/2010 Cervical Cancer Screening Discontinued HPV (Gardasil) Vaccine Aged Out No lo nger eligible based on patient's age to complete this topic HPV/Co-Test Discontinued MENINGOCOCCAL (MENACTRA/MENVEO) Aged Out No longer eligible based on patient's age to complete this topic documented as of this encounter Medical Devices Not on filedocumented as of this encounter Care Teams Hand Stoner Relationship Specialty Start Date End Date Janice Gutierrez MD [address] [facility] [place] [address] PCP - General Internal Medicine 09/06/23 documented as of this encounter
--- OUTSIDE RECORDS SUMMARY | 2024-02-18 20:04 | External Medical Summary ---
Author Name Unknown Address Unknown Organization [id number]:[facility] [place] - [address] [place] [address] Laboratory Report Ordering Provider Test Date Status ELIZABETH NEAL 02/08/2024 11:55:36 Final Normal: <30 mg/g creatinine< br/>High: 30-300 mg/g creatinine
Very High: >300 mg/g creatinine
Nephrotic: >2200 mg/g creatinine Observation Date Value Abnormality Reference (Units ) Status Albumin, Urine 02/08/2024 11:55:36 <1.20 (mg/dL) Final Creatinine, Urine 02/08/2024 11:55:36 128 (mg/dL) Final Albumin/Creatinine [Mass Ratio] in Urine 02/08/2024 11:55:36 <9 <30 (mg/g Creat) Final Performing Location [facility] [place] - [address] [place] [address]
--- OUTSIDE RECORDS SUMMARY | 2024-02-18 20:04 | External Medical Summary ---
Author Name Unknown Address Unknown Organization K09:[facility] [place] [address] Laboratory Report Ordering Provider Test Date Status MARIE ATKINS 01/27/2024 08:33:20 Final Observation Date Value Abnormality Reference (Units ) Status Bilirubin, Direct 01/27/2024 08:33:20 <0.2 0. 0-0.3 (mg/dL) Final Performing Location [facility] [place] [address]
--- OUTSIDE RECORDS SUMMARY | 2024-02-18 20:04 | External Medical Summary | Summary of Care ---
Author Name Unknown Organization [facility] Address [address] [place] [address] Phone [phone] Care Team Providers Care Wet Silk Hanger Name Role Phone Janice Gutierrez MD Primary Care Provider [phone] Reason for Visit * Reason Onset Date Comments Advice 01/19/2024 Thrush Encounter Details Date Type Department Care Team (Late st Contact Info) Description 01/19/2024 Telephone General Internal Medicine [facility] [address] [place] [address] Janice Gutierrez MD [address] [place] [address] Advice (Thrush ) Allergies No known active allergiesdocumented as of this encounter (statuses as of 01/24/2024) Medications Medication Sig Dispensed Refills Start Date [...] 12/03/2023 Active Gabapentin 600 MG Oral Tablet (Neurontin)Indicatio ns:Lumbar radiculopathy,Lumbar degenerative disc disease Take 1 Tablet by mouth in the morning and 1 Tablet at noon and 1 Tablet before bedtime. 90 Tablet 5 12/16/2023 Active Nicotine 21 MG/24HR Transdermal Patch 24 Hour (Nicoderm CQ)Indications:Tobac co use 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 Remove old patch daily 42 Patch 1 12/20/2023 01/28/2024 Active Nicotine 14 MG/24HR Transdermal Patch 24 Hour (Nicoderm CQ)Indications:Tobac co use disorder One 14 mg patch daily for 2 wks; then one 7 mg patch daily for 2 wks. Remove old patch daily Do not start before January 28, 2024. 14 Patch 2 01/28/2024 02/11/2024 Active Nicotine 7 MG/24HR Transdermal Patch 24 Hour (Nicoderm CQ)Indications:Tobac co use disorder One 7 mg patch daily for 2 weeks; Remove old patch daily; and then stop. 14 Patch 1 12/20/2023 Active SUMAtriptan Succinate 25 MG Oral Tablet (Imitrex)Indications :Migraine variant Take 2 tablets at onset of migraine and one tablet every 2 hours as needed, not more than 5 tablets in 24 hours 6 Tablet 5 12/29/2023 Active Carvedilol 3.125 MG Oral Tablet (Coreg)Indications:H TN, goal below 140/90 Take 1 Tablet by mouth 2 times a day with morning and evening meals. 01/05/2024 Active Cefdinir 300 MG Oral Capsule (Omnicef)Indications :Bronchitis, complicated Take 1 Capsule by mouth in the morning and 1 Capsule before bedtime. 01/05/2024 Active Doxycycline Hyclate 100 MG Oral TabletIndications:Br onchitis, complicated Take 1 Tablet by mouth in the morning and 1 Tablet before bedtime. 01/05/2024 Active amLODIPine Besylate 5 MG Oral Tablet (Norvasc)Indications :HTN, goal below 140/90 Take 0.5 Tablets by mouth in the morning. 01/12/2024 Active Ondansetron HCl 4 MG Oral Tablet (Zofran)Indications: Bronchitis, complicated Take 1 Tablet by mouth every 6 hours as needed for Nausea. 20 Tablet 2 01/12/2024 Active predniSONE 10 MG Oral Tablet (Deltasone)Indicatio ns:Bronchitis, complicated Take 5 tabs for 2 days, 4 tabs for 2 days, 3 tabs for 2 days, 2 tabs for 2 days 1 tab for 2 days 30 Tablet 01/12/2024 Active Nystatin 416196 UNIT/ML Mouth/Throat SuspensionIndication s:Thrush Swish and swallow 5 mL in the morning and 5 mL at noon and 5 mL in the evening and 5 mL before bedtime. For thrush.. 240 mL 1 01/12/2024 02/11/2024 Active Omeprazole 20 MG Oral Capsule Delayed Release (PriLOSEC)Indication s:Gastroesophageal reflux disease without esophagitis Take 1 Capsule by mouth in the morning. 1 hour before the first meal of the day and at bedtime. 180 Capsule 2 01/12/2024 Active Baclofen 10 MG Oral Tablet (Lioresal)Indication s:Lumbar radiculopathy,Lumbar degenerative disc disease Take 1 Tablet by mouth 2 times a day as needed for Pain, Moderate. 20 Tablet 01/17/2024 Active Clotrimazole 10 MG Mouth/Throat Braulio (Mycelex Braulio)Indications:T hrush Take 1 Lozenge by mouth 5 times a day for 14 days. Allow tablet to slowly dissolve in your mouth 70 Braulio 01/19/2024 02/02/2024 Active documented as of this encounter (statuses as of 01/24/2024) Active Problems Problem Noted Date Diagnosed Date HTN, goal below 140/90 01/12/2024 Moderate episode of recurrent major depressive d isorder 07/14/2023 Food insecurity 06/21/2023 Overview: Per [facility] Protocol Hyperlipidemia with target LDL less than 100 08/2022 Migraine variant 03/18/2023 Tobacco use disorder 02/26/2010 Overview: Continue to discuss cessation at each visit 03/26: 1/2 ppd INFORMATION 02/26/2010 Overview: Pt's daughter with fibrous dysplasia-message to [facility] if she needs to be seen [...] as of this encounter (statuses as of 01/24/2024) Resolved Problems Problem Noted Date Diagnosed Date [...] as of this encounter (statuses as of 01/24/2024) Immunizations Name Administration Dates Next Due Seasonal [...] encounter Miscellaneous Notes * Telephone Encounter - Cherrie Hawk MED ASSIST - 01/19/2024 3:39 PM EDT Myg sent * Telephone Encounter - Janice Gutierrez MD - 01/19/2024 1:35 PM EDT Nystatin was sent from visit Alternative clotrimazole lozenges sent * Telephone Encounter - Cherrie Hawk MED ASSIST - 01/19/2024 9:53 AM EDT Pharmacy pended if appropriate * Telephone Encounter - Shannan Powers OSA - 01/19/2024 9:30 AM EDT 1. When were you seen for this problem? 01/12/2024 2. What provider did you see for this problem? PCP 3. What medications are you presently taking? Na 4. What is it that is no better? Pt was seen 01/12/2024 and says meds for Thrush was called in ( I donot see this in chart ) but she says pharmacy advised it is out of stock and Pt needs something as she is no better Please advise documented in this encounter Plan of Treatment Upcoming Encounters Date Type Department Care Team (Late st Contact Info) Description 01/26/2024 11:20 AM EDT [facility] [place] [address] [place] [address] Dasha Phelan PA-C [address] [place] [address] [address] 02/08/2024 10:40 AM EDT Office Visit General Internal Medicine Daphne Alfredo [place] [address] [place] [address] Janice Gutierrez MD [address] [place] [address] 03/24/2024 3:00 PM EDT Office Visit Orthopaedics Spine [facility], [facility] [address] [facility] [place] [address] Jg Elder MD [address] [place] [address] 04/13/2024 10:45 AM EDT [facility] [address] [facility] [place] [address] 07/11/2024 11:20 AM EST Telemedicine Nutrition & Weight Management, [facility] [address] [place] [address] Merari Baires PA-C [address] [place] [address] Scheduled Procedures Name Priority Associated Diagnoses Date/Ti me COLONOSCOPY FLEXIBLE PROXIMA L DIAGNOSTIC Recall History of colonic polyps Health Maintenance Due Date Last Done Comments Pneumococcal Vaccine: Pediatrics (0 to 5 Years) and At-Risk Patients (6 to 64 Years) (1 of 2 - PCV) 10/19/1983 Albumin/Creatinine Ratio 10/19/1995 DTaP,Tdap,and Td Vaccines (1 - Tdap) 1996 Hepatitis B Vaccine (1 of 3 - 19+ 3-dose series) 1996 Cologuard 2022 Fecal Occult Blood Test 2022 Sigmoidoscopy 2022 COVID-19 Vaccine (1 - 2022-2 4 season) 2023 Influenza Vaccine (FLU shot) (#1) 2024 04/29/2010 GFR 03/18/2024 03/18/2023 Depression Monitoring 04/12/2024 04/12/2023 Mammogram 10/03/2024 10/04/2023, 04/05/2023 Diabetes Screening 03/18/2026 03/18/2023, 03/18/2023 Lipid Panel 03/18/2028 03/18/2023 Colonoscopy 12/26/2028 12/27/2023, 12/27/2023 Colorectal Cancer Screening 12/26/2028 Pap Smear Discontinued 02/26/2010 Cervical Cancer Screening Discontinued HPV (Gardasil) Vaccine Aged Out No lo nger eligible based on patient's age to complete this topic HPV/Co-Test Discontinued MENINGOCOCCAL (MENACTRA/MENVEO) Aged Out No longer eligible based on patient's age to complete this topic documented as of this encounter Medical Devices Not on filedocumented as of this encounter Visit Diagnoses Diagnosis Thrush- Primary Candidiasis of mouth documented in this encounter Care Teams Wet Silk Hanger Relationship Specialty Start Date End Date Janice Gutierrez MD [address] [facility] [place] [address] PCP - General Internal Medicine 09/06/23 documented as of this encounter
--- OUTSIDE RECORDS SUMMARY | 2024-02-18 20:04 | External Medical Summary | Summary of Care ---
Author Name Unknown Organization [facility] Address [address] [place] [address] Phone [phone] Care Team Providers Care Inspector Materials And Processes Name Role Phone Janice Gutierrez MD Primary Care Provider [phone] Reason for Visit * Reason Comments Hospital Follow-Up Migraines Encounter Details Date Type Department Care Team (Late st Contact Info) Description 01/26/2024 11:20 AM EDT Office Visit Neurology [facility] [address] [facility] [place] [address] Dasha Phelan PA-C [address] [facility] [place] [address] Migraine variant*; Tobacco use disorder Allergies No known active allergiesdocumented as of this encounter (statuses as of 01/26/2024) Medications Medication Sig Dispensed Refills Start Date [...] 2 days 30 Tablet 01/12/2024 Active Nystatin 267800 UNIT/ML Mouth/Throat SuspensionIndication s:Thrush Swish and swallow [...] your mouth 70 Braulio 01/19/2024 02/02/2024 Active Riboflavin 400 MG Oral Tablet Take 1 Tablet by mouth in the morning. 30 Tablet 2 01/26/2024 Active Magnesium Oxide 400 MG Oral Capsule Take 1 Capsule by mouth in the morning. 30 Capsule 2 01/26/2024 Active Topiramate 25 MG Oral Tablet (Topamax) 1 tab at bedtime x 7 days then 2 tabs at bedtime 60 Tablet 2 01/26/2024 Active Hospital, Clinic, or Other Facility Administered Medication Ordered Dose Route Frequency Start Date End Date Status keTORolac (Toradol) 60 MG/2ML IM inj 60 mgIndications:Migraine variant,Tobacco use disorder 60 mg IM ONCE 01/26/2024 01/26/2024 Ended documented as of this encounter (statuses as of 01/26/2024) Active Problems Problem Noted Date Diagnosed Date [...] pt by phone-please discuss above recommendations at nd-pt aware-reports daughter has not been diagnosed with any syndromes associated with fibrous dysplasia documented as of this encounter (statuses as of 01/26/2024) Resolved Problems Problem Noted Date Diagnosed Date [...] as of this encounter (statuses as of 01/26/2024) Immunizations Name Administration Dates Next Due Seasonal Influenza, Split, IIV3, With Preserve, Inj 04/29/2010 documented as of this encounter Social History Tobacco Use Types Packs/Day Years Used Date Smoking Tobacco: Every Day Cigarettes 1 30 Smokeless Tobacco: Never Tobacco Cessation:Ready to Q uit: Not Asked; Counseling Given: Not Answered Alcohol Use Standard Drinks/Week Comments No 0 [...] Sign Reading Time Taken Comments Blood Pressure 132/84 01/26/2024 11:09 AM EDT Pulse 72 01/26/2024 11:09 AM EDT Temperature 37.1 C (98.8 F) 01/26/2024 11:09 AM E DT Respiratory Rate 16 01/26/2024 11:09 AM EDT Oxygen Saturation - - Inhaled Oxygen Concentration - - Weight 111.4 kg (245 lb 8 oz) 01/26/2024 11:09 A M EDT Height 169 cm (5' 6.54") 01/26/2024 11:09 AM EDT Body Mass Index 38.99 01/26/2024 11:09 AM EDT documented in this encounter Progress Notes * Dasha Phelan PA-C - 01/26/2024 11:06 AM EDT HISTORY & PHYSICAL EXAMINATDISCHARGE: Discharge activities exceeded 30 minutes. - NEUROLOGY Name: Keyona Santos Date: 01/26/2024 Time: 11:06 AM Referring Provider: Miguel Angel Jimenez, * Chief Complaint: Chief Complaint Patient presents with Hospital Follow-Up Migraines This is a 48 year old right handed woman follow up patient referred to me today for migraine headaches HD. HPI & Source of HPI The patient and friend was the historian, and they are reliable. She was seen at [facility] ED 01/03/24 with elevated BP, headache and blurred vision, SOB and CP. She had an elevated D dimer and under went a spiral CT chest and venous US of BLE without DVT or PE. She hasa history of migraines with blurred vision but this episode was more severe than prior. She is continuing to have issues with migraine which has been for a lifetime. She has never been hyun daily medication. She was given imitrex by her PCP but she is using too much and now supplementing with tylenol. Her migraines are pounding she is very light sensitive she is getting them multiple times a week and often they wake her at night and often involve vomiting. She has been on steroids for bronchitis which has not helped her headaches She has a sleep study scheduled because when she was at [facility] they saw a apneic event. She is a ppd smoker, no EtOH use, minimal caffeine use, marijuanna for sleep. Denies current chest pain SOB abdominal pain, N, V. +back pain (scheduled to see orthopedics) I have reviewed the patient's medications and allergies, past medical, surgical, social and family history, updating these as appropriate. See Histories section of the electronic medical record for adisplay of this information. Patient Active Problem List Diagnosis Tobacco use disorder INFORMATION Migraine variant Hyperlipidemia with target LDL less than 100 Food insecurity Moderate episode of recurrent major depressive disorder (HCC) HTN, goal below 140/90 Family History Problem Relation Name Age of Onset Lung Disorder Mother Joann copd Heart Disorder Father shruti of [place] at 56 Asthma Daughter Stephen Eye Problems Daughter Stephen Other (Other [Other]) None all siblings with no health history Breast Cancer No significant family history Medications: Are you taking your medications? yes Current Outpatient Medications Medication Sig Dispense Refill Meclizine HCl 25 MG Oral Tablet (Antivert) TAKE 1 TABLET BY MOUTH THREE TIMES A DAY IF NEEDED FOR DIZZINESS 30 Tablet 1 Ventolin HFA 108 (90 Base) MCG/ACT Inhalation Aerosol Solution Inhale 2 Puffs by mouth every 4 hours as needed for Wheezing. 18 g 2 DULoxetine HCl 30 MG Oral Capsule Delayed Release Particles (Cymbalta) Take 1 Capsule by mouth in the morning and 1 Capsule before bedtime. Do not cut, crush or chew. 180 Capsule 5 Gabapentin 600 MG Oral Tablet (Neurontin) Take 1 Tablet by mouth in the morning and 1 Tablet at noon and 1 Tablet before bedtime. 90 Tablet 5 Nicotine 21 MG/24HR Transdermal Patch 24 Hour (Nicoderm CQ) One 21 mg patch daily for 6 wks; then one 14 mg patch daily for 2 wks; then one 7 mg patch daily for 2 wks. Remove old patch daily 42 Patch1 [START ON 01/28/2024] Nicotine 14 MG/24HR Transdermal Patch 24 Hour (Nicoderm CQ) One 14 mg patch daily for 2 wks; then one 7 mg patch daily for 2 wks. Remove old patch daily Do not start before January 28, 2024. 14 Patch 2 Nicotine 7 MG/24HR Transdermal Patch 24 Hour (Nicoderm CQ) One 7 mg patch daily for 2 weeks; Removeold patch daily; and then stop. 14 Patch 1 SUMAtriptan Succinate 25 MG Oral Tablet (Imitrex) Take 2 tablets at onset of migraine and one tablet every 2 hours as needed, not more than 5 tablets in 24 hours 6 Tablet 5 Carvedilol 3.125 MG Oral Tablet (Coreg) Take 1 Tablet by mouth 2 times a day with morning and evening meals. Cefdinir 300 MG Oral Capsule (Omnicef) Take 1 Capsule by mouth in the morning and 1 Capsule before bedtime. Doxycycline Hyclate 100 MG Oral Tablet Take 1 Tablet by mouth in the morning and 1 Tablet before bedtime. amLODIPine Besylate 5 MG Oral Tablet (Norvasc) Take 0.5 Tablets by mouth in the morning. Ondansetron HCl 4 MG Oral Tablet (Zofran) Take 1 Tablet by mouth every 6 hours as needed for Nausea. 20 Tablet 2 predniSONE 10 MG Oral Tablet (Deltasone) Take 5 tabs for 2 days, 4 tabs for 2 days, 3 tabs for 2 days, 2 tabs for 2 days 1 tab for 2 days 30 Tablet 0 Nystatin 146390 UNIT/ML Mouth/Throat Suspension Swish and swallow 5 mL in the morning and 5 mL at noon and 5 mL in the evening and 5 mL before bedtime. For thrush.. 240 mL 1 Omeprazole 20 MG Oral Capsule Delayed Release (PriLOSEC) Take 1 Capsule by mouth in the morning. 1 hour before the first meal of the day and at bedtime. 180 Capsule 2 Baclofen 10 MG Oral Tablet (Lioresal) Take 1 Tablet by mouth 2 times a day as needed for Pain, Moderate. 20 Tablet 0 Clotrimazole 10 MG Mouth/Throat Braulio (Mycelex Braulio) Take 1 Lozenge by mouth 5 times a day for 14 days. Allow tablet to slowly dissolve in your mouth 70 Braulio 0 Riboflavin 400 MG Oral Tablet Take 1 Tablet by mouth in the morning. 30 Tablet 2 Magnesium Oxide 400 MG Oral Capsule Take 1 Capsule by mouth in the morning. 30 Capsule 2 Topiramate 25 MG Oral Tablet (Topamax) 1 tab at bedtime x 7 days then 2 tabs at bedtime 60 Tablet 2 Current Facility-Administered Medications Medication Dose Route Frequency Provider Last Rate Last Admin keTORolac (Toradol) 60 MG/2ML IM inj 60 mg 60 mg Intramuscular Once Review of patient's allergies indicates: No Known Allergies Review of Systems: A total number of 10 systems were reviewed pertinent negative and positives not addressed in HPI are listed in the following review. Physical Exam: Constitutional: BP 132/84 (BP Site: Right Arm, BP Position: Sitting, BP Cuff Size: Regular) | Pulse72 | Temp 37.1 C (98.8 F) (Tympanic) | Resp 16 | Ht 1.69 m (5' 6.54") | Wt 111.4 kg (245 lb 8 oz) | BMI 38.99 kg/m | BSA 2.29 m , appearance over nourished and healthy Ears, Nose, Mouth and Throat: mucous membranes moist, no injection and skin normal, eyes normal Cardiovascular: normal S-1 and S-2 and regular rate and rhythm Respiratory: course breath sounds Musculoskeletal: no peripheral edema Skin: normal and intact Eyes: extraocular muscles intact (EOMI) and pupils equal, round and reactive to light (PERRL) NEUROLOGIC EXAMINATION: Mental status: Alert and interactive Oriented to full date and location Oriented to person Speech fluent with no evidence of aphasia Cranial Nerves Normal findings for Cranial Nerves II - XII Reflexes: Lower extremity reflexes decreased Bilateral Sensory: Intact to light and vibration Coordination: rapid alternating movements are intact: Bilateral, on [id number], and no abnormal or extraneousmovements Gait/Stance: Posture normal. Gait abnormal: orthopedic gait. Motor: Negative for pronator drift of out stretched arms with eyes closed. Strength: Normal - 5/5 all extremities LABORATORY: Recent labs reviewed Review of prior Studies: MRI brain - no acute findings Chest CTA - No pulmonary embolus. Bronchial wall thickening with mosaic attenuation compatible withinfectious/inflammatory airways disease. Doppler -Currently there is normal compressibility of the deep venous system from the common femoral vein through the proximal calf veins. No superficial venous thrombosis is identified. Impression: Keyona Santos is a 48 year old woman with a history of migraine headaches. Her neurologic examination today reveals no new focal deficit. The history and examination are suggestive ofdiagnosis/problem list. Testing and Referrals ordered: none ICD-10-CM 1. Migraine variant G43.809 2. Tobacco use disorder F17.200 Return in 6 months or sooner if needed Toradol 60 mg, injection today Start riboflavin 400 mg and mg ox 400 mg daily Start topamax 25 mg (1 tab) hs x 7 days then increase to (2 tab) at bedtime Limit imitrex use and stop tylenol which is likely causing over use headaches Keep well hydrated Follow up with ortho as scheduled Follow up with sleep study which is likely exacerbating headaches PCP for medical management Call with questions concerns Medical Decision Making (determined by lowest of 2 of 3 elements): The medical decision making element of the number and complexity of problems addressed included at least 1 or more chronic illnesses with exacerbation, progression, or side effects of treatment (level 4). The medical decision making element of risk of complications, morbidity, and mortality of patient management is moderate (level 4) due to prescription drug management (moderate risk). The medical decision making element of the amount and complexity of data reviewed and analyzed included an independent interpretation of a test (level 4 at least). When 2 of 3 reach level 4, then this element is considered extensive (level 5). I personally spent a total of 30 minutes. This time was for a new office or established visit and was on the same calendar day. and This time was the total spent on the evaluation, interpretation, and documentation. Education / Consultation - Topics covered as I spent 20 minutes, which is greater than 50% of this visit, counseling the patient on: Diagnostic Results Prognosis Importance of compliance with chosen treatment options Risk factor reductions Patient and family education Consulted with physician: Dustin Lugo MD was available for direct supervision. Copy of note sent toPCP and Referring Provider. Total time of visit: 30 minutes. Dasha Phelan PA-C Neurology [facility] [place] [address] [facility] [place] [address] 01/26/2024 11:06 AM documented in this encounter Nursing Notes * Kimberley Olvera LPN - 01/26/2024 11:40 AM EDT Patient verified identity by spelling of last name and date. Pt presents with migraine today. Agreeable to Toradol today. Education given on medication side effects. 60 mg Toradol given per order in right ventrogluteal area per pt request. She tolerated injection well. * Levi Galvan CMA - 01/26/2024 11:07 AM EDT Chief Complaint Patient presents with Hospital Follow-Up Migraines Keyona Santos is a 48 year old female who presents today for a hospital follow up for migraines. Her last migraine was 3 days ago. She was seen at [facility] on 01/03/2024 and was discharged on 01/05/2024. documented in this encounter Plan of Treatment Upcoming Encounters Date Type Department Care Team (Late st Contact Info) Description 02/08/2024 10:40 AM EDT Office Visit General Internal Medicine [facility] [address] [facility] [place] [address] Janice Gutierrez MD [address] [facility] [place] [address] 03/24/2024 3:00 PM EDT Office Visit Orthopaedics Spine Surgery, [address] [place] [address] Jg Elder MD [address] [place] [address] 04/13/2024 10:45 AM EDT Imaging Radiology [facility] 1st Floor, [place] [address] [place] [address] 07/11/2024 11:20 AM EST Telemedicine Nutrition & Weight Management, [address] [place] [address] Merari Baires PA-C [address] [place] [address] 08/03/2024 9:00 AM EST Office Visit Neurology [facility] [place] [address] [facility] [address] Dione Capellan PA-C [address] [place] [address] Scheduled Procedures Name Priority Associated Diagnoses Date/Ti [...] of this encounter Visit Diagnoses Diagnosis Migraine variant- Primary Variants of migraine, not elsewhere classified, without mention of intractable migraine without mention of status migrainosus Tobacco use disorder documented in this encounter Administered Medications Inactive Administered Medications - up to 3 most recent administrations Medication Order MAR Action Action Date Dose Rate Site keTORolac (Toradol) 60 MG/2ML IM inj 60 mg 60 mg, Intramuscular, ONCE, On Wed01/26/24 at 1200, For 1 dose Given 01/26/2024 11:30 AM EDT 60 mg Ventrogluteal Right documented in this encounter Care Teams Inspector Materials And Processes Relationship Specialty Start Date End Date Janice Gutierrez MD 200 [facility] [place] [facility] [place] [address] PCP - General Internal Medicine 09/06/23 documented as of this encounter
--- OUTSIDE RECORDS SUMMARY | 2024-02-18 20:04 | External Medical Summary | Summary of Care ---
Author Name Unknown Organization [facility] Address [address] [place] [address] Phone [phone] Care Team Providers Care Analytical Research Program Manager Name Role Phone Janice Johnson MD Primary Care Provider [phone] Reason for Visit * Reason Onset Date Comments Medication Refill 01/16/2024 Encounter Details Date Type Department Care Team (Late st Contact Info) Description 01/16/2024 Refill General Internal Medicine [facility] [address] [place] [address] Ricki Easley MD [address] [place] [address] Lumbar radiculopathy; Lumbar degenerative disc disease Allergies No known active allergiesdocumented as of this encounter (statuses as of 01/17/2024) Medications Medication Sig Dispensed Refills Start Date [...] 12/03/2023 Active Gabapentin 600 MG Oral Tablet (Neurontin)Indicati ons:Lumbar radiculopathy,Lumba r degenerative disc disease Take 1 Tablet by mouth in the morning and 1 Tablet at noon and 1 Tablet before bedtime. 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 Remove old patch daily Do not start before January 28, 2024. 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 01/05/2024 Active Cefdinir 300 MG Oral Capsule (Omnicef)Indication s:Bronchitis, complicated Take 1 Capsule by mouth in the morning and 1 Capsule before bedtime. 01/05/2024 Active Doxycycline Hyclate 100 MG Oral TabletIndications:B ronchitis, complicated Take 1 Tablet by mouth in the morning and 1 Tablet before bedtime. 01/05/2024 Active amLODIPine Besylate 5 MG Oral Tablet (Norvasc)Indication s:HTN, goal below 140/90 Take 0.5 Tablets by mouth in the morning. 01/12/2024 Active Ondansetron HCl 4 MG Oral Tablet (Zofran)Indications :Bronchitis, complicated Take 1 Tablet by mouth every 6 hours as needed for Nausea. 20 Tablet 2 01/12/2024 Active predniSONE 10 MG Oral Tablet (Deltasone)Indicati ons:Bronchitis, complicated Take 5 tabs for 2 days, 4 tabs for 2 days, 3 tabs for 2 days, 2 tabs for 2 days 1 tab for 2 days 30 Tablet 01/12/2024 Active Nystatin 237439 UNIT/ML Mouth/Throat SuspensionIndicatio ns:Thrush Swish and swallow 5 mL in the morning and 5 mL at noon and 5 mL in the evening and 5 mL before bedtime. For thrush.. 240 mL 1 01/12/2024 4 Active Omeprazole 20 MG Oral Capsule Delayed Release (PriLOSEC)Indicatio ns:Gastroesophageal reflux disease without esophagitis Take 1 Capsule by mouth in the morning. 1 hour before the first meal of the day and at bedtime. 180 Capsule 2 01/12/2024 Active Baclofen 10 MG Oral Tablet (Lioresal)Indicatio ns:Lumbar radiculopathy,Lumba r degenerative disc disease Take 1 Tablet by mouth 2 times a day as needed for Pain, Moderate. 20 Tablet 01/17/2024 Active Baclofen 10 MG Oral Tablet (Lioresal)Indicatio ns:Lumbar radiculopathy,Lumba r degenerative disc disease Take 1 Tablet by mouth 2 times a day as needed for Pain, Moderate. 20 Tablet 12/29/2023 4 Discontinue d(Refill) documented as of this encounter (statuses as of 01/17/2024) Active Problems Problem Noted Date Diagnosed Date HTN, goal below 140/90 01/12/2024 Moderate episode of recurrent major depressive d isorder 07/14/2023 Food insecurity 06/21/2023 Overview: Per [facility] Protocol Hyperlipidemia with target LDL less than 100 08/2022 Migraine variant 03/18/2023 Tobacco use disorder 02/26/2010 Overview: Continue to discuss cessation at each visit 03/26: 1/2 ppd INFORMATION 02/26/2010 Overview: Pt's daughter with fibrous dysplasia-message to [facility] if she needs to be seen by [...] as of this encounter (statuses as of 01/17/2024) Resolved Problems Problem Noted Date Diagnosed Date [...] as of this encounter (statuses as of 01/17/2024) Immunizations Name Administration Dates Next Due Seasonal [...] Miscellaneous Notes * Telephone Encounter - Janice Johnson MD - 01/17/2024 4:06 PM EDTSigned Prescriptions: Disp Refills Baclofen 10 MG Oral Tablet (Lioresal) 20 Tab*0 Sig: Take 1 Tablet by mouth 2 times a day as needed for Pain, Moderate. Authorizing Provider: JANICE JOHNSON * Telephone Encounter - Cherrie Hawk MED Generaytor - 01/17/2024 8:51 AM EDT Pending Prescriptions: Disp Refills Baclofen 10 MG Oral Tablet (Lioresal) 20 Tab*0 Sig: Take 1 Tablet by mouth 2 times a day as needed for Pain, Moderate. * Telephone Encounter - Cherrie Hawk MED ASSIST - 01/17/2024 8:50 AM EDT Pending Prescriptions: Disp Refills Baclofen 10 MG Oral Tablet (Lioresal) 20 Tab*0 Sig: Take 1 Tablet by mouth 2 times a day as needed for Pain, Moderate. Last Visit: 01/12/2024 (in office), 12/16/2023 (telemedicine) Next Visit: 02/08/2024 Last date the medication was ordered: 12/29/2023 Patient Active Problem List Diagnosis Tobacco use disorder INFORMATION Migraine variant Hyperlipidemia with target LDL less than 100 Food insecurity Moderate episode of recurrent major depressive disorder (HCC) HTN, goal below 140/90 Labs: Lab Results Component Value Date/Time CREATININE - [facility] 0.6 03/18/2023 10:56 AM Lab Results Component Value Date/Time POTASSIUM - [facility] 4.5 03/18/2023 10:56 AM Lab Results Component Value Date/Time TSH - [facility] 1.74 03/18/2023 10:56 AM TSH - [facility] 2.12 04/29/2010 04:01 PM Lab Results Component Value Date/Time LDL CHOLESTEROL (CALCULATED) - [facility] 161 (H) 03/18/2023 10:56 AM Lab Results Component Value Date/Time ALT - [facility] 40 (H) 03/18/2023 10:56 AM ALT - [facility] 4 (L) 04/29/2010 04:01 PM Hemoglobin AIC Results: Lab Results Component Value Date/Time HEMOGLOBIN A1C - [facility] 5.8 (H) 03/18/2023 10:56 AM * Telephone Encounter - Thai Bower - 01/16/2024 3:22 PM EDTPending Prescriptions: Disp Refills Baclofen 10 MG Oral Tablet (Lioresal) 20 Tab*0 Sig: Take 1 Tablet by mouth 2 times a day as needed for Pain, Moderate. documented in this encounter Plan of Treatment Upcoming Encounters Date Type Department Care Team (Late st Contact Info) Description 01/21/2024 10:20 AM EDT Office Visit [facility]tr [facility] [place] [address] [phone] Delisa Catalan DO [address] [place] [address] 01/26/2024 11:20 AM EDT Office Visit Neurology [facility] [place] [address] [place] [address] Dasha Phelan PA-C 200 [place] [address] 02/08/2024 10:40 AM EDT Office Visit General Internal Medicine [facility] [address] [facility] [place] [address] Janice Johnson MD [address] [place] [address] 03/24/2024 3:00 PM EDT Office Visit Orthopaedics Spine Surgery, [facility] [address] [place] [address] Jg Eledr MD [address] [place] [address] 04/13/2024 10:45 AM EDT Imaging [facility] 132 [facility] [place] [address] 07/11/2024 11:20 AM EST Telemedicine Nutrition & Weight Management, [facility] [address] [place] [address] Merari Baires PA-C [address] [place] [address] Scheduled Procedures Name Priority Associated Diagnoses Date/Ti [...] Degeneration of lumbar or lumbosacral intervertebral disc documented in this encounter Care Teams Analytical Research Program Manager Relationship Specialty Start Date End Date Janice Johnson MD 200 [place] [address] PCP - General Internal Medicine 09/06/23 documented as of this encounter
--- OUTSIDE RECORDS SUMMARY | 2024-02-18 20:04 | External Medical Summary | Summary of Care ---
Author Name Unknown Organization [facility] Address [address] [place] [address] Phone [phone] Care Team Providers Care Real Estate Analyst Name Role Phone Janice Gutierrez MD Primary Care Provider [phone] Reason for Visit * Reason Comments Outpatient Testing Encounter Details Date Type Department Care Team (Late st Contact Info) Description 02/08/2024 11:50 AM EDT Laboratory Laboratory [facility] [address] [place] [address] [facility] [address] [place] [address] Impaired fasting glucose; Hyperlipidemia with target LDL less than 100; HTN, goal below 140/90 Allergies No known active allergiesdocumented as of this encounter (statuses as of 02/08/2024) Medications Medication Sig Dispensed Refills Start Date [...] MG/24HR Transdermal Patch 24 Hour (Nicoderm CQ)Indications:[employer] 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 Remove old patch daily Do not start before January 28, 2024. 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 14 Patch 1 12/20/2023 Active Cefdinir 300 MG Oral Capsule (Omnicef)Indication [...] Information Patient not taking.Reported on 02/08/2024 Nystatin [id number] UNIT/ML Mouth/Throat SuspensionIndicatio ns:Thrush Swish and swallow 5 mL in the morning and 5 mL at noon and 5 mL in the evening and 5 mL before bedtime. For thrush.. 240 mL 1 01/12/2024 Active Additional Information Patient not taking.Reported [...] at bedtime 60 Tablet 2 01/26/2024 Active Carvedilol 3.125 MG Oral Tablet (Coreg)Indications: HTN, goal below 140/90 Take 1 Tablet by mouth 2 times a day with morning and evening meals. 90 Tablet 02/08/2024 Active SUMAtriptan Succinate 50 MG Oral Tablet (Imitrex)Indication s:Migraine variant, intractable Take 2 tablets at onset of migraine and one tablet every 2 hours as needed, not more than 5 tablets in 24 hours 6 Tablet 02/08/2024 Active amLODIPine Besylate 2.5 MG Oral Tablet (Norvasc)Indication s:HTN, goal below 140/90 Take 1 Tablet by mouth in the morning. 90 Tablet 02/08/2024 Active Sennosides-Docusate Sodium 8.6-50 MG Oral Tablet (Senna Plus) Take 1 Tablet by mouth in the morning. 180 Tablet 2 02/08/2024 Active buPROPion HCl ER (XL) 150 MG Oral Tablet Extended Release 24 Hour (Wellbutrin XL) Take 1 Tablet by mouth in the morning. 30 Tablet 02/08/2024 Active Rosuvastatin Calcium 10 MG Oral Tablet (Crestor)Indication s:Hyperlipidemia with target LDL less than 100 Take 0.5 Tablets by mouth in the morning. In 2 weeks increase to 1 tab. 30 Tablet 02/08/2024 Active Colchicine 0.6 MG Oral TabletIndications:L ocalized swelling of right foot Take 2 Tablets by mouth 3 times a day as needed for Other (gout). At the onset of gout attack and 1 tablet an hour later. No more than 8 tablets in one day. 10 Tablet 1 02/08/2024 Active Hospital, Clinic, or Other Facility Administered Medication Ordered Dose Route Frequency Start Date End Date Status Albuterol Sulfate (Proventil) (2.5 MG/3ML) 0.083% inhalation solution 2.5 mgIndications:Tobacco use disorder,Chronic cough 2.5 mg NEBULIZER PRN 02/08/2024 02/07/2025 Active albuterol (VENTOLIN HFA/PROVENTIL HFA) inhalerIndications:[employer]oba international account executive use disorder,Chronic cough 3 Puff IN PRN 02/08/2024 02/07/2025 Ac tive documented as of this encounter (statuses as of 02/08/2024) Active Problems Problem Noted Date Diagnosed Date HTN, goal below 140/90 01/12/2024 Moderate episode of recurrent major depressive d isorder 07/14/2023 Food insecurity 06/21/2023 Overview: Per [facility] Protocol Hyperlipidemia with target LDL less than 100 08/2022 Migraine variant 03/18/2023 Tobacco use disorder 02/26/2010 Overview: Continue to discuss cessation at each visit 03/26: 1/2 ppd INFORMATION 02/26/2010 Overview: Pt's daughter with fibrous dysplasia-message to [facility] if she needs to be seen [...] pt by phone-please discuss above recommendations at md-pt aware-reports daughter has not been diagnosed with any syndromes associated with fibrous dysplasia documented as of this encounter (statuses as of 02/08/2024) Resolved Problems Problem Noted Date Diagnosed Date [...] as of this encounter (statuses as of 02/08/2024) Immunizations Name Administration Dates Next Due Seasonal [...] PM EDT Office Visit Orthopaedics Spine Surgery, [address] [place] [address] Jg Elder MD [address] [place] [address] 04/13/2024 10:45 AM EDT Imaging Radiology [facility] 1st Floor, [place] [address] [place] [address] 07/11/2024 11:20 AM EST Telemedicine Nutrition & Weight Management, [facility] [address] [place] [address] Merari Baires PA-C [address] [place] [address] 08/03/2024 9:00 AM EST Office Visit Neurology [facility] [place] 200 [facility] [address] Dione Capellan PA-C [address] [place] [address] Pending Results Name Type Priority Associated Diagnoses Date /Time ALBUMIN / CREATININE RATIO, URINE Lab Routine HTN, goal below 140/90 02/08/2024 11:55 AM EDT Scheduled Procedures Name Priority Associated Diagnoses Date/Ti me COLONOSCOPY FLEXIBLE PROXIMA L DIAGNOSTIC Recall History of colonic polyps Health Maintenance Due Date Last Done Comments Pneumococcal Vaccine: Pediatrics (0 to 5 Years) and At-Risk Patients (6 to 64 Years) (1 of 2 - PCV) 10/19/1983 HIV Screening 1992 Albumin/Creatinine Ratio 10/19/1995 Hepatitis B Vaccine (1 of 3 - 19+ 3-dose series) 1996 Cologuard 2022 Fecal Occult Blood Test 2022 Sigmoidoscopy 2022 COVID-19 Vaccine ( - 2022- season) 2023 *BASELINE EKG FOR HTN 01/29/2024 Influenza Vaccine (FLU shot) (#1) 2024 04/29/2010 Depression Monitoring 04/12/2024 04/12/2023 Mammogram 10/03/2024 10/04/2023, 04/05/2023 GFR 01/26/2025 01/27/2024, 03/18/2023 Diabetes Screening 01/26/2027 01/27/2024, 0 01/27/2024, 03/18/2023, Additional history exists Colonoscopy 12/26/2028 12/27/2023, 12/27/2023 Colorectal Cancer Screening 12/26/2028 Lipid Panel 01/26/2029 01/27/2024, 03/18/2023 DTaP,Tdap,and Td Vaccines (2 - Td or Tdap) 05/26/2032 05/26/2022 Pap Smear Discontinued 02/26/2010 Hepatitis C Screening Completed 03/18/2023 , 03/18/2023, 03/18/2023 Cervical Cancer Screening Discontinued HPV (Gardasil) Vaccine Aged Out No lo nger eligible based on patient's age to complete this topic HPV/Co-Test Discontinued MENINGOCOCCAL (MENACTRA/MENVEO) Aged Out No longer eligible based on patient's age to complete this topic documented as of this encounter Medical Devices Not on filedocumented as of this encounter Visit Diagnoses Diagnosis Impaired fasting glucose Hyperlipidemia with target LDL less than 100 Other and unspecified hyperlipidemia HTN, goal below 140/90 Unspecified essential hypertension documented in this encounter Care Teams Real Estate Analyst Relationship Specialty Start Date End Date Janice Gutierrez MD 200 [place] [address] PCP - General Internal Medicine 09/06/23 documented as of this encounter
--- OUTSIDE RECORDS SUMMARY | 2024-02-18 20:04 | External Medical Summary | Summary of Care ---
Author Name Unknown Organization [facility] Address [address] [place] [address] Phone [phone] Care Team Providers Care Lighting Adviser Name Role Phone Janice Gutierrez MD Primary Care Provider [phone] Reason for Visit * Reason Onset Date Comments Medication Refill 01/16/2024 Encounter Details Date Type Department Care Team (Late st Contact Info) Description 01/16/2024 Refill General Internal Medicine [facility] [address] [place] [address] Janice Gutierrez MD [address] [place] [address] Migraine variant Allergies No known active allergiesdocumented as of this encounter (statuses as of 01/18/2024) Medications Medication Sig Dispensed Refills Start Date [...] 2 days 30 Tablet 01/12/2024 Active Nystatin [id number] UNIT/ML Mouth/Throat SuspensionIndication s:Thrush Swish and swallow [...] for Pain, Moderate. 20 Tablet 01/17/2024 Active documented as of this encounter (statuses as of 01/18/2024) Active Problems Problem Noted Date Diagnosed Date HTN, goal below 140/90 01/12/2024 Moderate episode of recurrent major depressive d isorder 07/14/2023 Food insecurity 06/21/2023 Overview: Per [facility] Protocol Hyperlipidemia with target LDL less than 100 08/2022 Migraine variant 03/18/2023 Tobacco use disorder 02/26/2010 Overview: Continue to discuss cessation at each visit 03/26: 1/2 ppd INFORMATION 02/26/2010 Overview: Pt's daughter with fibrous dysplasia-message to [facility] if she needs to be seen by [...] as of this encounter (statuses as of 01/18/2024) Resolved Problems Problem Noted Date Diagnosed Date [...] as of this encounter (statuses as of 01/18/2024) Immunizations Name Administration Dates Next Due Seasonal [...] Miscellaneous Notes * Telephone Encounter - Soni Ndiaye [facility] - 01/18/2024 6:00 AM EDT Refused Prescriptions: Disp Refills SUMAtriptan Succinate 25 MG Oral Tablet (I*6 Tabl*5 Sig: Take 2tablets at onset of migraine and one tablet every 2 hours as needed, not more than 5 tablets in 24 hoursRefused By: SONI NDIAYE for Refusal: Too soon documented in this encounter Plan of Treatment Upcoming Encounters Date Type Department Care Team (Late st Contact Info) Description 01/21/2024 10:20 AM EDT Office Visit Sleep Disorders Ctr [facility] [address] [place] [phone] Delisa Catalan DO [address] [place] [address] 01/26/2024 11:20 AM EDT Office Visit Neurology [facility] 200 [facility] [place] [address] Dasha Phelan PA-C 200 [facility] [place] [address] 02/08/2024 10:40 AM EDT Office Visit General Internal Medicine [facility] [address] [facility] [place] [address] Janice Gutierrez MD 200 [facility] [place] [address] 03/24/2024 3:00 PM EDT Office Visit Orthopaedics Spine Surgery, [facility] [address] [place] [address] Jg Elder MD [address] [place] [address] 04/13/2024 10:45 AM EDT Imaging Radiology [facility] 1st Floor, [place] [address] [place] [address] 07/11/2024 11:20 AM EST Telemedicine Nutrition & Weight Management, [facility] [address] [place] [address] Merari Baires PA-C [address] [place] [address] Scheduled Procedures Name Priority Associated Diagnoses Date/Ti [...] migrainosus documented in this encounter Care Teams Lighting Adviser Relationship Specialty Start Date End Date Janice Gutierrez MD 200 [facility] [place] [address] PCP - General Internal Medicine 09/06/23 documented as of this encounter
--- OUTSIDE RECORDS SUMMARY | 2024-02-18 20:04 | External Medical Summary ---
Author Name Unknown Address Unknown Organization [facility] [place] [address] Laboratory Report Ordering Provider Test Date Status MARIE ATKINS 01/27/2024 08:33:20 Final Observation Date Value Abnormality Reference (Units ) Status SYNC LEUKOCYTES IN BLOOD BY AUTOMATED COUNT 01/27/2024 08:33:20 14.62 Above high normal 4.00-10.80 (K/uL) Final Segs 01/27/2024 08:33:20 55.4 40.0-75.0 (%) Final Lymphs % 01/27/2024 08:33:20 36.3 18.0-42.0 (%) Final Monos 01/27/2024 08:33:20 5.5 1.0-11.0 (%) Final Eosinophils 01/27/2024 08:33:20 2.6 0.0-6.0 (%) Final Basos 01/27/2024 08:33:20 0.2 0.0-2.0 (%) Final Absolute Segs 01/27/2024 08:33:20 8.10 Above high normal 1.80-7.70 (K/uL) Final Lymphs, absolute 01/27/2024 08:33:20 5.31 Above high normal 1.00-4.80 (K/ul) Final Monos, Abs 01/27/2024 08:33:20 0.80 0.00-1.10 (K/uL) Final Eos, Abs 01/27/2024 08:33:20 0.38 0.00-0.70 (K/uL) Final Basos, Abs 01/27/2024 08:33:20 0.03 0.00-0.20 (K/uL) Final Performing Location [facility] [place] [address]
--- OUTSIDE RECORDS SUMMARY | 2024-02-18 20:04 | External Medical Summary ---
Author Name Unknown Address Unknown Organization [facility] [id number] [place] [address] Laboratory Report Ordering Provider Test Date Status ELIZABETH NEAL 01/27/2024 08:33:20 Final Observation Date Value Abnormality Reference (Units ) Status BUN 01/27/2024 08:33:20 7 6-20 (mg/dL) Final Creatinine 01/27/2024 08:33:20 0.6 0.5-1.0 (mg/dL) Final Glomerular filtration rate/1.73 sq M.predicted [Volume Rate/Area] in Serum, Plasma or Blood by Creatinine-based formula (CKD-EPI) 01/27/2024 08:33:20 >90 >=60 (mL/min) Final eGFR is calculated based on the CKD-EPI 2020 equation. Sodium 01/27/2024 08:33:20 137 135-146 (m mol/L) Final Potassium 01/27/2024 08:33:20 4.9 3.5-5.1 (m mol/L) Final Cl 01/27/2024 08:33:20 104 98-107 (mm ol/L) Final CO2 01/27/2024 08:33:20 21 Below low normal 22- 32 (mmol/L) Final Anion gap 01/27/2024 08:33:20 12 7-15 (mmol /L) Final Glucose 01/27/2024 08:33:20 111 70-120 (mg /dL) Final Albumin 01/27/2024 08:33:20 4.1 3.8-5.0 (g /dL) Final AST (Aspartate aminotransferase) 01/27/2024 08:33:20 27 10-35 (U/L) Fin al Result may be falsely elevat ed due to hemolysis. Alk Phos 01/27/2024 08:33:20 91 35-130 (U/ L) Final Bilirubin, Total 01/27/2024 08:33:20 0.4 <=1 .2 (mg/dL) Final Calcium 01/27/2024 08:33:20 9.3 8.4-10.2 ( mg/dL) Final Protein 01/27/2024 08:33:20 6.5 6.0-8.3 (g /dL) Final ALT (Alanine aminotransferase) 01/27/2024 08:33:20 54 Above high normal 10-35 (U/L) Final Performing Location [facility] [address] [place] [address]
--- OUTSIDE RECORDS SUMMARY | 2024-02-18 20:04 | External Medical Summary | Summary of Care ---
Author Name Unknown Organization [facility] Address [address] [place] [address] Phone [phone] Care Team Providers Care Plant Maintenance Supervisor Name Role Phone Janice Gutierrez MD Primary Care Provider Reason for Visit * Reason Onset Date Comments Advice 01/19/2024 Thrush Encounter Details Date Type Department Care Team (Late st Contact Info) Description 01/19/2024 Telephone General Internal Medicine [facility] [address] [place] [address] Janice Gutierrez MD [address] [place] [address] Advice (Thrush ) Allergies No known active allergiesdocumented as of this encounter (statuses as of 01/19/2024) Medications Medication Sig Dispensed Refills Start Date [...] 2 days 30 Tablet 01/12/2024 Active Nystatin 538080 UNIT/ML Mouth/Throat SuspensionIndication s:Thrush Swish and swallow [...] as of this encounter (statuses as of 01/19/2024) Active Problems Problem Noted Date Diagnosed Date HTN, goal below 140/90 01/12/2024 Moderate episode of recurrent major depressive d isorder 07/14/2023 Food insecurity 06/21/2023 Overview: Per [facility] Protocol Hyperlipidemia with target LDL less than 100 08/2022 Migraine variant 03/18/2023 Tobacco use disorder 02/26/2010 Overview: Continue to discuss cessation at each visit 03/26: 1/2 ppd INFORMATION 02/26/2010 Overview: Pt's daughter with fibrous dysplasia-message to [facility] if she needs to be seen [...] as of this encounter (statuses as of 01/19/2024) Resolved Problems Problem Noted Date Diagnosed Date [...] as of this encounter (statuses as of 01/19/2024) Immunizations Name Administration Dates Next Due Seasonal [...] AM EDT Office Visit [facility] [address] [place] [place] [id number] Delisa Catalan, [address] [place] [address] 01/26/2024 11:20 AM EDT Office Visit [facility] [address] [place] [address] Dasha Phelan PA-C [address] [place] [address] [address] 02/08/2024 10:40 AM EDT Office Visit General Internal Medicine [facility] [address] [facility] [place] [address] Janice Gutierrez MD [address] [facility] [place] [address] 03/24/2024 3:00 PM EDT Office Visit Orthopaedics Spine Surgery, [facility] 132 [facility] [place] [address] Jg Elder MD [address] [place] [address] 04/13/2024 10:45 AM EDT Imaging Radiology [facility] 1st [facility] [address] [facility] [place] [address] 07/11/2024 11:20 AM EST Telemedicine Nutrition & Weight Management, [facility] 132 [facility] [place] [address] Merari Baires PA-C 132 [facility] [place] [address] Scheduled Procedures Name Priority Associated Diagnoses Date/Ti [...] mouth documented in this encounter Care Teams Plant Maintenance Supervisor Relationship Specialty Start Date End Date Janice Gutierrez MD [address] [facility] [place] [address] PCP - General Internal Medicine 09/06/23 documented as of this encounter
--- OUTSIDE RECORDS SUMMARY | 2024-02-18 20:04 | External Medical Summary ---
Author Name Unknown Address Unknown Organization [id number]:[facility] [place] - [address] [facility] [address] Laboratory Report Ordering Provider Test Date Status AR NEALALI 01/27/2024 08:33:20 Final Observation Date Value Abnormality Reference (Units ) Status Triglyceride 01/27/2024 08:33:20 185 Above high normal <=174 (mg/dL) Final Triglyceride Reference Range s (mg/dL):
<150 Acceptable
150-174 Borderline high
175-499 High
>=500 Very high Cholesterol 01/27/2024 08:33:20 218 Above high normal <200 (mg/dL) Final Total Cholesterol Reference Ranges (mg/dL):
<200 Desirable
200-239 Borderline high
>=240 High HDL 01/27/2024 08:33:20 35 Below low normal >49 (mg/dL) Final HDL Cholesterol Reference Ra nges (mg/dL):
>=60 High (Desirable)
<50 Low (Undesirable) For Females
<40 Low (Undesirable) For Males NON-HDL CHOLESTEROL 01/27/2024 08:33:20 183 Above high normal <=159 (mg/dL) Final Non-HDL Cholesterol Referenc e Range (mg/dL):
<100 Target level for high risk ASCVD patient
<130 Optimal for general population
130-159 Near optimal for general population
160-189 Borderline High
190-219 High
>=220 Very High LDL, (calculated) 01/27/2024 08:33:20 146 Above high n ormal <=129 (mg/dL) Final LDL Cholesterol Reference Ra nges (mg/dL):
<70 Target level for high risk ASCVD patient
<100 Optimal for general population
100-129 Near optimal for general population
130-159 Borderline high
160-189 High
>=190 Very high Performing Location [facility] [place] - [address] [facility] [address]
--- OUTSIDE RECORDS SUMMARY | 2024-02-18 20:04 | External Medical Summary ---
Author Name Unknown Address Unknown Organization K09:[facility] [place] [address] Laboratory Report Ordering Provider Test Date Status MARIE ATKINS 01/27/2024 08:33:20 Final Observation Date Value Abnormality Reference (Units ) Status WBC, Total 01/27/2024 08:33:20 14.62 Above high normal 4 .00-10.80 (K/uL) Final RBC 01/27/2024 08:33:20 4.87 3.85-5.15 (M/uL) Final Hemoglobin 01/27/2024 08:33:20 14.7 12.0-15.3 (g/dL) Final HCT 01/27/2024 08:33:20 44.6 36.0-45.2 (%) Final MCV 01/27/2024 08:33:20 91.6 81.5-97.5 (fL) Final MCH 01/27/2024 08:33:20 30.2 27.0-34.0 (pg) Final MCHC 01/27/2024 08:33:20 33.0 32.0-36.0 (g/dL) Final RDW 01/27/2024 08:33:20 15.1 11.5-15.5 (%) Final Platelets 01/27/2024 08:33:20 250 140-400 (K /uL) Final MPV 01/27/2024 08:33:20 10.3 6.6-11.1 ( fL) Final Performing Location [facility] [place] [address]
--- OUTSIDE RECORDS SUMMARY | 2024-02-18 20:04 | External Medical Summary | Summary of Care ---
Author Name Unknown Organization [facility] Address [address] [facility] [address] Phone [phone] Care Team Providers Care Trimming Operator Name Role Phone Janice Gutierrez MD Primary Care Provider [phone] Encounter Details Date Type Department Care Team (Late st Contact Info) Description 10/11/2023 Telephone OR [facility], Operating Room [facility] [email or web address] [facility] [place] [place] [phone] Sasha Quinn MD [email or web address] [facility] [address] Allergies No known active allergiesdocumented as of this encounter (statuses as of 01/10/2024) Medications Medication Sig Dispensed Refills Start Date End Date Status Meclizine HCl 25 MG Oral Tablet ChewableIndication s:Vertigo Take 1 Tablet by mouth 3 times a day as needed for Dizziness. 30 Tablet 1 3 Active Meclizine HCl 25 MG Oral Tablet (Antivert) TAKE 1 TABLET BY MOUTH THREE TIMES A DAY IF NEEDED FOR DIZZINESS 30 Tablet 1 3 Active Ondansetron HCl 4 MG Oral Tablet (Zofran) Take 1 Tablet by mouth every 6 hours as needed for Nausea. 3 Active Ventolin HFA 108 (90 Base) MCG/ACT Inhalation Aerosol SolutionIndication s:Acute bronchitis, antibiotics not indicated Inhale 2 Puffs by mouth every 4 hours as needed for Wheezing. 18 g 2 4 Active Omeprazole 20 MG Oral Capsule Delayed Release (PriLOSEC) Take 1 Capsule by mouth in the morning. 1 hour before the first meal of the day. 90 Capsule 2 4 Active tiZANidine HCl 2 MG Oral Tablet (Zanaflex)Indicati ons:Chronic radicular lumbar pain,DDD (degenerative disc disease), lumbar,Lumbosacral radiculopathy at L4 Take 1-2 tablets by mouth at night as needed for pain or muscle spasm and tightness 60 Tablet 1 4 10/18/19 24 Discontinued DULoxetine HCl 30 MG Oral Capsule Delayed Release Particles (Cymbalta)Indicati ons:Moderate episode of recurrent major depressive disorder (HCC),Lumbar radiculopathy Take 1 Capsule by mouth in the morning and 1 Capsule before bedtime. Do not cut, crush or chew. 60 Capsule 5 4 12/02/19 24 Discontinued(Ref ill) Naproxen 500 MG Oral Tablet (Naprosyn) TAKE 1 TABLET BY MOUTH TWICE A DAY IF NEEDED FOR PAIN WITH FOOD 60 Tablet 1 4 12/01/19 24 Discontinued Gabapentin 100 MG Oral Capsule (Neurontin)Indicat ions:Migraine variant,Lumbar radiculopathy TAKE 1 CAPSULE BY MOUTH STARTING FROM NIGHT IN 3 DAYS INCREASE TO 2 TIMES A DAY AND THEN IN 3 DAYS UP TO 3 TIMES A DAY 90 Capsule 3 4 10/19/19 24 Discontinued(Med ication/Dose Changed) SUMAtriptan Succinate 25 MG Oral Tablet (Imitrex)Indicatio ns:Migraine variant Take 2 tablets at onset of migraine and one tablet every 2 hours as needed, not more than 5 tablets in 24 hours 6 Tablet 5 4 12/28/19 24 Discontinued(Ref ill) documented as of this encounter (statuses as of 01/10/2024) Active Problems Problem Noted Date Diagnosed Date Moderate episode of recurrent major depressive d isorder 07/14/2023 Food insecurity 06/21/2023 Overview: Per [facility] Protocol Hyperlipidemia with target LDL less [...] pt by phone-please discuss above recommendations at pa-pt aware-reports daughter 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 It is currently 1053 and patient's arrival time was 1030. Machine Operator Cane Cutter instructed patient to call back to notify staff if she was still coming in today, and if not to call back to rescheduleprocedure for a different day. documented in this encounter Plan of Treatment Upcoming Encounters Date Type Department Care Team (Late st Contact Info) Description 01/12/2024 10:00 AM EDT Office Visit General Internal Medicine [facility] [address] [facility] [place] [address] Janice Gutierrez MD 200 [facility] [place] [address] 01/26/2024 11:20 AM EDT Office Visit Neurology [facility] [address] [facility] [place] [address] Dasha Phelan PA-C 200 [facility] [place] [address] 03/24/2024 3:00 PM EDT Office Visit Orthopaedics Spine Surgery, [facility] [address] [place] [address] Jg Elder MD [address] [place] [address] 07/11/2024 11:20 AM EST Telemedicine Nutrition & Weight Management, [facility] [address] [place] [address] Merari Baires PA-C [address] [place] [address] Scheduled Procedures Name Priority Associated Diagnoses Date/Ti [...] filedocumented as of this encounter Care Teams Trimming Operator Relationship Specialty Start Date End Date Janice Gutierrez MD [address] [place] [address] PCP - General Internal Medicine 09/06/23 documented as of this encounter
--- OUTSIDE RECORDS SUMMARY | 2024-02-18 20:04 | External Medical Summary | Summary of Care ---
Author Name Unknown Organization [facility] Address [address] [place] [address] Phone [phone] Care Team Providers Care Sales Engineering Manager Name Role Phone Janice Gutierrez MD Primary Care Provider [phone] Reason for Visit * Reason Comments eRx-Medication Refill Encounter Details Date Type Department Care Team (Late st Contact Info) Description 02/01/2024 Refill General Internal Medicine [facility] 200 [place] [address] Janice Gutierrez MD 200 [place] [address] Allergies No known active allergiesdocumented as of this encounter (statuses as of 02/01/2024) Medications Medication Sig Dispensed Refills Start Date [...] 2 days 30 Tablet 01/12/2024 Active Nystatin 606959 UNIT/ML Mouth/Throat SuspensionIndication s:Thrush Swish and swallow [...] at bedtime 60 Tablet 2 01/26/2024 Active documented as of this encounter (statuses as of 02/01/2024) Active Problems Problem Noted Date Diagnosed Date HTN, goal below 140/90 01/12/2024 Moderate episode of recurrent major depressive d isorder 07/14/2023 Food insecurity 06/21/2023 Overview: Per [facility] Protocol Hyperlipidemia with target LDL less than 100 08/2022 Migraine variant 03/18/2023 Tobacco use disorder 02/26/2010 Overview: Continue to discuss cessation at each visit 03/26: 1/2 ppd INFORMATION 02/26/2010 Overview: Pt's daughter with fibrous dysplasia-message to [facility] if she needs to be seen [...] as of this encounter (statuses as of 02/01/2024) Resolved Problems Problem Noted Date Diagnosed Date [...] as of this encounter (statuses as of 02/01/2024) Immunizations Name Administration Dates Next Due Seasonal [...] encounter Miscellaneous Notes * Telephone Encounter - Mohan Vaz, [facility] - 02/01/2024 11:24 AM EDT Refused Prescriptions: Disp Refills Naproxen 500 MG Oral Tablet (Naprosyn) 60 Tab*1 Sig: TAKE 1 TABLET BY MOUTH TWICE A DAY IF NEEDED FOR PAIN WITH FOODRefused By: MOHAN VAZ for Refusal: Course of treatment complete documented in this encounter Plan of Treatment Upcoming Encounters Date Type Department Care Team (Late st Contact Info) Description 02/08/2024 10:40 AM EDT Office Visit General Internal Medicine [facility] [place] [address] Janice Gutierrez MD 200 [facility] [place] [address] 03/24/2024 3:00 PM EDT Office Visit Orthopaedics Spine Surgery, [facility] [address] [place] [address] Jg Elder MD [address] [place] [address] 04/13/2024 10:45 AM EDT Imaging Radiology [facility]st [facility] [address] [address] 07/11/2024 11:20 AM EST Telemedicine Nutrition & Weight Management, [facility] [address] [place] [address] Merari Baires PA-C [address] [place] [address] 08/03/2024 9:00 AM EST Office Visit Neurology [facility] [place] [address] Dione Capellan PA-C [address] [place] [address] Scheduled Procedures Name Priority Associated Diagnoses Date/Ti [...] 2022 Sigmoidoscopy 2022 COVID-19 Vaccine ( - season) 2023 *BASELINE EKG FOR HTN 01/29/2024 Influenza Vaccine (FLU shot) (#1) 2024 04/29/2010 Depression Monitoring 04/12/2024 04/12/2023 Mammogram 10/03/2024 10/04/2023, 04/05/2023 GFR 01/26/2025 01/27/2024, 03/18/2023 Diabetes Screening 01/26/2027 01/27/2024, 0 01/27/2024, 03/18/2023, Additional history exists Colonoscopy 12/26/2028 12/27/2023, 12/27/2023 Colorectal Cancer Screening 12/26/2028 Lipid Panel 01/26/2029 01/27/2024, 03/18/2023 Pap Smear Discontinued 02/26/2010 Cervical Cancer Screening Discontinued HPV (Gardasil) Vaccine Aged Out No lo nger eligible based on patient's age to complete this topic HPV/Co-Test Discontinued MENINGOCOCCAL (MENACTRA/MENVEO) Aged Out No longer eligible based on patient's age to complete this topic documented as of this encounter Medical Devices Not on filedocumented as of this encounter Care Teams Sales Engineering Manager Relationship Specialty Start Date End Date Janice Gutierrez MD 200 [facility] [place] [address] PCP - General Internal Medicine 09/06/23 documented as of this encounter
--- OUTSIDE RECORDS SUMMARY | 2024-02-18 20:04 | External Medical Summary | Summary of Care ---
Author Name Unknown Organization [facility] Address [address] [place] [address] Phone [phone] Care Team Providers Care Interventional Radiology Technologist Name Role Phone Janice Gutierrez MD Primary Care Provider [phone] Reason for Referral * Precert (Within 10 days (routine)) - Pending Review Specialty Diagnoses / Procedures Referred By Jaime terry Referred To Contact Radiology Diagnoses Abnormal CT of the abdomen Procedures CT ABD/PELVIS W IV CONTRAST - WO ORAL CONTRAST Janice Gutierrez MD [address] [place] [address] Referral ID Status Reason Start Date Expiration Date V isits Requested Visits Authorized [id number] Pending Review 04/13/2024 999 999 * Evaluate & Treat - Unlimited Visits (Within 30 days (routine)) - Pending Review Specialty Diagnoses / Procedures Referred By Jaime terry Referred To Contact Sleep Medicine / Sleep Disorders Diagnoses HTN, goal below 140/90 Snoring Apneic Janice Pollard MD [address] [place] [address] Referral ID Status Reason Start Date Expiration Date Visits Requested Visits Authorized [id number] Pending Review Specialty Services Required 01/12/2024 2 2 Question Answer [facility] SLEEP MED ADULT REFERRAL Sleep Apnea Testing and Management Does the patient snore and/or gasp at night or has been told they stop breathing at night? Yes, document patient's symptoms in progress note Referral Priority Within 30 days (routine) Where should this appointment be scheduled? [facility] Reason for Visit * Reason Onset Date Comments Hospital Follow-Up Continues to have headaches, nausea, vomiting, weakness, body aches, right ear pain Hospital Follow-Up 01/12/2024 Encounter Details Date Type Department Care Team (Latest Contact Info) Description 01/12/2024 10:00 AM EDT Office Visit General Internal Medicine [facility] [place] [address] [facility] [place] [address] Janice Gutierrez MD [address] [facility] [place] [address] Bronchitis, complicated*; Acute intractable headache, unspecified headache type; HTN, goal below 140/90; Apneic spell; Snoring; Nausea and vomiting, unspecified vomiting type; Hyperlipidemia with target LDL less than 100; Migraine variant; Tobacco use disorder; Moderate episode of recurrent major depressive disorder (HCC); Hospital discharge follow-up; Thrush; Abnormal CT of the abdomen; Gastroesophageal reflux disease without esophagitis; Lumbar radiculopathy Allergies No known active allergiesdocumented as of this encounter (statuses as of 01/25/2024) Medications Medication Sig Dispensed Refills Start Date End Date Status Meclizine HCl 25 MG Oral Tablet (Antivert) TAKE 1 TABLET BY MOUTH THREE TIMES A DAY IF NEEDED FOR DIZZINESS 30 Tablet 1 3 Active Ventolin HFA 108 (90 Base) MCG/ACT Inhalation Aerosol SolutionIndicatio ns:Acute bronchitis, antibiotics not indicated Inhale 2 Puffs by mouth every 4 hours as needed for Wheezing. 18 g 2 4 Active DULoxetine HCl 30 MG Oral Capsule Delayed Release Particles (Cymbalta)Indicat ions:Moderate episode of recurrent major depressive disorder (HCC),Lumbar radiculopathy Take 1 Capsule by mouth in the morning and 1 Capsule before bedtime. Do not cut, crush or chew. 180 Capsule 5 4 Active Gabapentin 600 MG Oral Tablet (Neurontin)Indica tions:Lumbar radiculopathy,Lum bar degenerative disc disease Take 1 Tablet by mouth in the morning and 1 Tablet at noon and 1 Tablet before bedtime. 90 Tablet 5 4 Active Nicotine 21 MG/24HR Transdermal Patch 24 Hour (Nicoderm CQ)Indications:To bacco use 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 Remove old patch daily 42 Patch 1 4 01/28/20 24 Active Nicotine 14 MG/24HR Transdermal Patch 24 Hour (Nicoderm CQ)Indications:To bacco use disorder One 14 mg patch daily for 2 wks; then one 7 mg patch daily for 2 wks. Remove old patch daily Do not start before January 28, 2024. 14 Patch 2 4 02/11/20 24 Active Nicotine 7 MG/24HR Transdermal Patch 24 Hour (Nicoderm CQ)Indications:To bacco use disorder One 7 mg patch daily for 2 weeks; Remove old patch daily; and then stop. 14 Patch 1 4 Active SUMAtriptan Succinate 25 MG Oral Tablet (Imitrex)Indicati ons:Migraine variant Take 2 tablets at onset of migraine and one tablet every 2 hours as needed, not more than 5 tablets in 24 hours 6 Tablet 5 4 Active Carvedilol 3.125 MG Oral Tablet (Coreg)Indication s:HTN, goal below 140/90 Take 1 Tablet by mouth 2 times a day with morning and evening meals. 4 Active Cefdinir 300 MG Oral Capsule (Omnicef)Indicati ons:Bronchitis, complicated Take 1 Capsule by mouth in the morning and 1 Capsule before bedtime. 4 Active Doxycycline Hyclate 100 MG Oral TabletIndications :Bronchitis, complicated Take 1 Tablet by mouth in the morning and 1 Tablet before bedtime. 4 Active amLODIPine Besylate 5 MG Oral Tablet (Norvasc)Indicati ons:HTN, goal below 140/90 Take 0.5 Tablets by mouth in the morning. 4 Active Ondansetron HCl 4 MG Oral Tablet (Zofran)Indicatio ns:Bronchitis, complicated Take 1 Tablet by mouth every 6 hours as needed for Nausea. 20 Tablet 2 4 Active predniSONE 10 MG Oral Tablet (Deltasone)Indica tions:Bronchitis, complicated Take 5 tabs for 2 days, 4 tabs for 2 days, 3 tabs for 2 days, 2 tabs for 2 days 1 tab for 2 days 30 Tablet 4 Active Nystatin 482595 UNIT/ML Mouth/Throat SuspensionIndicat ions:Thrush Swish and swallow 5 mL in the morning and 5 mL at noon and 5 mL in the evening and 5 mL before bedtime. For thrush.. 240 mL 1 4 02/11/20 24 Active Omeprazole 20 MG Oral Capsule Delayed Release (PriLOSEC)Indicat ions:Gastroesopha geal reflux disease without esophagitis Take 1 Capsule by mouth in the morning. 1 hour before the first meal of the day and at bedtime. 180 Capsule 2 4 Active Meclizine HCl 25 MG Oral Tablet ChewableIndicatio ns:Vertigo Take 1 Tablet by mouth 3 times a day as needed for Dizziness. 30 Tablet 1 3 01/12/20 24 Discontinued(Ref ill) Ondansetron HCl 4 MG Oral Tablet (Zofran) Take 1 Tablet by mouth every 6 hours as needed for Nausea. 3 01/12/20 24 Discontinued(Ref ill) Omeprazole 20 MG Oral Capsule Delayed Release (PriLOSEC) Take 1 Capsule by mouth in the morning. 1 hour before the first meal of the day. 90 Capsule 2 4 01/12/20 24 Discontinued Naproxen 500 MG Oral Tablet (Naprosyn) TAKE 1 TABLET BY MOUTH TWICE A DAY IF NEEDED FOR PAIN WITH FOOD 60 Tablet 1 4 01/12/20 24 Discontinued(End of Procedure) methylPREDNISolon e 4 MG Oral Tablet Therapy Pack (Medrol Dosepack)Indicati ons:Lumbar radiculopathy,Lum bar degenerative disc disease follow package directions 21 Tablet 4 01/12/20 24 Discontinued Baclofen 10 MG Oral Tablet (Lioresal)Indicat ions:Lumbar radiculopathy,Lum bar degenerative disc disease Take 1 Tablet by mouth 2 times a day as needed for Pain, Moderate. 20 Tablet 4 01/16/20 24 Discontinued(Ref ill) amLODIPine Besylate 5 MG Oral Tablet (Norvasc) Take 1 Tablet by mouth in the morning. 4 01/12/20 24 Discontinued documented as of this encounter (statuses as of 01/25/2024) Active Problems Problem Noted Date Diagnosed Date [...] Overview: Pt's daughter with fibrous dysplasia-message to [facility] if she needs to be seen [...] as of this encounter (statuses as of 01/25/2024) Resolved Problems Problem Noted Date Diagnosed Date [...] as of this encounter (statuses as of 01/25/2024) Immunizations Name Administration Dates Next Due Seasonal [...] Sign Reading Time Taken Comments Blood Pressure 108/80 01/12/2024 10:06 AM EDT Pulse 74 01/12/2024 10:06 AM EDT Temperature 36.3 C (97.4 F) 01/12/2024 10:06 AM E DT Respiratory Rate 16 01/12/2024 10:06 AM EDT Oxygen Saturation - - Inhaled Oxygen Concentration - - Weight 111.8 kg (246 lb 8 oz) 01/12/2024 10:06 A M EDT Height 167.6 cm (5' 5.98") 01/12/2024 10:06 AM E DT Body Mass Index 39.81 01/12/2024 10:06 AM EDT documented in this encounter Progress Notes * Janice Gutierrez MD - 01/12/2024 10:14 AM EDT SUBJECTIVE: Keyona Santos is a 48 year old female. Chief Complaint Patient presents with Hospital Follow-Up Continues to have headaches, nausea, vomiting, weakness, body aches, right ear pain HPI: 48 year old YOfemale with PMH significant for HLD, depression, obesity , lumbar ddd with radiculopathy presents here for hospital follow up. Pt was having headache, not feeling well with blurring of vision, nausea and vomiting and some right upper abdominal pain, shortness of breath and chest pain for few days, went to emergency due to worsening of symptoms . Presented to hospital on 01/03/24 . She was found to have high blood pressure in 200s. She was then admitted and treated with IV hydralazine 1st and then starting amlodipine and Coreg for blood pressure control. Labs were overall normal , viral swab negative and urine test. Imaging MRI and MRA of brain normal. Chest x-ray was okay but CT of the chest showed bilateral bronchialthickening from likely inflammation or infection. CT of abdomen pelvis did not show any acute pathology but did show indeterminate nodule in the right upper quadrant between right kidney and colon. She was seen by health physicist and neurologist . Rest of the hospital course unremarkable . She was sent home on Amlodipine, coreg for blood pressure control and doxy and cefdinir bronchitis on 01/05/24. Since discharge feeling better or same . Hospital records reviewed and updated. The patient's medication list was reviewed and updated as needed. Current issues now- -Continues to have headaches, nausea, vomiting, weakness, body aches, right ear pain . Feel short of breath, chest tightness and wheezing. Taking and albuterol inhaler every 4 hours which does help for only an hour so. Was not given prednisone in the hospital and knows how to take inhaler -blood pressure is now low and feeling lightheaded, dizzy and weak -she has been taking naproxen twice a day for pain and if that's stopped ,asking if she can take something else which I discouraged in the setting of nausea vomiting but staying away from work might be helpful -patient does not know if she snores or not but she was caught in the middle of the night not breathing in the hospital. Does have chronic headache on top of migraine. Never had sleep study done before and was recommended in the hospital -she does smoke and trying not to since hospital -patient has not gone to work since January 02 and not sure if she can go until end of January. She will be vaccine for that will be required at her job -since I saw her last time she was seen by spine surgeon and was recommended to go with physical therapy and medication management before surgery treatment. Patient Active Problem List Diagnosis Tobacco use disorder INFORMATION Migraine variant Hyperlipidemia with target LDL less than 100 Food insecurity Moderate episode of recurrent major depressive disorder (HCC) Current Outpatient Medications Medication Sig Dispense Refill [...] meal of the day. 90 Capsule 2 Naproxen 500 MG Oral Tablet (Naprosyn) TAKE 1 TABLET BY MOUTH TWICE A DAY IF NEEDED FOR PAIN WITH FOOD 60 Tablet 1 DULoxetine HCl 30 MG [...] daily; and then stop. 14 Patch 1 Baclofen 10 MG Oral Tablet (Lioresal) Take 1 Tablet by mouth 2 times a day as needed for Pain, Moderate. 20 Tablet 0 SUMAtriptan Succinate 25 MG Oral Tablet (Imitrex) Take 2 tablets at onset of migraine and one tablet every 2 hours as needed, not more than 5 tablets in 24 hours 6 Tablet 5 amLODIPine Besylate 5 MG Oral Tablet (Norvasc) Take 1 Tablet by mouth in the morning. Carvedilol 3.125 MG Oral Tablet (Coreg) Take 1 Tablet by mouth 2 times a day with morning and evening meals. Cefdinir 300 MG Oral Capsule (Omnicef) Take 1 Capsule by mouth in the morning and 1 Capsule before bedtime. Doxycycline Hyclate 100 MG Oral Tablet Take 1 Tablet by mouth in the morning and 1 Tablet before bedtime. No current facility-administered medications for this visit. Review of patient's allergies indicates: No Known Allergies Past Medical History: Diagnosis Date NO KNOWN PROBLEMS Past Surgical History: Procedure Laterality Date DELIVERY 1995, 2005 COLONOSCOPY, DIAGNOSTIC (RECTUM) 12/27/2023 hemorrhoids/diverticulosis/biopsies show adenomatous and hyperplastic polyps/recall 5 years/COLONOSCOPY FLEXIBLE PROXIMAL DIAGNOSTIC performed by Avi Miranda MD at ENDOSCOPY [facility] DILATION AND CURETTAGE (D&C) 07/12/2002 mab INJECT DX/THER SUBSTANCE INTERLAMINAR LUMBAR/SACRAL W IMAGE GUIDE 08/20/2023 INJECTION SPINE LUMBAR OR SACRAL performed by Nikunj Lam DO at OR [facility] TOTAL ABD HYSTERECTOMY W/WO REMOVAL OF TUBE(S) 2018 uterus only Family History Problem Relation Name Age of Onset Lung Disorder Mother Joann copd Heart Disorder Father shruti of [place] at 56 Asthma Daughter Stephen Eye Problems Daughter Stephen Other (Other [Other]) None all siblings with no health history Breast Cancer No significant family history Social History Socioeconomic History Marital status: Single Occupational History Occupation: [employer] Comment: [employer] Tobacco Use Smoking status: Every Day Current packs/day: 1.00 Average packs/day: 1 pack/day for 30.0 years (30.0 ttl pk-yrs) Types: Cigarettes Smokeless tobacco: Never Substance and Sexual Activity Alcohol use: No Drug use: Yes Comment: [place] Sexual activity: Yes Partners: Male Social Determinants of Health Financial Resource Strain: Low Risk (05/26/2023) Financial Resource Strain Do you have any trouble paying for your medications, or do you think you might in the future? (Adult - for ages 18 years and over): No Food Insecurity: Food Insecurity Present (05/26/2023) Food Insecurity Do you need food for this week? (Adult - for ages 18 years and over): Yes Transportation Needs: Unmet Transportation Needs (05/26/2023) Transportation Needs Do you have trouble getting a ride to medical visits or work? (Adult - for ages 18 years and over):Sometimes True Social Connections: Socially Isolated (05/26/2023) Social Connections How often do you feel lonely or isolated from those around you? (Adult - for ages 18 years and over): Often Housing Stability: Low Risk (05/26/2023) Housing Stability Do you currently live in a intermediate or have no steady place to sleep at night? (Adult - for ages 18 years and over): No Do you think you are at risk of becoming homeless? (Adult - for ages 18 years and over): No Family History Problem Relation Name Age of Onset Lung Disorder Mother Joann copd Heart Disorder Father shruti of [place] at 56 Asthma Daughter Stephen Eye Problems Daughter Stephen Other (Other [Other]) None all siblings with no health history Breast Cancer No significant family history REVIEW OF SYSTEMS: All 10 systems reviewed and negative except mentioned in HPI OBJECTIVE: BP 108/80 | Pulse 74 | Temp 36.3 C (97.4 F) | Resp 16 | Ht 1.676 m (5' 5.98") | Wt 111.8 kg (246 lb 8 oz) | BMI 39.81 kg/m | BSA 2.28 m PHYSICAL EXAM: General: alert, healthy, anxious, distressed, and mild distress Head: Normocephalic, No masses, lesions, tenderness or abnormalities Oropharynx: no exudate, lips, buccal mucosa, and tongue normal, mucous membranes are moist, mild erythema, and thrush Neck: supple, no adenopathy, no bruits, thyroid normal size, non-tender, without nodularity Heart: regular rate & rhythm, no murmur, and no gallops Lungs: chest symmetric with normal AP diameter, no chest deformities noted, no chest wall tenderness, decreased breath sounds, expiratory wheezes bilaterally Abdomen: abdomen soft, non-tender, normal bowel sounds, and no masses or organomegaly Extremities: less than 2 second capillary refill, no joint deformities, effusion, or inflammation Neuro Exam: alert & oriented x 3 with fluent speech, no focal motor/sensory deficits, walking with cane ASSESSMENT AND PLAN Bronchitis, complicated (Primary) - DISCH MED RECON CUR MED LIS - Ondansetron HCl 4 MG Oral Tablet (Zofran); Take 1 Tablet by mouth every 6 hours as needed for Nausea. - predniSONE 10 MG Oral Tablet (Deltasone); Take 5 tabs for 2 days, 4 tabs for 2 days, 3 tabs for 2 days, 2 tabs for 2 days 1 tab for 2 days - RETURN TO WORK OR SCHOOL Albuterol inhaler every 4 hours Complete antibiotic as given Strongly advised against started smoking Acute intractable headache, unspecified headache type Seems combination of migraine, high blood pressure and possible sleep apnea HTN, goal below 140/90 - DISCH MED RECON CUR MED LIS - SLEEP MEDICINE REFERRAL OP Apneic spell - SLEEP MEDICINE REFERRAL OP Snoring - SLEEP MEDICINE REFERRAL OP Nausea and vomiting, unspecified vomiting type - RETURN TO WORK OR SCHOOL Zofran prescribed Hyperlipidemia with target LDL less than 100 Migraine variant Coreg might help and Imitrex as needed Tobacco use disorder Counseling done for smoking cessation Moderate episode of recurrent major depressive disorder (HCC) Continue [facility] discharge follow-up - DISCH MED RECON CUR MED LIS - RETURN TO WORK OR SCHOOL Thrush - Nystatin [id number] UNIT/ML Mouth/Throat Suspension; Swish and swallow 5 mL in the morning and 5 mL at noon and 5 mL in the evening and 5 mL before bedtime. For thrush.. Abnormal CT of the abdomen - CT ABD/PELVIS W IV CONTRAST - WO ORAL CONTRAST; Future; Expected date: 04/13/2024 - RETURN TO WORK OR SCHOOL Gastroesophageal reflux disease without esophagitis - Omeprazole 20 MG Oral Capsule Delayed Release (PriLOSEC); Take 1 Capsule by mouth in the morning.1 hour before the first meal of the day and at bedtime. Follow Up: Return in about 27 days (around 02/08/2024) for recheck on acute issue and clearance to work . | For: recheck on acute issue and clearance to work Treatment and plan was discussed with patient and was given opportunity to ask questions which wereanswered appropriately. Patient verbalizing understanding. This note was prepared with the help of fluency and if there is any mis-spelled words , sentences or something which doesn't represent the content of the subject that could be technical error and please refer to the author for clarification. Janice Gutierrez MD 10:14 AM 01/12/2024 documented in this encounter Nursing Notes * Majo Chandra LPN - 01/12/2024 10:06 AM EDT The patient has been properly identified by confirmation of name and date of . Chief Complaint Patient presents with Hospital Follow-Up Continues to have headaches, nausea, vomiting, weakness, body aches, right ear pain documented in this encounter Plan of Treatment Upcoming Encounters Date Type Department Care Team (Late st Contact Info) Description 01/26/2024 11:20 AM EDT Office Visit Neurology [facility] [address] [place] [address] Dasha Phelan PA-C 200 [facility] [place] [address] 02/08/2024 10:40 AM EDT Office Visit General Internal Medicine [facility] [address] [place] [address] Janice Gutierrez MD [address] [facility] [place] [address] 03/24/2024 3:00 PM EDT Office Visit Orthopaedics Spine Surgery, [facility] [address] [facility] [place] [address] Jg Elder MD [address] [place] [address] 04/13/2024 10:45 AM EDT Imaging Radiology [facility] [address] [facility] [place] [address] 07/11/2024 11:20 AM EST Telemedicine Nutrition & Weight Management, [facility] [address] [facility] [place] [address] Merari Baires PA-C [address] [facility] [place] [address] Scheduled Orders Name Type Priority Associated Diagnoses Orde r Schedule CT ABD/PELVIS W IV CONTRAST - WO ORAL CONTRAST Medical Imaging Routine Abnormal CT of the abdomen Expected: 04/13/2024, Expires: 02/11/2025 Scheduled Procedures Name Priority Associated Diagnoses Date/Ti me COLONOSCOPY FLEXIBLE PROXIMA L DIAGNOSTIC Recall History of colonic polyps Scheduled Referrals Name Type Priority Associated Diagnoses Orde r Schedule SLEEP MEDICINE REFERRAL OP Referral Within 30 days (routine) HTN, goal below 140/90 Snoring Apneic spell Ordered: 01/12/2024 Health Maintenance Due Date Last Done Comments [...] as of this encounter Visit Diagnoses Diagnosis Bronchitis, complicated- Primary Bronchitis, not specified as acute or chronic Acute intractable headache, unspecified headache type HTN, goal below 140/90 Unspecified essential hypertension Apneic spell Apnea Snoring Other dyspnea and respiratory abnormality Nausea and vomiting, unspecified vomiting type Hyperlipidemia with target LDL less than 100 Other and unspecified hyperlipidemia Migraine variant Variants of migraine, not elsewhere classified, without mention of intractable migraine without mention of status migrainosus Tobacco use disorder Moderate episode of recurrent major depressive disorder (HCC) Hospital discharge follow-up Other follow-up examination Thrush Candidiasis of mouth Abnormal CT of the abdomen Nonspecific (abnormal) findings on radiological and other examination of abdominal area, including retroperitoneum Gastroesophageal reflux disease without esophagitis Esophageal reflux Lumbar radiculopathy Thoracic or lumbosacral neuritis or radiculitis, unspecified documented in this encounter Care Teams Interventional Radiology Technologist Relationship Specialty Start Date End Date Janice Gutierrez MD [address] [place] [address] PCP - General Internal Medicine 09/06/23 documented as of this encounter
--- OUTSIDE RECORDS SUMMARY | 2024-02-18 20:04 | External Medical Summary | Summary of Care ---
Author Name Unknown Organization [facility] Address [address] [place] [address] Phone [phone] Care Team Providers Care Diesel Locomotive Firer/Fireman Name Role Phone Janice Gutierrez MD Primary Care Provider [phone] Reason for Visit * Reason Comments Outpatient Testing Encounter Details Date Type Department Care Team (Late st Contact Info) Description 01/27/2024 8:30 AM EDT Laboratory Laboratory [facility] [address] [place] [address] [facility] [address] Lymphocytosis; Elevated ALT measurement; Lipid screening; Impaired fasting glucose; Abnormal LFTs Allergies No known active allergiesdocumented as of this encounter (statuses as of 01/27/2024) Medications Medication Sig Dispensed Refills Start Date [...] 2 days 30 Tablet 01/12/2024 Active Nystatin 149859 UNIT/ML Mouth/Throat SuspensionIndication s:Thrush Swish and swallow [...] as of this encounter (statuses as of 01/27/2024) Active Problems Problem Noted Date Diagnosed Date [...] as of this encounter (statuses as of 01/27/2024) Resolved Problems Problem Noted Date Diagnosed Date [...] as of this encounter (statuses as of 01/27/2024) Immunizations Name Administration Dates Next Due Seasonal [...] EDT Office Visit General Internal Medicine [facility] [address] [facility] [place] [address] Janice Gutierrez MD [address] [facility] [place] [address] 03/24/2024 3:00 PM EDT Office Visit Orthopaedics Spine Surgery, [facility] [address] [facility] [place] [address] Jg Elder MD [address] [place] [address] 04/13/2024 10:45 AM EDT [facility] [address] [facility] [place] [address] 07/11/2024 11:20 AM EST Telemedicine Nutrition & Weight Management, [facility] [address] [facility] [place] [address] Merari Baires PA-C 132 [facility] [place] [address] 08/03/2024 9:00 AM EST Office Visit Neurology [facility] [address] [facility] [place] [address] Dione Capellan PA-C [address] [facility] [place] [address] Pending Results Name Type Priority Associated Diagnoses Date /Time LIPID PANEL WITH DIRECT LDL IF TG IS HIGH Lab Routine Lipid screening 01/27/2024 8:33 AM EDT HEMOGLOBIN A1C Lab Routine Impaired fasting glucose 01/27/2024 8:33 AM EDT COMPREHENSIVE METABOLIC PANEL Lab Routine Abnormal LFTs 01/27/2024 8:33 AM EDT BILIRUBIN, DIRECT Lab Routine Elevated ALT measurement 01/27/2024 8:33 AM EDT Scheduled Procedures Name Priority Associated [...] Procedure Name Priority Date/Time Associated Diagnosis Comments DIFFERENTIAL, AUTOMATED Routine 01/27/2024 8:33 AM EDT Lymphocytosis CBC Routine 01/27/2024 8:33 AM EDT Lymphocytosis CBC Routine 01/27/2024 8:33 AM EDT Lymphocytosis documented in this encounter Results * (ABNORMAL) DIFFERENTIAL, AUTOMATED (01/27/2024 8:33 AM EDT) WBC 14.62(H) 4.00 - 10.80 K/uL 01/27/2024 8:44 AM EDT [facility] 56-02 Neutrophils % 55.4 40.0 - 75.0 % 01/27/2024 8:44 AM EDT [facility] 56-02 Lymphocytes % 36.3 18.0 - 42.0 % 01/27/2024 8:44 AM EDT [facility] 56-02 Monocytes % 5.5 1.0 - 11.0 % 01/27/2024 8:44 AM EDT [facility] 56-02 Eosinophils % 2.6 0.0 - 6.0 % 01/27/2024 8:44 AM EDT [facility] 56- Basophils % 0.2 0.0 - 2.0 % 01/27/2024 8:44 AM EDT [facility] 56-02 Absolute Neutrophils 8.10(H) 1.80 - 7.70 K/uL 01/27/2024 8:44 AM EDT [facility] 56-02 Absolute Lymphocytes 5.31(H) 1.00 - 4.80 K/ul 01/27/2024 8:44 AM EDT [facility] 56-02 Absolute Monocytes 0.80 0.00 - 1.10 K/uL 01/27/2024 8:44 AM EDT [facility] 56-02 Absolute Eosinophils 0.38 0.00 - 0.70 K/uL 01/27/2024 8:44 AM EDT [facility] 56-02 Absolute Basophils 0.03 0.00 - 0.20 K/uL 01/27/2024 8:44 AM EDT [facility] 56-02 Blood Venous blood specimen / Unknown Venipuncture / Unknown 01/27/2024 8:33 AM EDT 01/27/2024 8:33 AM EDT Moiz Fried PA-C LAB BLOOD ORDERABL ES [facility] [address] [place] [address] * (ABNORMAL) CBC (01/27/2024 8:33 AM EDT) WBC 14.62(H) 4.00 - 10.80 K/uL 01/27/2024 8:44 AM EDT [facility] 56 RBC 4.87 3.85 - 5.15 M/uL 01/27/2024 8:44 AM EDT [address] HGB 14.7 12.0 - 15.3 g/dL 01/27/2024 8:44 AM EDT [facility] 56 HCT 44.6 36.0 - 45.2 % 01/27/2024 8:44 AM EDT [facility] 56 MCV 91.6 81.5 - 97.5 fL 01/27/2024 8:44 AM EDT [facility] 56 MCH 30.2 27.0 - 34.0 pg 01/27/2024 8:44 AM EDT [facility] 56 MCHC 33.0 32.0 - 36.0 g/dL 01/27/2024 8:44 AM EDT [facility] 56 RDW 15.1 11.5 - 15.5 % 01/27/2024 8:44 AM EDT [facility] 56 PLT 250 140 - 400 K/uL 01/27/2024 8:44 AM EDT [facility] 56 MPV 10.3 6.6 - 11.1 fL 01/27/2024 8:44 AM EDT [facility] 56 Blood Venous blood specimen / Unknown Venipuncture / Unknown 01/27/2024 8:33 AM EDT 01/27/2024 8:33 AM EDT Moiz Fried PA-C LAB BLOOD ORDERABL ES [facility] [address] [place] [address] documented in this encounter Visit Diagnoses Diagnosis Lymphocytosis Lymphocytosis (symptomatic) Elevated ALT measurement Nonspecific elevation of levels of transaminase or lactic acid dehydrogenase (LDH) Lipid screening Screening for lipoid disorders Impaired fasting glucose Abnormal LFTs Other abnormal blood chemistry documented in this encounter Care Teams Diesel Locomotive Firer/Fireman Relationship Specialty Start Date End Date Janice Gutierrez MD [address] [facility] [place] [address] PCP - General Internal Medicine 09/06/23 documented as of this encounter
--- OUTSIDE RECORDS SUMMARY | 2024-02-18 20:04 | External Medical Summary ---
Author Name Unknown Address Unknown Organization K01:[facility] - [address] [facility] [address] Laboratory Report Ordering Provider Test Date Status ELIZABETH NEAL 01/27/2024 08:33:20 Final Observation Date Value Abnormality Reference (Units ) Status HbA1C 01/27/2024 08:33:20 6.2 Above high normal 4. 0-5.6 (%) Final The use of HbA1c to monitor glycemic status is based on normal hemoglobin and HbA composition. This test should not be used in patients with abnormal hemoglobin that affects the half life of the red blood cell or the in vivo glycation rates. Glucose, estimated average 01/27/2024 08:33:20 131 Above high normal <126 (mg/dL) Aaron lugo Performing Location [facility] - [address] [facility] [address]
--- OUTSIDE RECORDS SUMMARY | 2024-02-18 20:04 | External Medical Summary | Summary of Care ---
Author Name Unknown Organization [facility] Address [address] [place] [address] Phone [phone] Care Team Providers Care Dam Tender Assistant Name Role Phone Janice Gutierrez MD Primary Care Provider Reason for Referral * Precert (Within 10 days (routine)) - Pending Review Specialty Diagnoses / Procedures Referred By Jaime terry Referred To Contact Radiology Diagnoses Abnormal CT of the abdomen Procedures CT ABD/PELVIS W IV CONTRAST - WO ORAL CONTRAST Janice Gutierrez MD [address] [place] [address] Referral ID Status Reason Start Date Expiration Date V isits Requested Visits Authorized [id number] Pending Review 04/13/2024 999 999 * Evaluate & Treat - Unlimited Visits (Within 30 days (routine)) - Pending Review Specialty Diagnoses / Procedures Referred By Jaime terry Referred To Contact Sleep Medicine / Sleep Disorders Diagnoses HTN, goal below 140/90 Snoring Apneic Janice Pollard MD [address] [place] [address] Referral ID Status Reason Start Date Expiration Date Visits Requested Visits Authorized [id number] Pending Review Specialty Services Required 01/12/2024 2 [...] AM EDT Office Visit General Internal Medicine [facility] [place] [address] [facility] [place] [address] Janice Gutierrez MD [address] [facility] [place] [address] Bronchitis, complicated*; Acute intractable headache, unspecified headache type; HTN, goal below 140/90; Apneic spell; Snoring; Nausea and vomiting, unspecified vomiting type; Hyperlipidemia with target LDL less than 100; Migraine variant; Tobacco use disorder; Moderate episode of recurrent major depressive disorder (HCC); Hospital discharge follow-up; Thrush; Abnormal CT of the abdomen; Gastroesophageal reflux disease without esophagitis Allergies No known active allergiesdocumented as of this encounter (statuses as of 01/12/2024) Medications Medication Sig Dispensed Refills Start Date [...] then stop. 14 Patch 1 4 Active Baclofen 10 MG Oral Tablet (Lioresal)Indicat ions:Lumbar radiculopathy,Lum bar degenerative disc disease Take 1 Tablet by mouth 2 times a day as needed for Pain, Moderate. 20 Tablet 4 Active SUMAtriptan Succinate 25 MG Oral [...] 2 days 30 Tablet 4 Active Nystatin 985849 UNIT/ML Mouth/Throat SuspensionIndicat ions:Thrush Swish and swallow [...] directions 21 Tablet 4 01/12/20 24 Discontinued amLODIPine Besylate 5 MG Oral Tablet (Norvasc) Take 1 Tablet by mouth in the morning. 4 01/12/20 24 Discontinued documented as of this encounter (statuses as of 01/12/2024) Active Problems Problem Noted Date Diagnosed Date [...] Overview: Pt's daughter with fibrous dysplasia-message to [facility] if she needs to be [...] as of this encounter (statuses as of 01/12/2024) Resolved Problems Problem Noted Date Diagnosed Date [...] as of this encounter (statuses as of 01/12/2024) Immunizations Name Administration Dates Next Due Seasonal [...] kidney and colon. She was seen by electrician yard and neurologist . Rest of the hospital [...] performed by Avi Miranda MD at ENDOSCOPY [facility] DILATION AND CURETTAGE (D&C) 07/12/2002 mab INJECT DX/THER SUBSTANCE INTERLAMINAR LUMBAR/SACRAL W IMAGE GUIDE 08/20/2023 INJECTION SPINE LUMBAR OR SACRAL performed by Nikunj Lam DO at OR [facility] TOTAL ABD HYSTERECTOMY W/WO REMOVAL OF TUBE(S) 2018 uterus only Family History Problem Relation Name Age of Onset Lung Disorder Mother Joann copd Heart Disorder Father shruti of OR at 56 Asthma Daughter Stephen Eye Problems Daughter Sly and Juan Other (Other [Other]) None all siblings with no health history Breast Cancer No significant family history Social History Socioeconomic History Marital status: Single Occupational History Occupation: [employer] Comment: [employer] Tobacco Use Smoking status: Every Day Current [...] Stability Do you currently live in a custodial or have no steady place to sleep at night? (Adult - for ages 18 years and over): No Do you think you are at risk of becoming homeless? 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 Janice Gtuierrez MD 10:14 AM 01/12/2024 documented in this [...] AM EDT Office Visit Sleep Disorders Ctr [facility] [address] [place] [address] Delisa Catalan DO [address] [place] [address] 01/26/2024 11:20 AM EDT Office Visit Neurology [facility] [address] [facility] [place] [address] Dasha Phelan PA-C [address] [facility] [place] [address] 02/08/2024 10:40 AM EDT Office Visit General Internal Medicine [facility] [address] [facility] [place] [address] Janice Gutierrez MD [address] [facility] [place] [address] 03/24/2024 3:00 PM EDT Office Visit Orthopaedics Spine Surgery, [facility] [address] [place] [address] Jg Elder MD [address] [place] [address] 04/13/2024 10:45 AM EDT Imaging Radiology [facility] [address] [place] [address] 07/11/2024 11:20 AM EST Telemedicine Nutrition & Weight Management, [facility] [address] [place] [address] Merari Baires PA-C [address] [place] [address] Scheduled Orders Name Type Priority Associated Diagnoses [...] Gastroesophageal reflux disease without esophagitis Esophageal reflux documented in this encounter Care Teams Dam Tender Assistant Relationship Specialty Start Date End Date Janice Gutierrez MD [address] [facility] [place] [address] PCP - General Internal Medicine 09/06/23 documented as of this encounter
--- OUTSIDE RECORDS SUMMARY | 2024-02-18 20:04 | External Medical Summary | Summary of Care ---
Author Name Unknown Organization [facility] Address [address] [place] [address] Phone [phone] Care Team Providers Care Bottling Line Attendant Name Role Phone Janice Gutierrez MD Primary Care Provider [phone] Reason for Referral * Precert (Within 10 days (routine)) - Pending Review Specialty Diagnoses / Procedures Referred By Jaime terry Referred To Contact Sleep Disorders Diagnoses Observed sleep apnea Sleep apnea, unspecified type Hypersomnolence Insomnia, unspecified type Migraine variant HTN, goal below 140/90 Procedures SLEEP STUDY, W/ CPAP (TREATMENT SETTINGS) Delisa Catalan DO [address] [place] [address] Referral ID Status Reason Start Date Expiration Date V isits Requested Visits Authorized [id number] Pending Review 01/21/2024 999 999 * Precert (Within 10 days (routine)) - Pending Review Specialty Diagnoses / Procedures Referred By Jaime terry Referred To Contact Sleep Disorders Diagnoses Observed sleep apnea Sleep apnea, unspecified type Hypersomnolence Insomnia, unspecified type Migraine variant HTN, goal below 140/90 Procedures SLEEP STUDY, W/O CPAP Delisa Catalan DO [address] [place] [address] Referral ID Status Reason Start Date Expiration Date V isits Requested Visits Authorized [id number] Pending Review 01/21/2024 999 999 Reason for Visit * Reason Comments NEW PATIENT * Evaluate & Treat - Unlimited Visits (Within 30 days (routine)) - Pending Review Specialty Diagnoses / Procedures Referred By Jaime t Referred To Contact Sleep Medicine / Sleep Disorders Diagnoses HTN, goal below 140/90 Snoring Apneic Janice Pollard MD [address] [place] [address] Referral ID Status Reason Start Date Expiration Date Visits Requested Visits Authorized [id number] Pending Review Specialty Services Required 01/12/2024 2 2 Encounter Details Date Type Department Care Team (Late st Contact Info) Description 01/21/2024 10:20 AM EDT Office Visit [facility] [place] [address] [place] [phone] Delisa Catalan DO [address] [place] [address] Observed sleep apnea*; Sleep apnea, unspecified type; Hypersomnolence; Insomnia, unspecified type; Migraine variant; HTN, goal below 140/90 Allergies No known active allergiesdocumented as of this encounter (statuses as of 01/21/2024) Medications Medication Sig Dispensed Refills Start Date [...] 2 days 30 Tablet 01/12/2024 Active Nystatin 189634 UNIT/ML Mouth/Throat SuspensionIndication s:Thrush Swish and swallow [...] as of this encounter (statuses as of 01/21/2024) Active Problems Problem Noted Date Diagnosed Date HTN, goal below 140/90 01/12/2024 Moderate episode of recurrent major depressive d isorder 07/14/2023 Food insecurity 06/21/2023 Overview: Per [facility] Protocol Hyperlipidemia with target LDL less than 100 08/2022 Migraine variant 03/18/2023 Tobacco use disorder 02/26/2010 Overview: Continue to discuss cessation at each visit 03/26: 1/2 ppd INFORMATION 02/26/2010 Overview: Pt's daughter with fibrous dysplasia-message to [facility] if she needs to be seen by [...] as of this encounter (statuses as of 01/21/2024) Resolved Problems Problem Noted Date Diagnosed Date [...] as of this encounter (statuses as of 01/21/2024) Immunizations Name Administration Dates Next Due Seasonal [...] Sign Reading Time Taken Comments Blood Pressure 114/76 01/21/2024 10:20 AM EDT Pulse 108 01/21/2024 10:20 AM EDT Temperature 35.2 C (95.3 F) 01/21/2024 10:20 AM E DT Respiratory Rate 16 01/21/2024 10:20 AM EDT Oxygen Saturation 94% 01/21/2024 10:20 AM EDT Inhaled Oxygen Concentration - - Weight 113.2 kg (249 lb 9 oz) 01/21/2024 10:20 A M EDT Height 169 cm (5' 6.54") 01/21/2024 10:20 AM EDT Body Mass Index 39.63 01/21/2024 10:20 AM EDT documented in this encounter Patient Instructions * Patient Instructions* Sha Catalany Melissa, DO - 01/21/2024 10:54 AM EDT SLEEP APNEA We are concerned that you may have sleep apnea. Sleep apnea is when someone has difficulties with breathing only during sleep. This typically happens without the patient being aware they are having breathing issues. Obstructive sleep apnea is very common. It can be seen in kids and adults. It can cause symptoms of excessive daytime sleepiness, fatigue, morning headaches, and poor memory and cognition. It can also lead to difficulties at work or school and motor vehicle accidents. If left untreated, it puts people at risk for heart attacks, strokes, and diabetes. We diagnose sleep apnea with either an in-lab sleep study or a home sleep apnea test. If you come in for an in lab sleep study, a trained qc lab technician will be present at the sleep center to administer and monitor the test. They will be putting sensors on you that monitor your brain waves, breathing, movements, and respiratory effort. They will not be putting in any IV's or using any needles, a nd none of the sensors should be painful, though they may be annoying or uncomfortable to some patients when they are trying to sleep. You will have a private room with your own bathroom. Please feelfree to bring your own pillow or blanket if you feel this would help you sleep more comfortably. They provide these things for you, but we want you to feel as comfortable and relaxed as possible whenyou are spending the night in the sleep center. [facility] is accredited bythe [place] [employer] (AASM). To receive accreditation, a sleep center must meet or exceed all standards for professional quality sleep medicine care as designated by the Academy. More information can be obtained at: SleepEducation.org documented in this encounter Progress Notes * Delisa Catalan DO - 01/21/2024 10:19 AM EDT [facility] [address] [place], [place] [address] Consultation was requested by: Janice Gutierrez MD for: HTN, snoring, apneic spell "was caught in the middle of the night not breathing in the hospital" and a copy of this report is being sent to the provider electronically. Relevant available records reviewed. HPI: Keyona Santos is a(n) 48 year old female presenting for evaluation for suspected sleep apnea. She was recently hospitalized with JAMES, dyspnea, CP, uncontrolled hypertension. Witnessed apnea was noted, and sleep study was recommended from her hospitalization. Also recently treated by PCP for bronchitis. Other Hx lumbar DDD with radiculopathy, obesity, depression, hyperlipidemia. Still having dyspnea and chest tightness from the bronchitis. Patient reports a typical bedtime of 10 pm. It takes 1-1.5 hour to fall asleep. Restlessness, has TV on until asleep. Patient awakens at about 2-3 AM for unclear reason; sometimes with coughing. It takes about an hour to return to sleep. Patient awakens for the day at 5:30 AM when working, around 8 AM while not working, feeling still tired. Patient does feel sleepy or tired during the day. Patient does take naps. Not always able to get to sleep. Sometimes naps for 2-3 hours, but it is hard to get up. Patient does use caffeine, "a lot" of coffee. Changed to decaf after her hospitalization. The patient reports having ("+" indicates reports, "-" indicates denies): unsure Snoring + Observed apneas (just while in the hospital) + Mouth breathing + Acid reflux at night + Nocturia (does not seem to be what is waking her up) + Morning headaches, wakes up with migraines, scheduled to see a neurologist for migraines. - Teeth grinding Restless Legs Syndrome Symptoms ("+" indicates reports, "-" indicates denies): + Pain/discomfort in legs at night, tightness and feeling of needing to stretch. + Urge to move legs at night + Better with movement + Disrupts sleep More nights than not. Parasomnias Symptoms ("+" indicates reports, "-" indicates denies): - Sleepwalking (she did as a child) - Dream-enactment Narcoleptic Symptoms ("+" indicates reports, "-" indicates denies): + Vivid dreams + Dreams with short naps + Sleep paralysis ? Sleep-related hallucinations, sometimes sees spots when tired - Cataplexy Excessive Daytime Sleepiness: Stamford Sleepiness Scale 11 Modified F.O.S.Q. 19 - Drowsy driving, except with long drives. No related MVA or near-MVA. + Sleepy with sedentary activity [place] Sleepiness Scale Question 01/20/2024 10:58 AM EDT - Filed by Patient What is the chance you will doze off in the following situation? Sitting and reading Moderate chance of dozing Watching TV High chance of dozing Sitting inactive in a public place, such as a theater or meeting Moderate chance of dozing As a passenger in a car for an hour without a break Slight chance of dozing Lying down to rest in the afternoon when circumstances permit Slight chance of dozing When sitting and talking to someone Slight chance of dozing When sitting quietly after lunch without alcohol Slight chance of dozing In a car, while stopped for a few minutes in traffic No chance of dozing Score (range: 0 - 24) 11 Functional Outcomes Of Sleep Question 01/20/2024 11:00 AM EDT - Filed by Patient Please complete the following questions. Do you have difficulty concentrating because you are sleepy or tired? Yes, moderate Do you have difficulty remembering things because you are sleepy or tired? Yes, moderate Do you have difficulty operating a motor vehicle for short distances (less than 100 miles) because you become sleepy? No Do you have difficulty operating a motor vehicle for long distances (more than 100 miles) because you become sleepy? Yes, a little Do you have difficulty visiting family or friends in their home because you become sleepy or tired?Yes, a little Has your relationship with family, friends, or work colleagues been affected because you are sleepyor tired? Yes, extreme Do you have difficulty watching a movie or video because you become sleepy or tired? Yes, extreme Do you have difficulty being as active as you want to be in the evening because you are tired or sleepy? Yes, extreme Do you have difficulty being as active as you want to be in the morning because you are tired or sleepy? Yes, extreme Has your mood been affected because you are sleepy or tired? Yes, extreme Score (range: 10 - 40) 19 Travel Screening Question 01/21/2024 10:12 AM EDT - Filed by Patient Do you have any of the following new or worsening symptoms? Shortness of breath Have you recently been in contact with someone who was sick? No / Unsure Prior sleep study: she thinks she had a study done over 20 years ago. PMH: Patient Active Problem List Diagnosis Tobacco use disorder INFORMATION Migraine variant Hyperlipidemia with target LDL less than 100 Food insecurity Moderate episode of recurrent major depressive disorder (HCC) HTN, goal below 140/90 Past Surgical History: Procedure Laterality Date DELIVERY 1995, 2005 COLONOSCOPY, DIAGNOSTIC (RECTUM) 12/27/2023 hemorrhoids/diverticulosis/biopsies show adenomatous and hyperplastic polyps/recall 5 years/COLONOSCOPY FLEXIBLE PROXIMAL DIAGNOSTIC performed by Avi Miranda MD at ENDOSCOPY [facility] DILATION AND CURETTAGE (D&C) 07/12/2002 mab INJECT DX/THER SUBSTANCE INTERLAMINAR LUMBAR/SACRAL W IMAGE GUIDE 08/20/2023 INJECTION SPINE LUMBAR OR SACRAL performed by Nikunj Lam DO at OR [facility] TOTAL ABD HYSTERECTOMY W/WO REMOVAL OF TUBE(S) 2018 uterus only ALLERGIES: Review of patient's allergies indicates: No Known Allergies MEDS: Current Outpatient Medications Medication Sig Dispense Refill Clotrimazole 10 MG Mouth/Throat Braulio (Mycelex Braulio) Take 1 Lozenge by mouth 5 times a day for 14 days. Allow tablet to slowly dissolve in your mouth 70 Braulio 0 Baclofen 10 MG Oral Tablet (Lioresal) Take 1 Tablet by mouth 2 times a day as needed for Pain, Moderate. 20 Tablet 0 amLODIPine Besylate 5 MG Oral Tablet (Norvasc) Take 0.5 Tablets by mouth in the morning. Carvedilol 3.125 MG Oral Tablet (Coreg) Take 1 Tablet by mouth 2 times a day with morning and evening meals. Cefdinir 300 MG Oral Capsule (Omnicef) Take 1 Capsule by mouth in the morning and 1 Capsule before bedtime. Doxycycline Hyclate 100 MG Oral Tablet Take 1 Tablet by mouth in the morning and 1 Tablet before bedtime. Omeprazole 20 MG Oral Capsule Delayed Release (PriLOSEC) Take 1 Capsule by mouth in the morning. 1 hour before the first meal of the day and at bedtime. 180 Capsule 2 Ondansetron HCl 4 MG Oral Tablet (Zofran) Take 1 Tablet by mouth every 6 hours as needed for Nausea. 20 Tablet 2 predniSONE 10 MG Oral Tablet (Deltasone) Take 5 tabs for 2 days, 4 tabs for 2 days, 3 tabs for 2 days, 2 tabs for 2 days 1 tab for 2 days 30 Tablet 0 SUMAtriptan Succinate 25 MG Oral Tablet (Imitrex) Take 2 tablets at onset of migraine and one tablet every 2 hours as needed, not more than 5 tablets in 24 hours 6 Tablet 5 Nicotine 21 MG/24HR Transdermal Patch 24 Hour (Nicoderm CQ) One 21 mg patch daily for 6 wks; then one 14 mg patch daily for 2 wks; then one 7 mg patch daily for 2 wks. Remove old patch daily 42 Patch1 Gabapentin 600 MG Oral Tablet (Neurontin) Take 1 Tablet by mouth in the morning and 1 Tablet at noon and 1 Tablet before bedtime. 90 Tablet 5 DULoxetine HCl 30 MG Oral Capsule Delayed Release Particles (Cymbalta) Take 1 Capsule by mouth in the morning and 1 Capsule before bedtime. Do not cut, crush or chew. 180 Capsule 5 Ventolin HFA 108 (90 Base) MCG/ACT Inhalation Aerosol Solution Inhale 2 Puffs by mouth every 4 hours as needed for Wheezing. 18 g 2 Meclizine HCl 25 MG Oral Tablet (Antivert) TAKE 1 TABLET BY MOUTH THREE TIMES A DAY IF NEEDED FOR DIZZINESS 30 Tablet 1 Nystatin 835910 UNIT/ML Mouth/Throat Suspension Swish and swallow 5 mL in the morning and 5 mL at noon and 5 mL in the evening and 5 mL before bedtime. For thrush.. 240 mL 1 [START ON 01/28/2024] Nicotine 14 MG/24HR Transdermal [...] daily; and then stop. 14 Patch 1 No current facility-administered medications for this visit. Additional ROS: + weight gain (needs to lose weight for planned back surgery) Lungs: + dyspnea, + cough, + wheezing Extremities: + edema (variable) FHx: no known family history of sleep disordered breathing Her kids did some sleepwalking. 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) PE: VITAL SIGNS: Filed Vitals: 01/21/24 1020 BP: 114/76 Pulse: 108 Resp: 16 Temp: 35.2 C (95.3 F) SpO2: 94% Weight: 113.2 kg (249 lb 9 oz) Height: 1.69 m (5' 6.54") Body mass index is 39.63 kg/m. GEN: Ambulatory, obese, NAD ORAL: edentulous Tongue enlarged Hard palate normal Oral mucous membranes moist OP: No thrush or lesions Uvula normal Soft palate normal Mallampati IV NECK: Circumference 15.25" RESP: Breath sounds clear, no wheezes or rales (she notes that she used her inhaler shortly before our encounter.) CVS: Regular rate and rhythm EXT: 1+ edema NEURO: Speech clear and appropriate IMPRESSION/RECOMMENDATIONS: Hypertension, witnessed apnea, uncontrolled headaches, sleep onset and sleep maintenance insomnia, daytime sleepiness - suspect RODOLFO - STOP-BANG 4 (tired, observed apneas, HTN, and BMI > 35) - Discussed the pathophysiology, implications on short- and long-term health, diagnostic evaluation, and likely treatment of RODOLFO - Schedule an overnight PSG - split night protocol if meets criteria. - Avoid driving when sleepy/drowsy. She endorses continued respiratory symptoms, currently undergoing treatment for bronchitis and has further follow-up with PCP scheduled to re-evaluate after completing course of therapy. She is also scheduled to see Neurology for the uncontrolled headaches / migraines. We reviewed thatnocturnal oxygen desaturations can trigger or worsen headaches/migraines. Follow-up: Return will send MyG with PSG results. | Check-out note: PSG [facility] Delisa Catalan DO documented in this encounter Nursing Notes * Prasanna Schmidt, SHAMPOO ASSISTANT - 01/21/2024 10:25 AM EDT [place] Goodsonncer [id number] Body mass index is 39.63 kg/m. Neck Circumference: 15.25 inches. 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 Sitting and reading Moderate chance of dozing Watching TV High chance of dozing Sitting inactive in a public place, such as a theater or meeting Moderate chance of dozing As a passenger in a car for an hour without a break Slight chance of dozing Lying down to rest in the afternoon when circumstances permit Slight chance of dozing When sitting and talking to someone Slight chance of dozing When sitting quietly after lunch without alcohol Slight chance of dozing In a car, while stopped for a few minutes in traffic No chance of dozing Score (range: 0 - 24) 11 Functional Outcomes Of Sleep Question 01/20/2024 11:00 AM EDT - Filed by Patient Please complete the following questions. Do you have difficulty concentrating because you are sleepy or tired? Yes, moderate Do you have difficulty remembering things because you are sleepy or tired? Yes, moderate Do you have difficulty operating a motor vehicle for short distances (less than 100 miles) because you become sleepy? No Do you have difficulty operating a motor vehicle for long distances (more than 100 miles) because you become sleepy? Yes, a little Do you have difficulty visiting family or friends in their home because you become sleepy or tired?Yes, a little Has your relationship with family, friends, or work colleagues been affected because you are sleepyor tired? Yes, extreme Do you have difficulty watching a movie or video because you become sleepy or tired? Yes, extreme Do you have difficulty being as active as you want to be in the evening because you are tired or sleepy? Yes, extreme Do you have difficulty being as active as you want to be in the morning because you are tired or sleepy? Yes, extreme Has your mood been affected because you are sleepy or tired? Yes, extreme Score (range: 10 - 40) 19 Travel Screening Question 01/21/2024 10:12 AM EDT - Filed by Patient Do you have any of the following new or worsening symptoms? Shortness of breath Have you recently been in contact with someone who was sick? No / Unsure documented in this encounter Plan of Treatment Upcoming Encounters Date Type Department Care Team (Late st Contact Info) Description 01/26/2024 11:20 AM EDT Office Visit Neurology [facility] [address] [place] [address] Dasha Phelan PA-C [address] [place] [address] 02/08/2024 10:40 AM EDT Office Visit General Internal Medicine [facility] [address] [place] [address] Janice Gutierrez MD [address] [facility] [place] [id number] 03/24/2024 3:00 PM EDT Office Visit Orthopaedics Spine Surgery, [facility] [address] [facility] [place] [address] Jg Elder MD [address] [place] [address] 04/13/2024 10:45 AM EDT [facility] [address] [place] [address] 07/11/2024 11:20 AM EST Telemedicine Nutrition & Weight Management, [facility] [address] [place] [address] Merari Baires PA-C [address] [place] [address] Scheduled Orders Name Type Priority Associated Diagnoses Orde r Schedule SLEEP STUDY, W/O CPAP Procedures Routine Observed sleep apnea Sleep apnea, unspecified type Hypersomnolence Insomnia, unspecified type Migraine variant HTN, goal below 140/90 Ordered: 01/21/2024 SLEEP STUDY, W/ CPAP (TREATMENT SETTINGS) Procedures Routine Observed sleep apnea Sleep apnea, unspecified type Hypersomnolence Insomnia, unspecified type Migraine variant HTN, goal below 140/90 Ordered: 01/21/2024 Scheduled Procedures Name Priority Associated Diagnoses Date/Ti [...] as of this encounter Visit Diagnoses Diagnosis Sleep apnea, unspecified type Hypersomnolence Hypersomnia, unspecified Insomnia, unspecified type Migraine variant Variants of migraine, not elsewhere classified, without mention of intractable migraine without mention of status migrainosus HTN, goal below 140/90 Unspecified essential hypertension documented in this encounter Care Teams Bottling Line Attendant Relationship Specialty Start Date End Date Janice Gutierrez MD [address] [place] [address] PCP - General Internal Medicine 09/06/23 documented as of this encounter
--- OUTSIDE RECORDS SUMMARY | 2024-02-18 20:05 | External Medical Summary | Summary of Care ---
Author Name Unknown Organization [facility] Address [address] [place] [address] Phone [phone] Care Team Providers Care Activity Leader Name Role Phone Janice Gutierrez MD Primary Care Provider Reason for Visit * Reason Onset Date Comments Hospital Follow-Up 01/06/2024 Jenny for [facility] Encounter Details Date Type Department Care Team (Late st Contact Info) Description 01/06/2024 Telephone Ancillary Daphne Alfredo [place] [address] [place] [address] Rhona Lopez, JAVAD Hospital Follow-Up (Jenny for [facility]) Allergies No known active allergiesdocumented as of this encounter (statuses as of 01/06/2024) Medications Medication Sig Dispensed Refills Start Date [...] MG/24HR Transdermal Patch 24 Hour (Nicoderm CQ)Indications: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 Remove old patch daily 42 Patch 1 12/20/2023 Active Nicotine 14 MG/24HR Transdermal Patch 24 Hour (Nicoderm CQ)Indications:Toba landscape account manager use disorder One 14 mg patch daily for 2 wks; then one 7 mg patch daily for 2 wks. Remove old patch daily Do not start before January 28, 2024. 14 Patch 2 01/28/2024 Active Additional Information Patient not taking.Reported on 12/27/2023 Nicotine 7 MG/24HR Transdermal Patch 24 Hour (Nicoderm CQ)Indications:Toba landscape account manager use disorder One 7 mg patch daily for 2 weeks; Remove old patch daily; and then stop. 14 Patch 1 12/20/2023 Active Additional Information Patient not taking.Reported on 12/27/2023 Baclofen 10 MG Oral Tablet (Lioresal)Indicatio ns:Lumbar [...] 24 hours 6 Tablet 5 12/29/2023 Active documented as of this encounter (statuses as of 01/06/2024) Active Problems Problem Noted Date Diagnosed Date Moderate episode of recurrent major depressive d isorder 07/14/2023 Food insecurity 06/21/2023 Overview: Per [facility] Protocol Hyperlipidemia with target LDL less than 100 08/2022 Migraine variant 03/18/2023 Tobacco use disorder 02/26/2010 Overview: Continue to discuss cessation at each visit 03/26: 1/2 ppd INFORMATION 02/26/2010 Overview: Pt's daughter with fibrous dysplasia-message to [facility] if she needs to be seen [...] pt by phone-please discuss above recommendations at wi-pt aware-reports daughter has not been diagnosed with any syndromes associated with fibrous dysplasia documented as of this encounter (statuses as of 01/06/2024) Resolved Problems Problem Noted Date Diagnosed Date [...] as of this encounter (statuses as of 01/06/2024) Immunizations Name Administration Dates Next Due Seasonal [...] encounter Miscellaneous Notes * Telephone Encounter - Rhona Lopez RN - 01/06/2024 12:44 PM EDT Transitions of Care Note Reason for Referral:Recent Admission Phone visit for follow up: jenny Admitted to: [facility], Date: 01.03.24 Discharged to: home, Date: 01.05.24 Diagnosis driving hospitalization: Intractable headache Abdominal pain Uncontrolled hypertension Acute bronchitis Source/Contact: Patient SUBJECTIVE Consent: Verbal consent for review of hospital discharge: Yes REVIEW OF SYSTEMS Patient/Other Reports: Current patient/caregiver problems or concerns: why they want to wait to repeat CT scan in 3-4 mths. We discussed it will give time to rosolve or increase in size CV: Denies problems Pulmonary: patient has been using the inhaler and her breathing and "tightness has been better" Chills/Sweats/Fever:Denies chills/sweats Denies fever Appetite:Denies problems such as nausea, vomiting, burning, decreased appetite Current diet: toast , tomato soup Bowel: denies problems Bladder: denies problems Wound (If applicable): N/A Pain:slight discomfort, patient state she thinks is gas and hasn't moved her bowels since coming home, but passing gas Sleep:Denies problems FUNCTIONAL STATUS: ADL'S: Needs Assistance With:N/A as pt is independent IADL'S: Needs Assistance With:N/A as pt is independent Cognitive and Mental Health: denies problems, alert and oriented x 3, and able to communicate, understand instructions, process information. MEDICATION RECONCILIATION Medications: Reports all medications taken as prescribed. OBJECTIVE ASSESSMENT Medication Risk Assessment: No risks identified Did patient fail outpatient treatment? Yes Discharge instructions available for review? No PLAN Symptom Monitoring Interventions:Member/caregiver education - signs and symptoms to contact Primary[facility] (DO NOT DELETE-Three walker symptoms patient is to report to PCP) 1. Severe abd pain 2. N/v 3. CP or SOB Lime Hide InspectorEnterprise Systems Architect of Care interventions/Action Plan: 5 - 7 day follow-up with PCP in place - Date: 01.12.24 Educated on role of JENNY completed with patient/caregiver. Educated patient/caregiver on patient right to have input on JENNY plan of care. Verification of Home Health/DME if indicated: NO Identified Care Gaps: Yes Care Gaps closed this call: Transition of Care follow-up communication Re-evaluation of Plan of Care and progress towards goals achievement: Patient education this visit: Verbal, counseled patient to rest and stay hydrated btain outpatient sleep study (polysomnography) to rule out sleep apnea as advised -- Complete the antibiotic course cefdinir, doxycycline as prescribed -Obtain CT abdomen pelvis in 3 to 4 months for further evaluation of right upper quadrant ovoid nodule as advised. --Monitor your blood pressure regularly at home and discuss with the physician for further adjustment of medications as needed. Plan to follow-up as previously scheduled, instructed to call Primary Care Provider with change in symptoms or as needed before next follow-up, verbalizes understanding and agrees with plan. Rhona Lopez RN documented in this encounter Plan of Treatment Upcoming Encounters Date Type Department Care Team (Late st Contact Info) Description 01/12/2024 10:00 AM EDT Office Visit General Internal Medicine [facility] [address] [place] [address] Janice Gutierrez MD [address] [place] [address] [address] 01/26/2024 11:20 AM EDT Office Visit Neurology [facility] [address] [place] [address] Dasha Phelan PA-C [address] [place] [address] 03/24/2024 3:00 PM EDT Office Visit Orthopaedics Spine Surgery, [facility] [address] [place] [address] Jg Elder MD [address] [place] [address] 07/11/2024 11:20 AM EST Telemedicine Nutrition & Weight Management, [facility] [address] [place] [address] Merari Baires PA-C [address] [place] [address] Scheduled Procedures Name Priority Associated Diagnoses Date/Ti [...] filedocumented as of this encounter Care Teams Activity Leader Relationship Specialty Start Date End Date Janice Gutierrez MD [address] [place] [address] PCP - General Internal Medicine 09/06/23 documented as of this encounter
--- OUTSIDE RECORDS SUMMARY | 2024-02-18 20:05 | External Medical Summary | Summary of Care ---
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 Remove old patch daily 42 Patch 1 12/20/2023 Active Nicotine 14 MG/24HR Transdermal Patch 24 Hour (Nicoderm CQ)Indications:Toba b2b account executive use disorder One 14 mg patch daily for 2 wks; then one 7 mg patch daily for 2 wks. Remove old patch daily Do not start before January 28, 2024. 14 Patch 2 01/28/2024 Active Additional Information Patient not taking.Reported on 12/27/2023 Nicotine 7 MG/24HR Transdermal Patch 24 Hour (Nicoderm CQ)Indications:Toba b2b account executive use disorder One 7 mg [...] as of this encounter (statuses as of 01/05/2024) Active Problems Problem Noted Date Diagnosed Date Moderate episode of recurrent major depressive d isorder 07/14/2023 Food insecurity 06/21/2023 Overview: Per [facility] Protocol Hyperlipidemia with target LDL less than 100 08/2022 Migraine variant 03/18/2023 Tobacco use disorder 02/26/2010 Overview: Continue to discuss cessation at each visit 03/26: 1/2 ppd INFORMATION 02/26/2010 Overview: Pt's daughter with fibrous dysplasia-message to [facility] if she needs to be seen [...] pt by phone-please discuss above recommendations at id-pt aware-reports daughter has not been diagnosed with any syndromes associated with fibrous dysplasia documented as of this encounter (statuses as of 01/05/2024) Resolved Problems Problem Noted Date Diagnosed Date [...] as of this encounter (statuses as of 01/05/2024) Immunizations Name Administration Dates Next Due Seasonal [...] AM EDT Office Visit General Internal Medicine [facility] [address] [facility] [place] [address] Janice Gutierrez MD [address] [facility] [place] [address] 01/26/2024 11:20 AM EDT Office Visit Neurology [facility] [address] [facility] [place] [address] Dasha Phelan PA-C [address] [facility] [place] [address] 03/24/2024 3:00 PM EDT Office Visit Orthopaedics Spine Surgery, [facility] [address] [place] [address] Jg Elder MD [address] [place] [address] 07/11/2024 11:20 AM EST Telemedicine Nutrition & Weight Management, [facility] [address] [place] [address] Merari Baires PA-C [address] [place] [address] Health Maintenance Due Date Last Done Comments [...] Procedure Name Priority Date/Time Associated Diagnosis Comments ECHOCARDIOLOGY SCANNED RESULT 01/03/2024 documented in this encounter Results * ECHOCARDIOLOGY SCANNED RESULT (01/03/2024) 01/03/2024 No Physician Data Unknown ECHOCARDIOLOGY documented in this encounter Care Teams Paper Making Machine Operator Relationship Specialty Start Date End Date Janice Gutierrez MD [address] [facility] [place] [address] PCP - General Internal Medicine 09/06/23 documented as of this encounter
[2024-02-18] MEDS: VANCOMYCIN HCL 2,250 MG in SODIUM CHLORIDE 0.9% 500 ML IV ONE (20:20)
[2024-02-18] MEDS ORDERED: DAPTOmycin 250 MG in SYRINGE 0 ML IV SCH (20:45)
[2024-02-18] MEDS: diphenhydrAMINE 50 MG/ML VIAL IV STA (20:45)
--- NOTE | 2024-02-18 21:16 | History & Physical Report ---
Date of Service February 18, 2024 Assessment & Plan (1) Abscess of right breast: Plan: 48-year-old female with past medical history significant for hyperlipidemia, hypertension, migraine, ongoing tobacco use, depression, back pain presents with right breast abscess. Patient states she noticed bumps in her lower part of the right breast about a week ago. Few days ago one of the bump burst and there was some pus coming out. As it is not getting better she came to ER today. Complains of pain in that area. Denies any fevers. She has migraines but currently no headache. No blurred visions. Currently no earaches. No runny nose or sore throat. She is having cough with some phlegm for last couple of weeks. Denies any chest pain. She gets short of breath.. No difficult swallowing. No nausea. No abdominal pain. Normal bowel and bladder movements. No swelling the legs. Ambulating with a cane. Hemodynamics are okay. Abscess of right breast Right breast ultrasound:At 7:00 in the breast there is a complex collection measuring 2.9 x 1.0 x 2.1 cm. There is increased surrounding blood flow. Findings are concerning for abscess. Initially given Rocephin and Vanco in the ER. Looks like vancomycin caused hives. Started on Dapto. Will continue with Zosyn Surgery consult in a.m. Hypertension On amlodipine and Coreg Will monitor Hyperlipidemia On rosuvastatin will hold while on iv daptomycin Migraines On Topamax and sumatriptan as needed GERD On omeprazole Depression On duloxetine and bupropion Ongoing back pain On baclofen as needed and gabapentin Tobacco abuse Counseling nicotine patch DVT prophylaxis SCDs for now Disposition Medical floor Full code History of Present Illness Chief Complaint: Right breast abscess Primary Care Provider: Janice Gutierrez MD 48-year-old female with past medical history significant for hyperlipidemia, hypertension, migraine, ongoing tobacco use, depression, back pain presents with right breast abscess. Patient states she noticed bumps in her lower part of the right breast about a week ago. Few days ago one of the bump burst and there was some pus coming out. As it is not getting better she came to ER today. Complains of pain in that area. Denies any fevers. She has migraines but currently no headache. No blurred visions. Currently no earaches. No runny nose or sore throat. She is having cough with some phlegm for last couple of weeks. Denies any chest pain. She gets short of breath.. No difficult swallowing. No nausea. No abdominal pain. Normal bowel and bladder movements. No swelling the legs. Ambulating with a cane. Hemodynamics are okay. Past medical history. As mentioned above Past surgical history. . Colonoscopy. Dilatation curettage. Injection of the lumbosacral spine. Total abdominal hysterectomy with removal of tubes. Social history. Smokes 1 pack a day for last 30 years. No alcohol use. Uses marijuana as per [facility]. Family history. Mother has COPD. Father of [place] at age 56. Daughter has asthma. Allergies Allergy/AdvReac Type Severity Reaction Status Date / Time vancomycin Allergy Intermediate Hives Verified 02/18/24 20:51 Home Medications Medication Instructions Recorded Confirmed Type albuterol sulfate 90 mcg/actuation 2 puff inhalation Q4 PRN Shortness 01/02/24 02/18/24 History aerosol inhaler (Ventolin HFA) Of Breath Or Wheezing baclofen 10 mg tablet 10 mg PO BID PRN .moderate pain 01/02/24 02/18/24 History duloxetine 30 mg capsule,delayed 30 mg PO QAM 01/02/24 02/18/24 History release gabapentin 600 mg tablet 600 mg PO TID 01/02/24 02/18/24 History meclizine 25 mg chewable tablet 25 mg PO TID PRN .dizzyness 01/02/24 02/18/24 History omeprazole 20 mg capsule,delayed 20 mg PO AMHS 01/02/24 02/18/24 History release amlodipine 2.5 mg tablet 2.5 mg PO QAM 02/18/24 02/18/24 History bupropion HCl 150 mg 24 hr tablet, 150 mg PO QAM 02/18/24 02/18/24 History extended release carvedilol 3.125 mg tablet 3.125 mg PO AMPM 02/18/24 02/18/24 History magnesium oxide 400 mg PO QAM 02/18/24 02/18/24 History rosuvastatin 10 mg tablet 10 mg PO QAM 02/18/24 02/18/24 History sumatriptan succinate 50 mg tablet 50 mg PO UD PRN Migraine Headache 02/18/24 02/18/24 History topiramate 25 mg tablet 50 mg PO HS 02/18/24 02/18/24 History Past Med/Surg History Problem List (Updated 02/18/24 @ 22:14 by Ezekiel Cooper, DO) Cellulitis of breast (Acute) Leukocytosis (Acute) Abscess of right breast (Acute) Hypertension Shortness of breath Chest pain Leukocytosis (Acute) Elevated lactic acid level (Acute) Hypertensive urgency (Acute) Nausea & vomiting (Acute) Swelling of lower extremity (Acute) Acute intractable headache (Acute) Lab test negative for COVID-19 virus (Acute) Medical History No significant medical problems Social History Smoking Status: Current every day smoker Tobacco Type: Cigarettes Second Hand Exposure: No; Do You Dip or Chew Tobacco: No; Hx Alcohol Use: No Hx Substance Use: Yes Last Used Substance: Hours (ago) Preferred Language: Citizen Of The [place] Communication Ability: Effective Ampoule Filler And Sealer Required: No Beliefs That Will Affect Care: None Current Living Situation: Family Feels Safe at Home: Yes Safety Concerns: Feels Safe At This Time Assistive Devices: Cane Review of Systems Review of Systems: All systems reviewed & are unremarkable except as noted in HPI & below Physical Exam Physical Exam: General- Not in distress. Head- atraumatic Eyes- PERRL. ENT- oropharynx clear Neck- supple, no JVD Lungs- clear to auscultation no wheezing or crackles Breast: Erythema and bumps seen under right breast Heart- regular rate rhythm; no murmur, no gallop. Abdomen- normal bowel sounds, soft, nontender, no distension. Extremities- no pretibial edema, no erythema seen. Neuro- alert, oriented PERRL, no facial palsy; no dysarthria; moves extremities Results & Data Results & Data Vital Signs (Past 12 Hours) Vital Signs Temp Pulse Resp BP Pulse Ox O2 Del Method 02/18/24 19:02 87 02/18/24 18:37 88 16 96 Room Air 02/18/24 18:07 36.0 C L 99 H 20 137/84 96 Room Air Diagnostic Findings Laboratory Results WBC 15.36 K/ul (4.8-10.8) H 02/18/24 18:35 RBC 4.98 M/uL (4.20-5.40) 02/18/24 18:35 Hgb 15.1 g/dl (12.0-16.0) 02/18/24 18:35 Hct 44.2 % (37.0-47.0) 02/18/24 18:35 MCV 88.8 fL (80.0-100.0) 02/18/24 18:35 MCH 30.3 pg (25.0-34.0) 02/18/24 18:35 MCHC 34.2 g/dL (32.0-36.0) 02/18/24 18:35 RDW Std Deviation 45.3 fL (36.4-46.3) 02/18/24 18:35 RDW Coeff of Stephanie 14.0 % (11.5-14.5) 02/18/24 18:35 Plt Count 311 K/uL (130-400) 02/18/24 18:35 MPV 10.3 fL (9.4-12.4) 02/18/24 18:35 Immature Gran % (Auto) 0.3 % 02/18/24 18:35 Neut % (Auto) 46.3 % 02/18/24 18:35 Lymph % (Auto) 44.1 % 02/18/24 18:35 [place] % (Auto) 6.8 % 02/18/24 18:35 Eos % (Auto) 2.0 % 02/18/24 18:35 Baso % (Auto) 0.5 % 02/18/24 18:35 Neut # (Auto) 7.11 K/uL (1.40-6.50) H 02/18/24 18:35 Lymph # (Auto) 6.78 K/uL (1.20-3.40) H 02/18/24 18:35 [place] # (Auto) 1.04 K/uL (0.11-0.59) H 02/18/24 18:35 Eos # (Auto) 0.30 K/uL (0.00-0.50) 02/18/24 18:35 Baso # (Auto) 0.08 K/uL (0.00-0.20) 02/18/24 18:35 Immature Gran # (Auto) 0.05 K/uL (0.01-0.20) 02/18/24 18:35 Sodium 137 mmol/L (136-145) 02/18/24 18:35 Potassium 4.0 mmol/L (3.5-5.1) 02/18/24 18:35 Chloride 107 mmol/L (98-107) 02/18/24 18:35 Carbon Dioxide 22 mmol/L (21-32) 02/18/24 18:35 Anion Gap 8 (3-11) 02/18/24 18:35 BUN 8 mg/dl (6-23) 02/18/24 18:35 Creatinine 0.76 mg/dl (0.6-1.2) 02/18/24 18:35 Est Cr Clr Drug Dosing 118.1 ml/min 02/18/24 18:35 Est GFR ( Amer) 109.0 ml/min 02/18/24 18:35 Est GFR (Non-Af Amer) 94.1 ml/min 02/18/24 18:35 BUN/Creatinine Ratio 10.5 (10-20) 02/18/24 18:35 Glucose 98 mg/dl (70-99(Fasting)) 02/18/24 18:35 Calcium 9.5 mg/dl (8.6-10.3) 02/18/24 18:35 Impressions Breast Ultrasound 02/18/24 18:18 US breast RT limited CLINICAL HISTORY: 7o clock TECHNIQUE: Real-time grayscale sonographic images of the right breast were obtained. Comparison: None available at the time of this dictation. FINDINGS/IMPRESSION: At 7:00 in the breast there is a complex collection measuring 2.9 x 1.0 x 2.1 cm. There is increased surrounding blood flow. Findings are concerning for abscess. ACT 112: Negative or not required by law. Electronically signed by: Robbie Hernandez M.D. 02/18/2024 7:28 PM
[2024-02-18] MEDS: DAPTOmycin 325 MG in SYRINGE 0 ML IV SCH (21:52)
[2024-02-18] MEDS: HYDROmorphone INJ 0.5 MG/0.5 ML SYR IV STA (22:48)
[2024-02-18] MEDS ORDERED: ALBUTEROL HFA 8 GM INHALER INH PRN (23:54)
[2024-02-18] MEDS ORDERED: POLYETHYLENE (MIRALAX) 17 GM PACK PO PRN (23:54)
[2024-02-19] MEDS ORDERED: MECLIZINE HCL 25 MG TAB PO PRN (00:17)
[2024-02-19] MEDS: PIPERACILLIN/TAZOBACTAM 4.5 GM in DEXTROSE 5% MINI-B 100 ML IV STA (00:41)
[2024-02-19] MEDS: SODIUM CHLORIDE 0.9% 1,000 ML IV SCH (00:42)
[2024-02-19] MEDS: carvediloL 3.125 MG TAB PO SCH (00:47)
[2024-02-19] MEDS: ACETAMINOPHEN 325 MG TAB PO PRN (03:34)
[2024-02-19] MEDS: PIPERACILLIN/TAZOBACTAM 4.5 GM in DEXTROSE 5% MINI-B 100 ML IV SCH (05:44)
[2024-02-19 05:52] LABS: Basophils # (auto) 0.03 K/uL (0.00-0.20); Basophils % (auto) 0.3 %; Eosinophils # (auto) 0.22 K/uL (0.00-0.50); Hematocrit (blood only) 43.5 % (37.0-47.0); Hemoglobin 14.5 g/dl (12.0-16.0); Immature Granulocytes # (auto) 0.02 K/uL (0.01-0.20); Immature Granulocytes % (auto) 0.2 %; Lymphocytes # (auto) 2.37 K/uL (1.20-3.40); Lymphocytes % (auto) 21.3 %; Mean Corpuscular Hgb Conc 33.3 g/dL (32.0-36.0); Mean Corpuscular Volume 89.9 fL (80.0-100.0); Mean Platelet Volume 10.1 fL (9.4-12.4); Monocytes # (auto) 0.51 K/uL (0.11-0.59); Monocytes % (auto) 4.6 %; Neutrophils % (auto) 71.6 %; Platelet Count 259 K/uL (130-400); RDW Coefficient of Variation 14.1 % (11.5-14.5); RDW Standard Deviation 46.4 fL (36.4-46.3); Red Blood Count 4.84 M/uL (4.20-5.40); White Blood Count 11.15 K/ul (4.8-10.8)
[2024-02-19 06:08] LABS: Calcium 8.8 mg/dl (8.6-10.3); Creatinine Clr Calc Pharmacy 122.9 ml/min; Est GFR (African American) 114.5 ml/min; Est GFR (Non-African American) 98.8 ml/min; Magnesium 1.8 mg/dl (1.7-2.4); Potassium 3.7 mmol/L (3.5-5.1)
[2024-02-19 07:02] VITALS: RESP 16
[2024-02-19] MEDS: DULoxetine HCL 30 MG CAP PO SCH (07:38)
[2024-02-19] MEDS: GABAPENTIN 600 MG TAB PO SCH (07:38)
[2024-02-19] MEDS: PANTOprazole 40 MG TAB PO SCH (07:39)
[2024-02-19] MEDS: MAGNESIUM OXIDE 400 MG TAB PO SCH (07:39)
[2024-02-19] MEDS: buPROPion XL 150 MG TABCR PO SCH (07:39)
[2024-02-19] MEDS: amLODIPine BESYLATE 5 MG TAB PO SCH (07:40)
[2024-02-19] MEDS: NICOTINE 14 MG/24 HR PATCH TD SCH (07:41)
[2024-02-19] MEDS: PNEUMOCOCCAL VACCINE (PCV20) 20-VAL CONJ-DIP CRM/PF 0.5 ML SYR IM ONE (07:42)
[2024-02-19] MEDS: BACLOFEN 10 MG TAB PO PRN (07:51)
--- NOTE | 2024-02-19 10:58 | Surgery Consultation ---
Date of Consultation February 19, 2024 Assessment & Plan (1) Abscess of right breast: (2) Leukocytosis: (3) Cellulitis of breast: Plan 48-year-old woman with right breast abscess which is spontaneously drained. It appears to be completely drained. We will continue the IV antibiotics for now. We may advance her diet as tolerated. Will continue to monitor her. She will most likely require 1 more day of IV antibiotics and then possible discharge to home tomorrow with oral antibiotics. History of Present Illness Reason for Consultation: Breast abscess, right breast Requesting Physician: Thai Muro DO Attending Physician: Thai Muro DO History of Present Illness 48-year-old woman presents with enlarging lump on her right breast. She states she has had a history of boils that pop and go away on their own in the past. She states that for a few days this enlarged, and became quite painful. Denies fevers and chills. Ultrasound in the emergency department demonstrated a 2.9 cm superficial abscess. Just before I saw her this morning, the nurse states that the area opened and drained a significant amount of purulent fluid. Allergies Allergy/AdvReac Type Severity Reaction Status Date / Time vancomycin Allergy Intermediate Hives Verified 02/18/24 20:51 Home Medications Medication Instructions Recorded Confirmed Type albuterol sulfate 90 mcg/actuation 2 puff inhalation Q4 PRN Shortness 01/02/24 02/18/24 History aerosol inhaler (Ventolin HFA) Of Breath Or Wheezing baclofen 10 mg tablet 10 mg PO BID PRN .moderate pain 01/02/24 02/18/24 History duloxetine 30 mg capsule,delayed 30 mg PO QAM 01/02/24 02/18/24 History release gabapentin 600 mg tablet 600 mg PO TID 01/02/24 02/18/24 History meclizine 25 mg chewable tablet 25 mg PO TID PRN .dizzyness 01/02/24 02/18/24 History omeprazole 20 mg capsule,delayed 20 mg PO AMHS 01/02/24 02/18/24 History release amlodipine 2.5 mg tablet 2.5 mg PO QAM 02/18/24 02/18/24 History bupropion HCl 150 mg 24 hr tablet, 150 mg PO QAM 02/18/24 02/18/24 History extended release carvedilol 3.125 mg tablet 3.125 mg PO AMPM 02/18/24 02/18/24 History magnesium oxide 400 mg PO QAM 02/18/24 02/18/24 History rosuvastatin 10 mg tablet 10 mg PO QAM 02/18/24 02/18/24 History sumatriptan succinate 50 mg tablet 50 mg PO UD PRN Migraine Headache 02/18/24 02/18/24 History topiramate 25 mg tablet 50 mg PO HS 02/18/24 02/18/24 History Patient History Medical History No significant medical problems Social History Smoking Status: Current every day smoker Tobacco Type: Cigarettes Second Hand Exposure: No; Do You Dip or Chew Tobacco: No; Hx Alcohol Use: No Hx Substance Use: Yes Last Used Substance: Hours (ago) Preferred Language: Greek Communication Ability: Effective Pricing Specialist Required: No Beliefs That Will Affect Care: None Current Living Situation: Family Feels Safe at Home: Yes Safety Concerns: Feels Safe At This Time Assistive Devices: Cane Review of Systems Review of Systems: All systems reviewed & are unremarkable except as noted in HPI & below Physical Exam Constitutional: WD/WN, vitals as above Eyes: PERRL, conjunctivae normal, anicteric sclerae Neck: trachea midline, no thyromegaly Respiratory: normal respiratory effort; no respiratory distress and no labored breathing Cardiovascular: Rate/Rhythm: regular rate and regular rhythm Chest (Breasts): Additional Comments: right breast lower central quadrant with 4 cm area of erythema and induration with a central opening draining purulent fluid. I was able to express a significant amount of purulent fluid. The entire cavity was emptied of purulent fluid Skin: no rashes, warm and dry Psychiatric: A+Ox3, euthymic affect Results & Data Vital Signs (Past 12 Hours) Vital Signs Temp Pulse Pulse Resp BP BP Pulse Ox 02/19/24 07:02 36.7 C 88 16 111/78 97 02/19/24 00:04 02/19/24 00:04 36.6 C 82 18 112/74 96 02/18/24 23:12 68 16 110/70 02/18/24 23:04 83 O2 Del Method O2 Flow Rate 02/19/24 07:02 Room Air 02/19/24 00:04 Nasal Cannula 2 02/19/24 00:04 Nasal Cannula 2 02/18/24 23:12 Nasal Cannula 3 02/18/24 23:04 Laboratory Results 02/19/24 02/18/24 Range/Units 05:38 18:35 WBC 11.15 H 15.36 H (4.8-10.8) K/ul RBC 4.84 4.98 (4.20-5.40) M/uL Hgb 14.5 15.1 (12.0-16.0) g/dl Hct 43.5 44.2 (37.0-47.0) % MCV 89.9 88.8 (80.0-100.0) fL MCH 30.0 30.3 (25.0-34.0) pg MCHC 33.3 34.2 (32.0-36.0) g/dL RDW Std Deviation 46.4 H 45.3 (36.4-46.3) fL RDW Coeff of Stephanie 14.1 14.0 (11.5-14.5) % Plt Count 259 311 (130-400) K/uL MPV 10.1 10.3 (9.4-12.4) fL Immature Gran % (Auto) 0.2 0.3 % Neut % (Auto) 71.6 46.3 % Lymph % (Auto) 21.3 44.1 % [place] % (Auto) 4.6 6.8 % Eos % (Auto) 2.0 2.0 % Baso % (Auto) 0.3 0.5 % Neut # (Auto) 8.00 H 7.11 H (1.40-6.50) K/uL Lymph # (Auto) 2.37 6.78 H (1.20-3.40) K/uL [place] # (Auto) 0.51 1.04 H (0.11-0.59) K/uL Eos # (Auto) 0.22 0.30 (0.00-0.50) K/uL Baso # (Auto) 0.03 0.08 (0.00-0.20) K/uL Immature Gran # (Auto) 0.02 0.05 (0.01-0.20) K/uL Sodium 137 137 (136-145) mmol/L Potassium 3.7 4.0 (3.5-5.1) mmol/L Chloride 109 H 107 (98-107) mmol/L Carbon Dioxide 22 22 (21-32) mmol/L Anion Gap 6 8 (3-11) BUN 8 8 (6-23) mg/dl Creatinine 0.73 0.76 (0.6-1.2) mg/dl Est Cr Clr Drug Dosing 122.9 118.1 ml/min Est GFR ( Amer) 114.5 109.0 ml/min Est GFR (Non-Af Amer) 98.8 94.1 ml/min BUN/Creatinine Ratio 11.0 10.5 (10-20) Glucose 129 H 98 (70-99(Fasting)) mg/dl Calcium 8.8 9.5 (8.6-10.3) mg/dl Magnesium 1.8 (1.7-2.4) mg/dl Diagnostic Findings US breast RT limited CLINICAL HISTORY: 7o clock TECHNIQUE: Real-time grayscale sonographic images of the right breast were obtained. Comparison: None available at the time of this dictation. FINDINGS/IMPRESSION: At 7:00 in the breast there is a complex collection measuring 2.9 x 1.0 x 2.1 cm. There is increased surrounding blood flow. Findings are concerning for abscess. ACT 112: Negative or not required by law. Electronically signed by: Robbie Hernandez M.D. 02/18/2024 7:28 PM (2) Leukocytosis Leukocytosis type: unspecified Qualified Code(s): D72.829 - Elevated white blood cell count, unspecified
--- NOTE | 2024-02-19 11:02 | Hospitalist Progress Note ---
Date of Service February 19, 2024 Assessment & Plan (1) Abscess of right breast: (2) Cellulitis of breast: (3) Prediabetes: Plan Breast abscess self drained this morning per surgery report. No plans to take to the operating room today Continue IV antibiotics Check MRSA swab if negative will discontinue daptomycin and continue Zosyn Wound care Pain control Can advance diet Anticipate discharge as soon as tomorrow Admission and Anticipated Discharge Date Admission Date: February 18, 2024 Subjective Patient reports being a fair amount of pain from the abscess, burning pain and tenderness Physical Exam Physical Exam: Constitutional: Alert, nontoxic HEENT: Mucous membranes moist. Lungs: Clear to auscultation, decreased, no wheezes rales or rhonchi CV: S1-S2, regular Abdomen: Soft, nontender, nondistended Extremities: No significant edema Neuro: No focal deficits Psych: Cooperative, normal mood Results & Data Results & Data Vital Signs (Past 12 Hours) Vital Signs Temp Pulse Pulse Resp BP BP Pulse Ox 02/19/24 07:02 36.7 C 88 16 111/78 97 02/19/24 00:04 02/19/24 00:04 36.6 C 82 18 112/74 96 02/18/24 23:12 68 16 110/70 02/18/24 23:04 83 O2 Del Method O2 Flow Rate 02/19/24 07:02 Room Air 02/19/24 00:04 Nasal Cannula 2 02/19/24 00:04 Nasal Cannula 2 02/18/24 23:12 Nasal Cannula 3 02/18/24 23:04 Diagnostic Findings Reviewed imaging, laboratory and diagnostic studies. Pertinent findings as below. WBCs 11.1, significantly improved Wound culture pending Hemoglobin A1c December 2023 6.1%
[2024-02-19] MEDS: traMADol HCL 50 MG TABLET PO PRN (14:30)
[2024-02-19] MEDS: TOPIRAMATE 50 MG TAB PO SCH (20:03)
--- NOTE | 2024-02-20 01:55 | Surgery Progress Note ---
Date of Service February 20, 2024 Assessment & Plan (1) Abscess of right breast: (2) Leukocytosis: (3) Cellulitis of breast: Plan 48-year-old woman with right breast abscess which is spontaneously drained. It appears to be completely drained. will be able to be discharged to home tomorrow on oral antibiotics. Short-term follow-up in surgical clinic next week. Admission and Anticipated Discharge Date Admission Date: February 18, 2024 Subjective Feeling better. Still some pain in the right breast. Tolerating diet. No further drainage. Physical Exam Physical Exam: AFVSS NAD, & O x 3 NCAT Right breast dressing clean and dry Results & Data Vital Signs (Past 12 Hours) Vital Signs Temp Pulse Resp BP Pulse Ox O2 Del Method 02/19/24 20:06 36.9 C 84 16 102/68 96 Room Air 02/19/24 14:47 36.5 C 67 16 100/66 95 Room Air (2) Leukocytosis Leukocytosis type: unspecified Qualified Code(s): D72.829 - Elevated white blood cell count, unspecified
[2024-02-20 07:16] VITALS: BP 95/62; PULSE 72; TEMP 97.7; O2SAT 95
--- NOTE | 2024-02-20 08:31 | Discharge Summary ---
Discharge Summary Date of Service February 20, 2024 Principal Dx & Hospital Course #1 = Principal Diagnosis (1) Abscess of right breast: (2) Cellulitis of breast: (3) Prediabetes: (4) Nicotine dependence: Plan Patient was admitted to the hospital. She was placed on broad-spectrum IV antibiotics for breast abscess. Surgical consultation was obtained. Patient was seen by surgery and the breast abscess had already opened and drained on its own. There is significant improvement of the induration and redness surrounding the area of abscess. Recommended to continue allowing the lesion to self drain and continue IV antibiotics. On the day of discharge patient was afebrile. Other vital signs are stable. There is significant improvement of the right breast abscess. There is no redness, minimal tenderness, no fluctuance, minimal and significantly improved induration of the skin. There is no further drainage. She be transition to oral antibiotics and discharged home with outpatient care and follow-up. Notes For Next Care Provider May need additional care and interventions for prediabetes Medication Changes From Visit Augmentin added for antibiotic treatment of breast abscess Admission HPI Per Admitting Provider 48-year-old female with past medical history significant for hyperlipidemia, hypertension, migraine, ongoing tobacco use, depression, back pain presents with right breast abscess. Patient states she noticed bumps in her lower part of the right breast about a week ago. Few days ago one of the bump burst and there was some pus coming out. As it is not getting better she came to ER today. Complains of pain in that area. Denies any fevers. She has migraines but currently no headache. No blurred visions. Currently no earaches. No runny nose or sore throat. She is having cough with some phlegm for last couple of weeks. Denies any chest pain. She gets short of breath.. No difficult swallowing. No nausea. No abdominal pain. Normal bowel and bladder movements. No swelling the legs. Ambulating with a cane. Hemodynamics are okay. Past medical history. As mentioned above Past surgical history. . Colonoscopy. Dilatation curettage. Injection of the lumbosacral spine. Total abdominal hysterectomy with removal of tubes. Social history. Smokes 1 pack a day for last 30 years. No alcohol use. Uses marijuana as per [employer]. Family history. Mother has COPD. Father of DC at age 56. Daughter has asthma. Admission Exam Per Admitting Provider See H&P Discharge Exam Constitutional: Alert Lungs: Clear to auscultation, decreased, no wheezes rales or rhonchi CV: S1-S2, regular Breast: Small abscess on the underside of the right breast at approximately the 7 o'clock position significantly improved, no redness, minimal tenderness, no purulent discharge Psych: Cooperative, normal mood Updated Medication List Medication Instructions Recorded Confirmed Type albuterol sulfate 90 mcg/actuation 2 puff inhalation Q4 PRN Shortness 01/02/24 02/18/24 History aerosol inhaler (Ventolin HFA) Of Breath Or Wheezing baclofen 10 mg tablet 10 mg PO BID PRN .moderate pain 01/02/24 02/18/24 History duloxetine 30 mg capsule,delayed 30 mg PO QAM 01/02/24 02/18/24 History release gabapentin 600 mg tablet 600 mg PO TID 01/02/24 02/18/24 History meclizine 25 mg chewable tablet 25 mg PO TID PRN .dizzyness 01/02/24 02/18/24 History omeprazole 20 mg capsule,delayed 20 mg PO AMHS 01/02/24 02/18/24 History release amlodipine 2.5 mg tablet 2.5 mg PO QAM 02/18/24 02/18/24 History bupropion HCl 150 mg 24 hr tablet, 150 mg PO QAM 02/18/24 02/18/24 History extended release carvedilol 3.125 mg tablet 3.125 mg PO AMPM 02/18/24 02/18/24 History magnesium oxide 400 mg PO QAM 02/18/24 02/18/24 History rosuvastatin 10 mg tablet 10 mg PO QAM 02/18/24 02/18/24 History sumatriptan succinate 50 mg tablet 50 mg PO UD PRN Migraine Headache 02/18/24 02/18/24 History topiramate 25 mg tablet 50 mg PO HS 02/18/24 02/18/24 History amoxicillin 875 mg-potassium 1 tab PO BID #14 tabs 02/20/24 Rx clavulanate 125 mg tablet nicotine 7 mg/24 hr daily 1 patch transdermal QAM #14 ea 02/20/24 Rx transdermal patch Hospital Stay Data Consultations 02/18/24 19:52 ED Decision to Admit Stat 02/19/24 08:00 Consult General Surgery Routine Diagnostic Imagining Performed Reviewed imaging, laboratory and diagnostic studies. Pertinent findings as below. MRSA screen was negative Wound culture rare gram-positive cocci WBCs 11.1 significantly improved 02/18/24 18:18 US breast RT limited Stat Pending Results Patient Have Any Pending Studies at Discharge: Yes Discharge Instructions Given to Patient (Per Discharging Provider) Try to keep area clean and dry Total Time Total Time Spent Total Time Spent (In Minutes): 25
== END 2024-02-20 10:36 | disposition home or self-care (01) | DRG 601 ==
LOC: ED 17:58 → INTOOBSV 21:28 → 3E 21:28

== ENCOUNTER 2024-08-19 05:04 | Inpatient (IN) ==
--- OUTSIDE RECORDS SUMMARY | 2024-08-19 05:11 | External Medical Summary | Summary of Care ---
Author Name Unknown Organization [facility] Address [address] [place] [address] Phone [phone] Care Team Providers Care Blood Bank Technician Name Role Phone Janice Gutierrez MD Primary Care Provider [phone] Reason for Referral * Precert (Within 10 days (routine)) - Pending Review Specialty Diagnoses / Procedures Referred By Jaime t Referred To Contact Radiology Diagnoses Migraine without aura and without status migrainosus, not intractable Procedures MRI BRAIN W WO CONTRAST Dione Capellan PA-C [address] [place] [address] Phone: tel: fax: Referral ID Status Reason Start Date Expiration Date V isits Requested Visits Authorized [id number] Pending Review 08/04/2024 999 999 Reason for Visit * Reason Comments Return Neuro Encounter Details Date Type Department Care Team (Late st Contact Info) Description 08/03/2024 9:00 AM EST [facility] [address] [facility] [address] Dione [facility]ellan [facility]C [address] [facility] [place] [phone] Migraine without aura and without status migrainosus, not intractable*; Bronchitis, complicated; Migraine variant, intractable Allergies No known active allergiesdocumented as of this encounter (statuses as of 08/03/2024) Medications Ventolin HFA 108 (90 Base) MCG/ACT Inhalation Aerosol SolutionIndicatio ns:Acute bronchitis, antibiotics not indicated Inhale 2 Puffs by mouth every 4 hours as needed for Wheezing. 18 g 2 024 Active DULoxetine HCl 30 MG Oral Capsule Delayed Release Particles (Cymbalta)Indicat ions:Moderate episode of recurrent major depressive disorder (HCC),Lumbar radiculopathy Take 1 Capsule by mouth in the morning and 1 Capsule before bedtime. Do not cut, crush or chew. 180 Capsule 5 024 Active Riboflavin 400 MG Oral Tablet Take 1 Tablet by mouth in the morning. 30 Tablet 2 024 Active Colchicine 0.6 MG Oral TabletIndications :Localized swelling of right foot Take 2 Tablets by mouth 3 times a day as needed for Other (gout). At the onset of gout attack and 1 tablet an hour later. No more than 8 tablets in one day. 10 Tablet 1 Active Loratadine 10 MG Oral Tablet (Claritin)Indicat ions:Chronic frontal sinusitis Take 1 Tablet by mouth in the morning. 90 Tablet 3 024 Active Fluticasone-Salme terol 250-50 MCG/ACT Inhalation Aerosol Powder Breath Activated (Advair Diskus)Indication s:Exacerbation of persistent asthma, unspecified asthma severity Inhale 1 Puff by mouth in the morning and 1 Puff before bedtime. 60 Each 5 024 Active Carvedilol 3.125 MG Oral Tablet (Coreg)Indication s:HTN, goal below 140/90 Take 1 Tablet by mouth 2 times a day with morning and evening meals. 180 Tablet 3 024 Active buPROPion HCl ER (XL) 300 MG Oral Tablet Extended Release 24 Hour (Wellbutrin XL)Indications:To bacco use disorder,Moderate episode of recurrent major depressive disorder (HCC) Take 1 Tablet by mouth in the morning. For next refill instead of 150 mg. 30 Tablet 5 024 Active metFORMIN HCl ER 500 MG Oral Tablet Extended Release 24 Hour (Glucophage XR)Indications:Pr ediabetes Take 1 Tablet by mouth in the morning. 90 Tablet 3 024 Active Fluticasone Propionate 50 MCG/ACT Nasal Suspension (Flonase)Indicati ons:Chronic frontal sinusitis Administer 2 Sprays into each nostril at bedtime. 16 g 5 024 Active Baclofen 10 MG Oral Tablet (Lioresal)Indicat ions:Lumbar radiculopathy,Deg eneration of intervertebral disc of lumbar region with discogenic back pain and lower extremity pain Take 1 Tablet by mouth 2 times a day as needed for Pain, Moderate. 180 Tablet 024 Active Rosuvastatin Calcium 10 MG Oral Tablet (Crestor)Indicati ons:Hyperlipidemi a with target LDL less than 100 Take 1 Tablet by mouth in the morning. 90 Tablet 1 024 Active Gabapentin 600 MG Oral Tablet (Neurontin)Indica tions:Lumbar radiculopathy,Lum bar degenerative disc disease Take 1 Tablet by mouth in the morning and 1 Tablet at noon and 1 Tablet before bedtime. 90 Tablet 5 024 Active Ketorolac Tromethamine 10 MG Oral Tablet (Toradol)Indicati ons:Generalized abdominal pain Take 1 Tablet by mouth 4 times a day as needed for Pain, Severe. Do not take for longer than 5 days 20 Tablet 024 Active Naltrexone HCl 50 MG Oral Tablet (Revia) Take 1/2 tab by mouth once a day for 1 week then take 1/2 tab twice a day (morning & late afternoon) 30 Tablet 4 024 Active Omeprazole 20 MG Oral Capsule Delayed Release (PriLOSEC)Indicat ions:Gastroesopha geal reflux disease without esophagitis Take 1 Capsule by mouth in the morning. 1 hour before the first meal of the day and at bedtime. 180 Capsule 1 025 Active Benzonatate 100 MG Oral Capsule (Tessalon Perlradu)Indication s:URTI (acute upper respiratory infection) Take 1 Capsule by mouth 3 times a day as needed for Cough. Do not cut, crush, or chew. 50 Capsule 1 025 Active Meclizine HCl 25 MG Oral Tablet (Antivert) Take 1 Tablet by mouth 3 times a day as needed for Dizziness. 30 Tablet 1 025 Active Topiramate 25 MG Oral Tablet (topAMAX) Take 3 tablets nightly 90 Tablet 2 025 Active Ondansetron HCl 8 MG Oral Tablet (Zofran)Indicatio ns:Bronchitis, complicated Take 1 Tablet by mouth every 8 hours as needed for Nausea. 20 Tablet 3 025 Active SUMAtriptan Succinate 100 MG Oral Tablet (Imitrex)Indicati ons:Migraine variant, intractable Take 1 tablet at onset of migraine, take 1 additional tablet after 2 hours. Limit 2 tablets in 24 hours. 10 Tablet 3 025 Active Meclizine HCl 25 MG Oral Tablet (Antivert) TAKE 1 TABLET BY MOUTH THREE TIMES A DAY IF NEEDED FOR DIZZINESS 30 Tablet 1 023 2024 Discontinued Ondansetron HCl 4 MG Oral Tablet (Zofran)Indicatio ns:Bronchitis, complicated Take 1 Tablet by mouth every 6 hours as needed for Nausea. 20 Tablet 2 024 2024 Discontinued(R efill) Topiramate 25 MG Oral Tablet (topAMAX) Take 2 Tablets by mouth at bedtime. 60 Tablet 2 024 2024 Discontinued(R efill) SUMAtriptan Succinate 50 MG Oral Tablet (Imitrex)Indicati ons:Migraine variant, intractable Take 2 tablets at onset of migraine and one tablet every 2 hours as needed, not more than 5 tablets in 24 hours 6 Tablet 5 025 2024 Discontinued Hospital, Clinic, or Other Facility Administered Medication Ordered Dose Route Frequency Start Date End Date Status Albuterol Sulfate (Proventil) (2.5 MG/3ML) 0.083% inhalation solution 2.5 mgIndications:Tobacco use disorder,Chronic cough 2.5 mg NEBULIZER PRN 02/08/2024 02/07/2025 Active albuterol (VENTOLIN HFA/PROVENTIL HFA) inhalerIndications: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,Chronic cough 3 Puff IN PRN 02/08/2024 02/07/2025 Ac tive documented as of this encounter (statuses as of 08/03/2024) Active Problems Problem Noted Date Diagnosed Date Lumbar degenerative disc disease 05/02/2024 Fatty liver 05/02/2024 Umbilical hernia without obstruction and without gangrene 05/02/2024 Lumbar radiculopathy 05/02/2024 Prediabetes 02/21/2024 Overview: Per Prediabetes protocol HTN, goal below 140/90 01/12/2024 Moderate episode of recurrent major depressive d isorder 07/14/2023 Food insecurity 06/21/2023 Overview: Per [facility] Protocol Hyperlipidemia with target LDL less than 100 08/2022 Migraine variant 03/18/2023 Tobacco use disorder 02/26/2010 Overview (03/26/2010): Continue to discuss cessation at each visit 03/26: 1/2 ppd INFORMATION 02/26/2010 Overview (03/26/2010): Pt's daughter with fibrous dysplasia-message to [facility] if she needs to be seen [...] pt by phone-please discuss above recommendations at ia-pt aware-reports daughter has not been diagnosed with any syndromes associated with fibrous dysplasia documented as of this encounter (statuses as of 08/03/2024) Resolved Problems Problem Noted Date Diagnosed Date Resolved Date URTI (acute upper respiratory infection) 05/02/2024 06/23/2024 h/o marijuana use in 02/26/2010 03/18/2023 Overview (03/26/2010): Pt using marijuana to increase appetite as she is not eating much due to n/v; pt aware of risks 03/26: pt has stopped use Encounter for supervision of other normal 02/18/2010 09/22/2010 Overview (11/12/2015): Urine cx contaminated at NOB visit Obtained 03/26-wnl Patient received flu vaccine. 04/29/2010 Dee Alfredo RN ICD-10 update of inactive term delivery delivered 02/18/2010 03/18/2023 Overview (10/22/2015): Desires repeat c/s; pt to have records sent to our office with op notes for c/s-discussed 03/26 Pt desires tubal ligation with c/s 2) consent signed 07/09/2010 Pt is scheduled for on 09/05/[address] Padilla ICD-10 update of inactive term documented as of this encounter (statuses as of 08/03/2024) Immunizations Name Administration Dates Next Due Seasonal Influenza Vac., MDV, IM, 0.5 mL (Fluzon e) 04/29/2010 Seasonal Influenza Virus Vac cine, Unspecified Formulation 04/29/2010 TDAP (age 10 and older)(Boostrix) 05/26/2022 TDAP, Age 7 and older, IM (Adacel) 10/23/2021 documented as of this encounter Social History [...] ages 0-17 years) Not on file 05/26/2023 Comments No Sex and Gender Information Value Date Recorded Sex Assigned at Female 03/08/2023 9:00 AM EDT Legal Sex Female 6:48 AM EST Gender Identity Female 03/08/2023 9:00 AM EDT Sexual Orientation Not on file Occupation Industry Job Start Date Job End Date [employer] Not on file Not on file Not on file documented as of this encounter Last Filed Vital Signs Vital Sign Reading Time Taken Comments Blood Pressure 118/78 08/03/2024 8:58 AM EST Pulse 84 08/03/2024 8:58 AM EST Temperature 36.3 C (97.3 F) 08/03/2024 8:58 AM ES T Respiratory Rate - - Oxygen Saturation - - Inhaled Oxygen Concentration - - Weight 111.4 kg (245 lb 8 oz) 08/03/2024 8:58 AM EST Height - - Body Mass Index 38.44 06/23/2024 3:15 PM EST documented in this encounter Progress Notes * Dione Capellan PA-C - 08/03/2024 9:00 AM EST HISTORY & PHYSICAL EXAMINATION - NEUROLOGY Name: Keyona Santos Date: 08/02/2024 Time: 9:58 AM Chief Complaint Patient presents with Return Neuro SUBJECTIVE: Keyona Santos is a 48 year old female with history of prediabetes, HTN, HLD, and tobacco use who presents today for follow- up of migraine headaches. She established care with Neurology, Dasha Phelan PA-C on 01/26/24. Started riboflavin/magnesium oxide 400mg daily, and Topamax 50mg for prevention. Advised to limit sumatriptan and Tylenol use.Follow up with Sleep Medicine re possible RODOLFO. Today states she has a history of migraine for many years. Typical migraine is bilateral temples ormiddle of her head, pressure- like in nature. Associated with nausea, vomiting, light and sound sensitivity. Can last up to 3 days at a time. Occurring 3x/ month. Migraines have been worsening in severity and frequency the past year. If she can catch the migraine early, sumatriptan 50mg is effective. However it takes 30- 40 minutesto start working. She does not take any OTC medications; ineffective in the past. Admits to poor sleep. She was evaluated by Sleep Medicine in January and recommended a sleep study; not done. Endorses snoring, possible gasping/choking, and excessive sleepiness during the day. Migraines are not positional. Denies blacking out of vision, pulsatile tinnitus. Has yearly eye exams. Stays hydrated. No alcohol use. Two of her daughters have migraines. She has never had head imaging. She is s/p hysterectomy. No hx kidney stones. Current Meds: Topamax 50mg, Gabapentin 600mg TID (back pain), Baclofen 10mg BID (back pain) Allergies: Patient has no known allergies. Problem list: Patient Active Problem List Diagnosis Tobacco use disorder INFORMATION Migraine variant Hyperlipidemia with target LDL less than 100 Food insecurity Moderate episode of recurrent major depressive disorder (HCC) HTN, goal below 140/90 Prediabetes Lumbar degenerative disc disease Fatty liver Umbilical hernia without obstruction and without gangrene Lumbar radiculopathy Past Medical History: Past Medical History: Diagnosis Date NO KNOWN PROBLEMS Current Outpatient Medications: Current Outpatient Medications Medication Sig Dispense Refill Topiramate 25 MG Oral Tablet (topAMAX) Take 3 tablets nightly 90 Tablet 2 Ondansetron HCl 8 MG Oral Tablet (Zofran) Take 1 Tablet by mouth every 8 hours as needed for Nausea. 20 Tablet 3 SUMAtriptan Succinate 100 MG Oral Tablet (Imitrex) Take 1 tablet at onset of migraine, take 1 additional tablet after 2 hours. Limit 2 tablets in 24 hours. 10 Tablet 3 Ventolin HFA 108 (90 Base) MCG/ACT Inhalation Aerosol Solution Inhale 2 Puffs by mouth every 4 hours as needed for Wheezing. 18 g 2 DULoxetine HCl 30 MG Oral Capsule Delayed Release Particles (Cymbalta) Take 1 Capsule by mouth in the morning and 1 Capsule before bedtime. Do not cut, crush or chew. 180 Capsule 5 Riboflavin 400 MG Oral Tablet Take 1 Tablet by mouth in the morning. 30 Tablet 2 Colchicine 0.6 MG Oral Tablet Take 2 Tablets by mouth 3 times a day as needed for Other (gout). At the onset of gout attack and 1 tablet an hour later. No more than 8 tablets in one day. 10 Tablet 1 Loratadine 10 MG Oral Tablet (Claritin) Take 1 Tablet by mouth in the morning. 90 Tablet 3 Fluticasone-Salmeterol 250-50 MCG/ACT Inhalation Aerosol Powder Breath Activated (Advair Diskus) Inhale 1 Puff by mouth in the morning and 1 Puff before bedtime. 60 Each 5 Carvedilol 3.125 MG Oral Tablet (Coreg) Take 1 Tablet by mouth 2 times a day with morning and evening meals. 180 Tablet 3 buPROPion HCl ER (XL) 300 MG Oral Tablet Extended Release 24 Hour (Wellbutrin XL) Take 1 Tablet by mouth in the morning. For next refill instead of 150 mg. 30 Tablet 5 metFORMIN HCl ER 500 MG Oral Tablet Extended Release 24 Hour (Glucophage XR) Take 1 Tablet by mouthin the morning. 90 Tablet 3 Fluticasone Propionate 50 MCG/ACT Nasal Suspension (Flonase) Administer 2 Sprays into each nostril at bedtime. 16 g 5 Baclofen 10 MG Oral Tablet (Lioresal) Take 1 Tablet by mouth 2 times a day as needed for Pain, Moderate. 180 Tablet 0 Rosuvastatin Calcium 10 MG Oral Tablet (Crestor) Take 1 Tablet by mouth in the morning. 90 Tablet 1 Gabapentin 600 MG Oral Tablet (Neurontin) Take 1 Tablet by mouth in the morning and 1 Tablet at noon and 1 Tablet before bedtime. 90 Tablet 5 Ketorolac Tromethamine 10 MG Oral Tablet (Toradol) Take 1 Tablet by mouth 4 times a day as needed for Pain, Severe. Do not take for longer than 5 days 20 Tablet 0 Naltrexone HCl 50 MG Oral Tablet (Revia) Take 1/2 tab by mouth once a day for 1 week then take 1/2 tab twice a day (morning & late afternoon) 30 Tablet 4 Omeprazole 20 MG Oral Capsule Delayed Release (PriLOSEC) Take 1 Capsule by mouth in the morning. 1 hour before the first meal of the day and at bedtime. 180 Capsule 1 Benzonatate 100 MG Oral Capsule (Tessalon Perles) Take 1 Capsule by mouth 3 times a day as needed for Cough. Do not cut, crush, or chew. 50 Capsule 1 Meclizine HCl 25 MG Oral Tablet (Antivert) Take 1 Tablet by mouth 3 times a day as needed for Dizziness. 30 Tablet 1 Current Facility-Administered Medications Medication Dose Route Frequency Provider Last Rate Last Admin Albuterol Sulfate (Proventil) (2.5 MG/3ML) 0.083% inhalation solution 2.5 mg 2.5 mg Nebulizer PRN 2.5 mg at 03/02/24 1432 albuterol (VENTOLIN HFA/PROVENTIL HFA) inhaler 3 Puff Inhalation PRN Family History: Family History Problem Relation Name Age of Onset Lung Disorder Mother Joann copd Heart Disorder Father shruti of ID at 56 Asthma Daughter Stephen Eye Problems Daughter Stephen Other (Other [Other]) None all siblings with no health history Breast Cancer No significant family history SOCIAL HISTORY: Social History Tobacco Use Smoking status: Every Day Current packs/day: 1.00 Average packs/day: 1 pack/day for 30.0 years (30.0 ttl pk-yrs) Types: Cigarettes Smokeless tobacco: Never Vaping Use Vaping status: Never Used Substance Use Topics Alcohol use: No Drug use: Yes Comment: Addison REVIEW OF SYSTEMS: As above OBJECTIVE: Physical Examination: BP 118/78 | Pulse 84 | Temp 36.3 C (97.3 F) (Tympanic) | Wt 111.4 kg (245 lb 8 oz) | BMI 38.44 kg/m | BSA 2.29 m General appearance: healthy, alert, no distress Physical Exam: Constitutional: Appearance normally developed,well nourished,no deformities,well groomed Head and face: normocephalic,atraumatic Respiratory: normal effort,clear to auscultation Cardiovascular: normal heart sounds and regular rhythm Psychiatric: normal judgement and insight,normal mood,normal affect NEUROLOGIC EXAMINATION: Mental Status Exam: alert,oriented to time, place, person,normal recent memory,normal remote memory,normal attention span,normal concentration,normal language,normal fund of knowledge Cranial Nerves: CN 2,3 - PERRL CN 3, 4, 6 - Extra-ocular Movements Intact,no nystagmus CN 5 - Facial sensation intact and equal bilaterally CN 7 - no facial assymetry CN 8 - hearing grossly intact CN 9, 10, 12 - tongue and uvula midline Coordination: no tremor, no abnormal movements Gait/station: Gait appears to be normal, no pathological gaits. Muscle exam: Arm Right Left Leg Right Left Deltoid 5/5 5/5 Iliopsoas 5/5 5/5 Biceps 5/5 5/5 Triceps 5/5 5/5 Reflexes: Biceps BR Patellar Achilles Plantars Right 2+ 2+ 2+ 2+ Flexor Left 2+ 2+ 2+ 2+ Flexor LABORATORY: Results for orders placed or performed in visit on 01/27/24 CBC Result Value Ref Range WBC 14.62 (H) 4.00 - 10.80 K/uL RBC 4.87 3.85 - 5.15 M/uL HGB 14.7 12.0 - 15.3 g/dL HCT 44.6 36.0 - 45.2 % MCV 91.6 81.5 - 97.5 fL MCH 30.2 27.0 - 34.0 pg MCHC 33.0 32.0 - 36.0 g/dL RDW 15.1 11.5 - 15.5 % PLT 250 140 - 400 K/uL MPV 10.3 6.6 - 11.1 fL Results for orders placed or performed in visit on 02/08/24 LIPID PANEL WITH DIRECT LDL IF TG IS HIGH Result Value Ref Range Triglycerides 100 <=174 mg/dL Cholesterol 149 <200 mg/dL HDL Cholesterol 39 (L) >49 mg/dL Non-HDL Cholesterol 110 <=159 mg/dL LDL Cholesterol 90 <=129 mg/dL Lab Results Component Value Date/Time HEMOGLOBIN A1C - [facility] 6.2 (H) 04/10/2024 08:37 AM HEMOGLOBIN A1C - [facility] 6.2 (H) 01/27/2024 08:33 AM HEMOGLOBIN A1C - [facility] 5.8 (H) 03/18/2023 10:56 AM Lab Results Component Value Date/Time TSH - [facility] 0.97 04/10/2024 08:37 AM TSH - [facility] 1.74 03/18/2023 10:56 AM TSH - [facility] 2.12 04/29/2010 04:01 PM Review of prior Studies: IMPRESSION: Keyona Santos is a 48 year old female with history of prediabetes, HTN, HLD, and tobacco use who presents today for follow- up of chronic migraine without aura. Long history of migraine, worsened in frequency and severity within the past 6 months. Associated with nausea, vomiting, photo/phonophobia. Examination today is negative for focal neurologic deficit.Recommend MRI brain given escalation of headaches, and no prior imaging. She is having 3 migraines monthly which can last 3 days at a time. Will increase Topamax. She was recommended to have a sleep study; untreated sleep apnea may be contributing to headaches. PLAN: MRI brain w/wo contrast Increase Topamax to 75mg nightly; may increase further to 100mg/day if needed Increase sumatriptan 100mg Zofran 8mg PRN for nausea Schedule sleep study Follow up in 6 months or sooner if needed. I spent a total of 40 minutes on the date of service in preparation, delivery, and documentation of the care provided to Keyona Santos. Dasha Guerrier MD available for direct consultation. Dione Capellan PA-C, Neurology [facility] [address] [facility] [address] 08/03/24 9:39 AM documented in this encounter Nursing Notes * Mami Trinidad OSA - 08/03/2024 8:56 AM EST Chief Complaint Patient presents with Return Neuro documented in this encounter Plan of Treatment Upcoming Encounters Date Type Department Care Team (Late st Contact Info) Description 08/28/2024 11:30 AM EST Imaging Radiology [address], [place] [address] [place] [id number] 10/31/2024 3:40 PM EDT Office Visit General Internal Medicine [facility] [address] [place] [address] Aaliyah Husain MD 200 [facility] [place] [address] 02/01/2025 4:30 PM EDT Office Visit Neurology [facility] [place] [address] [facility] [place] [address] Dione Capellan PA-C [address] [place] [address] 02/07/2025 7:30 AM EDT Office Visit [facility] [place] [address] [place] [phone] Becca Aguilera CR[facility] [place] [address] Scheduled Orders Name Type Priority Associated Diagnoses Orde r Schedule MRI BRAIN W WO CONTRAST Medical Imaging Routine Migraine without aura and without status migrainosus, not intractable Expected: 08/04/2024, Expires: 09/03/2025 Scheduled Procedures Name Priority Associated Diagnoses Date/Ti me COLONOSCOPY FLEXIBLE PROXIMA L DIAGNOSTIC Recall History of colonic polyps Health Maintenance Due Date Last Done Comments Hepatitis B Vaccine (1 of 3 - 19+ 3-dose series) 1996 Pneumococcal Vaccine: Pediatrics (0 to 5 Years) and At-Risk Patients (6 to 18 Years and 19+ Years) (1 of 2 - PCV) 1996 Cologuard 2022 Fecal Occult Blood Test 2022 Sigmoidoscopy 2022 Influenza Vaccine (FLU shot) (#1) 2024 04/29/2010, 04/29/2010 Depression Monitoring 04/12/2024 04/12/2023 Mammogram 10/03/2024 10/04/2023, 03/13, 08/10/2022, Additional history exists GFR 04/10/2025 04/10/2024, 01/09, 03/18/2023 HbA1c 04/10/2025 04/10/2024, 01/09, 03/18/2023 Albumin/Creatinine Ratio 02/07/2027 02/08/2024 Colonoscopy 12/26/2028 12/27/2023, 12/27/2023 Colorectal Cancer Screening 12/26/2028 Lipid Panel 04/10/2029 04/10/2024, 01/09, 03/18/2023 DTap/Tdap Vaccines (3 - Td or Tdap) 05/26/2032 05/26/2022, 10/23/2021 Pap Smear Discontinued 02/26/2010 COVID-19 Vaccine Discontinued Cervical Cancer Screening Discontinued HPV (Gardasil) Vaccine Aged Out No lo nger eligible based on patient's age to complete this topic HPV/Co-Test Discontinued MENINGOCOCCAL (MENACTRA/MENVEO) Aged Out No longer eligible based on patient's age to complete this topic documented as of this encounter Medical Devices Not on filedocumented as of this encounter Visit Diagnoses Diagnosis Migraine without aura and without status migrainosus, not intractable- Primary Migraine without aura, without mention of intractable migraine without mention of status migrainosus Bronchitis, complicated Bronchitis, not specified as acute or chronic Migraine variant, intractable Variants of migraine, not elsewhere classified, with intractable migraine, so stated, without mention of status migrainosus documented in this encounter Care Teams Blood Bank Technician Relationship Specialty Start Date End Date Janice Gutierrez MD [address] [place] [address] PCP - General Internal Medicine 09/06/23 documented as of this encounter"
--- OUTSIDE RECORDS SUMMARY | 2024-08-19 05:12 | External Medical Summary | Summary of Care ---
Author Name Unknown Organization [facility] Address [address] [place] [address] Phone [phone] Care Team Providers Care Veneer Sample Maker Name Role Phone Janice Gutierrez MD Primary Care Provider [phone] Reason for Visit * Reason Comments Hospital Follow-Up Encounter Details Date Type Department Care Team (Late st Contact Info) Description 06/23/2024 3:20 PM EST Office Visit Family Practice [facility] [address] [facility] [place] [address] Ally Barbosa MD [address] [place] [address] Right-sided abdominal pain of unknown etiology*; Nausea and vomiting, unspecified vomiting type; S/P hysterectomy Allergies No known active allergiesdocumented as of this encounter (statuses as of 06/23/2024) Medications Meclizine HCl 25 MG Oral Tablet (Antivert) TAKE 1 TABLET BY MOUTH THREE TIMES A DAY IF NEEDED FOR DIZZINESS 30 Tablet 1 06/29/20 23 Active Ventolin HFA 108 (90 Base) MCG/ACT Inhalation Aerosol SolutionIndication s:Acute bronchitis, antibiotics not indicated Inhale 2 Puffs by mouth every 4 hours as needed for Wheezing. 18 g 2 07/14/19 24 Active DULoxetine HCl 30 MG Oral Capsule Delayed Release Particles (Cymbalta)Indicati ons:Moderate episode of recurrent major depressive disorder (HCC),Lumbar radiculopathy Take 1 Capsule by mouth in the morning and 1 Capsule before bedtime. Do not cut, crush or chew. 180 Capsule 12/03/19 24 Active Ondansetron HCl 4 MG Oral Tablet (Zofran)Indication s:Bronchitis, complicated Take 1 Tablet by mouth every 6 hours as needed for Nausea. 20 Tablet 2 01/12/20 24 Active Riboflavin 400 MG Oral Tablet Take 1 Tablet by mouth in the morning. 30 Tablet 2 01/26/20 24 Active SUMAtriptan Succinate 50 MG Oral Tablet (Imitrex)Indicatio ns:Migraine variant, intractable Take 2 tablets at onset of migraine and one tablet every 2 hours as needed, not more than 5 tablets in 24 hours 6 Tablet 5 02/08/20 24 Active Colchicine 0.6 MG Oral TabletIndications: Localized swelling of right foot Take 2 Tablets by mouth 3 times a day as needed for Other (gout). At the onset of gout attack and 1 tablet an hour later. No more than 8 tablets in one day. 10 Tablet 1 02/08/20 24 Active Loratadine 10 MG Oral Tablet (Claritin)Indicati ons:Chronic frontal sinusitis Take 1 Tablet by mouth in the morning. 90 Tablet 3 03/01/20 24 Active Fluticasone-Salmet stefania 250-50 MCG/ACT Inhalation Aerosol Powder Breath Activated (Advair Diskus)Indications :Exacerbation of persistent asthma, unspecified asthma severity Inhale 1 Puff by mouth in the morning and 1 Puff before bedtime. 60 Each 03/01/20 24 Active Carvedilol 3.125 MG Oral Tablet (Coreg)Indications :HTN, goal below 140/90 Take 1 Tablet by mouth 2 times a day with morning and evening meals. 180 Tablet 03/21/20 24 Active buPROPion HCl ER (XL) 300 MG Oral Tablet Extended Release 24 Hour (Wellbutrin XL)Indications:Tob acco use disorder,Moderate episode of recurrent major depressive disorder (HCC) Take 1 Tablet by mouth in the morning. For next refill instead of 150 mg. 30 Tablet 5 03/28/20 24 Active metFORMIN HCl ER 500 MG Oral Tablet Extended Release 24 Hour (Glucophage XR)Indications:Pre diabetes Take 1 Tablet by mouth in the morning. 90 Tablet 3 03/29/20 24 Active Omeprazole 20 MG Oral Capsule Delayed Release (PriLOSEC)Indicati ons:Gastroesophage al reflux disease without esophagitis Take 1 Capsule by mouth in the morning. 1 hour before the first meal of the day and at bedtime. 180 Capsule 1 04/13/20 24 Active Fluticasone Propionate 50 MCG/ACT Nasal Suspension (Flonase)Indicatio ns:Chronic frontal sinusitis Administer 2 Sprays into each nostril at bedtime. 16 g 5 05/17/20 24 Active Baclofen 10 MG Oral Tablet (Lioresal)Indicati ons:Lumbar radiculopathy,Dege neration of intervertebral disc of lumbar region with discogenic back pain and lower extremity pain Take 1 Tablet by mouth 2 times a day as needed for Pain, Moderate. 180 Tablet 05/29/20 24 Active Rosuvastatin Calcium 10 MG Oral Tablet (Crestor)Indicatio ns:Hyperlipidemia with target LDL less than 100 Take 1 Tablet by mouth in the morning. 90 Tablet 1 06/19/20 24 Active Gabapentin 600 MG Oral Tablet (Neurontin)Indicat ions:Lumbar radiculopathy,Lumb ar degenerative disc disease Take 1 Tablet by mouth in the morning and 1 Tablet at noon and 1 Tablet before bedtime. 90 Tablet 5 06/14/20 24 Active Benzonatate 100 MG Oral Capsule (Tesjerardo Boykin)Indications :URTI (acute upper respiratory infection) Take 1 Capsule by mouth 3 times a day as needed for Cough. Do not cut, crush, or chew. 50 Capsule 1 06/14/20 24 Active Topiramate 25 MG Oral Tablet (topAMAX) Take 2 Tablets by mouth at bedtime. 60 Tablet 2 06/14/20 24 Active Magnesium Oxide 400 MG Oral Capsule Take 1 Capsule by mouth in the morning. 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,Chronic cough 3 Puff IN PRN 02/08/2024 02/07/2025 Ac tive documented as of this encounter (statuses as of 06/23/2024) Active Problems Problem Noted Date Diagnosed Date [...] (03/26/2010): Pt's daughter with fibrous dysplasia-message to [facility] if she needs to be seen [...] pt by phone-please discuss above recommendations at ma-pt aware-reports daughter has not been diagnosed with any syndromes associated with fibrous dysplasia documented as of this encounter (statuses as of 06/23/2024) Resolved Problems Problem Noted Date Diagnosed Date [...] as of this encounter (statuses as of 06/23/2024) Immunizations Name Administration Dates Next Due Seasonal [...] on file Are you (or your family) niocle eless or worried that you might be [...] Sign Reading Time Taken Comments Blood Pressure 126/82 06/23/2024 3:15 PM EST Pulse 96 06/23/2024 3:15 PM EST Temperature 36.2 C (97.2 F) 06/23/2024 3:15 PM ES T Respiratory Rate 16 06/23/2024 3:15 PM EST Oxygen Saturation - - Inhaled Oxygen Concentration - - Weight 110.3 kg (243 lb 4 oz) 06/23/2024 3:15 PM EST Height 170.2 cm (5' 7.01") 06/23/2024 3:15 PM ES T Body Mass Index 38.09 06/23/2024 3:15 PM EST documented in this encounter Progress Notes * Ally Barbosa MD - 06/23/2024 3:16 PM EST Subjective Chief Complaint Patient presents with Hospital Follow-Up HPI: Keyona Santos is a 48 year old female. Patient is unaccompanied. The following issues wereaddressed today: Patient presents today for ER follow-up. She was seen on 06/18/24 at [facility] ER for c/o right flank and abdominal pain. White count was elevated at 12.5. CT abd/pelvis with contrast was normal aside from noted air and fluid in the uterus noted and a "1.3 cm fibroid." Of note, the patient iss/p hysterectomy. Pain determined to most likely be musculoskeletal in nature. She was discharged with a Medrol Dosepak. Patient reports she is still having the pain, which started on 06/17/24. Has worsened. Describes as a sharp stabbing pain that is constant. She vomited yesterday in the artificial cherry maker. Was not able to work yesterday. Went to work today and vomited. Trying to drink a lot of water to stay hydrated. She reports a hysterectomy about 7 years ago at [facility] for severe dysmenorrhea. Unclear why recent CT scan comments on air/fluid in the uterus and a possible fibroid. On previous imaging had a nodule between the anterior right kidney and hepatic flexure of the colon, which was no longer seen on repeat CT 04/13/24. She also has small bilateral adrenal nodules, likely adenomas. Review of Systems: See HPI Objective BP 126/82 | Pulse 96 | Temp 97.2 F (36.2 C) (Tympanic) | Resp 16 | Ht 5' 7.01" (1.702 m) | Wt 243 lb 4 oz (110.3 kg) | BMI 38.09 kg/m | BSA 2.28 m Wt Readings from Last 3 Encounters: 06/23/24 243 lb 4 oz (110.3 kg) 05/29/24 246 lb (111.6 kg) 05/02/24 241 lb 14.4 oz (109.7 kg) BP Readings from Last 3 Encounters: 06/23/24 126/82 05/29/24 130/79 05/16/24 110/68 General: Mild distress Cardiovascular: Regular rate and rhythm, no murmur Respiratory: Good respiratory effort, breath sounds equal and clear to auscultation bilaterally Abdomen: Soft, non-distended, RLQ tenderness to palpation, (+) guarding, no rebound Neurological: Alert and oriented, no focal deficits noted Psychiatric: Appropriate mood and affect Assessment & Plan 1. Right-sided abdominal pain of unknown etiology 2. Nausea and vomiting, unspecified vomiting type 3. S/P hysterectomy Patient visibly uncomfortable on presentation today with severe RLQ tenderness on exam. Question report of recent CT scan done as patient does not have a uterus. Unsure of etiology of "fibroid" mentioned. Recommend patient proceed to ER for additional diagnostic work-up including possible repeat CT abd/pelvis with contrast, fluids, pain control. She was agreeable to proceed to [facility] via private vehicle(neighbor will drive). Return for follow-up after ER/hospital admission. This note was electronically signed by Ally Barbosa MD documented in this encounter Nursing Notes * Larisa Strong NA - 06/23/2024 3:12 PM EST Keyona Juarez Tom presents for hospital follow up. Facility: [facility] Emergency Service Date: 05/19/2024 Dx: flank pain Were any tests done: CT abdomen pelvis w con How are you feeling today? Patient is still experiencing pain. Reports it has gotten worse. Was given prednisone taper but notes no difference - almost competing regimen. Describes that it feels like it is radiating more to her front from her flank. Reports she was vomiting from stomach pain last night. Rates 10/10 and describes it as a constant stabbing pain. No position is comfortable. Medications & HM reviewed. documented in this encounter Plan of Treatment Upcoming Encounters Date Type Department Care Team (Late st Contact Info) Description 07/11/2024 11:20 AM EST Telemedicine Nutrition & Weight Management, [facility] [address] [facility] [place] [address] Merari Baires PA-C [address] [place] [address] 07/14/2024 3:00 PM EST Office Visit Orthopaedics Spine Surgery, [facility] [address] [place] [address] Jg Elder MD [address] [place] [address] 08/03/2024 9:00 AM EST Office Visit Neurology [facility] [address] [facility] [place] [address] Dione Capellan PA-C [address] [facility] [place] [address] 10/31/2024 3:40 PM EDT Office Visit General Internal Medicine [facility] [address] [facility] [place] [address] Aaliyah Husain MD [address] [facility] [place] [address] Scheduled Procedures Name Priority Associated Diagnoses Date/Ti [...] as of this encounter Visit Diagnoses Diagnosis Right-sided abdominal pain of unknown etiology- Primary Nausea and vomiting, unspecified vomiting type S/P hysterectomy Acquired absence of both cervix and uterus documented in this encounter Care Teams Veneer Sample Maker Relationship Specialty Start Date End Date Janice Gutierrez MD [address] [facility] [place] [address] PCP - General Internal Medicine 09/06/23 documented as of this encounter
--- OUTSIDE RECORDS SUMMARY | 2024-08-19 05:12 | External Medical Summary | Summary of Care ---
Author Name Unknown Organization [facility] Address [address] [place] [address] Phone [phone] Care Team Providers Care Counter Person Name Role Phone Ángel Gutierrez MD Primary Care Provider [phone] Reason for Visit * Reason Onset Date Comments Medication Refill 07/14/2024 Encounter Details Date Type Department Care Team (Late st Contact Info) Description 07/14/2024 Refill General Internal Medicine [facility] [address] [place] [address] Ángel Gutierrez MD [address] [place] [address] Migraine variant, intractable; Chronic frontal sinusitis; Prediabetes; Gastroesophageal reflux disease without esophagitis; URTI (acute upper respiratory infection) Allergies No known active allergiesdocumented as of this encounter (statuses as of 07/17/2024) Medications Meclizine HCl 25 MG Oral Tablet [...] cut, crush or chew. 180 Capsule 5 12/03/19 24 Active Ondansetron HCl 4 MG Oral Tablet (Zofran)Indication s:Bronchitis, complicated Take 1 Tablet by mouth every 6 hours as needed for Nausea. 20 Tablet 2 01/12/20 24 Active Riboflavin 400 MG Oral Tablet Take 1 Tablet by mouth in the morning. 30 Tablet 2 01/26/20 24 Active Colchicine 0.6 MG Oral TabletIndications: [...] 1 Puff before bedtime. 60 Each 5 03/01/20 24 Active Carvedilol 3.125 MG Oral Tablet (Coreg)Indications :HTN, goal below 140/90 Take 1 Tablet by mouth 2 times a day with morning and evening meals. 180 Tablet 3 03/21/20 24 Active buPROPion HCl ER (XL) [...] morning. 90 Tablet 3 03/29/20 24 Active Fluticasone Propionate 50 MCG/ACT Nasal [...] bedtime. 90 Tablet 5 06/14/20 24 Active Topiramate 25 MG Oral Tablet (topAMAX) Take 2 Tablets by mouth at bedtime. 60 Tablet 2 06/14/20 24 Active Ketorolac Tromethamine 10 MG Oral Tablet (Toradol)Indicatio ns:Generalized abdominal pain Take 1 Tablet by mouth 4 times a day as needed for Pain, Severe. Do not take for longer than 5 days 20 Tablet 06/26/20 24 Active Naltrexone HCl 50 MG Oral Tablet (Revia) Take 1/2 tab by mouth once a day for 1 week then take 1/2 tab twice a day (morning & late afternoon) 30 Tablet 4 07/11/20 24 Active SUMAtriptan Succinate 50 MG Oral Tablet (Imitrex)Indicatio ns:Migraine variant, intractable Take 2 tablets at onset of migraine and one tablet every 2 hours as needed, not more than 5 tablets in 24 hours 6 Tablet 5 07/17/19 25 Active Omeprazole 20 MG Oral Capsule Delayed Release (PriLOSEC)Indicati ons:Gastroesophage al reflux disease without esophagitis Take 1 Capsule by mouth in the morning. 1 hour before the first meal of the day and at bedtime. 180 Capsule 1 07/17/19 25 Active Benzonatate 100 MG Oral Capsule (Tessalon Perles)Indications :URTI (acute upper respiratory infection) Take 1 Capsule by mouth 3 times a day as needed for Cough. Do not cut, crush, or chew. 50 Capsule 1 07/17/19 25 Active Meclizine HCl 25 MG Oral Tablet (Antivert) Take 1 Tablet by mouth 3 times a day as needed for Dizziness. 30 Tablet 1 07/17/19 25 Active SUMAtriptan Succinate 50 MG Oral Tablet (Imitrex)Indicatio ns:Migraine variant, intractable Take 2 tablets at onset of migraine and one tablet every 2 hours as needed, not more than 5 tablets in 24 hours 6 Tablet 5 02/08/20 24 025 Discontin ued(Refil l) Omeprazole 20 MG Oral Capsule Delayed Release (PriLOSEC)Indicati ons:Gastroesophage al reflux disease without esophagitis Take 1 Capsule by mouth in the morning. 1 hour before the first meal of the day and at bedtime. 180 Capsule 1 04/13/20 24 025 Discontin ued(Refil l) Benzonatate 100 MG Oral Capsule (Tessalon Perles)Indications :URTI (acute upper respiratory infection) Take 1 Capsule by mouth 3 times a day as needed for Cough. Do not cut, crush, or chew. 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,Chronic cough 3 Puff IN PRN 02/08/2024 02/07/2025 Ac tive documented as of this encounter (statuses as of 07/17/2024) Active Problems Problem Noted Date Diagnosed Date [...] (03/26/2010): Pt's daughter with fibrous dysplasia-message to M [...] pt by phone-please discuss above recommendations at ne-pt aware-reports daughter has not been diagnosed with any syndromes associated with fibrous dysplasia documented as of this encounter (statuses as of 07/17/2024) Resolved Problems Problem Noted Date Diagnosed Date [...] as of this encounter (statuses as of 07/17/2024) Immunizations Name Administration Dates Next Due Seasonal [...] encounter Miscellaneous Notes * Telephone Encounter - Ángel Gutierrez MD - 07/17/2024 10:05 AM ESTSigned Prescriptions: Disp Refills SUMAtriptan Succinate 50 MG Oral Tablet (I*6 Tabl*5 Sig: Take 2 tablets at onset of migraine and one tablet every 2 hours as needed, not more than 5 tablets in 24 hours Authorizing Provider: ÁNGEL GUTIERREZ Ordering User: WAYNE REESE Omeprazole 20 MG Oral Capsule Delayed Rele*180 Ca*1 Sig: Take 1 Capsule by mouth in the morning. 1 hour before the first meal of the day and at bedtime. Authorizing Provider: ÁNGEL GUTIERREZ Ordering User: WAYNE REESE Benzonatate 100 MG Oral Capsule (Tessalon *50 Cap*1 Sig: Take 1 Capsule by mouth 3 times a day as needed for Cough. Do not cut, crush, or chew. Authorizing Provider: ÁNGEL GUTIERREZ Meclizine HCl 25 MG Oral Tablet (Antivert) 30 Tab*1 Sig: Take 1 Tablet by mouth 3 times a day as needed for Dizziness. Authorizing Provider: ÁNGEL GUTIERREZ * Telephone Encounter - Wayne Reese [facility] - 07/17/2024 9:21 AM ESTPending Prescriptions: Disp Refills Benzonatate 100 MG Oral Capsule (Tessalon *50 Cap*1 Sig: Take 1 Capsule by mouth 3 times a day as needed for Cough. Do not cut, crush, or chew. Meclizine HCl 25 MG Oral Tablet (Antivert) 30 Tab*0 Sig: Take 1 Tablet by mouth 3 times a day as needed for Dizziness. Signed Prescriptions: Disp Refill s SUMAtriptan Succinate 50 MG Oral Tablet (I*6 Tabl*5 Sig: Take 2 tablets at onset of migraine and one tablet every 2 hours as needed, not more than 5 tablets in 24 hours Authorizing Provider: ÁNGEL GUTIERREZ Ordering User: WAYNE REESE Omeprazole 20 MG Oral Capsule Delayed Rele*180 Ca*1 Sig: Take 1 Capsule by mouth in the morning. 1 hour before the first meal of the day and at bedtime. Authorizing Provider: ÁNGEL GUTIERREZ Ordering User: WAYNE REESE * Telephone Encounter - Wayne Reese [facility] - 07/17/2024 9:16 AM EST Unable to authorize medication refills for pended medication(s) at this time. Part of the protocol criteria used for refill authorization was not satisfied: The last prescription was ordered before the Planned Duration and Indication questions were implemented, so these have not been selected. Meclizine is typically intended for acute use as a PRN medication and not for long-term routine use, and the patient has been taking meclizine for more than 3 months. Please consider referral to one of the following: Otolaryngology if there are associated aural complaints (hearing loss, tinnitus) associated with the dizziness or if the dizziness evolves spontaneously. Neurology if the dizziness is associated with migraine headache, diplopia, limb incoordination, weakness, dysarthria, dysphagia or inability to ambulate/highly frequent falls. Vestibular physical therapist if the dizziness is primarily related to position changes or head movement (BPPV). Thank you, Wayne Reese, PharmD Clinical Pharmacist [facility] ([facility]) 07/17/24 9:21 AM [phone] documented in this encounter Plan of Treatment Upcoming Encounters Date Type Department Care Team (Late st Contact Info) Description 08/03/2024 9:00 AM EST Office Visit Neurology [facility] [address] [facility] [place] [address] Dione Capellan PA-C [address] [facility] [place] [address] 10/31/2024 3:40 PM EDT Office Visit General Internal Medicine [facility] [address] [facility] [place] [address] Aaliyah Husain MD [address] [facility] [place] [address] Scheduled Procedures Name Priority Associated Diagnoses Date/Ti [...] of this encounter Visit Diagnoses Diagnosis Migraine variant, intractable Variants of migraine, not elsewhere classified, with intractable migraine, so stated, without mention of status migrainosus Chronic frontal sinusitis Prediabetes Other abnormal glucose Gastroesophageal reflux disease without esophagitis Esophageal reflux URTI (acute upper respiratory infection) Acute upper respiratory infections of unspecified site documented in this encounter Care Teams Counter Person Relationship Specialty Start Date End Date Ángel Gutierrez MD [address] [facility] [place] [address] PCP - General Internal Medicine 09/06/23 documented as of this encounter
--- OUTSIDE RECORDS SUMMARY | 2024-08-19 05:12 | External Medical Summary | Summary of Care ---
Author Name Unknown Organization [facility] Address [address] [place] [address] Phone [phone] Care Team Providers Care Electrostatic Powder Coating Technician Name Role Phone Janice Gutierrez MD Primary Care Provider [phone] Reason for Visit * Reason Onset Date Comments Follow Up 06/26/2024 Encounter Details Date Type Department Care Team (Late st Contact Info) Description 06/26/2024 Telephone Family Practice [facility] [address] [place] [address] Ally Barbosa MD [address] [place] [address] Follow Up Allergies No known active allergiesdocumented as of this encounter (statuses as of 06/26/2024) Medications Meclizine HCl 25 MG Oral Tablet [...] or chew. 180 Capsule 5 4 Active Ondansetron HCl 4 MG Oral Tablet (Zofran)Indication s:Bronchitis, complicated Take 1 Tablet by mouth every 6 hours as needed for Nausea. 20 Tablet 2 4 Active Riboflavin 400 MG Oral Tablet Take 1 Tablet by mouth in the morning. 30 Tablet 2 4 Active SUMAtriptan Succinate 50 MG Oral Tablet (Imitrex)Indicatio ns:Migraine variant, intractable Take 2 tablets at onset of migraine and one tablet every 2 hours as needed, not more than 5 tablets in 24 hours 6 Tablet 5 4 Active Colchicine 0.6 MG Oral TabletIndications: Localized swelling of right foot Take 2 Tablets by mouth 3 times a day as needed for Other (gout). At the onset of gout attack and 1 tablet an hour later. No more than 8 tablets in one day. 10 Tablet 1 4 Active Loratadine 10 MG Oral Tablet (Claritin)Indicati ons:Chronic frontal sinusitis Take 1 Tablet by mouth in the morning. 90 Tablet 3 4 Active Fluticasone-Salmet stefania 250-50 MCG/ACT Inhalation Aerosol Powder Breath Activated (Advair Diskus)Indications :Exacerbation of persistent asthma, unspecified asthma severity Inhale 1 Puff by mouth in the morning and 1 Puff before bedtime. 60 Each 5 4 Active Carvedilol 3.125 MG Oral Tablet (Coreg)Indications :HTN, goal below 140/90 Take 1 Tablet by mouth 2 times a day with morning and evening meals. 180 Tablet 3 4 Active buPROPion HCl ER (XL) 300 MG Oral Tablet Extended Release 24 Hour (Wellbutrin XL)Indications:Tob acco use disorder,Moderate episode of recurrent major depressive disorder (HCC) Take 1 Tablet by mouth in the morning. For next refill instead of 150 mg. 30 Tablet 5 4 Active metFORMIN HCl ER 500 MG Oral Tablet Extended Release 24 Hour (Glucophage XR)Indications:Pre diabetes Take 1 Tablet by mouth in the morning. 90 Tablet 3 4 Active Omeprazole 20 MG Oral Capsule Delayed Release (PriLOSEC)Indicati ons:Gastroesophage al reflux disease without esophagitis Take 1 Capsule by mouth in the morning. 1 hour before the first meal of the day and at bedtime. 180 Capsule 1 4 Active Fluticasone Propionate 50 MCG/ACT Nasal Suspension (Flonase)Indicatio ns:Chronic frontal sinusitis Administer 2 Sprays into each nostril at bedtime. 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 180 Tablet 4 Active Rosuvastatin Calcium 10 MG Oral Tablet (Crestor)Indicatio ns:Hyperlipidemia with target LDL less than 100 Take 1 Tablet by mouth in the morning. 90 Tablet 1 4 Active Gabapentin 600 MG Oral Tablet (Neurontin)Indicat ions:Lumbar radiculopathy,Lumb ar degenerative disc disease Take 1 Tablet by mouth in the morning and 1 Tablet at noon and 1 Tablet before bedtime. 90 Tablet 5 4 Active Benzonatate 100 MG Oral Capsule (Tesjerardo Boykin)Indications :URTI (acute upper respiratory infection) Take 1 Capsule by mouth 3 times a day as needed for Cough. Do not cut, crush, or chew. 50 Capsule 1 4 Active Topiramate 25 MG Oral Tablet (topAMAX) Take 2 Tablets by mouth at bedtime. 60 Tablet 2 4 Active Ketorolac Tromethamine 10 MG Oral Tablet (Toradol)Indicatio ns:Generalized abdominal pain Take 1 Tablet by mouth 4 times a day as needed for Pain, Severe. Do not take for longer than 5 days 20 Tablet 4 Active Hospital, Clinic, or Other Facility Administered Medication Ordered Dose Route Frequency Start Date End Date Status Albuterol Sulfate (Proventil) (2.5 MG/3ML) 0.083% inhalation solution 2.5 mgIndications:Tobacco use disorder,Chronic cough 2.5 mg NEBULIZER PRN 02/08/2024 02/07/2025 Active albuterol (VENTOLIN HFA/PROVENTIL HFA) inhalerIndications:Toba accountant helper use disorder,Chronic cough 3 Puff IN PRN 02/08/2024 02/07/2025 Ac tive documented as of this encounter (statuses as of 06/26/2024) Active Problems Problem Noted Date Diagnosed Date [...] (03/26/2010): Pt's daughter with fibrous dysplasia-message to [place] [...] as of this encounter (statuses as of 06/26/2024) Resolved Problems Problem Noted Date Diagnosed Date [...] as of this encounter (statuses as of 06/26/2024) Immunizations Name Administration Dates Next Due Seasonal [...] AM EST Telemedicine Nutrition & Weight Management, [facility] [address] [place] [address] Merari Baires PA-C [address] [place] [address] 07/14/2024 3:00 PM EST Office Visit Orthopaedics Spine Surgery, [facility] [address] [place] [address] Jg Elder MD [address] [place] [address] 08/03/2024 9:00 AM EST Office Visit Neurology [facility] 200 [facility] [place] [address] Dione Capellan PA-C [address] [place] [address] 10/31/2024 3:40 PM EDT Office Visit General Internal Medicine [facility] [address] [facility] [place] [address] Aaliyah Husain MD 200 [facility] [place] [address] Scheduled Procedures Name Priority Associated Diagnoses Date/Ti [...] filedocumented as of this encounter Care Teams Electrostatic Powder Coating Technician Relationship Specialty Start Date End Date Janice Gutierrez MD [address] [facility] [place] [address] PCP - General Internal Medicine 09/06/23 documented as of this encounter
--- OUTSIDE RECORDS SUMMARY | 2024-08-19 05:12 | External Medical Summary | Summary of Care ---
Author Name Unknown Organization [facility] Address [address] [place] [address] Phone [phone] Care Team Providers Care Crew Leader/Control Room Operator Name Role Phone Janice Gutierrez MD Primary Care Provider [phone] Reason for Visit * Reason Comments Acute Encounter Details Date Type Department Care Team (Late st Contact Info) Description 06/26/2024 3:00 PM [facility] 200 [facility] [place] [address] Ally Barbosa MD [address] [place] [address] Generalized abdominal pain*; Leukocytosis, unspecified type; Vomiting and diarrhea Allergies No known active allergiesdocumented as of [...] 4 Active Benzonatate 100 MG Oral Capsule (Levi Boykin)Indications :URTI (acute upper respiratory infection) Take [...] 02/07/2025 Active albuterol (VENTOLIN HFA/PROVENTIL HFA) inhalerIndications:Toba accounting advisory services manager use disorder,Chronic cough 3 Puff IN [...] (03/26/2010): Pt's daughter with fibrous dysplasia-message to [facility] if she needs to be seen [...] as of this encounter Progress Notes * Ally Barbosa MD - 06/26/2024 2:52 PM EST Patient location: HOME. I was in a hospital or clinic location. After connecting through televideo,patient was verified with two unique identifiers. Patient (or authorized legal rental representative) was then informed that this was a Telemedicine visit and being conducted confidentially over secure lines. Methods to assure confidentiality were taken. Patient acknowledged consent and understanding of p rivacy and security of the Telemedicine visit. The patient agreed to participate. Subjective Chief Complaint Patient presents with Acute HPI: Keyona Santos is a 48 year old female. Patient is unaccompanied. The following issues wereaddressed today: Patient presents today via telemedicine for ER follow-up. She was seen at [facility] ER on Wednesday for persistent severe abdominal pain that started on 06/18/24. She had a normal CT scan and normal labs aside from mild leukocytosis (WBC 14k). She was given IV fluids and Toradol and discharged home. She continues to have diarrhea, vomiting, and generalized abdominal pain worse on the right side. Her daughter had a cough for a few days and is now also starting to have diarrhea and vomiting. She has been trying to stay hydrated but her mouth feels dry. Review of Systems: See HPI Objective There were no vitals taken for this visit. Wt Readings from Last 3 Encounters: 06/23/24 243 lb 4 oz (110.3 kg) 05/29/24 246 lb (111.6 kg) 05/02/24 241 lb 14.4 oz (109.7 kg) BP Readings from Last 3 Encounters: 06/23/24 126/82 05/29/24 130/79 05/16/24 110/68 General: Well-appearing, no acute distress Neurological: Alert and oriented Psychiatric: Appropriate mood and affect Assessment & Plan 1. Generalized abdominal pain - Ketorolac Tromethamine 10 MG Oral Tablet (Toradol); Take 1 Tablet by mouth 4 times a day as needed for Pain, Severe. Do not take for longer than 5 days Dispense: 20 Tablet; Refill: 0 2. Leukocytosis, unspecified type 3. Vomiting and diarrhea Discussed with patient etiology of symptoms likely viral, potentially norovirus. Recommended rest and increased hydration, preferable Gatorade or Pedialyte. Will send Rx for PO Toradol and she statesthis helped her abdominal pain in the ER. Encouraged to follow-up via MyChart if she feels she is becoming dehydrated, as we can schedule her here in the office to get IV fluids. Patient expressed und erstanding. [facility] ER records reviewed. Return if symptoms worsen or fail to improve. This note was electronically signed by Ally Barbosa MD documented in this encounter Plan of Treatment Upcoming Encounters Date Type Department Care Team (Late st Contact Info) Description 07/11/2024 11:20 AM EST Telemedicine Nutrition & Weight Management, [facility] [address] [place] [address] Merari Baires PA-C [address] [place] [address] 07/14/2024 3:00 PM EST Office Visit Orthopaedics Spine Surgery, [facility] [address] [place] [address] Jg Elder MD [address] [place] [address] 08/03/2024 9:00 AM EST Office Visit Neurology [facility] 200 [facility] [place] [address] Dione Capellan PA-C [address] [place] [address] 10/31/2024 3:40 PM EDT Office Visit General Internal Medicine [facility] 200 [facility] [place] [address] Aaliyah Husain MD 200 [facility] [place] [address] Scheduled Procedures Name Priority Associated Diagnoses Date/Ti [...] as of this encounter Visit Diagnoses Diagnosis Generalized abdominal pain- Primary Abdominal pain, generalized Leukocytosis, unspecified type Vomiting and diarrhea Vomiting alone documented in this encounter Care Teams Crew Leader/Control Room Operator Relationship Specialty Start Date End Date Janice Gutierrez MD [address] [facility] [address] PCP - General Internal Medicine 09/06/23 documented as of this encounter
--- OUTSIDE RECORDS SUMMARY | 2024-08-19 05:12 | External Medical Summary | Summary of Care ---
Author Name Unknown Organization [facility] Address [address] [place] [address] Phone [phone] Care Team Providers Care Oil Field Operator Name Role Phone Janice Gutierrez MD Primary Care Provider [phone] Reason for Visit * Reason Onset Date Comments Medication Refill 07/14/2024 Encounter Details Date Type Department Care Team (Late st Contact Info) Description 07/14/2024 Refill General Internal Medicine [facility] [address] [place] [address] Aaliyah Husain MD [address] [place] [address] Tobacco use disorder; Moderate episode of recurrent [...] the morning. 30 Tablet 2 4 Active Colchicine 0.6 MG Oral TabletIndications: [...] the morning. 90 Tablet 3 4 Active Fluticasone Propionate 50 MCG/ACT Nasal [...] 4 Active Benzonatate 100 MG Oral Capsule (Tessalon Perlradu)Indications :URTI (acute upper respiratory infection) Take 1 [...] than 5 days 20 Tablet 4 Active Naltrexone HCl 50 MG Oral Tablet (Revia) Take 1/2 tab by mouth once a day for 1 week then take 1/2 tab twice a day (morning & late afternoon) 30 Tablet 4 4 Active SUMAtriptan Succinate 50 MG Oral Tablet (Imitrex)Indicatio ns:Migraine variant, intractable Take 2 tablets at onset of migraine and one tablet every 2 hours as needed, not more than 5 tablets in 24 hours 6 Tablet 5 5 Active Omeprazole 20 MG Oral Capsule Delayed Release (PriLOSEC)Indicati ons:Gastroesophage al reflux disease without esophagitis Take 1 Capsule by mouth in the morning. 1 hour before the first meal of the day and at bedtime. 180 Capsule 1 5 Active Hospital, Clinic, or Other Facility Administered Medication Ordered Dose Route Frequency Start Date End Date Status Albuterol Sulfate (Proventil) (2.5 MG/3ML) 0.083% inhalation solution 2.5 mgIndications:Tobacco use disorder,Chronic cough 2.5 mg NEBULIZER PRN 02/08/2024 02/07/2025 Active albuterol (VENTOLIN HFA/PROVENTIL HFA) inhalerIndications:Toba key account executive use disorder,Chronic cough 3 Puff [...] pt by phone-please discuss above recommendations at [place]-pt aware-reports daughter has not been diagnosed with [...] encounter Miscellaneous Notes * Telephone Encounter - Wayne Reese [facility] - 07/17/2024 9:23 AM ESTRefused Prescriptions: Disp Refills buPROPion HCl ER (XL) 300 MG Oral Tablet E*30 Tab*5 Sig: Take 1 Tablet by mouth in the morning. For next refill instead of 150 mg.Refused By: WAYNE REESE MReason for Refusal: Too soon documented in this encounter Plan of Treatment Upcoming Encounters Date Type Department Care Team (Late st Contact Info) Description 08/03/2024 9:00 AM EST Office Visit Neurology [facility] [address] [facility] [place] [address] Dione Capellan PA-C [address] [place] [address] 10/31/2024 3:40 PM EDT Office Visit General Internal Medicine [facility] [address] [facility] [place] [address] Aaliyah Husain MD [address] [facility] [place] [address] Scheduled Procedures Name Priority Associated Diagnoses Date/Ti [...] as of this encounter Visit Diagnoses Diagnosis Tobacco use disorder Moderate episode of recurrent major depressive disorder (HCC) documented in this encounter Care Teams Oil Field Operator Relationship Specialty Start Date End Date Janice Gutierrez MD [address] [place] [address] PCP - General Internal Medicine 09/06/23 documented as of this encounter
--- OUTSIDE RECORDS SUMMARY | 2024-08-19 05:12 | External Medical Summary | Summary of Care ---
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 Name Role Phone Janice Gutierrez MD Primary Care Provider [phone] Reason for Visit * Evaluate & Treat - Unlimited Visits (Within 10 days (routine)) - Closed Specialty Diagnoses / Procedures Referred By Contact Referred To Contact GI NUTRITION/IM / Gastroenterology Diagnoses Obesity Janice Gutierrez MD [address] [place] [address] Phone: tel: fax: Referral ID Status Reason Start Date Expiration Date V isits Requested Visits Authorized [id number] Closed Specialty Services Required 12/20/[phone] Encounter Details Date Type Department Care Team (Late st Contact Info) Description 07/11/2024 11:20 AM EST Telemedicine Nutrition & Weight Management, [facility] [address] [place] [address] Merari Baires PA-C [address] [place] [id number] Class 2 severe obesity due to excess calories with serious comorbidity and body mass index (BMI) of 38.0 to 38.9 in adult (HCC)*; Abnormal weight gain; Hyperlipidemia with target LDL less than 100; Prediabetes; HTN, goal below 140/90; Fatty liver; Tobacco use disorder; Moderate episode of recurrent major depressive disorder (HCC) Allergies No known active allergiesdocumented as of this encounter (statuses as of 07/11/2024) Medications Meclizine HCl 25 MG Oral Tablet [...] late afternoon) 30 Tablet 4 4 Active Hospital, Clinic, or Other Facility Administered Medication Ordered Dose Route Frequency Start Date End Date Status Albuterol Sulfate (Proventil) (2.5 MG/3ML) 0.083% inhalation solution 2.5 mgIndications:Tobacco use disorder,Chronic cough 2.5 mg NEBULIZER PRN 02/08/2024 02/07/2025 Active albuterol (VENTOLIN HFA/PROVENTIL HFA) inhalerIndications:[employer]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,Chronic cough 3 Puff IN PRN 02/08/2024 02/07/2025 Ac tive documented as of this encounter (statuses as of 07/11/2024) Active Problems Problem Noted Date Diagnosed Date [...] (03/26/2010): Pt's daughter with fibrous dysplasia-message to [facility] if she needs to be [...] as of this encounter (statuses as of 07/11/2024) Resolved Problems Problem Noted Date Diagnosed Date [...] as of this encounter (statuses as of 07/11/2024) Immunizations Name Administration Dates Next Due Seasonal [...] Industry Job Start Date Job End Date [employer] Not on file Not on file Not on file documented as of this encounter Progress Notes * Merari Baires PA-C - 07/11/2024 11:26 AM EST [facility] CONSULTATION INITIAL CONSULT Referring Physician: Janice Gutierrez MD Patient location: HOME. I was in a hospital or clinic location. After connecting through [employer],patient was verified with two unique identifiers. Patient (or authorized legal inside account representative) was then informed that this was a Telemedicine visit and being conducted confidentially over secure lines. Methods to assure confidentiality were taken. Patient acknowledged consent and understanding of pr ivacy and security of the Telemedicine visit. The patient agreed to participate. There are no exam notes on file for this visit. Source of information: Patient Available records reviewed: Recent provider visits, Imaging, and Labs Reason for Referral: Weight Management. Keyona Santos is a 48 year old patient with a past medical history for Patient Active Problem List Diagnosis Tobacco use disorder INFORMATION Migraine variant Hyperlipidemia with target LDL less than 100 Food insecurity Moderate episode of recurrent major depressive disorder (HCC) HTN, goal below 140/90 Prediabetes Lumbar degenerative disc disease Fatty liver Umbilical hernia without obstruction and without gangrene Lumbar radiculopathy who [facility] to [facility] for further recommendations. HPI: The patient suffers from Class II obesity Patient is interested in the following treatment options for obesity: possible medication use. - Initial clinic visit 07/11/24. Weight 240 lbs Height 67" There is no height or weight on file to calculate BMI. 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 -self directed: -commercial: -medication: topamax, metformin, wellbutrin Wt Readings from Last 8 Encounters: 06/23/24 110.3 kg (243 lb 4 oz) 05/29/24 111.6 kg (246 lb) 05/02/24 109.7 kg (241 lb 14.4 oz) 03/24/24 110.5 kg (243 lb 9.6 oz) 03/02/24 110 kg (242 lb 8.1 oz) 03/01/24 109.6 kg (241 lb 9.6 oz) 02/08/24 109.8 kg (242 lb) 01/26/24 111.4 kg (245 lb 8 oz) Current Diet: Describes typical diet history/24 hr recall Breakfast: skips, coffee, sometimes yogurt/banana Snacks: skips Lunch: skips Snacks: PB and crackers OR tuna and crackers Dinner: pasta OR burgers and fries OR shrimp and broccoli OR skips Snacks: skips Drinks: water, coffee, regular Coke Restaurant meals: rare Activity: ADL Past Medical History Patient Active Problem List Diagnosis Tobacco use disorder INFORMATION Migraine variant Hyperlipidemia with target LDL less than 100 Food insecurity Moderate episode of recurrent major depressive disorder (HCC) HTN, goal below 140/90 Prediabetes Lumbar degenerative disc disease Fatty liver Umbilical hernia without obstruction and without gangrene Lumbar radiculopathy Glaucoma No Hypertension: Yes, on medications CAD: No Congestive heart failure No DVT/PE, clotting disorder: No Stroke: No Seizures: No Sleep Apnea: No Asthma: No COPD: Yes, not on oxygen Patient denies personal or family history of medullary thyroid carcinoma. Patient denies personal or family history of multiple endocrine neoplasia syndrome type II Patient denies personal history of pancreatitis Diabetes: No GERD: Yes: Requiring medications: Yes History of nephrolithiasis: No. Anxiety/Depression: Yes Past Surgical History: Procedure Laterality Date DELIVERY 1995, 2005 COLONOSCOPY, DIAGNOSTIC (RECTUM) 12/27/2023 hemorrhoids/diverticulosis/biopsies show adenomatous and hyperplastic polyps/recall 5 years/COLONOSCOPY FLEXIBLE PROXIMAL DIAGNOSTIC performed by Avi Miranda MD at ENDOSCOPY [facility] DILATION AND CURETTAGE (D&C) 07/12/2002 mab INJECT DX/THER SUBSTANCE INTERLAMINAR LUMBAR/SACRAL W IMAGE GUIDE 08/20/2023 INJECTION SPINE LUMBAR OR SACRAL performed by Nikunj Lam DO at OR [facility] TOTAL ABD HYSTERECTOMY W/WO REMOVAL OF TUBE(S) 2018 uterus only Review of patient's allergies indicates: No Known Allergies Current Outpatient Medications Medication Sig Dispense Refill [...] cut, crush or chew. 180 Capsule 5 Ondansetron HCl 4 MG Oral Tablet (Zofran) Take 1 Tablet by mouth every 6 hours as needed for Nausea. 20 Tablet 2 Riboflavin 400 MG Oral Tablet Take 1 Tablet by mouth in the morning. 30 Tablet 2 SUMAtriptan Succinate 50 MG Oral Tablet (Imitrex) Take 2 tablets at onset of migraine and one tablet every 2 hours as needed, not more than 5 tablets in 24 hours 6 Tablet 5 Colchicine 0.6 MG Oral Tablet Take 2 [...] by mouthin the morning. 90 Tablet 3 Omeprazole 20 MG Oral Capsule Delayed Release (PriLOSEC) Take 1 Capsule by mouth in the morning. 1 hour before the first meal of the day and at bedtime. 180 Capsule 1 Fluticasone Propionate 50 MCG/ACT Nasal Suspension (Flonase) [...] 1 Tablet before bedtime. 90 Tablet 5 Benzonatate 100 MG Oral Capsule (Tessalon Perles) Take 1 Capsule by mouth 3 times a day as needed for Cough. Do not cut, crush, or chew. 50 Capsule 1 Topiramate 25 MG Oral Tablet (topAMAX) Take 2 Tablets by mouth at bedtime. 60 Tablet 2 Ketorolac Tromethamine 10 MG Oral Tablet (Toradol) Take 1 Tablet by mouth 4 times a day as needed for Pain, Severe. Do not take for longer than 5 days 20 Tablet 0 Current Facility-Administered Medications Medication Dose Route Frequency [...] Breast Cancer No significant family history Social History: Alcohol: None Tobacco Use: Yes, smokes 1/2 pack per day - plans to quit cold turkey tomorrow Drug Use: Yes - smoking medical MJ Occupation: [employer] Review of Systems: Review of Systems Musculoskeletal: Positive for back pain. All other systems reviewed and are negative. Menstrual Cycle: Yes, prior hysterectomy Control: N/A Physical Examination: There were no vitals taken for this visit. General: Patient is well appearing and in no acute distress. Skin: No obvious rashes. HEENT: Head is atraumatic, normocephalic. Cardiovascular: Regular rate and effort of breathing. No conversational dyspnea. No cyanosis. Neuro: No obvious focal neurological deficits. Psych: Appropriate mood and affect. Assessment and Recommendation: Abnormal weight gain There is no height or weight on file to calculate BMI. Class II obesity. Discussed weight management options and would like to proceed with medication and surgical weight management. Barriers are consistency. Motivators are feeling better, avoiding/reducing comorbid conditions. Patient goals were discussed in detail at visit. Explained to the patient that they can lose on average ~5-10% of current weight with medical management, ~10-15% with medication use, and ~40-60% with bariatric surgery. Interest in surgery 90% Motivation to make behavioral and dietary changes 90% 1. Keep a food log. If you bite it, write it! Apps like [employer] or [employer] Calorie goal: 1500 Macronutrients: Protein 10%-35%, Carbohydrates 45%-65%, fat 20%-35% Lower carb: protein 35%, Carbohydrates 40%, fat 25% 2. Drink 48-64 ounces of non-caloric beverages per day. No fruit juices or regular soda Try crystal light, propel, zero calorie flavored water, plain water 3. Goal of 30 minutes of exercise 5 days per week (150 minutes per week--can be divided up however you would like) Aim for aerobic activity and muscle strengthening activities 4. Increase fruit and vegetable servings to 5-6 per day. 1/2 of your plate should be fruits and vegetables 5. Eat 100-200 calories within 1-2 hours of awakening, and every 4 - 6 hours while awake. Do not skip meals!! Eat 3 meals with snacks in between. Choose 100 calorie or less snacks, protein snacks (see handout) 7. Weight yourself weekly and follow trend over time (day to day weight fluctuations can be discouraging) 8. Decrease starches like bread, pasta, cereal, potatoes and corn. Aim for of your plate Try substitutions like zoodles, lentil pasta, cauliflower mashed potatoes, whole grain foods, quinoa Limit junk/processed foods Chips, pretzels, cookies, cakes, sweets White bread/rolls/wraps/bagels, white rice 9. Increase protein to feel full longer (1/4 of your plate; see myplate handout) Wegovy/Saxenda/Zepbound: doesn't meet [facility] criteria Ozempic, Victoza, Trulicity, Mounjaro: no DM Wellbutrin: continue Naltrexone: start Topamax: continue Phentermine: avoid - doesn't feel hungry Xenical: Metformin: continue Diagnoses and all orders for this visit: Class 2 severe obesity due to excess calories with serious comorbidity and body mass index (BMI) of38.0 to 38.9 in adult (HCC) -enroll in surgery program -add naltrexone to current wellbutrin -add protein and fruit/veggie 3x per day -add home exercise program Abnormal weight gain Hyperlipidemia with target LDL less than 100 -continue statin Prediabetes -continue metformin HTN, goal below 140/90 -continue current regime Fatty liver Tobacco use disorder -planning to quit tomorrow -planning to use Chantix TOBACCO USE: The patient was instructed that they need to stop smoking prior to bariatric surgery. They understand that smoking cessation needs to be lifelong after the procedure because of the risk of ulcers, bleeding, and strictures in the post-surgical pouch. The patient was encouraged to speak to their PCP about smoking cessation methods. Moderate episode of recurrent major depressive disorder (HCC) Possibility of bariatric surgery - pt is interested in bariatric surgery - pt qualifies for bariatric surgery based on BMI >40 or BMI >35 with obesity related comorbidity (There is no height or weight on file to calculate BMI.) -pre bariatric surgery program reviewed and packet given to patient - pt will need to call insurance company to see if bariatric surgery is a covered benefit -Enroll in bariatric surgery program. -Discussed details of program with patient in clinic today, including (but not limited to) program fee; attending 2 support groups and 3 educational classes; Behavioral Medicine evaluation; Carpenters evaluation; medical evaluation; monthly visits; and 10% weight loss goal. - Discussed importance of eating 3 regular meals/day with a focus on protein. Reviewed healthy snacks and provided list. Educated about MyPlate and portion sizes. Pt is to work on these items betweennow and next visit. Given the patient's age, degree of obesity and multiple medical problems outlined above, I do believe that bariatric surgery may prove beneficial. Discussed with patient the risks and benefits of rygb,vsg. The patient is interested in bariatric surgery and will begin our presurgical process. I spent a total of 40 minutes on the date of service in preparation, delivery, and documentation ofthe care provided to Keyona Santos excluding any time spent in the performance of separately billed services. Time spent with patient 35 minutes. More than 50% of my time spent with patient providing counseling about the benefits of weight loss, about the patient's nutritional status, detailed explanations about calorie count, types of nutrients to choose, and composition of the meals. Reviewed and discussed weight, weight trends and pertinent labs and test results. Motivational interview provided in order to prepare the patient to achieve future goals. The patient agreed to try all the plan discussed and return in one month. Patient was instructed to message or call in the meantime with any further concerns or questions. Merari ISABEL, MPH [facility] ([facility]) documented in this encounter Plan of Treatment Upcoming Encounters Date Type Department Care Team (Late st Contact Info) Description 07/14/2024 3:00 PM EST Office Visit Orthopaedics Spine Surgery, [facility] [address] [facility] [place] [address] Jg Elder MD [address] [place] [address] 08/03/2024 9:00 AM EST Office Visit Neurology [facility] [address] [facility] [place] [address] Dione Capellan PA-C [address] [facility] [place] [id number] 10/31/2024 3:40 PM EDT Office Visit General Internal Medicine [facility] [address] [facility] [place] [address] Aaliyah Husain MD [address] [facility] [place] [id number] Scheduled Procedures Name Priority Associated Diagnoses Date/Ti [...] as of this encounter Visit Diagnoses Diagnosis Class 2 severe obesity due to excess calories with serious comorbidity and body mass index (BMI) of 38.0 to 38.9 in adult (HCC)- Primary Abnormal weight gain Hyperlipidemia with target LDL less than 100 Other and unspecified hyperlipidemia Prediabetes Other abnormal glucose HTN, goal below 140/90 Unspecified essential hypertension Fatty liver Other chronic nonalcoholic liver disease Tobacco use disorder Moderate episode of recurrent major depressive disorder (HCC) documented in this encounter Care Teams 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
[2024-08-19 06:34] LABS: Adenovirus PCR Not Detected (NotDetected); Bordetella parapertussis PCR Not Detected (NotDetected); Bordetella pertussis PCR Not Detected (NotDetected); Chlamydia pneumoniae PCR Not Detected (NotDetected); Coronavirus 229E PCR Not Detected (NotDetected); Coronavirus CoV-2 (COVID19)PCR Not Detected (NotDetected); Coronavirus HKU1 PCR Not Detected (NotDetected); Coronavirus NL63 PCR Not Detected (NotDetected); Coronavirus OC43PCR Not Detected (NotDetected); Human Metapneumovirus PCR Not Detected (NotDetected); Influenza A (H1 2009) PCR DETECTED (NotDetected); Influenza B PCR Not Detected (NotDetected); Mycoplasma pneumoniae PCR Not Detected (NotDetected); Parainfluenza Virus 1 PCR Not Detected (NotDetected); Parainfluenza Virus 2 PCR Not Detected (NotDetected); Parainfluenza Virus 3 PCR Not Detected (NotDetected); Parainfluenza Virus 4 PCR Not Detected (NotDetected); Respiratory Syncytial VirusPCR Not Detected (NotDetected); Rhinovirus/Enterovirus PCR Not Detected (NotDetected)
[2024-08-19] MEDS: methylPREDNISolone 125 MG/2 ML VIAL IV STA (07:13)
[2024-08-19] MEDS: ONDANSETRON INJ 2 MG/ML 2 ML VIAL IV STA (07:13)
[2024-08-19] MEDS: ALBUT/IPRATROP 3MG/0.5MG NEB 3 ML VIAL NEB STA (07:13)
[2024-08-19] MEDS: SODIUM CHLORIDE 0.9% 500 ML IV ONE (07:28)
[2024-08-19 07:59] LABS: Basophils # (auto) 0.07 K/uL (0.00-0.20); Basophils % (auto) 0.8 %; Eosinophils # (auto) 0.01 K/uL (0.00-0.50); Eosinophils % (auto) 0.1 %; Hemoglobin 14.2 g/dl (12.0-16.0); Immature Granulocytes # (auto) 0.03 K/uL (0.01-0.20); Immature Granulocytes % (auto) 0.3 %; Lymphocytes # (auto) 1.98 K/uL (1.20-3.40); Lymphocytes % (auto) 21.9 %; Mean Corpuscular Hemoglobin 29.6 pg (25.0-34.0); Mean Corpuscular Hgb Conc 33.8 g/dL (32.0-36.0); Mean Corpuscular Volume 87.7 fL (80.0-100.0); Mean Platelet Volume 10.4 fL (9.4-12.4); Monocytes # (auto) 1.06 K/uL (0.11-0.59); Monocytes % (auto) 11.7 %; Neutrophils # (auto) 5.89 K/uL (1.40-6.50); Neutrophils % (auto) 65.2 %; Platelet Count 219 K/uL (130-400); RDW Standard Deviation 45.1 fL (36.4-46.3); Red Blood Count 4.79 M/uL (4.20-5.40); White Blood Count 9.04 K/ul (4.8-10.8)
[2024-08-19 08:00] LABS: Alanine Aminotransferase 28 U/L (7-52); Albumin Globulin Ratio 1.4 (0.9-2); Alkaline Phosphatase 79 U/L (34-104); Anion Gap 7 (3-11); Aspartate Aminotransferase 22 U/L (13-39); BUN Creatinine Ratio 9.3 (10-20); Bilirubin,Total 0.3 mg/dl (0.2-1.0); Blood Urea Nitrogen 7 mg/dl (6-23); Calcium 9.1 mg/dl (8.6-10.3); Carbon Dioxide 21 mmol/L (21-32); Chloride 107 mmol/L (98-107); Globulin 2.9 gm/dl (2.5-4.0); Glucose 111 mg/dl (70-99(Fasting)); Potassium 3.6 mmol/L (3.5-5.1); Sodium 135 mmol/L (136-145); Total Protein 6.9 gm/dl (6.0-8.3)
[2024-08-19] MEDS: OSELTAMIVIR PHOSPHATE 75 MG CAP PO STA (08:02)
--- NOTE | 2024-08-19 08:09 | Emergency Department Note ---
Impression & Plan Influenza, Nausea & vomiting, Hypoxia ED Provider Note NAME: EARL GARZA AGE: 48 SEX: Female INFORMANT: Patient ED PROVIDER(S): Dustin Sanders MD CHIEF COMPLAINT: Flulike symptoms PLAN: Disposition: Admitted Outpatient prescription management: none Referral: None MEDICAL DECISION MAKING: Patient was evaluated. She had flulike symptoms. She had a workup done and was found to have influenza. She was requiring some mild supplemental oxygen. She was treated symptomatically with Tylenol, Toradol, and Tamiflu. Supportive measures done. Patient will need further evaluation and management in the hospital. Consultation was made with [facility] service. Patient was evaluated in ER admitted for further management. Care/management discussed with: system administration manager Level of care consideration(s): After review of the information above and other included data, I feel the patient requires escalation of care to admission Triage Nursing notes: reviewed and agree them. Vital Signs: reviewed and remarkable for mild hypoxia Additional History obtained from: none Chronic Medical/Social Conditions affecting care: COPD Prior/ Outside/ External records reviewed: none Differential Diagnosis: Reactive airway disease, pneumonia, pneumothorax, COPD, CHF, infections, cardiac ischemia, pulmonary embolism, musculoskeletal, gastrointestinal, as well as other pathologies. Diagnostics, independently interpreted by me: ECG: none Cardiac Monitoring: Cardiac monitoring ordered by me: The patient was placed on continuous cardiac monitoring and observed. It revealed a normal sinus rhythm at 78 beats per minute without ectopy or evidence of dysrhythmia. Medical decision rules: none Imaging studies: Chest x-ray. Findings: A chest x-ray was performed and revealed no pneumothorax, effusion, infiltrate, pulmonary edema, free air under the diaphragm, or wide mediastinum. Impression: No acute disease. HPI: 48 year old Female arrives for evaluation of flulike symptoms. This started yesterday and is worsening through the night. The patient also notes the following associated symptoms, nausea, vomiting, myalgias, shortness of breath, cough, headache, fever, chills, generalized abdominal pain, low back pain. Patient does have a history of low back pain but it feels worse. The patient has found no relieving factors. Current pain is rated as 10/10. Pt denies LOC, visual changes, neck pain, chest pain, back pain, melena, hematochezia, urinary symptoms, numbness, weakness, lymphadenopathy, rash, or other complaints.. PAST MEDICAL HISTORY: See Below, COPD PAST SURGICAL HISTORY: See Below, SOCIAL HISTORY: See Below, smoker HOME MEDICATIONS: See Below ALLERGIES: See Below VITALS: See Below PHYSICAL EXAMINATION: GENERAL: Awake, alert, ill appearing, no distress HEAD: Normocephalic, atraumatic. No edema. EYES: Normal conjunctiva. Sclera non-icteric. NOSE: Mild congestion. OROPHARYNX: Lips, tongue, and mucosa unremarkable. No erythema or exudate. NECK: Supple. No nuchal rigidity. FROM. No adenopathy. RESPIRATORY: Breath sounds equal. Mild tachypnea. There are scattered rhonchi and wheezes bilaterally. CARDIAC: Borderline tachycardic rate, normal rhythm. ABDOMEN: Soft, non distended. Generally sensitive but no focal tenderness to palpation. NEURO: Normal sensorium. SKIN: No rash or jaundice noted. MUSCULOSKELETAL: No edema. Atraumatic. Calves equal size and nontender bilaterally. PROCEDURES: none CRITICAL CARE: none OBSERVATION NOTE: none Past Med/Surg History Problem List (Updated 08/19/24 @ 11:11 by Vitaly Graham) Hypoxia (Acute) Nausea & vomiting (Acute) Influenza (Acute) Nicotine dependence Prediabetes Cellulitis of breast (Acute) Leukocytosis (Acute) Abscess of right breast (Acute) Hypertension Shortness of breath Chest pain Leukocytosis (Acute) Elevated lactic acid level (Acute) Hypertensive urgency (Acute) Nausea & vomiting (Acute) Swelling of lower extremity (Acute) Acute intractable headache (Acute) Lab test negative for COVID-19 virus (Acute) Medical History No significant medical problems Social History Smoking Status: Current every day smoker Tobacco Type: Cigarettes Second Hand Exposure: No; Do You Dip or Chew Tobacco: No; Hx Alcohol Use: No Hx Substance Use: Yes Last Used Substance: Hours (ago) Preferred Language: Uzbek Communication Ability: Effective Knife Glazer Required: No Beliefs That Will Affect Care: None Current Living Situation: Family Feels Safe at Home: Yes Assistive Devices: Cane Allergies Allergies Allergy/AdvReac Type Severity Reaction Status Date / Time vancomycin Allergy Intermediate Hives Verified 08/19/24 09:11 Home Meds Home Medications Medication Instructions Recorded Confirmed baclofen 10 mg tablet 10 mg PO BID PRN Pain 01/02/24 08/19/24 gabapentin 600 mg tablet 600 mg PO TID 01/02/24 08/19/24 meclizine 25 mg chewable tablet 25 mg PO TID PRN Dizziness Or 01/02/24 08/19/24 Vertigo omeprazole 20 mg capsule,delayed 20 mg PO AMHS 01/02/24 08/19/24 release carvedilol 3.125 mg tablet 3.125 mg PO AMPM 02/18/24 08/19/24 rosuvastatin 10 mg tablet 10 mg PO QAM 02/18/24 08/19/24 topiramate 25 mg tablet 50 mg PO HS 02/18/24 08/19/24 duloxetine 60 mg capsule,delayed 120 mg PO QAM 08/19/24 08/19/24 release fluticasone 250 mcg-salmeterol 50 1 inh inhalation BID 08/19/24 08/19/24 mcg/dose blistr powdr for inhalation fluticasone propionate 50 2 spray intranasal HS 08/19/24 08/19/24 mcg/actuation nasal spray,suspension loratadine 10 mg tablet 10 mg PO QAM 08/19/24 08/19/24 metformin 500 mg tablet,extended 500 mg PO QAM 08/19/24 08/19/24 release 24 hr ondansetron HCl 8 mg tablet 8 mg PO Q8H PRN Nausea And Vomiting 08/19/24 08/19/24 sumatriptan succinate 100 mg tablet 100 mg PO UD PRN Migraine Headache 08/19/24 08/19/24 Results & Data (ED) Vital Signs Vital Signs - 24 hr 08/19/24 05:10 08/19/24 06:21 08/19/24 06:56 Temperature 37.5 C Temperature Source Oral Pulse Rate 112 H Pulse Rate [Finger] 108 H Respiratory Rate 22 20 Respiratory Effort / Characteristics Non-Labored Spontaneous Respiratory Depth Normal Blood Pressure 118/43 L Blood Pressure [Left Arm] 148/84 H Blood Pressure Mean 68 Blood Pressure Mean [Left Arm] 105 Blood Pressure Position Sitting Pulse Oximetry 98 91 88 L Oxygen Delivery Method Room Air Room Air Room Air Oxygen Flow Rate Sepsis Recent Fever Within 48 Hours No Sepsis New/Unexplained Change in Mental Status N/A Sepsis Action Taken by Nursing Physician Notified 08/19/24 06:56 02/08/25 07:33 08/19/24 07:34 Temperature Temperature Source Pulse Rate Pulse Rate [Finger] Respiratory Rate 19 Respiratory Effort / Characteristics Respiratory Depth Blood Pressure Blood Pressure [Left Arm] Blood Pressure Mean Blood Pressure Mean [Left Arm] Blood Pressure Position Pulse Oximetry 92 95 95 Oxygen Delivery Method Nasal Cannula Nasal Cannula Nasal Cannula Oxygen Flow Rate 2 2 2 Sepsis Recent Fever Within 48 Hours Sepsis New/Unexplained Change in Mental Status Sepsis Action Taken by Nursing Laboratory Data 08/20/24 05:03 08/20/24 05:03 Lab Results 08/19/24 08/19/24 Range/Units 05:35 07:24 WBC 9.04 (4.8-10.8) K/ul RBC 4.79 (4.20-5.40) M/uL Hgb 14.2 (12.0-16.0) g/dl Hct 42.0 (37.0-47.0) % MCV 87.7 (80.0-100.0) fL MCH 29.6 (25.0-34.0) pg MCHC 33.8 (32.0-36.0) g/dL RDW Std Deviation 45.1 (36.4-46.3) fL RDW Coeff of Stephanie 14.0 (11.5-14.5) % Plt Count 219 (130-400) K/uL MPV 10.4 (9.4-12.4) fL Immature Gran % (Auto) 0.3 % Neut % (Auto) 65.2 % Lymph % (Auto) 21.9 % [place] % (Auto) 11.7 % Eos % (Auto) 0.1 % Baso % (Auto) 0.8 % Neut # (Auto) 5.89 (1.40-6.50) K/uL Lymph # (Auto) 1.98 (1.20-3.40) K/uL [place] # (Auto) 1.06 H (0.11-0.59) K/uL Eos # (Auto) 0.01 (0.00-0.50) K/uL Baso # (Auto) 0.07 (0.00-0.20) K/uL Immature Gran # (Auto) 0.03 (0.01-0.20) K/uL Sodium 135 L (136-145) mmol/L Potassium 3.6 (3.5-5.1) mmol/L Chloride 107 (98-107) mmol/L Carbon Dioxide 21 (21-32) mmol/L Anion Gap 7 (3-11) BUN 7 (6-23) mg/dl Creatinine 0.75 (0.6-1.2) mg/dl Est Cr Clr Drug Dosing Not Reportable eGFR 99.37 BUN/Creatinine Ratio 9.3 L (10-20) Glucose 111 H (70-99(Fasting)) mg/dl Calcium 9.1 (8.6-10.3) mg/dl Total Bilirubin 0.3 (0.2-1.0) mg/dl AST 22 (13-39) U/L ALT 28 (7-52) U/L Alkaline Phosphatase 79 (34-104) U/L Total Protein 6.9 (6.0-8.3) gm/dl Albumin 4.0 (3.4-5.0) gm/dl Globulin 2.9 (2.5-4.0) gm/dl Albumin/Globulin Ratio 1.4 (0.9-2) Nasal Influ A H1 2009 PCR DETECTED A (NotDetected) Adenovirus (PCR) Not Detected (NotDetected) B. pertussis DNA (PCR) Not Detected (NotDetected) B.parapertussis DNA PCR Not Detected (NotDetected) C. pneumoniae DNA (PCR) Not Detected (NotDetected) Coronavirus OC43 (PCR) Not Detected (NotDetected) Coronavirus HKU1 (PCR) Not Detected (NotDetected) Coronavirus 229E (PCR) Not Detected (NotDetected) SARS-CoV-2 (PCR) Not Detected (NotDetected) Coronavirus NL63 (PCR) Not Detected (NotDetected) Human Metapneumovir PCR Not Detected (NotDetected) Influenza Type B (PCR) Not Detected (NotDetected) M. pneumoniae (PCR) Not Detected (NotDetected) Parainfluenza 1 (PCR) Not Detected (NotDetected) Parainfluenza 2 (PCR) Not Detected (NotDetected) Parainfluenza 3 (PCR) Not Detected (NotDetected) Parainfluenza 4 (PCR) Not Detected (NotDetected) RSV (PCR) Not Detected (NotDetected) Entero/Rhino (PCR) Not Detected (NotDetected) Administered Medications Acetaminophen (Acetaminophen 325 Mg Tab) 650 mg PO Q4H PRN PRN Reason: Pain or Fever Stop: 09/18/24 09:57 Last Admin: 08/20/24 07:25 Dose: 650 mg Documented By: Admin: 08/19/24 14:09 Dose: 650 mg Documented By: DARCY Albuterol (Albut/Ipratrop 3mg/0.5mg Neb 3 Ml Vial) 3 ml NEB Q6R [facility]; Protocol Stop: 09/18/24 12:59 Last Admin: 08/20/24 12:35 Dose: 3 ml Documented By: Admin: 08/20/24 07:40 Dose: Not Given Documented By: Admin: 08/20/24 00:56 Dose: 3 ml Documented By: Admin: 08/19/24 20:53 Dose: Not Given Documented By: Admin: 08/19/24 12:54 Dose: 3 ml Documented By: RIGOBERTO Baclofen (Baclofen 10 Mg Tab) 10 mg PO BID PRN PRN Reason: Pain Stop: 09/18/24 09:55 Last Admin: 08/20/24 13:07 Dose: 10 mg Documented By: FARZAD Benzonatate (Benzonatate 100 Mg Capsule) 100 mg PO TID [facility] Stop: 09/18/24 13:59 Last Admin: 08/20/24 13:04 Dose: 100 mg Documented By: Admin: 08/20/24 07:26 Dose: 100 mg Documented By: Admin: 08/19/24 20:45 Dose: 100 mg Documented By: Admin: 08/19/24 14:10 Dose: 100 mg Documented By: DARCY Budesonide (Budesonide 0.5 Mg/2 Ml Vial (Pulmicort)) 0.5 mg NEB BIDR [facility] Stop: 09/18/24 09:54 Last Admin: 08/20/24 07:40 Dose: 0.5 mg Documented By: Admin: 08/19/24 20:53 Dose: 0.5 mg Documented By: Admin: 08/19/24 10:57 Dose: Not Given Documented By: MYRIAM Bupropion HCl (Bupropion Xl 150 Mg Tabcr) [facility] [place] Stop: 09/19/24 08:59 Last Admin: 08/20/24 07:21 Dose: 150 mg Documented By: FARZAD Carvedilol (Carvedilol 3.125 Mg Tab) 3.125 mg PO BIDM [facility] Stop: 09/18/24 16:59 Last Admin: 08/20/24 07:30 Dose: 3.125 mg Documented By: Admin: 08/19/24 17:36 Dose: Not Given Documented By: DARCY Doxycycline Hyclate (Doxycycline Hyclate 100 Mg Cap) 100 mg PO BID [facility] Stop: 08/23/24 21:01 Last Admin: 08/20/24 07:20 Dose: 100 mg Documented By: Admin: 08/19/24 20:45 Dose: 100 mg Documented By: PETER Duloxetine HCl (Duloxetine Hcl 60 Mg Cap) 120 mg PO QAM [facility] Stop: 09/19/24 08:59 Last Admin: 08/20/24 07:20 Dose: 120 mg Documented By: FARZAD Fluticasone Propionate (Fluticasone Propionate Na Spr 16 Gm Btl) 2 sprays RADHA HS [facility] Stop: 09/18/24 20:59 Last Admin: 08/19/24 20:45 Dose: Not Given Documented By: PETER Formoterol Fumarate (Formoterol 20 Mcg/2 Ml Vial) 20 mcg NEB BIDR [facility] Stop: 09/18/24 09:54 Last Admin: 08/20/24 07:40 Dose: 20 mcg Documented By: Admin: 08/19/24 20:53 Dose: 20 mcg Documented By: Admin: 08/19/24 10:56 Dose: 20 mcg Documented By: MYRIAM Gabapentin (Gabapentin 600 Mg Tab) 600 mg PO TID [facility] Stop: 09/18/24 13:59 Last Admin: 08/20/24 13:04 Dose: 600 mg Documented By: Admin: 08/20/24 07:20 Dose: 600 mg Documented By: Admin: 08/19/24 20:45 Dose: 600 mg Documented By: Admin: 08/19/24 14:10 Dose: 600 mg Documented By: DARCY Guaifenesin (Guaifenesin 600 Mg Tabcr) 1,200 mg PO Q12 [facility] Stop: 09/18/24 09:54 Last Admin: 08/20/24 07:19 Dose: 1,200 mg Documented By: Admin: 08/19/24 20:44 Dose: 1,200 mg Documented By: Admin: 08/19/24 10:47 Dose: 1,200 mg Documented By: ROWENA Heparin Sodium (Porcine) (Heparin Sod 5,000 Unit/0.5 Ml Vial) 5,000 units SQ Q12 [facility] Stop: 09/18/24 20:59 Last Admin: 08/20/24 07:26 Dose: 5,000 units Documented By: AEJordin Admin: 08/19/24 20:46 Dose: 5,000 units Documented By: PETER Methylprednisolone 40 mg/ (Syringe) 0.64 mls @ 1.5 mls/min IV Q8H [facility] Stop: 09/18/24 13:59 Last Admin: 08/20/24 13:04 Dose: 1.5 mls/min Documented By: Admin: 08/20/24 05:49 Dose: 1.5 mls/min Documented By: Admin: 08/19/24 22:12 Dose: 1.5 mls/min Documented By: Admin: 08/19/24 14:10 Dose: 1.5 mls/min Documented By: DARCY Insulin Aspart (Insulin Aspart Per Unit Charge) 0 units SC ACHS [facility] Stop: 09/18/24 11:29 Last Admin: 08/20/24 13:03 Dose: 5 units Documented By: FARZAD Co-signed By: RADHA Admin: 08/20/24 08:59 Dose: Not Given Documented By: Admin: 08/19/24 20:24 Dose: Not Given Documented By: Admin: 08/19/24 17:27 Dose: Not Given Documented By: Admin: 08/19/24 12:58 Dose: Not Given Documented By: DARCY Insulin Glargine (Lantus Per Unit Charge) 8 units SQ BID [facility] Stop: 09/18/24 20:59 Last Admin: 08/20/24 09:07 Dose: 8 units Documented By: FARZAD Co-signed By: NINA Admin: 08/19/24 20:42 Dose: 8 units Documented By: PETER Co-signed By: SIMA Loratadine (Loratadine 10 Mg Tab) 10 mg PO QAM [facility] Stop: 09/19/24 08:59 Last Admin: 08/20/24 07:18 Dose: 10 mg Documented By: AEM Meclizine HCl (Meclizine Hcl 25 Mg Tab) 25 mg PO TID PRN PRN Reason: Dizziness Or Vertigo Stop: 09/18/24 10:01 Last Admin: 08/20/24 05:48 Dose: 25 mg Documented By: HNT Naltrexone HCl (Naltrexone Hcl 50 Mg Tab) 25 mg PO BID [facility] Stop: 09/18/24 20:59 Last Admin: 08/20/24 07:17 Dose: 25 mg Documented By: Admin: 08/19/24 20:44 Dose: 25 mg Documented By: HNT Oseltamivir Phosphate (Oseltamivir Phosphate 75 Mg Cap) 75 mg PO BID [facility]; Protocol Stop: 08/24/24 20:59 Last Admin: 08/20/24 07:19 Dose: 75 mg Documented By: Admin: 08/19/24 20:45 Dose: 75 mg Documented By: HNT Pantoprazole Sodium (Pantoprazole 40 Mg Tab) 40 mg PO BID [facility] Stop: 09/18/24 20:59 Last Admin: 08/20/24 07:19 Dose: 40 mg Documented By: Admin: 08/19/24 20:45 Dose: 40 mg Documented By: EWAT Rosuvastatin Calcium (Rosuvastatin Calcium 10 Mg Tab) [facility] [place] Stop: 09/19/24 08:59 Last Admin: 08/20/24 07:19 Dose: 10 mg Documented By: AEM Sumatriptan Succinate (Sumatriptan Succinate 100 Mg Tab) 100 mg PO Q2H PRN PRN Reason: Migraine Headache Stop: 09/18/24 09:55 Last Admin: 08/20/24 05:48 Dose: 100 mg Documented By: Admin: 08/19/24 10:47 Dose: 100 mg Documented By: ROWENA Topiramate (Topiramate 50 Mg Tab) 50 mg PO HS [facility] Stop: 09/18/24 20:59 Last Admin: 08/19/24 20:45 Dose: 50 mg Documented By: HNT Discontinued Medications Albuterol (Albut/Ipratrop 3mg/0.5mg Neb 3 Ml Vial) 3 ml NEB NOW STA; Protocol Stop: 08/19/24 06:58 Last Admin: 08/19/24 07:13 Dose: 3 ml Documented By: ROWENA Benzonatate (Benzonatate 100 Mg Capsule) Confirm Administered Dose 100 mg .ROUTE .STK-MED ONE Stop: 08/19/24 10:09 Last Admin: 08/19/24 10:18 Dose: Not Given Documented By: ROWENA Carvedilol (Carvedilol 3.125 Mg Tab) 3.125 mg PO NOW ONE Stop: 08/19/24 10:31 Last Admin: 08/19/24 10:47 Dose: 3.125 mg Documented By: ROWENA Doxycycline Hyclate (Doxycycline Hyclate 100 Mg Cap) 100 mg PO NOW STA Stop: 08/19/24 10:04 Last Admin: 08/19/24 10:47 Dose: 100 mg Documented By: ROWENA Sodium Chloride (Nss) 500 mls @ 999 mls/hr IV .Q31M ONE Stop: 08/19/24 07:27 Last Infusion: 08/19/24 08:02 Dose: Infused Documented By: Admin: 08/19/24 07:28 Dose: 999 mls/hr Documented By: ROWENA Acetaminophen (Ofirmev) 1,000 mg in 100 mls @ 400 mls/hr IV NOW STA Stop: 08/19/24 09:17 Last Infusion: 08/19/24 09:48 Dose: Infused Documented By: Admin: 08/19/24 09:11 Dose: 400 mls/hr Documented By: ROWENA Sodium Chloride (Nss) 1,000 mls @ 60 mls/hr IV .[id number] [facility] Stop: 08/20/24 02:54 Last Infusion: 08/20/24 03:53 Dose: Infused Documented By: Admin: 08/19/24 10:49 Dose: 60 mls/hr Documented By: ROWENA Ketorolac Tromethamine (Ketorolac Tromethamine 15 Mg/Ml Vial) 10 mg IV NOW ONE Stop: 08/19/24 09:04 Last Admin: 08/19/24 09:10 Dose: 10 mg Documented By: ROWENA Loratadine (Loratadine 10 Mg Tab) Confirm Administered Dose 10 mg .ROUTE .STK- MED ONE Stop: 08/19/24 10:11 Last Admin: 08/19/24 10:18 Dose: Not Given Documented By: ROWENA Menthol (Cough Drop (Sugar Free) Vickie 24 Vickie/1 Box) 1 vickie BUCCAL NOW STA Stop: 08/19/24 16:47 Last Admin: 08/19/24 17:35 Dose: 1 vickie Documented By: DARCY Menthol (Cough Drop (Sugar Free) Vickie 24 Vickie/1 Box) Confirm Administered Dose 24 vickie BUCCAL .STK-MED ONE Stop: 08/19/24 16:48 Last Admin: 08/19/24 17:36 Dose: Not Given Documented By: DARCY Methylprednisolone (Methylprednisolone 125 Mg/2 Ml Vial) 125 mg IV NOW STA Stop: 08/19/24 06:58 Last Admin: 08/19/24 07:13 Dose: 125 mg Documented By: ROWENA Methylprednisolone (Methylprednisolone 125 Mg/2 Ml Vial) Confirm Administered Dose 125 mg .ROUTE .STK-MED ONE Stop: 08/19/24 10:11 Last Admin: 08/19/24 10:18 Dose: Not Given Documented By: ROWENA Miscellaneous (Patient's Height &/Or Weight Needed) 1 each N/A Q2H STA Stop: 08/19/24 10:24 Last Admin: 08/19/24 10:46 Dose: 1 each Documented By: ROWENA Ondansetron HCl (Ondansetron Inj 2 Mg/Ml 2 Ml Vial) 4 mg IV NOW STA Stop: 08/19/24 06:58 Last Admin: 08/19/24 07:13 Dose: 4 mg Documented By: ROWENA Oseltamivir Phosphate (Oseltamivir Phosphate 75 Mg Cap) 75 mg PO NOW STA; Protocol Stop: 08/19/24 06:58 Last Admin: 08/19/24 08:02 Dose: 75 mg Documented By: ROWENA Discharge Plan Visit Data Chief Complaint: Flu Like Symptoms Stated Complaint: N/V,ABD PAIN,HEADACHE,SOB,BODY ACHE ED Provider: Dustin Sanders Discharge Problem: Influenza, Nausea & vomiting, Hypoxia Patient Disposition: Admitted As Inpatient Discharge Instructions Interventions: ED Discharge Assessment Last Done: 08/19/24 11:10
--- NOTE | 2024-08-19 08:24 | XRay Report ---
XR chest 1V portable HISTORY: 48 years-old Female dyspnea acute nausea with vomiting COMPARISON: 01/02/2024 TECHNIQUE: AP view of the chest FINDINGS: Cardiomediastinal and hilar silhouettes are within normal limits. No pneumothorax, pleural effusion o r airspace consolidation. Bones appear grossly intact. IMPRESSION: No acute process. ACT 112: Negative or not required by law. The above report was generated using voice recognition software. It may contain grammatical, syntax o r spelling errors. Electronically signed by: Ac Delacruz M.D. 08/19/2024 8:23 AM
[2024-08-19] MEDS: KETOROLAC TROMETHAMINE 15 MG/ML VIAL IV ONE (09:10)
[2024-08-19] MEDS: ACETAMINOPHEN 1,000 MG/100 ML VIAL IV STA (09:11)
[2024-08-19] MEDS ORDERED: LEVALBUTEROL 1.25 MG/3 ML NEB NEB PRN (09:52)
[2024-08-19] MEDS ORDERED: ALUMINUM/MAGNESIUM SUSP 30 ML UDC PO PRN (09:58)
[2024-08-19] MEDS ORDERED: DEXTROSE 50% 50 ML SYRINGE IV PRN (09:58)
[2024-08-19] MEDS ORDERED: CARBOHYDRATES FOR HYPOGLYCEMIA PO PRN (09:58)
[2024-08-19] MEDS ORDERED: GLUCAGON FOR INJ 1 MG VIAL SQ PRN (09:58)
[2024-08-19] MEDS ORDERED: MAGNESIUM HYDROXIDE SUSP 30 ML UDC PO PRN (09:58)
[2024-08-19] MEDS ORDERED: GLUCOSE 10 TAB/TUBE PO PRN (09:58)
[2024-08-19] MEDS ORDERED: GLUCOSE 40% GEL 15 GM TUBE PO PRN (09:58)
--- NOTE | 2024-08-19 10:00 | History & Physical Report ---
Date of Service August 19, 2024 Assessment & Plan (1) Hypoxia: Plan Influenza A URTI Sepsis POA: Secondary to above, respiratory rate and pulse rate elevated at presentation. Status post IV fluid in the ED. Hypoxia Patient presents with feeling sick/hard to breathe/cough with clear sputum/myalgia for 1 day. Worsening gradually. 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 Continue with Tessalon Perles, Mucinex, scheduled and as needed nebs, flutter valve. Gentle IV fluid until diet improvement, continue to provide symptomatic management. Continue Tamiflu 08/19 Acute exacerbation of COPD: Likely secondary to viral URTI. Patient noted to be rhonchorous at presentation, occasional bilateral rhonchi noted during my exam at bedside. Patient with history of COPD. Doxycycline for 5 days, Solu- Medroltaper with improvement in clinical symptoms. DuoNebs, budesonide, Perforomist. Wean down oxygen as tolerated. Migraine: Patient takes Topamax 75 Mg nightly and as needed Imitrex for her migraine headache. Continue. Obesity: Patient states she takes Wellbutrin 150 Mg in the morning and naltrexone 25 Mg twice a day for weight loss. Outside pharamcy prescription shows wellbutrin 300 mg daily and naltrexone 25 mg bid. Will continue what patient states for now, please reconfirm again carol w/ patient. Prediabetes: A1c of 6.2 on 04/10/2022. Repeat A1c in AM. Patient on metformin at home. Will do sliding scale insulin while in hospital. Other chronic medical conditions: HTN, HLD, lumbar radiculopathy------ continue with/resume home meds as when able. Continue Coreg, statin, duloxetine, gabapentin. DVT prophylaxis: Heparin subcu Full code History of Present Illness Chief Complaint: flulike illness Primary Care Provider: Janice Gutierrez MD 48-year-old lady with PMH of HLD, prediabetes, HTN, fatty liver, lumbar degenerative disc disease, migraine, lumbar radiculopathy, tobacco use disorder, food insecurity, obesity presented to the ED with complaint of feeling sick for 1 day. She reports developing nausea/sweating/body ache/hard to breathe/cough with clear sputum since yesterday. It got worse overnight and hence he decided to come today. She also reports sore throat and poor appetite. She reports dtr having influenza A about a week ago. After presenting to the ED and after receiving breathing treatment, solu-medrol and IV fluid, she reports improvement in her nausea and vomiting and slight improvement in her breathing. She was noted to be saturating at 88% on room air in ED, currently needing 2 L nasal cannula oxygen. She denies diarrhea/constipation/pain or burning while passing urine. She reports smoking half a pack a day for "long time", reports smoking marijuana every other day, denies other recreational drug use or alcohol use. Medications reviewed with the patient in detail at bedside. Full code Plan of care discussed with the patient in detail, she voiced understanding and was agreeable to plan of care. Allergies Allergy/AdvReac Type Severity Reaction Status Date / Time vancomycin Allergy Intermediate Hives Verified 08/19/24 09:11 Home Medications Medication Instructions Recorded Confirmed Type baclofen 10 mg tablet 10 mg PO BID PRN Pain 01/02/24 08/19/24 History gabapentin 600 mg tablet 600 mg PO TID 01/02/24 08/19/24 History meclizine 25 mg chewable tablet 25 mg PO TID PRN Dizziness Or 01/02/24 08/19/24 History Vertigo omeprazole 20 mg capsule,delayed 20 mg PO AMHS 01/02/24 08/19/24 History release carvedilol 3.125 mg tablet 3.125 mg PO AMPM 02/18/24 08/19/24 History rosuvastatin 10 mg tablet 10 mg PO QAM 02/18/24 08/19/24 History topiramate 25 mg tablet 50 mg PO HS 02/18/24 08/19/24 History duloxetine 60 mg capsule,delayed 120 mg PO QAM 08/19/24 08/19/24 History release fluticasone 250 mcg-salmeterol 50 1 inh inhalation BID 08/19/24 08/19/24 History mcg/dose blistr powdr for inhalation fluticasone propionate 50 2 spray intranasal HS 08/19/24 08/19/24 History mcg/actuation nasal spray,suspension loratadine 10 mg tablet 10 mg PO QAM 08/19/24 08/19/24 History metformin 500 mg tablet,extended 500 mg PO QAM 08/19/24 08/19/24 History release 24 hr ondansetron HCl 8 mg tablet 8 mg PO Q8H PRN Nausea And Vomiting 08/19/24 08/19/24 History sumatriptan succinate 100 mg tablet 100 mg PO UD PRN Migraine Headache 08/19/24 08/19/24 History Past Med/Surg History Problem List (Updated 08/19/24 @ 08:09 by Dustin Sanders MD) Hypoxia (Acute) Nausea & vomiting (Acute) Influenza (Acute) Nicotine dependence Prediabetes Cellulitis of breast (Acute) Leukocytosis (Acute) Abscess of right breast (Acute) Hypertension Shortness of breath Chest pain Leukocytosis (Acute) Elevated lactic acid level (Acute) Hypertensive urgency (Acute) Nausea & vomiting (Acute) Swelling of lower extremity (Acute) Acute intractable headache (Acute) Lab test negative for COVID-19 virus (Acute) Medical History No significant medical problems Social History Smoking Status: Current every day smoker Tobacco Type: Cigarettes Second Hand Exposure: No; Do You Dip or Chew Tobacco: No; Hx Alcohol Use: No Hx Substance Use: Yes Last Used Substance: Hours (ago) Preferred Language: Sinhala Communication Ability: Effective 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 Physical Exam Physical Exam: GENERAL: Alert and oriented x3. NAD, on 2L NC O2, appears ill/weak. HEENT: No pallor, no icterus. Pupils equal, round and reactive to light. Oral mucosa dry. NECK: No JVD, no neck masses. HEART: S1 and S2 heard. Regular rate and rhythm. HR in 90s. No murmur, no gallop. RESPIRATORY SYSTEM: Normal AP diameter. No accessory muscle use. b/l occ rhonchi, no crackles. ABDOMEN: Soft, bowel sounds present, nontender, no distention. CENTRAL NERVOUS SYSTEM: No facial droop. Speech is clear. Obeys simple commands. Moves extremities. EXTREMITIES: No edema, no erythema seen. Results & Data Results & Data Vital Signs (Past 12 Hours) Vital Signs Temp Pulse Pulse Resp BP BP Pulse Ox 08/19/24 08:00 96 H 19 129/102 H 95 08/19/24 07:35 37.0 C 102 H 18 138/73 94 08/19/24 07:34 19 95 08/19/24 07:33 95 08/19/24 06:56 92 08/19/24 06:56 88 L 08/19/24 06:21 108 H 20 148/84 H 91 08/19/24 05:10 37.5 C 112 H 22 118/43 L 98 O2 Del Method O2 Flow Rate 08/19/24 08:00 Nasal Cannula 2 08/19/24 07:35 Nasal Cannula 2 08/19/24 07:34 Nasal Cannula 2 08/19/24 07:33 Nasal Cannula 2 08/19/24 06:56 Nasal Cannula 2 08/19/24 06:56 Room Air 08/19/24 06:21 Room Air 08/19/24 05:10 Room Air
[2024-08-19] MEDS: BENZONATATE 100 MG CAPSULE ONE (10:18)
[2024-08-19] MEDS: methylPREDNISolone 125 MG/2 ML VIAL ONE (10:18)
[2024-08-19] MEDS: LORATADINE 10 MG TAB ONE (10:18)
[2024-08-19] MEDS: Patient's HEIGHT &/or WEIGHT Needed STA (10:46)
[2024-08-19] MEDS: DOXYCYCLINE HYCLATE 100 MG CAP PO STA (10:47)
[2024-08-19] MEDS: carvediloL 3.125 MG TAB PO ONE (10:47)
[2024-08-19] MEDS: guaiFENesin 600 MG TABCR PO SCH (10:47)
[2024-08-19] MEDS: SUMAtriptan succinate 100 MG TAB PO PRN (10:47)
[2024-08-19] MEDS: SODIUM CHLORIDE 0.9% 1,000 ML IV SCH (10:49)
[2024-08-19] MEDS: FORMOTEROL 20 MCG/2 ML VIAL NEB SCH (10:56)
[2024-08-19] MEDS: BUDESONIDE 0.5 MG/2 ML VIAL (PULMICORT) NEB SCH (10:57)
[2024-08-19] MEDS: ALBUT/IPRATROP 3MG/0.5MG NEB 3 ML VIAL NEB SCH (12:54)
[2024-08-19] MEDS: INSULIN ASPART PER UNIT CHARGE SC SCH (12:58)
[2024-08-19] MEDS ORDERED: methylPREDNISolone 125 MG/2 ML VIAL IV SCH (14:00)
[2024-08-19] MEDS: ACETAMINOPHEN 325 MG TAB PO PRN (14:09)
[2024-08-19] MEDS: GABAPENTIN 600 MG TAB PO SCH (14:10)
[2024-08-19] MEDS: BENZONATATE 100 MG CAPSULE PO SCH (14:10)
[2024-08-19] MEDS: methylPREDNISolone 40 MG in SYRINGE 0 ML IV SCH (14:10)
[2024-08-19] MEDS: COUGH DROP (SUGAR FREE) LOZ 24 LOZ/1 BOX BUCCAL STA (17:35)
[2024-08-19] MEDS: carvediloL 3.125 MG TAB PO SCH (17:36)
[2024-08-19] MEDS: COUGH DROP (SUGAR FREE) LOZ 24 LOZ/1 BOX BUCCAL ONE (17:36)
[2024-08-19] MEDS: LANTUS PER UNIT CHARGE SQ SCH (20:42)
[2024-08-19] MEDS: NALTREXONE HCL 50 MG TAB PO SCH (20:44)
[2024-08-19] MEDS: DOXYCYCLINE HYCLATE 100 MG CAP PO SCH (20:45)
[2024-08-19] MEDS: OSELTAMIVIR PHOSPHATE 75 MG CAP PO SCH (20:45)
[2024-08-19] MEDS: PANTOprazole 40 MG TAB PO SCH (20:45)
[2024-08-19] MEDS: FLUTICASONE PROPIONATE NA SPR 16 GM BTL NAE SCH (20:45)
[2024-08-19] MEDS: TOPIRAMATE 50 MG TAB PO SCH (20:45)
[2024-08-19] MEDS: HEPARIN SOD 5,000 UNIT/0.5 ML VIAL SQ SCH (20:46)
[2024-08-20 05:38] LABS: Hematocrit (blood only) 42.8 % (37.0-47.0); Hemoglobin 14.5 g/dl (12.0-16.0); Mean Corpuscular Hgb Conc 33.9 g/dL (32.0-36.0); Mean Corpuscular Volume 88.4 fL (80.0-100.0); Mean Platelet Volume 10.6 fL (9.4-12.4); Platelet Count 228 K/uL (130-400); RDW Coefficient of Variation 14.1 % (11.5-14.5); RDW Standard Deviation 45.9 fL (36.4-46.3); Red Blood Count 4.84 M/uL (4.20-5.40); White Blood Count 11.58 K/ul (4.8-10.8)
[2024-08-20] MEDS: MECLIZINE HCL 25 MG TAB PO PRN (05:48)
[2024-08-20 05:55] LABS: BUN Creatinine Ratio 13.8 (10-20); Calcium 8.9 mg/dl (8.6-10.3); Creatinine Clr Calc Pharmacy 134.1 ml/min; Magnesium 1.9 mg/dl (1.7-2.4); Phosphorus 2.3 mg/dl (2.5-4.9); Potassium 3.8 mmol/L (3.5-5.1)
[2024-08-20] MEDS: LORATADINE 10 MG TAB PO SCH (07:18)
[2024-08-20] MEDS: ROSUVASTATIN CALCIUM 10 MG TAB PO SCH (07:19)
[2024-08-20] MEDS: DULoxetine HCL 60 MG CAP PO SCH (07:20)
[2024-08-20] MEDS: buPROPion XL 150 MG TABCR PO SCH (07:21)
[2024-08-20 08:53] LABS: Estimated Average Glucose 128 mg/dl; Hemoglobin A1C 6.1 % (4.5-5.6)
[2024-08-20] MEDS: BACLOFEN 10 MG TAB PO PRN (13:07)
--- NOTE | 2024-08-20 14:42 | Hospitalist Progress Note ---
Date of Service August 20, 2024 Assessment & Plan (1) Hypoxia: Plan Per admitting service notes with addendum: Influenza A URTI Sepsis POA: Secondary to above, respiratory rate and pulse rate elevated at presentation. Status post IV fluid in the ED. Hypoxia Patient presents with feeling sick/hard to breathe/cough with clear sputum/myalgia for 1 day. Worsening gradually. 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 Continue with Tessalon Perles, Mucinex, scheduled and as needed nebs, flutter valve. Gentle IV fluid until diet improvement, continue to provide symptomatic management. Continue Tamiflu 08/19 08/20 Clinically improving Currently on room air Continue Tamiflu, doxycycline, nebs, Solu-Medrol Acute exacerbation of COPD: Likely secondary to viral URTI. Patient noted to be rhonchorous at presentation, occasional bilateral rhonchi noted during my exam at bedside. Patient with history of COPD. Doxycycline for 5 days, Solu- Medroltaper with improvement in clinical symptoms. DuoNebs, budesonide, Perforomist. Wean down oxygen as tolerated. Migraine: Patient takes Topamax 75 Mg nightly and as needed Imitrex for her migraine headache. Continue. Obesity: Patient states she takes Wellbutrin 150 Mg in the morning and naltrexone 25 Mg twice a day for weight loss. Outside pharamcy prescription shows wellbutrin 300 mg daily and naltrexone 25 mg bid. Will continue what patient states for now, please reconfirm again carol w/ patient. Prediabetes: A1c of 6.2 on 04/10/2022. Repeat A1c in AM. Patient on metformin at home. Will do sliding scale insulin while in hospital. Other chronic medical conditions: HTN, HLD, lumbar radiculopathy------ continue with/resume home meds as when able. Continue Coreg, statin, duloxetine, gabapentin. DVT prophylaxis: Heparin subcu Full code Admission and Anticipated Discharge Date Admission Date: August 19, 2024 Subjective Follow-up for acute respiratory failure, influenza infection, etc. Resting in bed, sitting up, on room air States she feels improved today compared to yesterday Breathing and cough is better Still having dry cough No chest pain, palpitations, dizziness No other new symptoms Review of Systems Review of Systems: all noted and negative except for above Physical Exam Physical Exam: General- oriented x 3, not in distress, speaks in sentences with no effort or accessory muscle use Eyes- anicteric Neck- no JVD Lungs-Mild rhonchi bilaterally, more at the bases, no wheezing Good air entry bilaterally Heart- normal rate, regular rhythm; no murmurs Abdomen- normal bowel sounds, nondistended, soft, nontender Extremities- no pretibial edema, no calf tenderness Neuro- alert, oriented x 3; no gross focal neurologic deficits Skin- warm & dry Results & Data Results & Data Vital Signs (Past 12 Hours) Vital Signs Temp Pulse Pulse Resp BP Pulse Ox O2 Del Method 08/20/24 13:03 71 08/20/24 12:39 76 19 94 Room Air 08/20/24 11:22 36.9 C 62 18 113/72 94 Room Air 08/20/24 07:41 75 17 92 Room Air 08/20/24 07:30 Room Air 08/20/24 07:29 36.7 C 69 18 125/75 92 Room Air 08/20/24 05:19 93 Room Air 08/20/24 03:36 36.6 C 78 16 117/65 95 Nasal Cannula O2 Flow Rate 08/20/24 13:03 08/20/24 12:39 08/20/24 11:22 08/20/24 07:41 08/20/24 07:30 08/20/24 07:29 08/20/24 05:19 08/20/24 03:36 2 all noted and reviewed including below
[2024-08-20] MEDS: ONDANSETRON INJ 2 MG/ML 2 ML VIAL IV PRN (23:23)
[2024-08-21 03:16] VITALS: TEMP 98.2
[2024-08-21 11:04] VITALS: BP 115/74; O2SAT 95
--- NOTE | 2024-08-21 11:15 | Discharge Summary ---
Discharge Summary Date of Service August 21, 2024 Principal Dx & Hospital Course #1 = Principal Diagnosis (1) Hypoxia: Plan Per admitting service notes with addendum: Influenza A URTI Sepsis POA: Secondary to above, respiratory rate and pulse rate elevated at presentation. Status post IV fluid in the ED. Hypoxia Patient presents with feeling sick/hard to breathe/cough with clear sputum/myalgia for 1 day. Worsening gradually. 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 Continue with Tessalon Perles, Mucinex, scheduled and as needed nebs, flutter valve. Gentle IV fluid until diet improvement, continue to provide symptomatic management. Continue Tamiflu 08/19 08/20 Clinically improving Currently on room air Continue Tamiflu, doxycycline, nebs, Solu-Medrol 08/21 clinically improved on room air: discharge plan: Tamiflu 3 more days Doxycycline 5 more days Prednisone taper x 10 days Nebs TID and PRN Tessalon Perles PRN Mucinex Acute exacerbation of COPD: Likely secondary to viral URTI. Patient noted to be rhonchorous at presentation, occasional bilateral rhonchi noted during my exam at bedside. Patient with history of COPD. Doxycycline for 5 days, Solu- Medroltaper with improvement in clinical symptoms. DuoNebs, budesonide, Perforomist. Wean down oxygen as tolerated. - management per above Migraine: Patient takes Topamax 75 Mg nightly and as needed Imitrex for her migraine headache. Continue. Obesity: Patient states she takes Wellbutrin 150 Mg in the morning and naltrexone 25 Mg twice a day for weight loss. Outside pharamcy prescription shows wellbutrin 300 mg daily and naltrexone 25 mg bid. Will continue what patient states for now, please reconfirm again carol w/ patient. Prediabetes: A1c of 6.2 on 04/10/2022. Repeat A1c in AM. Patient on metformin at home. Will do sliding scale insulin while in hospital. a1c 6.1 Further work up, management, and ff up as outpatient Other chronic medical conditions: HTN, HLD, lumbar radiculopathy------ continue with/resume home meds. Continue Coreg, statin, duloxetine, gabapentin. DVT prophylaxis: Heparin subcu Full code Disposition d/c home ff up with PCP in 1 week Notes For Next Care Provider Medication Changes From Visit Tamiflu 3 more days Doxycycline 5 more days Prednisone taper x 10 days Nebs TID and PRN Tessalon Perles PRN Mucinex Admission HPI Per Admitting Provider 48-year-old lady with PMH of HLD, prediabetes, HTN, fatty liver, lumbar degenerative disc disease, migraine, lumbar radiculopathy, tobacco use disorder, food insecurity, obesity presented to the ED with complaint of feeling sick for 1 day. She reports developing nausea/sweating/body ache/hard to breathe/cough with clear sputum since yesterday. It got worse overnight and hence he decided to come today. She also reports sore throat and poor appetite. She reports dtr having influenza A about a week ago. After presenting to the ED and after receiving breathing treatment, solu-medrol and IV fluid, she reports improvement in her nausea and vomiting and slight improvement in her breathing. She was noted to be saturating at 88% on room air in ED, currently needing 2 L nasal cannula oxygen. She denies diarrhea/constipation/pain or burning while passing urine. She reports smoking half a pack a day for "long time", reports smoking marijuana every other day, denies other recreational drug use or alcohol use. Medications reviewed with the patient in detail at bedside. Full code Plan of care discussed with the patient in detail, she voiced understanding and was agreeable to plan of care. Admission Exam Per Admitting Provider GENERAL: Alert and oriented x3. NAD, on 2L NC O2, appears ill/weak. HEENT: No pallor, no icterus. Pupils equal, round and reactive to light. Oral mucosa dry. NECK: No JVD, no neck masses. HEART: S1 and S2 heard. Regular rate and rhythm. HR in 90s. No murmur, no gallop. RESPIRATORY SYSTEM: Normal AP diameter. No accessory muscle use. b/l occ rhonchi, no crackles. ABDOMEN: Soft, bowel sounds present, nontender, no distention. CENTRAL NERVOUS SYSTEM: No facial droop. Speech is clear. Obeys simple commands. Moves extremities. EXTREMITIES: No edema, no erythema seen. Discharge Exam General- oriented x 3, not in distress, speaks in sentences with no effort or accessory muscle use Eyes- anicteric Neck- no JVD Lungs- mild rhonchi at the bases no wheezing Heart- normal rate, regular rhythm; no murmurs Abdomen- normal bowel sounds, nondistended, soft, nontender Extremities- no pretibial edema, no calf tenderness Neuro- alert, oriented x 3; no gross focal neurologic deficits Skin- warm & dry Updated Medication List Medication Instructions Recorded Confirmed Type baclofen 10 mg tablet 10 mg PO BID PRN Pain 01/02/24 08/19/24 History gabapentin 600 mg tablet 600 mg PO TID 01/02/24 08/19/24 History meclizine 25 mg chewable tablet 25 mg PO TID PRN Dizziness Or 01/02/24 08/19/24 History Vertigo omeprazole 20 mg capsule,delayed 20 mg PO AMHS 01/02/24 08/19/24 History release carvedilol 3.125 mg tablet 3.125 mg PO AMPM 02/18/24 08/19/24 History rosuvastatin 10 mg tablet 10 mg PO QAM 02/18/24 08/19/24 History topiramate 25 mg tablet 50 mg PO HS 02/18/24 08/19/24 History duloxetine 60 mg capsule,delayed 120 mg PO QAM 08/19/24 08/19/24 History release fluticasone 250 mcg-salmeterol 50 1 inh inhalation BID 08/19/24 08/19/24 History mcg/dose blistr powdr for inhalation fluticasone propionate 50 2 spray intranasal HS 08/19/24 08/19/24 History mcg/actuation nasal spray,suspension loratadine 10 mg tablet 10 mg PO QAM 08/19/24 08/19/24 History metformin 500 mg tablet,extended 500 mg PO QAM 08/19/24 08/19/24 History release 24 hr ondansetron HCl 8 mg tablet 8 mg PO Q8H PRN Nausea And Vomiting 08/19/24 08/19/24 History sumatriptan succinate 100 mg tablet 100 mg PO UD PRN Migraine Headache 08/19/24 08/19/24 History benzonatate 100 mg capsule 100 mg PO TID #20 caps 08/21/24 Rx doxycycline hyclate 100 mg capsule 100 mg PO BID 5 days #10 caps 08/21/24 Rx guaifenesin 600 mg tablet, 1,200 mg (2 x 600 mg) PO Q12 5 08/21/24 Rx extended release 12 hr (Mucinex) days #20 tabs ipratropium 0.5 mg-albuterol 3 mg 3 ml NEB TID 5 days #90 mL 08/21/24 Rx (2.5 mg base)/3 mL nebulization soln oseltamivir 75 mg capsule (Tamiflu) 75 mg PO BID 3 days #6 caps 08/21/24 Rx prednisone 10 mg tablet 10 mg PO UD #20 tabs 08/21/24 Rx sodium di- and 1 tab PO QID 3 days #12 tabs 08/21/24 Rx monophosphate-potassium phos monobasic 250 mg tablet (Phospha Neutral) Hospital Stay Data Consultations 08/19/24 10:04 ED Decision to Admit Stat Diagnostic Imagining Performed XR chest 1V portable HISTORY: 48 years-old Female dyspnea acute nausea with vomiting COMPARISON: 01/02/2024 TECHNIQUE: AP view of the chest FINDINGS: Cardiomediastinal and hilar silhouettes are within normal limits. No pneumothorax, pleural effusion or airspace consolidation. Bones appear grossly intact. IMPRESSION: No acute process. ACT 112: Negative or not required by law. The above report was generated using voice recognition software. It may contain grammatical, syntax or spelling errors. Electronically signed by: Ac Delacruz M.D. 08/19/2024 8:23 AM Pending Results Patient Have Any Pending Studies at Discharge: No Discharge Instructions Given to Patient (Per Discharging Provider) PLEASE REFER TO YOUR NEW MEDICATION LIST AND FOLLOW INSTRUCTIONS CAREFULLY. YOUR NEW MEDICATIONS INCLUDE: TAMIFLU- antiviral medication DOXYCYCLINE- antibiotic XOPENEX/ATROVENT- nebulizer treatment MUCINEX- for cough, expectorant TESSALON PERLES- as needed for coughing spells PREDNISONE TAPER- steroid, as follows 40mg po daily x 2 days, then 30mg po daily x 2 days, then 20mg po daily x 2 days, then 10mg po daily x 2 days, then STOP PLEASE CALL YOUR PRIMARY CARE PHYSICIAN OR RETURN TO THE ER IF WITH WORSENING OF SYMPTOMS, INCLUDING cough, shortness of breath, fever/chills, etc FOLLOW UP WITH PRIMARY CARE PHYSICIAN OUTLINED ABOVE. Total Time Total Time Spent Total Time Spent (In Minutes): 35 minutes
[2024-08-21] MEDS: POT PHOSPHATE MONOBASIC W/ SOD TAB PO SCH (12:21)
[2024-08-21 12:34] VITALS: PULSE 60; RESP 16
== END 2024-08-21 13:17 | disposition home or self-care (01) | DRG 872 ==
LOC: ED 05:04 → SUATTDRO 09:58 → 2W 09:58 → 2N 08-20 20:17